=== PATIENT | female | born 1995 | race Caucasian/White ===

== ENCOUNTER 2021-06-10 06:23 | Emergency (ER) | payer OTHER, SELFPAY ==
[2021-06-10] VITALS (31 sets, daily range): BP systolic 82–121; BP diastolic 35–81; PULSE 58–83; RESP 10–20; TEMP 36.7; O2SAT 94–100
--- NOTE | ~2021-06-10 | XR_ITS ---
EXAMINATION: XR chest 2V DATE: 06/10/2021 07:42 INDICATION: Left chest pain. TECHNIQUE: Frontal and lateral views of the chest were obtained. COMPARISON: None. FINDINGS: The chest demonstrates clear lungs without pneumonia, pleural effusion, or pneumothorax. Th e heart size is normal. IMPRESSION: 1. No acute cardiopulmonary disease. Reviewed, dictated and finalized at location A. IBILITY CLERK
--- NOTE | ~2021-06-10 | CT_ITS ---
EXAMINATION: CTA chest PE protocol DATE: 06/10/2021 09:47 INDICATION: Midsternal chest pain. TECHNIQUE: Computed tomography angiography (CTA) of the chest was performed with 100 mL Omnipaque-350 intravenous contrast timed to evaluate the pulmonary arteries. Coronal maximum intensity projection 3D-reconstructions were created by the technologist. Automated exposure control and iterative reconst ruction technique were employed. The dose-length product was 741.02 mGy-cm. COMPARISON: None. FINDINGS: There is minimal atelectasis in the lower lobes. No pleural effusion. The heart size is nor mal. No pericardial effusion. There is no pulmonary embolus. There are changes of gastric sleeve proc edure. The bones are unremarkable. IMPRESSION: 1. No pulmonary embolus. Reviewed, dictated and finalized at location A. OMER EQUIPMENT ENGINEER IMPRESSION: 1. No pulmonary embolus.
--- NOTE | 2021-06-10 06:30 | ECG_ITS ---
Measurements Intervals [place] Rate: 65 P: 9 CA: 152 QRS: 17 QRSD: 90 T: 14 QT: 393 QTc: 411 Interpretive Statements SINUS RHYTHM NO PREVIOUS ECG AVAILABLE FOR COMPARISON Electronically Signed On 06-10-2021 12:24:55 MID LEVEL JAVA DEVELOPER by Jaxson Peralta M.D.
--- NOTE | 2021-06-10 07:10 | ED.CHESTPAIN ---
HPI - Chest Pain General Chief Complaint: Chest Pain Stated Complaint: Chest pain Time Seen by Provider: 06/10/21 07:02 Source: patient Mode of arrival: ambulatory Limitations: no limitations History of Present Illness HPI narrative: The patient is a 26-year-old female with a history of type 2 diabetes, gastric sleeve, presenting for evaluation of chest pain. Patient states that the chest pain occurred early this morning, described as a burning, sharp sensation in the middle of her chest. Patient states she is not sure if this awaken her from sleep or if her cat woke her up. She reports a burning type sensation in the middle of her chest. She denies any upper abdominal pain. No radiation to the back, shoulder, jaw, neck. No associated shortness of breath, palpitations, diaphoresis. No nausea or vomiting. Patient without history of this in the past. Denies fever or chills. Patient does not smoke. No recent surgery or immobility. No history of coagulopathy or blood clot. No recent car alarm air travel. No leg swelling or calf pain. She is on Depo-Provera shot for control. Patient denies history of coronary artery disease. Patient states since her gastric sleeve surgery all of her diabetes medications have been discontinued. Patient states that the pain is currently improved and very mild. She denies any right upper quadrant pain, epigastric pain or other abdominal pain. Denies flank pain. She does not smoke. Related Data Home Medications Medication Instructions Recorded Confirmed lamotrigine [Lamictal] 50 mg PO DAILY 06/10/21 06/10/21 trazodone 50 mg PO HS PRN 06/10/21 Allergies Allergy/AdvReac Type Severity Reaction Status Date / Time No Known Allergies Allergy Verified 06/10/21 06:30 Review of Systems Review of Systems: CONSTITUTIONAL: Denies fever, chills, or sweats. EYES: Denies visual changes, redness, or discharge. ENT: Denies rhinorrhea, congestion, sore throat, or otalgia. CARDIOVASCULAR: Reports chest pain without palpitations, denies lower extremity edema RESPIRATORY: Denies cough or dyspnea. GASTROINTESTINAL: Denies abdominal pain, nausea, vomiting, or diarrhea. GENITOURINARY: Denies dysuria or hematuria. SKIN: Denies rash or itching. MUSCULOSKELETAL: Denies back pain, joint pain, or myalgia. NEUROLOGIC: Denies headache, numbness, or weakness. REPLACED BY [facility] Social History Social History (Updated 06/10/21 @ 07:36 by Georgina Marvin MD) Smoking status: Never smoker Alcohol intake: never Substance use: never Gender identity (if verbalized by the patient): Female Exam Narrative: GENERAL: Awake, alert, conversant HEAD: Normocephalic, atraumatic. EYES: PERRLA and EOMI. ENT: Nares clear, no rhinorrhea or epistaxis. Mucous membranes moist. NECK: Supple. CHEST: No respiratory distress, breathing even and non labored, no reproducible chest wall pain, no crepitus HEART: Regular rate, sinus rhythm ABDOMEN:Non distended, non tender EXTREMITIES: Normal range of motion. No edema. No calf tenderness or erythema. SKIN: Warm, dry, no rash. NEURO:No focal deficits. Alert and oriented x3 Course Vital Signs Vital signs: Vital Signs Temperature 36.7 C 06/10/21 06:32 Pulse Rate 73 06/10/21 06:32 Respiratory Rate 18 06/10/21 06:32 Blood Pressure 121/81 06/10/21 06:32 Pulse Oximetry 98 06/10/21 06:32 Temperature 36.7 C 06/10/21 06:32 Pulse Rate 70 06/10/21 06:38 Respiratory Rate 18 06/10/21 06:32 Blood Pressure 121/81 06/10/21 06:32 Pulse Oximetry 98 06/10/21 06:32 MDM - Chest Pain MDM Narrative Medical decision making narrative: Patient's EKG and labs are without significant high risk changes. Cardiac risk factors reviewed. Patient is felt low risk for ACS and reasonable for further risk stratification testing as an outpatient. Pain was not sudden or maximal or onset without tearing or ripping quality. No other signs or symptoms to suggest aortic dissecti
[2021-06-10 08:12] LABS: Alanine Aminotransferase 29 U/L (4-35); Albumin Level 4.6 g/dL (3.5-5.1); Alkaline Phosphatase 87 U/L (38-126); Anion Gap 8 mmol/L (8-16); Aspartate Amino Transferase 26 U/L (14-36); Bilirubin,Total 0.5 mg/dL (0.2-1.3); Blood Urea Nitrogen 16 mg/dL (7-17); Calcium 9.3 mg/dL (8.4-10.2); Carbon Dioxide 27 mmol/L (22-30); Chloride 104 mmol/L (98-107); Estimated CRCL calculation 115 ml/min; Estimated Glomerular Filt Rate > 60; Glucose 104 mg/dL (65-110); Lipase 168 U/L (23-300); Potassium 3.8 mmol/L (3.4-5.0); Sodium 139 mmol/L (137-145)
[2021-06-10 08:14] LABS: Partial Thromboplastin Time 28.1 SECONDS (22.3-36.8)
[2021-06-10 08:17] LABS: D Dimer 0.83 ug/mL (<0.48)
[2021-06-10 08:18] LABS: Basophils Absolute Auto 0.1 K/mm3 (0.0-0.1); Basophils Percent Auto 0.6 % (0.2-1.2); Eosinophils Absolute Auto 0.1 K/mm3 (0-0.3); Eosinophils Percent Auto 1.1 % (0-4.4); Hematocrit 40.9 % (37.0-47.0); Hemoglobin 13.2 g/dL (12.0-15.0); Immature Granulocyte Absolute 0.03 K/mm3 (0.00-0.031); Immature Granulocyte Percent A 0.3 % (0-0.5); Lymphocytes Absolute Auto 3.06 K/mm3 (0.9-3.2); Lymphocytes Percent Auto 34.7 % (18.3-44.2); Mean Corpuscular HGB Conc 32.3 g/dl (32-36); Mean Corpuscular Hemoglobin 28.8 pg (26-34); Mean Corpuscular Volume 89.3 fl (80-100); Mean Platelet Volume 10.5 fl (7.4-10.4); Monocytes Absolute Auto 0.7 K/mm3 (0.1-0.6); Monocytes Percent Auto 7.6 % (2.6-8.5); Neutrophils Absolute Auto 4.9 K/mm3 (1.3-6.7); Neutrophils Percent Auto 55.7 % (45.5-73.1); Platelet Count Result 288 k/mm3 (150-375); Red Blood Count 4.58 M/mm3 (4.2-5.4); Red Cell Distribution Width 12.7 % (11.5-14.5); White Blood Count 8.8 K/mm3 (4.5-10.0)
[2021-06-10 08:24] LABS: Troponin I < 0.012 ng/mL (0.000-0.034)
[2021-06-10] MEDS: KETOROLAC 15 MG/ML VIAL (*BKC) IV PUSH (09:17)
[2021-06-10 10:14] LABS: Troponin I < 0.012 ng/mL (0.000-0.034)
== END 2021-06-10 10:52 | disposition home or self-care (01) ==
PROVIDERS: Emergency Provider Emergency Medicine; PCP Emergency Medicine
DX: R07.89 Other chest pain (principal); Z98.84 Bariatric surgery status; E11.9 Type 2 diabetes mellitus without complications
CPT/HCPCS: 36415; 71046; 71275; 80053; 81025; 83690; 84484; 85025; 85380; 85610; 85730; 93005; 96374; 99284; J1885; Q9967

== ENCOUNTER 2022-01-20 16:53 | Emergency (ER) | payer OTHER, SELFPAY ==
[2022-01-20] VITALS (9 sets, daily range): BP systolic 107–140; BP diastolic 59–89; PULSE 79–97; RESP 17–18; TEMP 36.2; O2SAT 98–100
--- NOTE | ~2022-01-20 | CT_ITS ---
EXAMINATION: CT abdomen pelvis w con DATE: 01/20/2022 21:20 INDICATION: epigastric pain TECHNIQUE: Computed tomography (CT) of the abdomen and pelvis was performed with 100 mL Omnipaque-350 intravenous contrast. Automated exposure control and iterative reconstruction technique were employe d. The dose-length product was 1363.85 mGy-cm. COMPARISON: None. FINDINGS: Lower thorax: Unremarkable Liver: Normal. Biliary/Gallbladder: Gallbladder is normal. No bile duct dilation. Pancreas: No mass or duct dilation. Spleen: Normal. Adrenals:No mass. Kidneys: No mass, stone, or hydronephrosis. GI tract: Prior gastric surgery. No small or large bowel dilation. Normal appendix. Mesentery/Peritoneum: No ascites, mass, or free air. Retroperitoneum: No mass. Pelvis: Pelvic organs are within normal limits. Soft Tissues: Soft tissues and body wall unremarkable. Bones: No acute osseous finding. IMPRESSION: No acute abdominopelvic process detected. Reviewed, dictated and finalized at location K.
[2022-01-20 17:13] LABS: Basophils Percent Auto 0.3 % (0.2-1.2); Eosinophils Percent Auto 0.4 % (0-4.4); Hematocrit 38.3 % (37.0-47.0); Hemoglobin 12.3 g/dL (12.0-15.0); Immature Granulocyte Absolute 0.02 K/mm3 (0.00-0.031); Immature Granulocyte Percent A 0.2 % (0-0.5); Lymphocytes Absolute Auto 1.12 K/mm3 (0.9-3.2); Lymphocytes Percent Auto 11.9 % (18.3-44.2); Mean Corpuscular HGB Conc 32.1 g/dl (32-36); Mean Corpuscular Hemoglobin 29.3 pg (26-34); Mean Corpuscular Volume 91.2 fl (80-100); Monocytes Absolute Auto 0.6 K/mm3 (0.1-0.6); Monocytes Percent Auto 5.9 % (2.6-8.5); Neutrophils Absolute Auto 7.7 K/mm3 (1.3-6.7); Neutrophils Percent Auto 81.3 % (45.5-73.1); Platelet Count Result 219 k/mm3 (150-375); Red Cell Distribution Width 12.6 % (11.5-14.5); White Blood Count 9.4 K/mm3 (4.5-10.0)
[2022-01-20 17:25] LABS: Alanine Aminotransferase 22 U/L (6-35); Albumin Level 4.2 g/dL (3.5-5.1); Alkaline Phosphatase 74 U/L (38-126); Anion Gap 8 mmol/L (8-16); Aspartate Amino Transferase 24 U/L (14-36); Bilirubin,Total 0.3 mg/dL (0.2-1.3); Blood Urea Nitrogen 13 mg/dL (7-17); Calcium 8.8 mg/dL (8.4-10.2); Carbon Dioxide 23 mmol/L (22-30); Chloride 107 mmol/L (98-107); Estimated CRCL calculation 108 ml/min; Estimated Glomerular Filt Rate > 60; Glucose 126 mg/dL (65-110); Lipase 122 U/L (23-300); Potassium 3.5 mmol/L (3.4-5.0); Sodium 138 mmol/L (137-145)
[2022-01-20 18:50] LABS: Add Urine Microscopic? YES; Appearance Urine Cloudy (Clear); Bacteria Urine Trace /hpf; Bilirubin Urine Negative (Negative); Blood Urine Negative (Negative); Color Urine Yellow (Yellow); Glucose Urine UA Negative (Negative); Ketones Urine Trace mg/dL (Negative); Leukocyte Esterase Ur Negative LEU/UL (Negative); Mucus Urine Moderate /lpf; Nitrate Urine Negative (Negative); Protein Urine 1+ mg/dL (Negative); Squamous Epithelial Cell Urine Many /hpf (Few)
[2022-01-20 18:55] LABS: Specific Grav Ur 1.031 (1.001-1.035)
--- NOTE | 2022-01-20 20:02 | ED.ABDPAIN ---
HPI - Abdominal Pain General Chief Complaint: Abdominal Pain Stated Complaint: abd pain Time Seen by Provider: 01/20/22 19:09 History of Present Illness HPI narrative: Patient is a 26-year-old female who presents ER with epigastric abdominal pain. Ongoing over the last 2 days. Worse with movements and also with eating and drinking. No radiation. Associated with fever of 100.4 ?F. Fever treated with Tylenol minimally. No diarrhea/vomiting. No known sick contacts. Called urgent care but was told they did not treat abdominal discomfort so she came here. No history of gallstones. Related Data Home Medications Medication Instructions Recorded Confirmed lamotrigine 25 mg tablet (Lamictal) 50 mg PO DAILY 06/10/21 06/10/21 trazodone 50 mg tablet 50 mg PO HS PRN Insomnia 06/10/21 Allergies Allergy/AdvReac Type Severity Reaction Status Date / Time No Known Allergies Allergy Verified 01/20/22 16:53 Review of Systems Review of Systems: All systems reviewed & are unremarkable except as noted in HPI and below Constitutional: Constitutional: Denies chills and Denies fever(s) Cardiovascular: Cardiovascular: Denies chest pain, Denies radiating jaw, neck or arm pain and Denies slow heart rate Respiratory: Respiratory: Denies cough and Denies dyspnea Gastrointestinal: Gastrointestinal: Reports abdominal pain, Denies diarrhea, Reports nausea and Denies vomiting Genitourinary: Genitourinary: Denies nocturia, Denies dysuria and Denies flank pain [facility] Social History Social History (Updated 06/10/21 @ 07:36 by Georgina Marvin MD) Smoking status: Never smoker Alcohol intake: never Substance use: never Gender identity (if verbalized by the patient): Female Exam Narrative: GENERAL: Well-appearing, well-nourished, and in no acute distress. HEAD: Normocephalic, atraumatic. ENT: Mucous membranes moist. CHEST: Clear to auscultation. No respiratory distress. HEART: Regular rate and rhythm. Normal peripheral pulses. ABDOMEN: Soft, mild epigastric and left upper quadrant discomfort without guarding, nondistended, normal active bowel sounds. EXTREMITIES: Normal range of motion. No edema. SKIN: Warm, dry, no rash. NEURO: Alert and oriented x3. PSYCH: Normal mood and affect. Course Course Emergency Course: Resting comfortably. Informed of results. Discharge home. Vital Signs Vital signs: Vital Signs Temperature 97.2 F L 01/20/22 16:58 Pulse Rate 97 01/20/22 16:58 Respiratory Rate 17 01/20/22 16:58 Blood Pressure 130/83 01/20/22 16:58 Pulse Oximetry 99 01/20/22 16:58 Temperature 97.2 F L 01/20/22 16:58 Pulse Rate 97 01/20/22 16:58 Respiratory Rate 17 01/20/22 16:58 Blood Pressure 129/89 01/20/22 19:16 Pulse Oximetry 100 01/20/22 19:16 MDM - Abdominal Pain Lab Data Result diagrams: 01/20/22 17:06 01/20/22 17:06 Labs: Lab Results 01/20/22 01/20/22 01/20/22 Range/Units 17:06 17:06 18:31 WBC 9.4 (4.5-10.0) K/mm3 RBC 4.20 (4.2-5.4) M/mm3 Hgb 12.3 (12.0-15.0) g/dL Hct 38.3 (37.0-47.0) % MCV 91.2 (80-100) fl MCH 29.3 (26-34) pg MCHC 32.1 (32-36) g/dl RDW 12.6 (11.5-14.5) % Plt Count 219 (150-375) k/mm3 MPV 10.0 (7.4-10.4) fl Immature Gran % (Auto) 0.2 (0-0.5) % Neut % (Auto) 81.3 H (45.5-73.1) % Lymph % (Auto) 11.9 L (18.3-44.2) % [place] % (Auto) 5.9 (2.6-8.5) % Eos % (Auto) 0.4 (0-4.4) % Baso % (Auto) 0.3 (0.2-1.2) % Lymph # (Auto) 1.12 (0.9-3.2) K/mm3 [place] # (Auto) 0.6 (0.1-0.6) K/mm3 Eos # (Auto) 0.0 (0-0.3) K/mm3 Baso # (Auto) 0.0 (0.0-0.1) K/mm3 Abs Immat Gran (auto) 0.02 (0.00-0.031) K/mm3 Absolute Neuts (auto) 7.7 H (1.3-6.7) K/mm3 Absolute Nucleated RBC 0.0 (0.0-0.012) K/mm3 Nucleated RBC % 0.0 (0.0-0.2) % Sodium 138 (137-145) mmol/L Potassium 3.5 (3.4-5.0) mmol/L Chloride 107 (98-107) mm
== END 2022-01-20 22:40 | disposition home or self-care (01) ==
PROVIDERS: Emergency Medicine; Emergency Provider Emergency Medicine; PCP Family Medicine Sports Medicine
DX: R10.13 Epigastric pain (principal)
CPT/HCPCS: 36415; 74177; 80053; 81001; 81025; 83690; 85025; 99284; Q9967

== ENCOUNTER 2022-05-06 17:30 | Emergency (ER) | payer OTHER, SELFPAY ==
--- NOTE | ~2022-05-06 | CT_ITS ---
EXAMINATION: CT brain wo con DATE: 05/06/2022 18:04 INDICATION: head trauma x 2, severe LANDA/dizziness . TECHNIQUE: Computed tomography (CT) of the head was performed without intravenous contrast. The mA wa s adjusted according to patient size. Iterative reconstruction technique was employed. The dose-lengt h product was 605.33 mGy-cm. COMPARISON: None. FINDINGS: No acute intracranial hemorrhage or extra-axial fluid collection. No hydrocephalus, mass, or herniation. No acute ischemic infarct. Unremarkable dural venous sinus attenuation. No acute osseous abnormality. Minimal mucosal thickening in the right sphenoid sinus, the remaining aerated spaces are clear. IMPRESSION: No acute intracranial process. Reviewed, dictated and finalized at location K. KAY MACHINE OPERATOR
[2022-05-06 17:31] VITALS: BP 127/62; PULSE 76; RESP 19; TEMP 36.6; O2SAT 100
--- NOTE | 2022-05-06 17:50 | ED.HEATRA ---
HPI - Head Injury General Chief complaint: Head Injury Stated complaint: head injury Time Seen by Provider: 05/06/22 17:37 History of Present Illness HPI Narrative: 27-year-old female here for evaluation of head injury x2 over the past week. Patient states the first time she was ambulating in her usual state of health when she turned her head and smacked into the door frame. She denies loss of consciousness. States that she was having residual headaches, dizziness, nausea and vomiting. She was seen by her primary doctor and was diagnosed with a concussion. Patient unfortunately had another episode yesterday where she slipped on something on the floor, fell and hit her head. She again denies loss of consciousness. She contacted her primary care doctor who recommended ED eval for head imaging. Patient reports severe headache, nausea, dizziness and fatigue. Has attempted Tylenol without significant relief. Cannot take NSAIDs due to history of gastric sleeve. Related Data Home Medications Medication Instructions Recorded Confirmed lamotrigine 25 mg tablet (Lamictal) 50 mg PO DAILY 06/10/21 06/10/21 trazodone 50 mg tablet 50 mg PO HS PRN Insomnia 06/10/21 Allergies Allergy/AdvReac Type Severity Reaction Status Date / Time No Known Allergies Allergy Verified 01/20/22 16:53 Review of Systems Review of Systems: Gen.: Denies fevers or chills Eyes: Denies eye pain or visual change ENT: Denies congestion Respiratory: Denies shortness of breath or cough CV: Denies chest pain or palpitations GI: Denies abdominal pain nausea, emesis or diarrhea denies burning, urgency, frequency or hematuria Musculoskeletal: Denies back pain or muscle pain Neuro: Reports headache. Denies numbness, tingling, weakness or focal weakness Skin: Denies rash Except as documented, all other systems reviewed and negative [facility] Social History Social History (Updated 06/10/21 @ 07:36 by Georgina Marvin MD) Smoking status: Never smoker Alcohol intake: never Substance use: never Gender identity (if verbalized by the patient): Female Exam Narrative: APPEARANCE: Well appearing, no pain in distress, well-nourished. Head: Normocephalic and atraumatic. EYES: PERRLA/EOMI, conjunctivae clear NOSE: No nasal drainage EARS: External ear normal in appearance THROAT: Oropharynx is clear. Mucous membranes are moist. NECK: Supple. No adenopathy, no masses. RESPIRATORY: Airway patent, respirations nonlabored. Clear to auscultation bilaterally, no rales, rhonchi, wheezing. CARDIOVASCULAR: Regular rate and rhythm without murmurs, rubs, or gallops. ABDOMINAL: Normoactive bowel sounds. Soft, nontender, nondistended. No rebound tenderness or guarding. MUSCULOSKELETAL: Extremities are warm and well-perfused. Moves all extremities well. No edema. NEURO: Cranial nerves II through XII intact. [id number] normal. Normal speech. No focal neurologic deficits. SKIN: Skin is warm and dry. No rashes. PSYCHIATRIC: Normal affect/mood. Course Vital Signs Vital signs: Vital Signs Temperature 97.8 F 05/06/22 17:31 Pulse Rate 76 05/06/22 17:31 Respiratory Rate 19 05/06/22 17:31 Blood Pressure 127/62 05/06/22 17:31 Pulse Oximetry 100 05/06/22 17:31 Oxygen Delivery Room Air 05/06/22 17:31 Temperature 97.8 F 05/06/22 17:31 Pulse Rate 61 05/06/22 19:16 Respiratory Rate 16 05/06/22 19:16 Blood Pressure 113/73 05/06/22 19:16 Pulse Oximetry 98 05/06/22 19:16 Oxygen Delivery Room Air 05/06/22 17:31 MDM - Head Injury MDM Narrative Medical decision making narrative: 27-year-old female here for evaluation of head trauma x2 over the past week, referred to the ED for head imaging by her primary care doctor given recurrence of trauma. Patient is nontoxic-appearing and has normal vital signs. Her neurologic exam is reassuring. Head imaging shows no acute process. Declines pain meds here. Patient was reassured, edu
[2022-05-06 19:16] VITALS: BP 113/73; PULSE 61; RESP 16; O2SAT 98
== END 2022-05-06 19:15 | disposition home or self-care (01) ==
PROVIDERS: Emergency Provider Physician Assistant; PCP Family Medicine Sports Medicine
DX: S06.0X0A Concussion without loss of consciousness, initial encounter (principal); W22.01XA Walked into wall, initial encounter
CPT/HCPCS: 70450; 99284

== ENCOUNTER 2022-09-06 13:19 | Emergency (ER) | payer OTHER, SELFPAY ==
[2022-09-06] VITALS (8 sets, daily range): BP systolic 118; BP diastolic 75; PULSE 80–88; RESP 14–23; TEMP 36.2; O2SAT 98–100
--- NOTE | ~2022-09-06 | XR_ITS ---
EXAMINATION: XR chest 2V DATE: 09/06/2022 14:53 INDICATION: Worsening fatigue and 3 days of dizziness and headaches TECHNIQUE: PA and lateral views of the chest were obtained. COMPARISON: Chest radiograph and CT dated 06/10/2021 FINDINGS: The lungs remain clear with no focal airspace opacities, pulmonary edema, pleural effusion or pneumot horax. The cardiomediastinal silhouette is normal. Visualized bones and soft tissues are unremarkable . IMPRESSION: 1. No acute cardiopulmonary disease. Reviewed, dictated and finalized at location A.
--- NOTE | ~2022-09-06 | CT_ITS ---
EXAMINATION: CT brain wo con DATE: 09/06/2022 16:35 INDICATION: Headache and dizziness TECHNIQUE: Computed tomography (CT) of the head was performed without intravenous contrast. Sagittal and coronal reconstructions were performed. The mA was adjusted according to patient size. Iterative reconstruction technique was employed. The dose-length product was 605.33 mGy-cm. COMPARISON: head CT dated 05/06/2022 FINDINGS: No acute intracranial hemorrhage, acute infarction or abnormal extra axial fluid collection. Ventricl es are normal and symmetric. No mass/mass effect. The orbits, paranasal sinuses and mastoid air cells are normal. IMPRESSION: 1. Normal head CT. Reviewed, dictated and finalized at location A. IMPRESSION: 1. Normal head CT.
--- NOTE | 2022-09-06 13:27 | ECG_ITS ---
Measurements Intervals [place] Rate: 73 P: -19 NM: 131 QRS: -16 QRSD: 85 T: -11 QT: 362 QTc: 401 Interpretive Statements SINUS OR ECTOPIC ATRIAL RHYTHM CANNOT RULE OUT SEPTAL INFARCT, AGE INDETERMINATE BORDERLINE T WAVE ABNORMALITY- ANT/INF LEADS BASELINE ARTIFACT- I, III, AVL ABNORMAL ECG COMPARED TO ECG 06/10/2021 06:33:41 NO SIGNIFICANT CHANGES Electronically Signed On 09-07-2022 7:49:42 CDT by Boom Trimble D.O.
[2022-09-06 14:11] LABS: Basophils Percent Auto 0.5 % (0.2-1.2); Eosinophils Absolute Auto 0.1 K/mm3 (0-0.3); Eosinophils Percent Auto 1.1 % (0-4.4); Hematocrit 36.5 % (37.0-47.0); Hemoglobin 11.7 g/dL (12.0-15.0); Immature Granulocyte Absolute 0.01 K/mm3 (0.00-0.031); Immature Granulocyte Percent A 0.2 % (0-0.5); Lymphocytes Absolute Auto 2.16 K/mm3 (0.9-3.2); Lymphocytes Percent Auto 32.6 % (18.3-44.2); Mean Corpuscular HGB Conc 32.1 g/dl (32-36); Mean Corpuscular Hemoglobin 28.9 pg (26-34); Mean Corpuscular Volume 90.1 fl (80-100); Mean Platelet Volume 10.1 fl (7.4-10.4); Monocytes Absolute Auto 0.5 K/mm3 (0.1-0.6); Monocytes Percent Auto 7.7 % (2.6-8.5); Neutrophils Absolute Auto 3.8 K/mm3 (1.3-6.7); Neutrophils Percent Auto 57.9 % (45.5-73.1); Platelet Count Result 267 k/mm3 (150-375); Red Blood Count 4.05 M/mm3 (4.2-5.4); Red Cell Distribution Width 11.9 % (11.5-14.5); White Blood Count 6.6 K/mm3 (4.5-10.0)
[2022-09-06 14:43] LABS: Alanine Aminotransferase 37 U/L (6-35); Albumin Level 4.1 g/dL (3.5-5.1); Alkaline Phosphatase 58 U/L (38-126); Anion Gap 8 mmol/L (8-16); Aspartate Amino Transferase 37 U/L (14-36); Bilirubin,Total 0.4 mg/dL (0.2-1.3); Blood Urea Nitrogen 17 mg/dL (7-17); Calcium 8.8 mg/dL (8.4-10.2); Carbon Dioxide 23 mmol/L (22-30); Chloride 105 mmol/L (98-107); Creatine Kinase 115 U/L (30-135); Estimated CRCL calculation 143 ml/min; Estimated Glomerular Filt Rate > 60; Glucose 106 mg/dL (65-110); Sodium 136 mmol/L (137-145)
[2022-09-06] MEDS: MECLIZINE HCL 25 MG TABLET PO (14:43)
[2022-09-06 15:16] LABS: Appearance Urine Clear (Clear); Bacteria Urine Rare /hpf; Bilirubin Urine Negative (Negative); Blood Urine 3+ (Negative); Color Urine Yellow (Yellow); Glucose Urine UA Negative (Negative); Ketones Urine Negative (Negative); Leukocyte Esterase Ur Negative LEU/UL (Negative); Nitrate Urine Negative (Negative); Non Pathogenic Casts 0-2; Protein Urine Negative (Negative); RBC Urine 51-100 /hpf (0-2); Specific Grav Ur 1.013 (1.001-1.035); Squamous Epithelial Cell Urine Few /hpf (Few); Urobilinogen Urine 0.2 mg/dL (<2.0); WBC Urine 0-5 /hpf; pH Urine 6.5 (5.0-9.0)
[2022-09-06] MEDS: SODIUM CHLORIDE 0.9% IV 1,000 ML 999 ML IV CONT (15:20)
[2022-09-06 15:31] LABS: Amphetamine Screen Urine Negative (Negative); Barbiturate Screen Urine Negative (Negative); Benzodiazepines Screen Urine Negative (Negative); Cannabinoid Screen Urine Negative (Negative); Cocaine Screen Urine Negative (Negative); Methadone Screen Urine Negative (Negative); Opiate Screen Urine Negative (Negative); Phencyclidine Screen Urine Negative (Negative)
[2022-09-06 15:33] LABS: Add Urine Microscopic? YES
[2022-09-06 15:43] LABS: SARS-CoV-2 RNA PCR Negative (Negative)
--- NOTE | 2022-09-06 16:06 | ED.DIZZY ---
HPI - Dizziness General Chief Complaint: Dizziness Stated Complaint: fatigue, dizzy, pain in arm, mild confusion, weak Time Seen by Provider: 09/06/22 14:04 Source: patient and RN notes reviewed Mode of arrival: ambulatory Limitations: no limitations History of Present Illness HPI Narrative: This is a 27 year old female who presents for evaluation of fatigue, dizziness. Patient reports being extremely fatigue for at least 2 weeks. She states she just wants to sleep. She reports her fatigue is getting worse. She also reports dizziness that is intermittent and she occasionally feels unsteady walking. She had room spinning today. She also reports intermittent frontal headache for 1 week. She denies URI symptom. She denies chest pain, cough, fever, chills, nausea or vomiting. She has appointment with PCP in September. She denies any medication changes in past 2 weeks. She also report right arm pain that is not present now. Related Data Home Medications Medication Instructions Recorded Confirmed lamotrigine 25 mg tablet (Lamictal) 50 mg PO DAILY 06/10/21 06/10/21 trazodone 50 mg tablet 50 mg PO HS PRN Insomnia 06/10/21 Allergies Allergy/AdvReac Type Severity Reaction Status Date / Time No Known Allergies Allergy Verified 01/20/22 16:53 Review of Systems Review of Systems: All systems reviewed & are unremarkable except as noted in HPI and below Constitutional: Constitutional: Reports fatigue and Denies weakness ENT: Reports vertigo and Reports dizziness Cardiovascular: Cardiovascular: Denies syncope, Denies rapid heart rate, Denies irregular heart rhythm, Denies leg edema and Denies dyspnea Respiratory: Respiratory: Denies chest congestion, Denies hemoptysis, Denies excessive phlegm production and Denies dyspnea Gastrointestinal: Gastrointestinal: Denies abdominal pain, Denies hematochezia, Denies diarrhea and Denies vomiting Genitourinary: Genitourinary: Denies hematuria and Denies dysuria Musculoskeletal: Musculoskeletal: Denies joint swelling, Denies loss of height and Denies muscle weakness Neurologic: Denies syncope, Reports headache(s), Denies focal weakness and Denies weakness PMFSH Past Medical History Medical History (Updated 09/06/22 @ 20:05 by Jaja Morrissey MD) Type 2 diabetes mellitus Surgical History Surgical History (Updated 09/06/22 @ 20:05 by Jaja Morrissey MD) H/O gastric sleeve Social History Social History (Updated 06/10/21 @ 07:36 by Georgina Marvin MD) Smoking status: Never smoker Alcohol intake: never Substance use: never Gender identity (if verbalized by the patient): Female Exam Const: General: no acute distress and alert Nutritional Appearance: well nourished and obese Orientation/consciousness: patient oriented x3 HENMT: Head: normal to inspection Ears: TM's normal bilaterally Face/Nose/Sinus: Normal external nose present Face and sinus: normal facial exam Mouth: Yes Normal oral and palatal mucosa present, Yes lip normal and Yes moist mucous membranes Eyes: Conjunctivae: conjunctivae normal Pupils: Equal, round and reactive pupils present EOM: EOMs intact bilaterally Neck: Neck: normal visual inspection Chest: Chest palpation & inspection: normal inspection of the chest Resp: Effort & Inspection: normal respiratory effort Auscultation: clear to auscultation bilaterally Cardio: Rate: regular rate Rhythm: regular rhythm Heart sounds: no murmurs GI: Auscultation: normal bowel sounds Back/Spine/Pelvis: Back: no CVA tenderness Skin: General skin exam: normal color Rashes: no rashes Wounds: no wounds Neuro: General: patient oriented x3, moves all extremities, no meningeal signs, no focal motor deficits and CN's II-XI intact bilaterally Cranial nerves: Yes Nystagmus not present Speech: normal speech Gait exam (Neuro): Normal gait present Extrem: General: normal to inspection Psych: Mental Status: mental status grossly normal Affect
== END 2022-09-06 17:00 | disposition home or self-care (01) ==
PROVIDERS: Emergency Provider General Practice; PCP Family Medicine Sports Medicine
DX: R53.83 Other fatigue (principal); R42 Dizziness and giddiness; Z20.822 Contact with and (suspected) exposure to COVID-19; E11.9 Type 2 diabetes mellitus without complications; Z98.84 Bariatric surgery status; R94.31 Abnormal electrocardiogram [ECG] [EKG]
CPT/HCPCS: 36415; 70450; 71046; 80053; 80307; 81001; 81025; 82550; 83735; 85025; 87635; 93005; 96360; 96361; 99284; A9270; J7030

== ENCOUNTER 2024-05-26 15:33 | Emergency (ER) | payer MEDICAID, SELFPAY ==
--- OUTSIDE RECORDS SUMMARY | 2024-05-26 15:35 | XMS_ITS | Clinical Summary ---
Author Organization [facility] Address [address] [place] [id number] Care Team Providers Care Tearoom Host/Hostess Name Role Phone Kwaku Benitez MD Primary Care Provider [phone] Medications diclofenac EC 50 MG tablet 06/07/2018 Active lamoTRIgine 200 MG tablet 06/20/2018 Active trazodone 50 MG tablet 06/08/2018 Active Active Problems No known active problems Social History Tobacco Use Types Packs/Day Years Used Date Smoking Tobacco: Never Smokeless Tobacco: Never Comments No Sex and Gender Information Value Date Recorded Sex Assigned at Not on file Legal Sex Female 4:31 PM CDT Gender Identity Not on file Sexual Orientation Not on file Last Filed Vital Signs Vital Sign Reading Time Taken Comments Blood Pressure 126/80 06/30/2018 5:17 PM CDT Pulse 93 06/30/2018 5:17 PM CDT Temperature 37.2 C (99 F) 06/30/2018 5:17 PM CDT Respiratory Rate 19 06/30/2018 5:17 PM CDT Oxygen Saturation 99% 06/30/2018 5:17 PM CDT Inhaled Oxygen Concentration - - Weight 135.2 kg (298 lb) 06/30/2018 5:17 PM CDT Height 157.5 cm (5' 2 ) 06/30/2018 5:17 PM CDT Body Mass Index 54.5 06/30/2018 5:17 PM CDT Plan of Treatment Health Maintenance Due Date Last Done Comments Cervical Cancer Screening Pa p Smear (Age 21 to 29) Every 3 Years 1996 Cervical Cancer Screening 1996 Annual Physical 02/12/1999 Hepatitis C 02/12/2014 DTaP, Tdap and Td Vaccines ( 1 - Tdap) 02/12/2015 Hepatitis B Vaccines (1 of 3 - 19+ 3-dose series) 02/12/2015 COVID-19 Vaccine (2023-2 5 season) 2023 Influenza Adult (#1) 2024 HPV Vaccines Aged Out No longer eligi ble based on patient's age to complete this topic Meningococcal B Vaccine Aged Out No l onger eligible based on patient's age to complete this topic Meningococcal Vaccine Aged Out No che bry eligible based on patient's age to complete this topic Pneumococcal Vaccine: Pediat rics (0 to 5 Years) and At-Risk Patients (6 to 64 Years) Aged Out No longer eligible b ased on patient's age to complete this topic RSV Immunizations Under 20 Months Aged Out No longer eligible based on patient's age to complete this topic Insurance Care Teams Tearoom Host/Hostess Relationship Specialty Start Date End Date Kwaku Benitez MD [address] [place] [id number] PCP - General FAMILY PRACTICE 06/30/18
--- OUTSIDE RECORDS SUMMARY | 2024-05-26 15:35 | XMS_ITS | Referral Summary ---
Author Organization [facility] [address] Address [address] [place] [address] Care Team Providers Care Director Packaging Name Role Phone Ai Weaver NP Primary Care Provider [phone] Thao Dillon MD Unavailable Encounters Date Type Department Care Team Description 05/23/20[address] [facility] [address] [place] [address] Thao Dillon MD Glycemic control - CGM review 05/23/2024 8:15 AM MOBILE THERAPIST Office Visit [facility] Ophthalmology [address] [place] [phone] Lai Chu, OD Pre-existing type 2 diabetes mellitus during in second trimester (Primary Dx); Anomalous optic nerve (HCC); Supervision of high-risk , second trimester 05/19/2024 Telephone [facility] Ophthalmology [address] [place] [phone] Lai Chu, CRISTIANO 05/19/2024 11:20 AM MOBILE THERAPIST Office Visit [facility] Maternal- Medicine [facility] [address] [facility] Medical Office Building [address] [place] [phone] Bipolar affective disorder, current episode hypomanic (CMS/HCC) (HCC) (Primary Dx); Bipolar affective disorder & anxiety during ; Obesity affecting in second trimester, unspecified obesity type; History of gastric sleeve; Pre-existing type 2 diabetes mellitus during in second trimester; Supervision of high-risk , second trimester 05/19/2024 10:45 AM MOBILE THERAPIST - 05/19/2024 11:59 PM MOBILE THERAPIST Hospital Encounter [facility] Women's [facility] [address] [facility] [address] [place] [address] Pre-existing type 2 diabetes mellitus during in second trimester; Supervision of high-risk , second trimester; History of gastric sleeve; Obesity affecting in second trimester, unspecified obesity type Discharge Disposition: Discharge to home or self care 05/16/2024 2:00 PM MOBILE THERAPIST Office Visit [facility] Pediatric Cardiology [facility] 2nd Floor [address] [place] [address] Diabetes mellitus affecting in second trimester (Primary Dx) 05/16/2024 2:00 PM MOBILE THERAPIST - 05/16/2024 11:59 PM MOBILE THERAPIST Hospital Encounter [facility] Pediatric Cardiology [facility] 2nd Floor [address] [place] [address] Supervision of high-risk , second trimester; Pre-existing type 2 diabetes mellitus during in second trimester Discharge Disposition: Discharge to home or self care 05/10/2024 2:30 PM MOBILE THERAPIST Office Visit [facility] Psychiatry [address] [facility] 2nd Floor [address] [place] [address] Karena Caicedo MD PhD Moderate episode of recurrent major depressive disorder (HCC) (Primary Dx); Anxiety; Type 2 diabetes mellitus without complication, unspecified whether skilled nursing insulin use (HCC) 05/08/2024 Documentation [facility] Maternal- Medicine [address] [facility] Outpatient Health 7th Floor [address] [place] [phone] Lilil Ribeiro RN dexcom data review 05/05/2024 11:00 AM MOBILE THERAPIST Office Visit [facility] Maternal- Medicine [facility] [address] [facility] Medical Office [address] [place] [id number] Bipolar affective disorder & anxiety during (Primary Dx); Obesity affecting in second trimester, unspecified obesity type; History of gastric sleeve; Pre-existing type 2 diabetes mellitus during in second trimester; Supervision of high-risk , second trimester 04/30/[address] [address] Karena Barrow, RN Incoming Call (Patient called regarding symptoms of cold virus. Tested yesterday at [facility] outpatient in [place] and had a neg. RVP. Reiterated medications that may be used in for URI. Instructed to come in for worsening symptoms like SOB,CP. Encouraged hydration, rest, OTC medications for symptom relief. Verbalized understanding. ) 04/28/2024 7:18 PM MOBILE THERAPIST - 04/28/2024 11:59 PM MOBILE THERAPIST Hospital Encounter [address] [address] Acute cough Discharge Disposition: Discharge to home or self care 04/28/2024 7:00 PM MOBILE THERAPIST Office Visit [facility] Medical [facility] at [address] [address] Noemí Lopez PA Acute cough (Primary Dx) 04/26/2024 Telephone [facility] Department of Psychiatry [address] [facility] [address] [place] [address] Mahi Garcia LPC [facility] Screening 04/25/2024 1:30 PM MOBILE THERAPIST Office Visit [facility] Medical [facility] Primary Care at [address] [address] Ai Weaver NP Annual physical exam (Primary Dx); Pre-existing type 2 diabetes mellitus during in second trimester 04/20/2024 Telephone [facility] Pediatric Cardiology [facility] 2nd Floor [address] [place] [address] Shilpa Baig CMA Scheduling Appointments 04/19/2024 2:05 PM MOBILE THERAPIST Lab [facility] Outpatient Lab [address] [place] [address] Pre-existing type 2 diabetes mellitus during in second trimester; Supervision of high-risk , second trimester; History of gastric sleeve; Obesity affecting in second trimester, unspecified obesity type 04/19/2024 Orders Only [facility] Maternal- Medicine [facility] [address] [facility] [place] [address] [place] [phone] Whit Gibson 04/19/2024 1:00 PM MOBILE THERAPIST Office Visit [facility] Maternal- Medicine [facility] [address] [facility] [place] Office [address] [place] [phone] Pre-existing type 2 diabetes mellitus during in second trimester (Primary Dx); Supervision of high-risk , second trimester; History of gastric sleeve; Obesity affecting in second trimester, unspecified obesity type; Urinary tract infection in ; Maternal varicella, non-immune; Bipolar affective disorder & anxiety during 04/19/2024 12:23 PM MOBILE THERAPIST - 04/19/2024 11:59 PM MOBILE THERAPIST Hospital Encounter [facility] [address] [facility] [address], [place] [address] Supervision of high-risk , second trimester; Pre-existing type 2 diabetes mellitus during in second trimester; History of gastric sleeve; Other obesity affecting in second trimester Discharge Disposition: Discharge to home or self care 04/14/2024 8:00 AM MOBILE THERAPIST Clinical Support [facility] Outpatient Nutrition Counseling [address] [facility] [address] [place] [address] Pre-existing type 2 diabetes mellitus during in second trimester [O24.112] (Primary Dx) 04/03/2024 11:17 AM MOBILE THERAPIST - 04/03/2024 11:59 PM MOBILE THERAPIST Hospital Encounter [facility] [address] [place] [address] Supervision of high-risk , second trimester; Pre-existing type 2 diabetes mellitus during in second trimester; Urinary tract infection in Discharge Disposition: Discharge to home or self care 04/03/2024 11:29 AM MOBILE THERAPIST - 04/03/2024 11:59 PM MOBILE THERAPIST Hospital Encounter [facility] Cardiac Testing [address] [facility] [address] [place] [phone] Supervision of high-risk , second trimester; Pre-existing type 2 diabetes mellitus during in second trimester; History of gastric sleeve; Other obesity affecting in second trimester Discharge Disposition: Discharge to home or self care 04/03/2024 10:15 AM MOBILE THERAPIST Office Visit [facility] Maternal- Medicine [facility] [address] [facility] Medical Office [address] [place] [address] Supervision of high-risk , second trimester (Primary Dx); Pre-existing type 2 diabetes mellitus during in second trimester; History of gastric sleeve; Other obesity affecting in second trimester; Maternal varicella, non-immune; Bipolar affective disorder & anxiety during ; Urinary tract infection in 04/03/2024 8:45 AM MOBILE THERAPIST - 04/03/2024 11:59 PM MOBILE THERAPIST Hospital Encounter [facility] [address] [facility] [address] [place] [address] Type 2 diabetes mellitus without complication, without long-term current use of insulin (CMS/HCC) ([facility]); Bariatric surgery status complicating , second trimester; Supervision of high-risk , second trimester Discharge Disposition: Discharge to home or self care 03/21/[address] [address] Zenaida Cronin RN Incoming Call 03/17/2024 10:00 AM MOBILE THERAPIST Clinical Support [facility] Outpatient Nutrition Counseling [address] [facility] [address] [place] [address] Type 2 diabetes mellitus without complication, without long-term current use of insulin (CMS/HCC) ([facility]); Bariatric surgery status complicating , second trimester; Supervision of high-risk , second trimester 03/13/2024 Telephone [facility] Maternal- Medicine [facility] [address] [facility] Medical Office [address] [place] [address] Whit Gibson [facility] GLUCOSE LOGS 03/07/2024 Telephone [facility] [address] [place] [address] [place] [phone] Misti Osborn MD myriad [employer] carrier screening results 03/06/2024 8:45 AM MOBILE THERAPIST Office Visit [facility] Maternal- Medicine [facility] [address] [facility] Medical Office [address] [place] [phone] Supervision of high-risk , second trimester (Primary Dx); Type 2 diabetes mellitus without complication, without long-term current use of insulin (CMS/HCC) ([facility]); Bariatric surgery status complicating , second trimester; Generalized anxiety disorder; Anxiety during ; Pre-existing type 2 diabetes mellitus during in second trimester 03/06/2024 8:00 AM MOBILE THERAPIST - 03/06/2024 11:59 PM MOBILE THERAPIST Hospital Encounter [facility] Women's [facility] [address], [place] [id number] Supervision of high-risk , unspecified trimester Discharge Disposition: Discharge to home or self care 03/01/2024 Telephone [facility] [address] [address] Misti Osborn MD Test Results 03/01/2024 1:00 PM MOBILE THERAPIST Lab [address] Encounter for supervision of normal first in first trimester; Type 2 diabetes mellitus without complication, without long-term current use of insulin (CMS/HCC) ([facility]) 02/25/2024 Telephone [facility] Obstetrics and Gynecology [address] [place] [address] Carolyn Carreon Scheduling Appointments 02/24/2024 Telephone [facility] Obstetrics and Gynecology [address] [place] [address] Valeria Pennington from Last 3 Months Allergies Active Allergy Reactions Criticality Noted Date Comments Nsaids (Non-Steroidal Anti-Inflammatory Drug) Other (See comments) Low 07/21/2021 Gastric sleeve. Pt to avoid NSAIDS Medications calcium citrate-vitami n D3 200 mg-6.25 mcg (250 unit) tablet Take by mouth 2 (two) times a day Active folic acid/multivit- min/lutein (CENTRUM SILVER ORAL) Take 1 tablet by mouth daily Active lancets miscIndication s:Type 2 diabetes mellitus without complication, without long-term current use of insulin (CMS/HCC) (HCC) 1 each by other route daily 100 each 3 11/14/19 22 Active acetaminophen (TYLENOL) 325 mg tablet Take 2 tablets (650 mg total) by mouth every 6 (six) hours as needed for pain Active cyanocobalamin (Vitamin B-12) 1,000 mcg sublingual tablet Take 1 tablet (1,000 mcg total) by mouth daily Active omeprazole (PriLOSEC) 20 mg capsule Take 1 capsule (20 mg total) by mouth daily 12/03/19 23 Active PNV #[id number] acid-dha 35 mg iron-5 mg iron-1 mg capsule Take by mouth daily Active acetone, urine, test stripIndicatio ns:Encounter for supervision of normal first in first trimester,Type 2 diabetes mellitus without complication, without long-term current use of insulin (CMS/HCC) (HCC) USE TO DIP FIRST VOID OF THE DAY. DOCUMENT RESULTS 90 strip 1 02/22/20 24 Active blood glucose diagnostic stripIndicatio ns:Encounter for supervision of normal first in first trimester,Type 2 diabetes mellitus without complication, without long-term current use of insulin (CMS/HCC) (HCC) USE TO CHECK BLOOD SUGAR BEFORE BREAKFAST AND 1 HOUR AFTER EACH MEAL. DOCUMENT RESULTS 360 each 1 02/22/20 24 Active lancets miscIndication s:Encounter for supervision of normal first in first trimester,Type 2 diabetes mellitus without complication, without long-term current use of insulin (CMS/HCC) (HCC) USE TO CHECK BLOOD SUGAR DIRECTED BY YOUR PHYSICIAN 360 each 1 02/22/20 24 Active alcohol swabs pads, medicatedIndic ations:Encount er for supervision of normal first in first trimester,Type 2 diabetes mellitus without complication, without long-term current use of insulin (CMS/HCC) (HCC) USE TO CLEAN AREA OF SKIN PRIOR TO CHECKING BLOOD SUGAR. 360 each 02/22/20 24 Active cholecalcifero l (VITAMIN D-3) 2000 unit tablet Take 1 tablet (2,000 Units total) by mouth daily 30 tablet 11 03/01/20 24 Active aspirin 81 mg enteric coated tablet Take 1 tablet (81 mg total) by mouth daily 30 tablet 6 03/06/20 24 025 Active pyridoxine (VITAMIN B6) 25 mg tablet Take 1 tablet (25 mg total) by mouth 3 (three) times a day 90 tablet 2 03/06/20 24 Active blood-glucose meter,continuo us (Dexcom G7 Care Management Specialist) [facility] Use as directed. 1 each 03/06/20 24 Active blood-glucose sensor (Dexcom G7 Sensor) device Use as directed. Change sensor every 10 days. 3 each 6 03/06/20 24 Active glucagon (Baqsimi) 3 mg/actuation spray,non-aero candido Administer 1 spray into one nostril as needed (hypoglycemia ) for up to 2 doses 2 each 5 04/03/20 24 Active insulin glargine 100 unit/mL (3 mL) pen for injection Inject 40 units under skin at bedtime 45 mL 3 04/03/20 24 Active pen needle, diabetic 33 gauge x 5/32 needle 1 injection daily at bedtime 100 each 2 04/03/20 24 Active insulin lispro (HumaLOG, ADMELOG) 100 unit/mL pen for injection Inject 6 units under the skin every day before breakfast 15 mL 2 04/19/19 25 Active escitalopram (LEXAPRO) 5 mg tablet Take 3 tablets (15 mg total) by mouth daily 90 tablet 1 05/10/19 25 025 Active busPIRone (BUSPAR) 10 mg tabletIndicati ons:Generalize d Anxiety Disorder Take 1 tablet (10 mg total) by mouth 2 (two) times a day 60 tablet 1 05/10/19 25 026 Active escitalopram (LEXAPRO) 10 mg tablet Take 1 tablet (10 mg total) by mouth daily 30 tablet 2 04/19/19 25 025 Discontinued(Re order) busPIRone (BUSPAR) 5 mg tablet Take 1 tablet (5 mg total) by mouth 2 (two) times a day 60 tablet 2 04/19/19 25 025 Discontinued Active Problems Problem Noted Date Diagnosed Date 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 Excellent vision and color vision. Heaped appearance of nasal rim, will monitor this closely for changes. Will obtain AF Photos to look for optic disc drusen. Educated to RTC w any vision loss, diplopia, or new neurologic symptoms, otherwise 4-6wk Type 2 diabetes mellitus wit hout complication, unspecified whether keno terminal operator insulin use 05/13/2024 Annual physical exam 04/25/2024 Assessment & Plan (04/25/2024 3:58 PM MOBILE THERAPIST): Up-to-date at this time. Medications and labs currently being monitored by Ob/Maternal- Medicine. I will see her back post for continued management of her diabetes and health management BMI 49 03/10/2024 Overview (04/19/2024): History Pre- BMI: ~50 S/p MFM counseling Plan [x] Initiate aspirin 81 mg at 12 weeks for preeclampsia risk reduction [x] Early overt diabetes screening with Hgb A1C - known T2DM [x] Specialized anatomic survey at 20 weeks - complete 04/19/2024 [] 3rd trimester anesthesia consultation if BMI >/=50 [x] testing per T2DM plan Assessment & Plan (04/19/2024 2:30 PM MOBILE THERAPIST): Pre- BMI: ~50 S/p MFM counseling Plan [x] Initiate aspirin 81 mg at 12 weeks for preeclampsia risk reduction [x] Early overt diabetes screening with Hgb A1C - known T2DM [x] Specialized anatomic survey at 20 weeks - complete 04/19/2024 [] 3rd trimester anesthesia consultation if BMI >/=50 [x] testing per T2DM plan Assessment & Plan (04/03/2024 1:14 PM MOBILE THERAPIST): Pre- BMI ~50. Current BMI 49. Plan [x] Initiate aspirin 81 mg at 12 weeks for preeclampsia risk reduction [x] Early overt diabetes screening with Hgb A1C - known T2DM [] Specialized anatomic survey at 20 weeks - incomplete 04/03/2024 [] 3rd trimester anesthesia consultation if BMI >/=50 [x] testing per T2DM plan Assessment & Plan (03/10/2024 10:48 AM MOBILE THERAPIST): Pre- BMI: ~50 Counseling 03/10/2024: Obesity in (BMI >30) is associated with increased risks. Maternal risks include preeclampsia, gestational diabetes and higher risk of section due to labor abnormalities. risks include anomalies, growth abnormalities (FGR and macrosomia) and stillbirth. Recommended weight gain is a total of 11-20 lbs, with 1-4 lbs in the 1st trimester and 0.5 lb/week in the 2nd and 3rd trimesters. Plan: [x] Initiate aspirin 81 mg at 12 weeks for preeclampsia risk reduction [x] Early overt diabetes screening with Hgb A1C (<5.7 no further testing until 2nd trimester, 5.7-6.5 obtain fasting 3 hour glucose tolerance test, >6.5 refer to [facility] clinic) [] Specialized anatomic survey at 20 weeks [] 3rd trimester anesthesia consultation if BMI >/=50 [] Weekly testing per T2DM plan Maternal varicella, non-immune 03/01/2024 Overview (03/31/2024): Plan [] Varivax Assessment & Plan (04/19/2024 2:18 PM MOBILE THERAPIST): Plan [] Varivax Assessment & Plan (04/03/2024 1:14 PM MOBILE THERAPIST): Plan [] Varivax Supervision of high-risk , second trime ster 02/28/2024 Overview (05/05/2024): [x] Full [facility] Care; [x] Blue Team Referring Provider: Misti Osborn [phone] [] [employer] or Medicare Insurance [x] Dating Criteria: LMP 11/25/23 with LUIS ALFREDO 08/31/24 [x] Labs: Rh [AB+], Ab [negative], Rubella [immune], HIV [non- reactive], HepBSAg [non-reactive], HepBSAb [not done - draw with next visit], HepBCAb [not done - draw with next visit], RPR [non-reactive], Hep C [non-reactive], Varicella [equivocal], GC/CT [negative/negative] [x] Aneuploidy Screening: reports LR NIPT with primary OB (Not uploaded in [employer] due to gender reveal per report) [] Carrier Screening: [x] Hgb electrophoresis: normal pattern (04/19/24) [x] CBC/Hgb: 11.6/35.6/plt 251 [x] Early 1hr GTT (if indicated): 02/22/24: A1c 6.0 [x] UCx: 02/22/24: >100,000 colonies/mL Klebsiella pneumoniae [x] Pap: 02/22/24 - NILM [x] LD ASA (if indicated): indicated, taking [x] EPDS [10] on 04/03/2024 2nd Trimester [x] Anatomy ultrasound: complete 04/19/2024 [x] CBC/ at 24-28wks: Hgb 11.6/Hct 35.5/Plt 277 (04/19/24) [x] Rhogam at 28 wks (if Rh neg): AB+, N/A 3rd Trimester [] CBC/HIV/RPR/T&S: [] GBS: [] GC/CT (if indicated): [] testing: Twice weekly at 32 weeks (T2DM) Counseling [] MOD: TBD, by 39w (T2DM) [x] Place of delivery: [facility] [] Epidural: [] Accepts Blood Products: [] Stop ASA: [] MOC: [] Method of feeding: [] Air Technician (specifically which provider): [] PP Depression Discussed: [] PP visits scheduled: Vaccines [x] Flu Shot (Sep-Dec): received 02/22/24 [] COVID vaccine: [] Tdap (27-36wks): [] RSV vaccine (32-36wks): Assessment & Plan (04/19/2024 2:24 PM MOBILE THERAPIST): Full MFM care. Reviewed supportive care for mucous - humidifier, nasal saline, mucinex, claritin, etc. Reviewed abd exam normal and expectations for uterine growth. Assessment & Plan (04/03/2024 1:28 PM MOBILE THERAPIST): [x] Full MFM Care; [] Red Team [x] Blue Team - full YENNI at 14 weeks Referring Provider: Misti Osborn [phone] [] or Medicare Insurance [x] Dating Criteria: LMP 11/25/23 with LUIS ALFREDO 08/31/24 [x] Labs: Rh [AB+], Ab [negative], Rubella [immune], HIV [non- reactive], HepBSAg [non-reactive], HepBSAb [not done - do with 2T labs], HepBCAb [not done - do with 2T labs], RPR [non-reactive], Hep C [non-reactive], Varicella [equivocal], GC/CT [negative/negative] [x] Aneuploidy Screening: reports LR NIPT with primary OB (Not uploaded in [employer] due to gender reveal per report) [] Carrier Screening: [] Hgb electrophoresis: not done - do with 2T labs [x] CBC/Hgb: 11.6/35.6/plt 251 [x] Early 1hr GTT (if indicated): 02/22/24: A1c 6.0 [x] UCx: 02/22/24: >100,000 colonies/mL Klebsiella pneumoniae [x] Pap: 02/22/24 - NILM [x] LD ASA (if indicated): indicated, taking [x] EPDS [10] on 04/03/2024 2nd Trimester [] Anatomy ultrasound: incomplete 04/03/2024, for completion in 2 weeks [] CBC/ at 24-28wks: order at next visit [x] Rhogam at 28 wks (if Rh neg): AB+, N/A Assessment & Plan (03/10/2024 10:44 AM MOBILE THERAPIST): [x] Full MFM Care; [] Red Team [x] Blue Team - full YENNI at 14 weeks Referring Provider: Misti Osborn [phone] [] or Medicare Insurance [x] Dating Criteria: LMP 11/25/23 with LUIS ALFREDO 08/31/24 [x] Labs: Rh [AB+], Ab [negative], Rubella [immune], HIV [non- reactive], HepBSAg [non-reactive], HepBSAb [not done], HepBCAb [not done], RPR [non- reactive], Hep C [non-reactive], Varicella [equivocal], GC/CT [negative/negative] [x] Aneuploidy Screening: reports LR NIPT with primary OB (Not uploaded in [employer] due to gender reveal per report) [] Carrier Screening: [] Hgb electrophoresis: not done [x] CBC/Hgb: 11.6/35.6/plt 251 [x] Early 1hr GTT (if indicated): 02/22/24: A1c 6.0 [x] UCx: 02/22/24: >100,000 colonies/mL Klebsiella pneumoniae [x] Pap: 02/22/24: pending [] LD ASA (if indicated): [] EPDS [ ]; [facility] referral (if indicated): 2nd Trimester [] Anatomy ultrasound: [] CBC/1hr gtt at 24-28wks: [x] Rhogam at 28 wks (if Rh neg): AB+, N/A 3rd Trimester [] CBC/HIV/RPR/T&S: [] GBS: [] GC/CT (if indicated): [] testing: Twice weekly at 32 weeks (T2DM) Counseling [x] MOD: TBD, by 39w (T2DM) [x] Place of delivery: [facility] [] Epidural: [] Accepts Blood Products: [] Stop ASA: [] MOC: [] Method of feeding: [] Air Technician (specifically which provider): [] PP Depression Discussed: [] PP visits scheduled: Vaccines [x] Flu Shot (Dec-Mar): received 02/22/24 [] COVID vaccine: [] Tdap (27-36wks): [] RSV vaccine (32-36wks): [x] PP HPV vaccine counseling (<=26 yo): N/A History of gastric sleeve 02/22/2024 Overview (04/19/2024): History Prior procedure: gastric sleeve surgery 08/12/20 Type of procedure (Restrictive vs. Malabsorptive): Restrictive Peak weight: 305 lb Thomas weight: 215 lb Counseling 03/06/24 Plan [x] Screen for micronutrient deficiencies (CBC w/ MCV, ferritin, iron, B12, B1, folate, calcium and Vit D levels) qtrimester and supplement accordingly [x] 1st T: WNL 02/22/2024 [x] 2nd T: WNL 04/19/24, Vit B1 not performed [] 3rd T: [x] First trimester A1C 6.0 02/21 [] Serial ultrasounds for growth Assessment & Plan (04/19/2024 2:17 PM MOBILE THERAPIST): History Prior procedure: gastric sleeve surgery 08/12/20 Type of procedure (Restrictive vs. Malabsorptive): Restrictive Peak weight: 305 lb Thomas weight: 215 lb Counseling 03/06/24 Plan [x] Screen for micronutrient deficiencies (CBC w/ MCV, ferritin, iron, B12, B1, folate, calcium and Vit D levels) qtrimester and supplement accordingly [x] 1st T: WNL 02/22/2024 [] 2nd T: Ordered 04/19/2024 [] 3rd T: [x] First trimester A1C 6.0 02/21 [] Serial ultrasounds for growth Assessment & Plan (04/03/2024 1:14 PM MOBILE THERAPIST): Micronutrient testing normal in the first trimester. Plan [x] Screen for micronutrient deficiencies (CBC w/ MCV, ferritin, iron, B12, B1, folate, calcium and Vit D levels) qtrimester and supplement accordingly [x] 1st T: WNL 02/22/2024 [] 2nd T: Order at next visit [] 3rd T: [x] First trimester A1C 6.0 02/21 [] Serial ultrasounds for growth Assessment & Plan (03/10/2024 10:41 AM MOBILE THERAPIST): History: gastric sleeve surgery 08/12/20 Type of procedure (Restrictive vs. Malabsorptive): restrictive Peak weight: 305 lb Thomas weight: 215 lb Counseling 03/06/2024: Since obesity is associated with adverse outcomes such as miscarriage, preeclampsia, gestational diabetes, stillbirth, and delivery, bariatric surgery has been associated with an improvement in many of these outcomes. Specifically, the prevalence of preeclampsia is lower in patients with a history of bariatric surgery compared to obese women without prior surgery. The prevalence of GDM is also lower. Furthermore, bariatric surgery may lead to resolution of Type II Diabetes in some patients. It is reasonable to avoid for 12-18 months following bariatric surgery due to rapid weight loss and the associated potential nutritional deficiencies, although observational studies do not show any increase in adverse outcomes if shorter time to conception after surgery. We reviewed the following risks due to her history of bariatric surgery. There is an increased concern for poor intrauterine growth with small for gestational age (SGA) infants. There is a concern for increased difficulty in diagnosing a surgical complication of bariatric surgery during due to the overlap of non-specific abdominal symptoms with common obstetric complaints such as nausea and vomiting of , GERD, and uterine contractions. For example, bowel obstruction due to intraabdominal intestinal herniation may be difficult to diagnose. There are also case reports of intussusception with necrosis, volvulus, anastomotic leaks and bleeding. Specific to gastric band surgery - there can be band slippage and band erosion. Most complications occur within the first 2 years following surgery, but the growing gravid uterus increases intraabdominal pressure and displaces abdominal contents cephalad with a theoretical increased risk of herniation. Lastly, we reviewed that women with a history of bariatric surgery have an increased risk of nutritional deficiencies, particularly in iron, folate, vitamin B12, calcium, and Vitamin D. Plan: [x] Screen for micronutrient deficiencies (CBC w/ MCV, ferritin, iron, B12, B1, folate, calcium and Vit D levels) qtrimester and supplement accordingly - last 02/21 WNL [x] 1st T: WNL [] 2nd T: [] 3rd T: [x] First trimester A1C 6.0 02/21 [] Serial ultrasounds for growth Assessment & Plan (02/22/2024 12:37 PM MOBILE THERAPIST): Sleeve gastrectomy- August 2020. She last did vitamin testing a few months ago. Will repeat today Bipolar affective disorder & anxiety during preg karla 02/22/2024 Overview (05/19/2024): History & Counseling S/p MFM counseling 03/06/24 04/19/2024: Worsening mood symptoms today. EPDS 19, answered hardly ever for Q#10. Reports passive SI, but not active and no plan. Endorses safety at home. Current regimen: 05/19/2024 Lexapro 15 mg, buspirone 10 mg BID Plan [x] Continue above medication regimen [x] Baseline EPDS - 10 (04/03/2024) [x] Referral for psychiatry and psychology resources - placed 04/19/2024 [] Monitor mood every visit Assessment & Plan (05/19/2024 12:48 PM MOBILE THERAPIST): Emotional support provided. Pt denies active SI/HI. Strict hospital precautions reviewed. Discussed importance of close f/u with psych and therapy. Pt aware doses can be increased if needed. Assessment & Plan (04/19/2024 2:34 PM MOBILE THERAPIST): Worsening mood symptoms today. EPDS 19, answered hardly ever for Q#10. Reports passive SI, but not active and no plan. Endorses safety at home. We discussed increasing her regimen as outlined below and a referral was sent to Dr. Caicedo for psych and counseling resources. We reviewed ED precautions. Current regimen: Lexapro 5 mg + Buspirone 5 mg qD > lexapro 10 mg, buspirone 5 mg BID (increased 04/19/2024) Plan [x] Continue above medication regimen [x] Baseline EPDS - 10 (04/03/2024) [x] Referral for psychiatry and psychology resources - placed 04/19/2024 [] Monitor mood every visit Assessment & Plan (04/03/2024 1:26 PM MOBILE THERAPIST): Reports mood today is up and down. After discussion of options, patient would prefer to continue same medication regimen for now with plan to readdress at next visit in 2 weeks regarding medication adjustments. EPDS today 10, never to Q10. Current regimen: lexapro 5 mg, buspirone 5 mg Plan [] Continue above medication regimen, readdress at next visit [x] Baseline EPDS - 10 (04/03/2024) [] Monitor mood every visit Assessment & Plan (03/10/2024 10:43 AM MOBILE THERAPIST): Current regimen: lexapro 5 mg, buspirone 5 mg Counseling 03/06/2024: Anxiety disorders affect 1 in 5 patients and can cause significant functional impairment. Patients with under treated anxiety have a higher risk of depression. They also have a higher risk of , low weight, and behavioral challenges in offspring. Regular follow-up with a mental health provider is recommended throughout and . This is a disorder involving episodes of depression and rené, considered to have multifactorial inheritence, with genetic and environmental causes. Relatives of bipolar patients have higher risk of bipolar disorder and other affective psychiatric disorders. The general population risk of bipolar disorder is 1%. If a first degree relative is affected with the disorder, the recurrence risk is 4-18% for bipolar disorder. If both parents are affected with bipolar disorder, the recurrence risk for a child developing any affective psychiatric disorder is 50-75%. and delivery are a risk factor for causing hypomania or rené. There is a 35% chance of developing a bipolar relapse if untreated. Mood stabilizer medications should be continued through and except for valproate. Plan: [] Continue current medication regimen [] Monitor mood every visit Assessment & Plan (02/22/2024 10:11 AM MOBILE THERAPIST): She follows in [place], [place]. Elena Valdez We discussed that this antidepressant is not thought to cause defects. Some people recommend stopping in the third trimester as the babies whose moms take it through delivery seem to be more jittery as if the were withdrawaling from it. This is typically managed by swaddling and comforting by the family. The hospital here has seen an increase in the number of babies whose mothers have been on certain antidepressants not want to take the first breaths. Because of that we now have respiratory therapy at all deliveries where antidepressants have been used, just as a precaution. She is going to continue on. They were trying to ween before . Bipolar affective disorder 11/21/2021 Overview (11/21/2021): Dx per last pcp records Assessment & Plan (10/19/2023 12:49 PM CDT): Chronic. Mood overall has been doing relatively well. She is working with Psychiatry. They are working on decreasing her medications some since she has been doing well. Monitor. Brief supportive counseling was provided Assessment & Plan (03/29/2023 9:36 AM MOBILE THERAPIST): Chronic. Follows with psychiatry. Mood is relatively stable Binge eating disorder 11/13/2021 Assessment & Plan (10/19/2023 12:47 PM CDT): Chronic. Relatively stable. Monitor. Encouraged healthy diet and lifestyle Assessment & Plan (03/29/2023 9:35 AM MOBILE THERAPIST): Chronic. Stable. Follows with Psychiatry and weight loss physician. Monitor Pre-existing type 2 diabetes mellitus during in second trimester 11/13/2021 Overview (05/23/2024): History & Counseling Diagnosed prior to gastric sleeve, has been diet controlled since 2020 History of DKA? no Last hemoglobin A1C: 6.0% on 02/21 Pre- regimen: diet control Counseling completed 03/06/24 Pt is now wearing a decom- clinic login - Current regimen: 05/23/2024 - no changes Lantus 26u qHS Lispro 6u TID with meals reviewed timing 10-15 minutes before a meal Plan Physician adjusting insulin dosage: MFM [x] Counseling performed 03/06/24 [x] Diabetes education order placed 03/06/24, scheduled for 03/17/24 [x] CGM [] Recommend weekly review of BG/insulin data to adjust insulin dosing - ongoing [x] Glucagon prescribed 03/06/24, nasal glucagon prescribed 04/03/2024 [x] Referral to ophthalmology for comprehensive eye exam - saw optometry 05/23/24 > fu in 4-6 weeks for additional eval [x] Baseline CMP, UPC - 02/21 [] A1c qTrimester [x] 1st T: 6.0% on 02/22/24 [x] 2nd T: 5.4% (04/19/24) [] 3rd T: [x] First trimester TSH - 2.43 (01/12/2024) [x] ASA starting at 12 weeks gestation - taking [x] Baseline EKG, consider maternal TTE - EKG NSR (04/03/2024) [x] Specialized anatomy ultrasound at 18-20 weeks - complete 04/19/2024 [x] echocardiogram at 20-22 weeks - normal on 05/16/24 [] Serial growth scans starting at 24 weeks- ongoing [] Twice weekly testing starting at 32 weeks [] insulin plan by 32 weeks [] Delivery at [id number] ([id number] with vascular complications or poorly controlled) Assessment & Plan (05/23/2024 1:17 PM MOBILE THERAPIST): No diabetic ophthalmic changes noted right eye (OD) or left eye (OS). Educated on findings. Stressed importance of close blood sugar control/monitoring. Educated fluctuation in blood sugar can cause fluctuations in vision. There is mild tortuosity of retinal blood vessels, but pt reports well controlled blood pressure. Monitor. Assessment & Plan (05/05/2024 12:43 PM MOBILE THERAPIST): Pt reports lows <70 that she treats overnight. Will decrease her basal to 26 units and continue weekly adjustments. Pt knows to call with continued hypoglycemia. Pt has glucagon. Reviewed risks of hypoglycemia including coma/. Discussed timing her mealtime insulin to be 10-15 minutes before a meal. Assessment & Plan (04/25/2024 3:56 PM MOBILE THERAPIST): A1c well-controlled. She tells me blood sugars are more controlled at this time with insulin. Prior to she was controlling diabetes with diet only. I will see her back in 6 months post for return management of her diabetes Assessment & Plan (04/19/2024 2:29 PM MOBILE THERAPIST): No more episodes of hypoglycemia. Fasting at goal. Postprandial breakfast elevated. Lunch and dinner BGs not recorded. We discussed timing of mealtime insulin. Has increased protein with meals. Current regimen: 04/19/24 Lantus 30u qHS + lispro 6U with breakfast, will resubmit for CGM Plan - Physician adjusting insulin dosage: MFM [x] Counseling performed 03/06/24 [x] Diabetes education order placed 03/06/24, scheduled for 03/17/24 [x] CGM ordered 03/06/24, insurance denied both Dexcom and Lara - if patient requires MDI would recommend re-engaging with CGM coverage, have resubmitted for CGM 04/19/24 [] Recommend weekly review of BG/insulin data to adjust insulin dosing - ongoing [x] Glucagon prescribed 03/06/24, nasal glucagon prescribed 04/03/2024 [] Referral to ophthalmology for comprehensive eye exam - referral placed 04/03/2024 [x] Baseline CMP, UPC - 02/21 [] A1c qTrimester [x] 1st T: 6.0% on 02/22/24 [] 2nd T: ordered 04/19/24 [] 3rd T: [x] First trimester TSH - 2.43 (01/12/2024) [x] ASA starting at 12 weeks gestation - taking [x] Baseline EKG, consider maternal TTE - EKG NSR (04/03/2024) [x] Specialized anatomy ultrasound at 18-20 weeks - complete 04/19/2024 [] echocardiogram at 20-22 weeks - ordered 04/03/2024 [] Serial growth scans starting at 24 weeks [] Twice weekly testing starting at 32 weeks [] insulin plan by 32 weeks [] Delivery at 39 0/7-39 6/7 (36 0/7 to 38 6/7 with vascular complications or poorly controlled) Assessment & Plan (04/03/2024 1:29 PM MOBILE THERAPIST): Reviewed blood sugars today which are largely elevated, particularly fasting values. Would recommend initiation of insulin. Discussed the risks of insulin and having hypoglycemia, recommend having intranasal glucagon available which was prescribed today. Anatomic survey done today which was incomplete, recommend completion in 2 weeks. echocardiogram ordered. Current regimen: 04/03/2024 Diet control > Lantus 40u qHS (started 04/03/2024) Plan - Physician adjusting insulin dosage: MFM [x] Counseling performed 03/06/24 [x] Diabetes education order placed 03/06/24, scheduled for 03/17/24 [x] CGM ordered 03/06/24, insurance denied both Dexcom and Lara - if patient requires MDI would recommend re-engaging with CGM coverage [] Recommend weekly review of BG/insulin data to adjust insulin dosing - ongoing [x] Glucagon prescribed 03/06/24, nasal glucagon prescribed 04/03/2024 [] Referral to ophthalmology for comprehensive eye exam - referral placed 04/03/2024 [x] Baseline CMP, UPC - 02/21 [] A1c qTrimester [x] 1st T: 6.0% on 02/22/24 [] 2nd T: plan with 2T labs at next visit [] 3rd T: [x] First trimester TSH - 2.43 (01/12/2024) [x] ASA starting at 12 weeks gestation - taking [] Baseline EKG, consider maternal TTE - EKG ordered 04/03/2024 [] Specialized anatomy ultrasound at 18-20 weeks - incomplete 04/03/2024 [] echocardiogram at 20-22 weeks - ordered 04/03/2024 [] Serial growth scans starting at 24 weeks [] Twice weekly testing starting at 32 weeks [] insulin plan by 32 weeks [] Delivery at 39 0/7-39 6/7 (36 0/7 to 38 6/7 with vascular complications or poorly controlled) Assessment & Plan (03/10/2024 10:47 AM MOBILE THERAPIST): History Diagnosed prior to gastric sleeve, has been diet controlled since 2020 History of DKA? no Last hemoglobin A1C: 6.0% on 02/21 Pre- regimen: diet control Current regimen: diet control Counseling 03/06/2024: Reviewed with patient that type 2 diabetes is the most common form of pregestational diabetes and is characterized by peripheral insulin resistance. is generally a state of increased insulin resistance, the one exception being late first trimester when relatively higher levels of estrogen may enhance insulin sensitivity and increase the maternal hypoglycemia, especially when associated with nausea and vomiting. As such, insulin requirements will likely change during and frequent monitoring throughout . This in combination with diabetic education, exercise, and diet control will be necessary to achieve optimal glycemic control. We reviewed that goal blood glucose values are generally fasting a premeal glucose of 95 mg/dL or less and 1 hour postprandial glucose of 140 mg/dL or less. We recommend checking blood sugar fasting, before each meal, and 1 hour after eating. The patient should also check urine ketones when their glucose level exceeds 200 mg/dL and should have glucagon available in case of hypoglycemic episodes. We also reviewed the increased maternal and risks associated with type 2 diabetes in . Discussed that major congenital anomalies (cardiac, neurologic and skeletal) are the leading cause of mortality in pregnancies complicated by diabetes and is directly related to hemoglobin A1C values. An A1c level of 6.0% is associated with a 3% anomaly rate, and an baseline rate of miscarrigae. Other risks include large for gestational age or small for gestational age infants, delivery, and stillbirth. Maternal risks discussed include exacerbation of diabetes-related complications (particularly retinopathy and nephropathy), hypertensive disorders of , shoulder dystocia, and need for section. Also discussed that outcomes are best with optimal glycemic control. Lastly discussed that insulin drip will likely be required in labor. Plan - Physician adjusting insulin dosage: MFM 03/06/24: Fasting values routinely elevated, majority of postprandial values are at goal [x] Counseling performed 03/06/2024 [x] Diabetes education order placed 03/06/24 [x] CGM ordered 03/06/24 [] Recommend weekly review of BG/insulin data to adjust insulin dosing [x] Glucagon prescribed 03/06/24 [] Referral to ophthalmology for comprehensive eye exam [x] Baseline [facility] [place] - 02/21 [] A1c qTrimester [x] 1st T: 6.0% on 02/21 [] 2nd T: [] 3rd T: [] First trimester TSH [x] ASA starting at 12 weeks gestation - recommended 03/06/24 [] Baseline EKG, consider maternal TTE [] Specialized anatomy ultrasound at 18-20 weeks [] echocardiogram at 20-22 weeks [] Serial growth scans starting at 24 weeks [] Twice weekly testing starting at 32 weeks [] insulin plan by 32 weeks [] Delivery at 39 0/7-39 6/7 (36 0/7 to 38 6/7 with vascular complications or poorly controlled) Assessment & Plan (02/22/2024 12:39 PM MOBILE THERAPIST): Diet controlled Will get her set up with a glucometer and ketostix To [facility] as a transfer of care. To HgA1c To 24 hour urine To [facility]. I asked her to send her sugars to me on Wednesday until she can get into [facility] Assessment & Plan (10/19/2023 12:48 PM CDT): Chronic. Controlled but slightly worse than last visit. Patient has been off the Trulicity for awhile due to issues with insurance coverage. 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 If not covered then we can always look into Ozempic as an alternative encouraged diabetic diet, exercise, weight loss. She reports eye exam is up-to-date we will try to get the report. She has due for the rest of her diabetic labs Assessment & Plan (03/29/2023 9:36 AM MOBILE THERAPIST): Chronic. Well controlled. Continue Trulicity. Continue to work on diet, exercise, weight loss Pure hypercholesterolemia 11/13/2021 Assessment & Plan (10/19/2023 12:48 PM CDT): Chronic. Could use improvement. We will check an updated cholesterol level. Pending results we may need to consider starting her on a cholesterol medication for primary prevention Assessment & Plan (03/29/2023 9:36 AM MOBILE THERAPIST): Chronic. Suboptimally controlled. Given age less than 40 patient has been trying to control with diet, exercise and weight loss. Ultimately LDL goal will need to be less than 70. If continues to struggle to achieve control may need to consider starting a cholesterol medication in the next few years Estimated Date of Delivery Comme nts Yes 08/31/2024 Based on last me nstrual period of 11/25/2023 (Exact Date) Resolved Problems Problem Noted Date Diagnosed Date Resolved Date Urinary tract infection in 03/01/2024 04/25/2024 Overview (04/19/2024): History 03/01/24 - klebsiella positive UCx. S/p treatment with macrobid. 04/19/2024: asymptomatic. Plan [x] UCx YENNI - 04/03/2024, insignificant growth [] Repeat UCx if symptomatic Assessment & Plan (04/19/2024 2:30 PM MOBILE THERAPIST): 03/01/24 - klebsiella positive UCx. S/p treatment with macrobid. 04/19/2024: asymptomatic. Plan [x] UCx YENNI - 04/03/2024, insignificant growth [] Repeat UCx if symptomatic Assessment & Plan (04/03/2024 1:13 PM MOBILE THERAPIST): 03/01/24 - klebsiella positive UCx. S/p treatment with macrobid. Plan [] UCx YENNI - ordered 04/03/2024 Encounter for supervision of normal first in first trimester 02/22/2024 03/10/2024 BMI 50.0-59.9, adult 02/22/2024 024 Assessment & Plan (02/22/2024 12:37 PM MOBILE THERAPIST): To MFM She will need extra usg and nst in the third trimester Will need anatomy scan with [facility] Dyspareunia in female 08/21/20222024 Assessment & Plan (08/21/2022 2:10 PM CDT): Recommend pelvic ultrasound. Discussed referral to pelvic floor physical therapy for evaluation. She is interested in meeting with them. We will await pelvic ultrasound and then place referral. Coitus painful for female 03/30/2022 Assessment & Plan (03/30/2022 2:53 PM MOBILE THERAPIST): Discussed lifestyle and hygiene recommendations. She is to try using coconut oil for lubrication as it is more natural than over the counter lube. Her bimanual exam was unremarkable today. We will await vaginitis and STD swab. If all normal we will order a pelvic ultrasound. Class 3 severe obesity due t o excess calories with serious comorbidity in adult 08/12/20202023 Assessment & Plan (10/19/2023 12:47 PM CDT): Chronic. BMI has significantly worsened since last visit. She has gained about 25 lb since last seen. This could be partially due to stopping the Trulicity as well as her concerns about the effect of stopping her control. Counseled on healthy diet, exercise, weight loss. We will get her back on Trulicity for her diabetes Assessment & Plan (03/29/2023 9:37 AM MOBILE THERAPIST): Chronic. Suboptimally controlled. Counseled on healthy diet, exercise, weight loss. Follows with the [facility] weight loss clinic. History of prior gastric surgery for weight loss. Continue Trulicity at current dose Immunizations Name Administration Dates Next Due DTP / HiB 1996,1996,1996 DTaP 10/12/2001,05/11/1997 H1N1 Inj 02/05/2009 HPV, Quadrivalent 11/25/2010 HPV, Unspecified 06/25/2011,02/04/2011 Hep A, Ped Unspecified 11/25/2010 Hep A, Pediatric 06/25/2011 Hep B, Adolescent or Pediatric 1996,1995,1996 HiB 05/11/1997 IPV 10/12/2001 Influenza, Quadrivalent, Krysten l Culture-based MDCK, Preservative Free, Antibiotic Free, Intramuscular 02/04/2017 Influenza, Quadrivalent, Spl it, Preservative Free, Intramuscular 01/26/2023,04/13/2022 Influenza, Trivalent, Preser vative Free, Intramuscular 02/22/2024,01/06/2021 MMR 10/12/2001,05/11/1997 Meningococcal Conjugate (Menveo) 02/04/2011 Moderna SARS-CoV-2 Monovalen t Vaccination (12+ YRS) 04/13/2020 OPV 1996,1996,1996 Tdap 11/25/2010 Tetanus Toxoid, Unspecified 10/30/2022 Varicella 02/04/2011,10/12/2001 Social History Tobacco Use Types Packs/Day Years Used Date Smoking Tobacco: Former Cigarettes 0.1 1 0 04/12/2015 - 04/12/2016 Smokeless Tobacco: Never Tobacco Cessation:Counseling Given: Not Answered Comments:social smoker for 1 yr Humiliation, Afraid, Rape, and Kick questionnair e Answer Date Recorded Within the last year, have y ou been afraid of your partner or ex-partner? No 02/22/2024 Within the last year, have y ou been humiliated or emotionally abused in other ways by your partner or ex-partner? No Within the last year, have y ou been kicked, hit, slapped, or otherwise physically hurt by your partner or ex-partner? No 02/22/2024 Within the last year, have y ou been raped or forced to have any kind of sexual activity by your partner or ex-partner? No 02/22/2024 AUDIT-C Answer Date Recorded Q1: How often do you have a drink containing alcohol? Never 11/25/2023 Q2: How many drinks containi ng alcohol do you have on a typical day when you are drinking? Patient does not drink Q3: How often do you have si x or more drinks on one occasion? Never 11/25/2023 PHQ-2 Answer Date Recorded PHQ-2 Total Score (If total score is 3 or more points, staff should administer the PHQ-9) 1 02/22/2024 [place] Depression Scale Answer Date Recorded [place] Depression Scale Total 15 04/26/2024 The thought of harming myself has occurred to me . Hardly ever 04/26/2024 Estimated Date of Delivery Comme nts Yes 08/31/2024 Based on last me nstrual period of 11/25/2023 (Exact Date) Sex and Gender Information Value Date Recorded Sex Assigned at Not on file Legal Sex Female 9:05 AM MOBILE THERAPIST Gender Identity Female 12/18/2021 2:13 PM CDT Sexual Orientation Not on file Last Filed Vital Signs Vital Sign Reading Time Taken Comments Blood Pressure 99/67 05/19/2024 11:28 AM MOBILE THERAPIST Pulse 94 05/19/2024 11:28 AM MOBILE THERAPIST Temperature 36.1 C (97 F) 05/19/2024 11:28 AM MOBILE THERAPIST Respiratory Rate 16 05/19/2024 11:28 AM MOBILE THERAPIST Oxygen Saturation 97% 05/19/2024 11:28 AM MOBILE THERAPIST Inhaled Oxygen Concentration - - Weight 122.9 kg (271 lb) 05/19/2024 11:28 AM MOBILE THERAPIST Height 158.8 cm (5' 2.5 ) 05/19/2024 11:28 AM CS T Body Mass Index 48.78 05/19/2024 11:28 AM MOBILE THERAPIST Plan of Treatment Not on file Goals Goal Patient Goal Type Associated Problems Recent Progress Patient-Stated? Author Record Your Blood Sugar Daily Care Plan Meal Tracking and Blood Sugar Monitoring No Whit Gibson Procedures Procedure Name Priority Date/Time Associated Diagnosis Comments US OB FOLLOW UP Schedule Routine, Read Routine (OP Routine) 05/19/2024 10:56 AM MOBILE THERAPIST Pre-existing type 2 diabetes mellitus during in second trimester Supervision of high-risk , second trimester History of gastric sleeve Obesity affecting in second trimester, unspecified obesity type ECHOCARDIOGRAM Routine 05/16/2024 2:57 PM MOBILE THERAPIST Supervision of high-risk , second trimester Pre-existing type 2 diabetes mellitus during in second trimester MYCOPLASMA PNEUMONIAE PCR Routine 04/28/2024 7:18 PM MOBILE THERAPIST Acute cough BORDETELLA PERTUSSIS / PARAPERTUSSIS Routine 04/28/2024 7:18 PM MOBILE THERAPIST Acute cough INFLUENZA A/B, RSV, AND COVID-19 PCR Routine 04/28/2024 7:18 PM MOBILE THERAPIST Acute cough POC INFLUENZA A/B, COVID-19 ANTIGEN Routine 04/28/2024 7:10 PM MOBILE THERAPIST Acute cough CBC WITH AUTO DIFFERENTIAL Routine 04/19/2024 2:08 PM MOBILE THERAPIST Pre-existing type 2 diabetes mellitus during in second trimester Supervision of high-risk , second trimester Bariatric surgery status complicating , second trimester Obesity affecting in second trimester, unspecified obesity type DIFFERENTIAL AUTO Routine 04/19/2024 2:0 8 PM MOBILE THERAPIST HEMOGLOBIN ANALYSIS BY ELECTROPHORESIS Routine 04/19/2024 2:08 PM MOBILE THERAPIST Pre-existing type 2 diabetes mellitus during in second trimester Supervision of high-risk , second trimester History of gastric sleeve Obesity affecting in second trimester, unspecified obesity type FERRITIN Routine 04/19/2024 2:08 PM MOBILE THERAPIST Pre-existing type 2 diabetes mellitus during in second trimester Supervision of high-risk , second trimester History of gastric sleeve Obesity affecting in second trimester, unspecified obesity type HEMOGLOBIN A1C Routine 04/19/2024 2:08 PM MOBILE THERAPIST Pre-existing type 2 diabetes mellitus during in second trimester Supervision of high-risk , second trimester History of gastric sleeve Obesity affecting in second trimester, unspecified obesity type IRON PROFILE W/ IBC Routine 04/19/2024 2 :08 PM MOBILE THERAPIST Pre-existing type 2 diabetes mellitus during in second trimester Supervision of high-risk , second trimester History of gastric sleeve Obesity affecting in second trimester, unspecified obesity type VITAMIN B12 Routine 04/19/2024 2:08 PM MOBILE THERAPIST Pre-existing type 2 diabetes mellitus during in second trimester Supervision of high-risk , second trimester History of gastric sleeve Obesity affecting in second trimester, unspecified obesity type VITAMIN D 25 HYDROXY Routine 04/19/2024 2:08 PM MOBILE THERAPIST Pre-existing type 2 diabetes mellitus during in second trimester Supervision of high-risk , second trimester History of gastric sleeve Obesity affecting in second trimester, unspecified obesity type CALCIUM LEVEL Routine 04/19/2024 2:08 PM MOBILE THERAPIST Pre-existing type 2 diabetes mellitus during in second trimester Supervision of high-risk , second trimester History of gastric sleeve Obesity affecting in second trimester, unspecified obesity type FOLATE Routine 04/19/2024 2:08 PM MOBILE THERAPIST Pre-existing type 2 diabetes mellitus during in second trimester Supervision of high-risk , second trimester History of gastric sleeve Obesity affecting in second trimester, unspecified obesity type US OB LIMITED Schedule Routine, Read Routine (OP Routine) 04/19/2024 12:23 PM MOBILE THERAPIST Supervision of high-risk , second trimester Pre-existing type 2 diabetes mellitus during in second trimester History of gastric sleeve Other obesity affecting in second trimester ECG 12-LEAD Routine 04/03/2024 11:51 AM MOBILE THERAPIST Supervision of high-risk , second trimester Pre-existing type 2 diabetes mellitus during in second trimester History of gastric sleeve Other obesity affecting in second trimester URINE CULTURE Routine 04/03/2024 11:17 AM MOBILE THERAPIST Supervision of high-risk , second trimester Pre-existing type 2 diabetes mellitus during in second trimester Urinary tract infection in US OB DETAIL ANATOMY SINGLE OR FIRST GESTATION Schedule Routine, Read Routine (OP Routine) 04/03/2024 9:04 AM MOBILE THERAPIST Type 2 diabetes mellitus without complication, without long-term current use of insulin (CMS/HCC) (HCC) Bariatric surgery status complicating , second trimester Supervision of high-risk , second trimester US OB LIMITED Schedule Routine, Read Routine (OP Routine) 03/06/2024 8:10 AM MOBILE THERAPIST Supervision of high-risk , unspecified trimester EGFR Routine 03/01/2024 1:02 PM MOBILE THERAPIST Encounter for supervision of normal first in first trimester Type 2 diabetes mellitus without complication, without long-term current use of insulin (CMS/HCC) (HCC) CREATININE Routine 03/01/2024 1:02 PM MOBILE THERAPIST Encounter for supervision of normal first in first trimester Type 2 diabetes mellitus without complication, without long-term current use of insulin (CMS/HCC) (HCC) VOLUME AND PERIOD, URINE, 24 HOUR Routine 03/01/2024 9:00 AM MOBILE THERAPIST Encounter for supervision of normal first in first trimester Type 2 diabetes mellitus without complication, without long-term current use of insulin (CMS/HCC) (HCC) CREATININE CLEARANCE, URINE, 24 HOUR RESULT Routine 03/01/2024 9:00 AM MOBILE THERAPIST Encounter for supervision of normal first in first trimester Type 2 diabetes mellitus without complication, without long-term current use of insulin (CMS/HCC) (HCC) PROTEIN, URINE, 24 HOUR RESULT Routine 03/01/2024 9:00 AM MOBILE THERAPIST Encounter for supervision of normal first in first trimester Type 2 diabetes mellitus without complication, without long-term current use of insulin (CMS/HCC) (HCC) PROTEIN, URINE, 24 HOUR Routine 03/01/2024 9:00 AM MOBILE THERAPIST Encounter for supervision of normal first in first trimester Type 2 diabetes mellitus without complication, without long-term current use of insulin (CMS/HCC) (HCC) CREATININE CLEARANCE, URINE, 24 HOUR Routine 03/01/2024 9:00 AM MOBILE THERAPIST Encounter for supervision of normal first in first trimester Type 2 diabetes mellitus without complication, without long-term current use of insulin ([facility]) (HCC) HEPATITIS C ANTIBODY Routine 02/22/2024 11:18 AM MOBILE THERAPIST Encounter for supervision of normal first in first trimester PAP, REFLEX HPV Routine 02/22/2024 11:10 AM MOBILE THERAPIST Encounter for supervision of normal first in first trimester LIPID PANEL Routine 01/12/2024 10:23 AM CDT Bariatric surgery status Morbid obesity ([facility]) Body mass index 45.0-49.9, adult ([facility]) Less than 8 weeks gestation of Iron deficiency anemia, unspecified ALBUMIN CREATININE RATIO, URINE Routine 11/19/2023 8:10 AM CDT Type 2 diabetes mellitus without complication, without long-term current use of insulin (CMS/[facility]) (HCC) Laboratory examination ordered as part of a complete physical examination DIABETES EYE EXAM Routine 09/18/2022 9:09 AM CDT from Last 3 Months or Most Recently Relevant to Health Maintenance Results * US Ob Follow Up (05/19/2024 10:56 AM MOBILE THERAPIST) Fetus# Fetus1 VIEWPOINT Estimated Weight 688 g&grams VIEWPOINT Placenta Details posterior, Previa-no VIEWPOINT Presentation Breech VIEWPOINT Anatomical Region Laterality Modality Abdomen N/A Ultrasound 05/19/2024 10:5 7 AM MOBILE THERAPIST Impressions 05/19/2024 11:50 AM MOBILE THERAPIST Normal biometry 688 g at 14%and amniotic fluid is normal. Fetus is breech; posterior placenta. Narrative Procedure Note Keila Kelsey MD - 05/19/2024 IMPRESSION: Normal biometry 688 g at 14%and amniotic fluid is normal. Fetus is breech;posterior placenta. us Thao Dillon MD IMG OB US PROCEDURES Dot l Result * Echocardiogram (05/16/2024 2:57 PM MOBILE THERAPIST) Anatomical Region Laterality Modality Ultrasound 05/16/2024 2:13 PM MOBILE THERAPIST Narrative 05/16/2024 3:16 PM MOBILE THERAPIST [facility] Heart Station Echo Report [facility] [address], [place] [address] Patient Name: RADHA WILKS Study Type: Echo Patient : 1995 Exam Date: 05/16/2024 Age: 29Y Exam Time: 2:13:00 PM Referring MD: SHARRI TORRES Height: 62in Weight: 272lb BSA: 2.18 m2 Sex: FEMALE BP: 96/64 Toggler: Jenelle Bae. Stat.: Outpatient Room: OP Account:[id number] Indications for Study:MATERNAL DIABETES 775.1 Procedures: COLORFLOW, DOPPLER COMPLETE, , COMPLETE SUMMARY: Initial echocardiogram (2D, color, Doppler) performed on a 24 5/7 week single fetus LUIS ALFREDO (08/31/2024). Study quality is good. The fetus is in the breech position. Normal echocardiogram There is levocardia noted. Balanced four chamber view with qualitatively normal systolic function. Normally related great vessels. No inflow or outflow tract obstruction. No obvious VSD. No valvar regurgitation. Unobstructed aortic and ductal arches. Left aortic arch. At least 2 pulmonary veins drain normally to the LA. Normal systemic venous return. Normal heart rate, 145 bpm with 1:1 AV conduction. No pericardial effusion. Three vessel cord noted, with normal Doppler patterns. Normal interventricular septal thickness, 2mm. Atria: Situs: Solitus. RA Size: Normal. LA Size: Normal. Septum: Atrial septum bows to left Defect sz. Not well visualized Shunt: Not well visualized Ventricles: D-looped LV size: Normal. LV function:Normal. Rv size: Normal. RV function: Normal. IVS: Motion: Normal. Defect Type/Size: None./None. Shunt: None. Grt Vessls: Normal. Aortic Root: Normal. MPA: Normal LPA: Normal. RPA: Normal. Aortic Arch: Unobstructed Ductus Arteriosus: cm/sec Systm Veins: SVC: Normal. IVC: Normal. Pulm Veins: Visualized: 2/4. Connections: Normal. Pericardium: Normal Mitral Valve: Biphasic Structure: Normal. Stenosis: No. Regurgitation: No. Tricuspid Valve: Biphasic Structure: Normal. Stenosis:No. Regurgitation: No. Pulmonary Valve: Structure: Normal. Stenosis: No. Regurgitation: No. Aortic Valve: Structure: Normal. Stenosis: No. Regurgitation: No. cardiac rhythm: 1:1 AV conduction Rate: 145 bpm FINDINGS: Signed 05/16/2024 03:16 PM Larissa Guajardo MD Procedure Note Larissa Guajardo MD - 05/16/2024 [facility] Heart Station Echo Report [facility] [address], [place] [address] Patient Name: RADHA WILKS Study Type: Echo Patient : 1995 Exam Date: 05/16/2024 Age: 29Y Exam Time: 2:13:00 PM Referring MD: SHARRI TORRES Height: 62in Weight: 272lb BSA: 2.18 m2 Sex: FEMALE BP: 96/64 Toggler: Jenelle Bae. Stat.: Outpatient Room: OP Account:[id number] Indications for Study:MATERNAL DIABETES 775.1 Procedures: COLORFLOW, DOPPLER COMPLETE, , COMPLETE SUMMARY: Initial echocardiogram (2D, color, Doppler) performed on a 24 5/7 week single fetus LUIS ALFREDO (08/31/2024). Study quality is good. The fetus is in the breech position. Normal echocardiogram There is levocardia noted. Balanced four chamber view with qualitatively normal systolic function. Normally related great vessels. No inflow or outflow tract obstruction. No obvious VSD. No valvar regurgitation. Unobstructed aortic and ductal arches. Left aortic arch. At least 2 pulmonary veins drain normally to the LA. Normal systemic venous return. Normal heart rate, 145 bpm with 1:1 AV conduction. No pericardial effusion. Three vessel cord noted, with normal Doppler patterns. Normal interventricular septal thickness, 2mm. Atria: Situs: Solitus. RA Size: Normal. LA Size: Normal. Septum: Atrial septum bows to left Defect sz. Not well visualized Shunt: Not well visualized Ventricles: D-looped LV size: Normal. LV function:Normal. Rv size: Normal. RV function: Normal. IVS: Motion: Normal. Defect Type/Size: None./None. Shunt: None. Grt Vessls: Normal. Aortic Root: Normal. MPA: Normal LPA: Normal. RPA: Normal. Aortic Arch: Unobstructed Ductus Arteriosus: cm/sec Systm Veins: SVC: Normal. IVC: Normal. Pulm Veins: Visualized: 2/4. Connections: Normal. Pericardium: Normal Mitral Valve: Biphasic Structure: Normal. Stenosis: No. Regurgitation: No. Tricuspid Valve: Biphasic Structure: Normal. Stenosis:No. Regurgitation: No. Pulmonary Valve: Structure: Normal. Stenosis: No. Regurgitation: No. Aortic Valve: Structure: Normal. Stenosis: No. Regurgitation: No. cardiac rhythm: 1:1 AV conduction Rate: 145 bpm FINDINGS: Signed 05/16/2024 03:16 PM Larissa Guajardo MD Thao Dillon MD CV ECHO PROCEDURES Final Result * Influenza A/B, RSV, and COVID-19 PCR Nasopharyngeal (04/28/2024 7:18 PM MOBILE THERAPIST) COVID-19 RNA Negative Negative Influenza A RNA Negative Negative [facility] Influenza B RNA Negative Negative [facility] RSV RNA Negative Negative [facility] Comment: Interpretive data: Testing performed by [facility]. This test is performed using the [employer] Xpert Xpress CoV-2/Flu/RSV plus assay. This is a multiplex, real-time reverse transcriptase PCR assay intended for the qualitative detection of nucleic acid from SARS-CoV-2, influenza A, influenza B, and respiratory syncytial virus. This assay has been cleared by the [place] Food and Drug administration. The performance characteristics have been verified by the [facility]. Results must be considered in the clinical context, and a negative result does not rule out infection. Interpretive Data last revised 2023 Nasopharyngeal 04/28/2024 7 :18 PM MOBILE THERAPIST 04/29/2024 3:51 AM MOBILE THERAPIST Narrative [facility] - 04/29/2024 4:40 AM MOBILE THERAPIST Is the Patient experiencing symptoms consistent with COVID?->Yes Noemí [facility] MICROBIOLOGY - GENER AL ORDERABLES Final Result [facility] [id number] Department [place] [address] * Mycoplasma pneumoniae PCR Nasopharyngeal (04/28/2024 7:18 PM MOBILE THERAPIST) M. pneumoniae DNA Not Detected Not Detected [facility] Comment: Interpretive Data: This assay tests for the presence of Mycoplasma pneumoniae. This test is laboratory developed and its performance characteristics were determined by the performing laboratory in a manner consistent with CLIA requirements. This test has not been cleared or approved by the [place]. Food and Drug Administration. Current Interpretive Data was last revised on 2019. Testing performed by: [facility], [address] [place]., [address] Nasopharyngeal 04/28/2024 7: 18 PM MOBILE THERAPIST 04/29/2024 5:53 AM MOBILE THERAPIST Noemí [facility] MICROBIOLOG[facility] - GENER AL ORDERABLES Final Result Performing Organization Address City/[facility]/ZIP Co de Phone Number JOSÉ MIGUEL THURSTON [address] [facility] [place] [address] [facility] * Bordetella pertussis/Bordetella parapertussis PCR Nasopharyngeal (04/28/2024 7:18 PM MOBILE THERAPIST) Pathologist [facility] [place] B. pertussis DNA Not Detected Not Detected [facility] Comment:Testing performed by : [facility], [address] [place] [address]., [address] B. parapertussis DNA Not Detected Not Detected [facility] Comment: Interpretive Data: This assay tests for the presence of Bordetella pertussis and Bordetella parapertussis. This test is laboratory developed and its performance characteristics were determined by the performing laboratory in a manner consistent with CLIA requirements. This test has not been cleared or approved by the [place].S. Food and Drug Administration. Current Interpretive Data was last revised on 2019. Testing performed by: [facility], [address] [place] [address]., [address] Nasopharyngeal 04/28/2024 7: 18 PM MOBILE THERAPIST 04/29/2024 5:53 AM MOBILE THERAPIST Noemí [facility] MICROBIOLOGY - GENER AL ORDERABLES Final Result JUVENALDAMIR THURSTON [address] [facility] [place] [address] [facility] * POC Influenza A/B, COVID-19 antigen (04/28/2024 7:10 PM MOBILE THERAPIST) Influenza A Ag, POC Negative Negative [facility] Influenza B Ag, POC Negative Negative [facility] COVID-19 Ag POC Presumptive Negative Presumptive Negative, Invalid [facility] Nasal 04/28/2024 7:10 PM MOBILE THERAPIST Noemí [facility] POINT OF CARE TEST ORDER FAYE Final Result [facility] [address] [id number] * (ABNORMAL) Differential, auto (04/19/2024 2:08 PM MOBILE THERAPIST) Neutrophil abs 9.8(H) 1.5 - 6.5 K/cumm Imm gran abs 0.1 0.0 - 0.1 K/cumm [facility] Lymphocyte abs 2.3 0.8 - 3.3 K/cumm [facility] Monocyte abs 0.7 0.2 - 0.8 K/cumm [facility] Eosinophil abs 0.1 0.0 - 0.5 K/cumm [facility] Basophil abs 0.0 0.0 - 0.1 K/cumm [facility] Neutrophil pct 75.4 % [facility] Comment: Interpretive Data Percent cell count reference ranges are not reported, since discordance with absolute values may lead to misinterpretation of CBC data. Current Interpretive Data was last revised on 2017. Imm gran pct 0.5 % [facility] Comment: Interpretive Data Percent cell count reference ranges are not reported, since discordance with absolute values may lead to misinterpretation of CBC data. Current Interpretive Data was last revised on 2017. Lymphocyte pct 17.8 % [facility] Comment: Interpretive Data Percent cell count reference ranges are not reported, since discordance with absolute values may lead to misinterpretation of CBC data. Current Interpretive Data was last revised on 2017. Monocyte pct 5.5 % [facility] Comment: Interpretive Data Percent cell count reference ranges are not reported, since discordance with absolute values may lead to misinterpretation of CBC data. Current Interpretive Data was last revised on 2017. Eosinophil pct 0.6 % [facility] Comment: Interpretive Data Percent cell count reference ranges are not reported, since discordance with absolute values may lead to misinterpretation of CBC data. Current Interpretive Data was last revised on 2017. Basophil pct 0.2 % [facility] Comment: Interpretive Data Percent cell count reference ranges are not reported, since discordance with absolute values may lead to misinterpretation of CBC data. Current Interpretive Data was last revised on 2017. Blood 04/19/2024 2:08 PM MOBILE THERAPIST 04/19/2024 2:15 PM MOBILE THERAPIST Thao Dillon MD LAB BLOOD ORDERABLES Dot l Result Performing Organization Address City/[facility]/ZIP Co de Phone Number [facility] [address] Department [address] [place], [place] [id number] * (ABNORMAL) Iron profile w/ IBC (04/19/2024 2:08 PM MOBILE THERAPIST) Pathologist [facility] [place] Iron 59 35 - 145 mcg/dL TIBC 308 250 - 400 mcg/dL [facility] Transferrin saturation 19(L) 20 - 50 % [facility] Blood 04/19/2024 2:08 PM MOBILE THERAPIST 04/19/2024 2:08 PM MOBILE THERAPIST Thao Dillon MD LAB BLOOD ORDERABLES Dot l Result Performing Organization Address [facility]/ZIP Co de Phone Number [facility] [address] [place] [address] * (ABNORMAL) CBC with auto differential (04/19/2024 2:08 PM MOBILE THERAPIST) Pathologist [facility] [place] WBC 12.9(H) 3.8 - 9.9 K/cumm Hgb 11.6(L) 11.9 - 15.5 g/dL [facility] Hct 35.5(L) 35.6 - 45.5 % [facility] Plt 277 150 - 400 K/cumm [facility] MPV 10.5 9.1 - 12.3 fL [facility] RBC 3.95 3.90 - 5.20 M/cumm [facility] MCV 89.9 81.3 - 96.4 fL [facility] MCH 29.4 27.1 - 33.3 pg [facility] MCHC 32.7 32.3 - 35.7 g/dL [facility] RDW CV 13.0 11.1 - 14.9 % [facility] RDW SD 42.7 35.7 - 48.1 fL [facility] NRBC abs 0.00 0.00 - 0.01 K/cumm [facility] Blood 04/19/2024 2:08 PM MOBILE THERAPIST 04/19/2024 2:15 PM MOBILE THERAPIST us Thao Dillon MD LAB BLOOD ORDERABLES Dot gomez Result [facility] [address] [place] [address] * (ABNORMAL) Hemoglobin analysis by electrophoresis (04/19/2024 2:08 PM MOBILE THERAPIST) RBC 3.82(L) 3.90 - 5.20 M/cumm Comment:Testing performed by : [facility], [address] [place] [address]., [address] Hgb 11.1(L) 11.9 - 15.5 g/dL [facility] Comment:Testing performed by : [facility], [address] [place] [address] MCV 88.7 81.3 - 96.4 fL [facility] Comment:Testing performed by : [facility], [address] [place] [address] Rdw 13.2 11.1 - 14.9 % [facility] Comment:Testing performed by : [facility], [address] [place] [address] Hgb electrophores is, interp Normal Hemoglobin Pattern - For Age [facility] Comment:Testing performed by : [facility], [address] [place]., [address] Hgb A 97.6 96.0 - 98.5 % [facility] Comment:Testing performed by : [facility], [address] [place] [address] Hgb A2 2.4 1.5 - 3.2 % [facility] Comment:Testing performed by : [facility], [address] [place]., [address] Hgb F <0.4 0.0 - 0.9 % [facility] Comment:Testing performed by : [facility], [address] [place] [address] Blood 04/19/2024 2:08 PM MOBILE THERAPIST 04/19/2024 8:52 PM MOBILE THERAPIST Thao Dillon MD LAB BLOOD ORDERABLES Dot l Result Performing Organization Address City/[facility] Co de Phone Number [facility] [address] [facility] [place] [address] * Vitamin D 25 hydroxy (04/19/2024 2:08 PM MOBILE THERAPIST) Pathologist [facility] [place] Vitamin D 25-OH 32 30 - 80 ng/mL Blood 04/19/2024 2:08 PM MOBILE THERAPIST 04/19/2024 2:08 PM MOBILE THERAPIST Thao Dillon MD LAB BLOOD ORDERABLES Dot l Result Performing Organization Address [facility] Co de Phone Number [facility] [address] [facility] [place] [address] * Hemoglobin A1c (04/19/2024 2:08 PM MOBILE THERAPIST) [facility] Hgb A1C 5.4 4.0 - 5.6 % Estimated Average Glucose 108 mg/dL [facility] Comment: The ADA recommends reporting an estimated Average Glucose (eAG) with all Hemoglobin A1c results using the equation derived from a study of 507 normal and diabetic adults. Minority populations were underrepresented and children were not included. (Diabetes Care 31:3164-4749, 2008). The eAG is not equivalent to a fasting glucose. Blood 04/19/2024 2:08 PM MOBILE THERAPIST 04/19/2024 2:08 PM MOBILE THERAPIST Thao Dillon MD LAB BLOOD ORDERABLES Dot l Result [facility] [address] [place] [address] * Folate (04/19/2024 2:08 PM MOBILE THERAPIST) Folic acid 18.2 >=5.0 ng/mL Blood 04/19/2024 2:08 PM MOBILE THERAPIST 04/19/2024 2:08 PM MOBILE THERAPIST Thao Dillon MD LAB BLOOD ORDERABLES Dot l Result Performing Organization Address [facility] Co de Phone Number [facility] [address] [place] [address] * Ferritin (04/19/2024 2:08 PM MOBILE THERAPIST) Ferritin 44 15 - 150 ng/mL Blood 04/19/2024 2:08 PM MOBILE THERAPIST 04/19/2024 2:08 PM MOBILE THERAPIST Result [facility] Thao Dillon MD LAB BLOOD ORDERABLES Dot l Result Performing Organization Address City/[facility] Co de Phone Number [facility] [address] [place] [address] * Vitamin B12 (04/19/2024 2:08 PM MOBILE THERAPIST) Vitamin B12 336 230 - 1,250 pg/mL Blood 04/19/2024 2:08 PM MOBILE THERAPIST 04/19/2024 2:08 PM MOBILE THERAPIST Thao Dillon MD LAB BLOOD ORDERABLES Dot l Result [facility] [address] [place] [address] * Calcium level (04/19/2024 2:08 PM MOBILE THERAPIST) Calcium 9.2 8.5 - 10.3 mg/dL Blood 04/19/2024 2:08 PM MOBILE THERAPIST 04/19/2024 2:08 PM MOBILE THERAPIST Thao Dillon MD LAB BLOOD ORDERABLES Dot l Result [facility] [address] [place] [address] * US Ob Limited (04/19/2024 12:23 PM MOBILE THERAPIST) Fetus# Fetus1 VIEWPOINT Placenta Details posterior, Previa-no, no placental masses VIEWPOINT Presentation Breech VIEWPOINT Anatomical Region Laterality Modality Abdomen N/A Ultrasound 04/19/2024 12:2 3 PM MOBILE THERAPIST Impressions 04/19/2024 1:23 PM MOBILE THERAPIST IUP at 20 weeks and 6 days Anatomic survey is now complete and no anomalies were identified today. Narrative Procedure Note Soila Longo MD - 04/19/2024 IMPRESSION: IUP at 20 weeks and 6 days Anatomic survey is now complete and no anomalies were identified today. Thao Dillon MD IMG OB US PROCEDURES Dot l Result * ECG 12 lead (04/03/2024 11:51 AM MOBILE THERAPIST) 04/03/2024 12:3 1 PM MOBILE THERAPIST Narrative [facility] - 04/03/2024 8:16 PM MOBILE THERAPIST Vent Rate: 72 bpm RR Interval: 827 msec RI Interval: 169 msec QRS Duration: 90 msec QT Interval: 386 msec QTC Interval: 410 msec P-R-T [place]: 55 - 64 - 49 degrees IMPRESSION: SINUS RHYTHM WITH SINUS ARRHYTHMIA NORMAL ECG Electronically Signed By: Jacky Nathan MD us Thao Dillon MD ECG ORDERABLES Final Res ult [facility] * Urine culture Urine, clean voided (04/03/2024 11:17 AM MOBILE THERAPIST) Report Final Report: Less than 100,000 colonies/mL (clinically insignificant growth based on current clinical standards) Organism (CLINICALLY INSIGNIFICANT GROWTH [facility] Urine, clean voided 04/03/2024 11:17 AM MOBILE THERAPIST 04/03/2024 9:17 PM MOBILE THERAPIST Narrative [facility] - 04/05/2024 3:53 AM MOBILE THERAPIST Testing performed by [facility] ([phone]) Thao Dillon MD LAB MICROBIOLOGY - GENERA L ORDERABLES Final Result Performing Organization Address [facility] Co de Phone Number [facility] [place] [address] * US Ob Detail Anatomy Single Or First Gestation (04/03/2024 9:04 AM MOBILE THERAPIST) Fetus# Fetus1 VIEWPOINT Estimated Weight 218 g&grams VIEWPOINT Placenta Details posterior, Previa-no, no placental masses VIEWPOINT Presentation Breech VIEWPOINT Anatomical Region Laterality Modality Body N/A Ultrasound 04/03/2024 9:05 AM MOBILE THERAPIST Impressions 04/03/2024 10:18 AM MOBILE THERAPIST Interval growth has been normal. No malformations are identified, but the anatomical survey was not able to be completed today due to positioning and maternal scanning properties. IUP at 18 weeks + 4 days Narrative Procedure Note Jenelle Porras MD - 04/03/2024 IMPRESSION: Interval growth has been normal. No malformations areidentified, but the anatomical survey was not able to be completed todaydue to positioning and maternal scanning properties. IUP at 18 weeks + 4 days us Asha Tariq MD IMG OB US PROCEDURES Final Result * US Ob Limited (03/06/2024 8:10 AM MOBILE THERAPIST) Fetus# Fetus1 VIEWPOINT Estimated Weight 81 g&grams VIEWPOINT Placenta Details posterior VIEWPOINT Presentation Breech VIEWPOINT Anatomical Region Laterality Modality Abdomen N/A Ultrasound 03/06/2024 8:10 AM MOBILE THERAPIST Impressions 03/06/2024 10:34 AM MOBILE THERAPIST IUP at 14w 4d for evaluation of growth assessment. growth is appropriate for gestational age by individual biometric measurements, however overall EFW plots at 3%. Narrative Procedure Note Ness Stover MD - 03/06/2024 IMPRESSION: IUP at 14w 4d for evaluation of growth assessment. growth isappropriate for gestational age by individual biometric measurements,however overall EFW plots at 3%. us Misti Osborn MD IMG OB US PROCEDURE S Final Result * eGFR (03/01/2024 1:02 PM MOBILE THERAPIST) eGFR >90 >=60 mL/min/1. 73 m2 Comment: Interpretive Data Reference Interval Normal >/= 90 mL/min/1.73m2 Mildly decreased* 60 - 89 mL/min/1.73m2 Mildly to moderately decreased 45 - 59 mL/min/1.73m2 Moderately to severely decreased 30 - 44 mL/min/1.73m2 Severely decreased 15 - 29 mL/min/1.73m2 Kidney Failure < 15 mL/min/1.73m2 *Relative to young adult level Estimated glomerular filtration rate is determined by the 2020 CKD-EPI equation recommended by the National Kidney Foundation (A Unifying Approach to GFR Estimation: Recommendations of the NKF-ASK Task Force on Reassessing the Inclusion of Race in Diagnosing Kidney Disease, JASN 2020). The CKD-EPI equation should not be used for patients with unstable renal function and has not been validated in children and those over 70. Current interpretive data was last reviewed 2021. Urine/Blood 03/01/2024 1:02 PM MOBILE THERAPIST 03/01/2024 3:51 PM MOBILE THERAPIST Misti Osborn MD LAB BLOOD ORDERABLE S Final Result [facility]) 1 [facility] [place] [address] * Creatinine (03/01/2024 1:02 PM MOBILE THERAPIST) Creatinine 0.60 0.60 - 1.10 mg/dL Urine/Blood 03/01/2024 1:02 PM MOBILE THERAPIST 03/01/2024 3:51 PM MOBILE THERAPIST us Misti Osborn MD LAB BLOOD ORDERABLE S Final Result Performing Organization Address [facility] Co de Phone Number [facility] ([place]) 1 [facility] [place] [address] * Protein, urine, 24 hour (03/01/2024 9:00 AM MOBILE THERAPIST) Protein, 24 hr, ur 136 0 - 150 mg/24H Urine 03/01/2024 9:00 AM MOBILE THERAPIST 03/01/2024 4:13 PM MOBILE THERAPIST Misti Osborn MD LAB URINE ORDERABLE S Final Result Performing Organization Address City/[facility]/ZIP Co de Phone Number [facility] 1 [facility] [place] [address] * Volume and period, urine, 24 hour (03/01/2024 9:00 AM MOBILE THERAPIST) Volume, ur 1,400 mL Period, Urine Collection 1,440 min [facility] [place]) Urine/Blood 03/01/2024 9:00 AM MOBILE THERAPIST 03/01/2024 4:13 PM MOBILE THERAPIST Misti Osborn MD LAB URINE ORDERABLE S Final Result Performing Organization Address City/[facility]/ZIP Co de Phone Number [facility] ([place] 1 [facility] [place] [address] * (ABNORMAL) Creatinine clearance, urine, 24 hour (03/01/2024 9:00 AM MOBILE THERAPIST) Creatinine Clearance 209(H) 60 - 130 mL/min Creatinine, 24 hr, ur 1.8(H) 0.6 - 1.5 g/24H [facility] [place]) Urine/Blood 03/01/2024 9:00 AM MOBILE THERAPIST 03/01/2024 4:13 PM MOBILE THERAPIST us Misti Osborn MD LAB URINE ORDERABLE S Final Result Performing Organization Address [facility] Co de Phone Number [facility] ([place] 1 [facility] [place] [address] * Hepatitis C antibody Blood (02/22/2024 11:18 AM MOBILE THERAPIST) Hep C Ab Nonreactive Nonreactive Comment: Interpretive Data Nonreactive: Antibodies to HCV not detected. Does NOT exclude the possibility of recent exposure to HCV. Equivocal: Equivocal for HCV antibodies. Supplemental molecular testing will be automatically performed to determine infection status in accordance with current CDC screening recommendations. Reactive: Positive for HCV antibodies. This may represent current or past HCV infection. Supplemental molecular testing will be automatically performed to determine current infection status in accordance with current CDC screening recommendations. Interpretive data was last revised on 2019. Testing performed by: [facility], [address] [place] [address]., [id number] Blood 02/22/2024 11:1 8 AM MOBILE THERAPIST 02/22/2024 6:27 PM MOBILE THERAPIST us Misti Osborn MD LAB MICROBIOLOGY - GENERAL ORDERABLES Final Result Performing Organization Address [facility] Co de Phone Number [facility] 1 [facility] [place] [address] * Pap, reflex HPV (02/22/2024 11:10 AM MOBILE THERAPIST) CLINICAL INFORMATION: Martha PrescottDavid Myers Comment: LMP Martha PrescottDavid Myers Comment:10/18/2023 Previous Pap Martha Domonique Myers Comment:NONE GIVEN Prev. Bx Martha PrescottDavid Myers Comment:NONE GIVEN SOURCE: Martha GenieaDvid Myers Comment:Cervix, Endocervix Pap, specimen adequacy Martha PrescottDavid Myers Comment: Satisfactory for evaluation. Endocervical/transformation zone component present. HPV interp Martha PrescottDavid Myers Comment: Cytology Results: Negative for intraepithelial lesion or malignancy. COMMENTS Martha PrescottDavid Myers Comment: This Pap test has been evaluated with computer assisted technology. Literature Teacher Que st PrescottDavid Myers Comment: MMD, CT(ASCP) CT Screening Location: [facility] [address] [place] [id number] Comment Martha PrescottDavid Myers Comment: EXPLANATORY NOTE: The Pap is a screening test for cervical cancer. It is not a diagnostic test and is subject to false negative and false positive results. It is most reliable when a satisfactory sample, regularly obtained, is submitted with relevant clinical findings and history, and when the Pap result is evaluated along with historic and current clinical information. Thin prep 02/22/2024 11:1 0 AM MOBILE THERAPIST 02/23/2024 4:26 AM MOBILE THERAPIST Misti Osborn MD LAB CYTOLOGY ORDERA BLES Final Result [facility] [place] [address] [place] [address] * Lipid panel (01/12/2024 10:23 AM CDT) Cholesterol 187 30 - 199 mg/dL Comment: Interpretive Data Ages < or = 19 years Acceptable: <170 mg/dL Borderline high: 170-199 mg/dL High: >or= 200 mg/dL Ages > or = 20 years Desirable: <200 mg/dL Borderline high: 200-239 mg/dL High: >or= 240 mg/dL Literature References: 1. Expert Panel on Integrated Guidelines for Cardiovascular Health and Risk Reduction in Children and Adolescents. Pediatrics 2011;128:S213 2. NCEP Expert Panel. Circulation 2004;110:227 Current Interpretive Data was last revised on 2017. Triglycerides 78 <=149 mg/dL [facility] Comment: Interpretive Data Ages < or = 9 years Acceptable: <75 mg/dL Borderline high: 75-99 mg/dL High: >or= 100 mg/dL Ages 10 to 20 years Acceptable: <90 mg/dL Borderline high: 90-129 mg/dL High: >or= 130 mg/dL Ages > or = 20 years Desirable: <150 mg/dL Borderline high: 150-199 mg/dL High: 200-499 mg/dL Very high: >or= 499 mg/dL Literature References: 1. Expert Panel on Integrated Guidelines for Cardiovascular Health and Risk Reduction in Children and Adolescents. Pediatrics 2011;128:S213 2. NCEP Expert Panel. Circulation 2004;110:227 Current Interpretive Data was last revised on 2017. HDL 53 >=40 mg/dL [facility] Comment: Interpretive Data Ages < or = 19 years Acceptable: >45 mg/dL Borderline low: 40-45 mg/dL Low: <40 mg/dL Ages > or = 20 years Desirable: >or= 60 mg/dL Low: <40 mg/dL Literature References: 1. Expert Panel on Integrated Guidelines for Cardiovascular Health and Risk Reduction in Children and Adolescents. Pediatrics 2011;128:S213 2. NCEP Expert Panel. Circulation 2004;110:227 Current Interpretive Data was last revised on 2017. LDL, calculated 120 <=129 mg/dL [facility] Comment: Interpretive Data Ages < or = 19 years Acceptable: <110 mg/dL Borderline high: 110-129 mg/dL High: >or= 130 mg/dL Ages > or = 20 years Optimal: <100 mg/dL Near optimal: 100-129 mg/dL Borderline high: 130-159 mg/dL High: >160 mg/dL Calculated using the Clemente LDL-C estimating equation. This equation was implemented on 2023. Prior to this date LDL-C was estimated using the Friedewald equation. Literature References: 1. Expert Panel on Integrated Guidelines for Cardiovascular Health and Risk Reduction in Children and Adolescents. Pediatrics 2011;128:S213 2. NCEP Expert Panel. Circulation 2004;110:227 3. Clemente Garcia et al. SONIDO Cardiol. 2020 August 10;5(5):540-548. doi: 10.1001/jamacardio.2020.0013 Current Interpretive Data was last revised on 2023. Non-HDL Cholesterol 134 mg/dL [facility] Comment: Interpretive Data Ages < or = 19 years Acceptable: <120 mg/dL Borderline high: 120-144 mg/dL High: >145 mg/dL Ages > or = 20 years When triglycerides are >200 mg/dL, Non-HDL cholesterol is a secondary target of therapy with treatment goals that are 30 mg/dL greater than the LDL cholesterol target. Literature References: 1. Expert Panel on Integrated Guidelines for Cardiovascular Health and Risk Reduction in Children and Adolescents. Pediatrics 2011;128:S213 2. NCEP Expert Panel. Circulation 2004;110:227 Current Interpretive Data was last revised on 2017. Chol/HDL ratio 4 [facility] Blood (Blood, Venous) 01/12/2024 10:23 AM CDT 01/12/2024 2:15 PM CDT Narrative [facility] - 01/12/2024 3:38 PM CDT FAX RESULTS TO DR KAT BOLTON [phone] us Kat Bolton STATISTICAL GENETICIST LAB BLOOD ORDERABLES Final Re sult [facility] [id number] [place] [address] * Albumin Creatinine Ratio, Urine (11/19/2023 8:10 AM CDT) Albumin Ur <12.0 mg/L Comment: Interpretive Data No reference range established. Current interpretive data was last revised 2018. Creatinine Ur 157.4 mg/dL [facility] Comment: Interpretive Data No reference range established. Current interpretive data was last revised 2018. Albumin Creatinine Ratio, Ur <8 1 - 29 mg/g [facility] Urine 11/19/2023 8:10 AM CDT 11/19/2023 2:39 PM CDT us Elzbieta Palomo MD LAB URINE ORDERABLES [place] [address] [address] [place] [address] * DIABETES EYE EXAM (09/18/2022 9:09 AM CDT) us Historical Provider HEALTH MAINTENANCE Final Result from Last 3 Months or Most Recently Relevant to Health Maintenance Additional Health Concerns Active Problems Noted Date Diagnosed Date Meal Tracking and Blood Sugar Monitoring 024 Insurance [employer] IDPA Care Teams Director Packaging Relationship Specialty Start Date End Date Ai Weaver NP [address] [facility] [address] [place] [address] PCP - General Family Medicine 04/25/24 Thao Dillon MD [address] [facility] [address] [place] [address] Consulting Physician Obstetrics and Gynecology 04/25/24
--- OUTSIDE RECORDS SUMMARY | 2024-05-26 15:35 | XMS_ITS | Patient Health Summary ---
Author Organization [facility] Address [address] [place] [address] Care Team Providers Care Sales And Service Engineer Name Role Phone Tanya Weaver RN Primary Care Provider Unavaila ble Note from [facility],non-owned Affiliates and Associated Physician Practices is amultiple site organization consisting of ambulatory clinics and hospital sitesin [place], [place], [place] and [place]. This disclosure is being madepursuant to the Care Everywhere program and may not contain all information available regarding this patient. Last updated 17.[facility] Allergies * Nsaids(Other) -Low Criticality Medications * Be aware that medications may not be up to date on this document. Alwaysverify current medications with the patient. * Multiple Vitamins-Minerals (CENTRUM SILVER PO) Take 1 tablet by mouth once daily * Calcium Citrate-Vitamin D (CALCIUM CITRATE + PO) Take by mouth 2 times daily * busPIRone (Buspar) 5 MG tablet Take 1 (one) tablet by mouth 2 times daily * Iron-Vitamin C (VITRON-C) 65-125 MG TABS Take 1 tablet by mouth once daily * escitalopram (Lexapro) 5 MG tablet Take 1 (one) tablet by mouth once daily * vitamin B-12 (Cyanocobalamin) 1000 MCG tablet Take 1 (one) tablet by mouth once daily * Cholecalciferol 50 MCG (1999 UT) Take 2,000 Units by mouth once daily * vitamin D, ergocalciferol, (Drisdol) 1.25 MG (86471 UT) capsule(Started 11/22/2023) Take 1 (one) capsule by mouth every 7 days Reasons: Vitamin D Deficiency 3 refills by 11/21/2024 * omeprazole (PriLOSEC) 20 MG capsule(Started 04/04/2024) TAKE 1 CAPSULE BY MOUTH EVERY DAY 11 refills by 04/04/2025 Active Problems Problem Noted Date Diagnosed Date Morbid obesity 08/12/2020 Binge eating disorder Preop examination Resolved Problems Problem Noted Date Diagnosed Date Resolved Date Dehydration 08/23/2020 09/06/2020 Immunizations * Covid Moderna primary monovalent 12+ yr 0.5mL(Given 04/13/2020) Social History Tobacco Use Types Packs/Day Years Used Date Smoking Tobacco: Former Cigarettes Q uit: 2017 Smokeless Tobacco: Never Tobacco Cessation:Counseling Given: Not Answered Alcohol Use Standard Drinks/Week Comments Not Currently 0 (1 standard drink = 0.6 oz pur e alcohol) monthly AUDIT-C Answer Date Recorded Q1: How often do you have a drink containing alcohol? Never 11/19/2021 Q2: How many drinks containi ng alcohol do you have on a typical day when you are drinking? Patient does not drink Q3: How often do you have si x or more drinks on one occasion? Never 11/19/2021 PHQ-2 Answer Date Recorded Patient Health Questionnaire-2 Score 0 03/31/2024 Estimated Date of Delivery Comme nts Yes 09/01/2024 Sex and Gender Information Value Date Recorded Sex Assigned at Female 08/02/2020 8:51 AM CDT Gender Identity Female 01/13/2024 4:18 PM CDT Sexual Orientation Straight 01/13/2024 4: 18 PM CDT Last Filed Vital Signs Vital Sign Reading Time Taken Comments Blood Pressure 110/80 01/14/2024 10:00 AM CDT Pulse 75 01/14/2024 10:00 AM CDT Temperature 36.6 C (97.8 F) 01/14/2024 10:00 AM CDT Respiratory Rate 20 01/14/2024 10:00 AM CDT Oxygen Saturation 99% 01/14/2024 10:00 AM CDT Inhaled Oxygen Concentration 21% 08/12/2020 8 :00 PM CDT Weight 124.7 kg (275 lb) 03/31/2024 10:59 AM COMPUTER AIDED DESIGN TECHNICIAN per pt Height 158 cm (5' 2.21 ) 03/31/2024 10:59 AM COMPUTER AIDED DESIGN TECHNICIAN Body Mass Index 49.97 03/31/2024 10:59 AM COMPUTER AIDED DESIGN TECHNICIAN Medical Devices Implanted Type Area Sheet Metal Layout Worker Device Identifier Shelf Expiration Date Model / Serial / Lot Kit Tissue Clsr Duo Tssl 1 Prefl Syr Implanted:Qty: 1 on 08/12/2020 by Lora Bains MD [place] [facility] [place] [facility]A: Stomach [employer] 02/09/2022 [id number] / / [id number] Procedures * LIPID PROFILE(Performed 11/19/2023) Performed for S/P laparoscopic sleeve gastrectomy, Morbid obesity with body mass index (BMI) of 45.0 to 49.9 in adult ([facility]LY [facility]) * COMPREHENSIVE METABOLIC PANEL(Performed 11/19/2023) Performed for S/P laparoscopic sleeve gastrectomy, Morbid obesity with body mass index (BMI) of 45.0 to 49.9 in adult ([facility]) * CBC W AUTO DIFFERENTIAL(Performed 11/19/2023) Performed for S/P laparoscopic sleeve gastrectomy, Morbid obesity with body mass index (BMI) of 45.0 to 49.9 in adult ([facility]) * VITAMIN B1(Performed 11/19/2023) Performed for S/P laparoscopic sleeve gastrectomy, Morbid obesity with body mass index (BMI) of 45.0 to 49.9 in adult ([facility]) * FERRITIN(Performed 11/19/2023) Performed for S/P laparoscopic sleeve gastrectomy, Morbid obesity with body mass index (BMI) of 45.0 to 49.9 in adult ([facility]) * VITAMIN B12 FOLATE PANEL(Performed 11/19/2023) Performed for S/P laparoscopic sleeve gastrectomy, Morbid obesity with body mass index (BMI) of 45.0 to 49.9 in adult ([facility]) * PTH INTACT+CALCIUM(Performed 11/19/2023) Performed for S/P laparoscopic sleeve gastrectomy, Morbid obesity with body mass index (BMI) of 45.0 to 49.9 in adult ([facility]) * IRON + TRANSFERRIN PANEL(Performed 11/19/2023) Performed for S/P laparoscopic sleeve gastrectomy, Morbid obesity with body mass index (BMI) of 45.0 to 49.9 in adult ([facility]), Iron deficiency anemia, unspecified iron deficiency anemia type * PHOSPHORUS BLOOD(Performed 11/19/2023) Performed for S/P laparoscopic sleeve gastrectomy, Morbid obesity with body mass index (BMI) of 45.0 to 49.9 in adult ([facility]) * MAGNESIUM BLOOD(Performed 11/19/2023) Performed for S/P laparoscopic sleeve gastrectomy, Morbid obesity with body mass index (BMI) of 45.0 to 49.9 in adult ([facility]) * VITAMIN D 25-HYDROXY(Performed 11/19/2023) Performed for S/P laparoscopic sleeve gastrectomy, Morbid obesity with body mass index (BMI) of 45.0 to 49.9 in adult ([facility]), Vitamin D deficiency * IMAGING/RADIOLOGY/XRAY RESULTS ORDER(Performed 09/06/2022) * IMAGING/RADIOLOGY/XRAY RESULTS ORDER(Performed 09/06/2022) * IMAGING/RADIOLOGY/XRAY RESULTS ORDER(Performed 05/06/2022) * IMAGING/RADIOLOGY/XRAY RESULTS ORDER(Performed 01/20/2022) * GLUCOSE - POINT OF CARE(Performed 11/19/2021) * GROSS + MICRO EXAM (ILL)(Performed 11/19/2021) Performed for Gastroesophageal reflux disease, unspecified whether esophagitis present * DC EGD FLEX TRANSORAL W BX SNGL OR MULT(Performed 11/19/2021) Performed for Gastroesophageal reflux disease, unspecified whether esophagitis present * HCG URINE QUALITATIVE(Performed 11/19/2021) Performed for Preop examination * GLUCOSE - POINT OF CARE(Performed 11/19/2021) * HEMOGLOBIN A1C(Performed 08/28/2021) Performed for Type 2 diabetes mellitus without complication, 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 whether 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 consultant 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 ([facility]) * CBC W AUTO DIFFERENTIAL(Performed 08/28/2021) Performed for S/P laparoscopic sleeve gastrectomy, Class 3 severe obesity due to excess calories with body mass index (BMI) of 40.0 to 44.9 in adult, unspecified whether serious comorbidity present ([facility]), Other specified intestinal malabsorption ([facility]) * COMPREHENSIVE METABOLIC PANEL(Performed 08/28/2021) Performed for S/P laparoscopic sleeve gastrectomy, Class 3 severe obesity due to excess calories with body mass index (BMI) of 40.0 to 44.9 in adult, unspecified whether serious comorbidity present (HCC), Other specified intestinal malabsorption (HCC) * FERRITIN(Performed 08/28/2021) Performed for S/P laparoscopic sleeve gastrectomy, Class 3 severe obesity due to excess calories with body mass index (BMI) of 40.0 to 44.9 in adult, unspecified whether serious comorbidity present (HCC), Other specified intestinal malabsorption (HCC) * IRON + TRANSFERRIN PANEL(Performed 08/28/2021) Performed for S/P laparoscopic sleeve gastrectomy, Class 3 severe obesity due to excess calories with body mass index (BMI) of 40.0 to 44.9 in adult, unspecified whether serious comorbidity present (HCC), Iron deficiency anemia, unspecified iron deficiency anemia type, Other specified intestinal malabsorption (HCC) * LIPID PROFILE(Performed 08/28/2021) Performed for S/P laparoscopic sleeve gastrectomy, Class 3 severe obesity due to excess calories with body mass index (BMI) of 40.0 to 44.9 in adult, unspecified whether serious comorbidity present (HCC), Other specified intestinal malabsorption (HCC) * MAGNESIUM BLOOD(Performed 08/28/2021) Performed for S/P laparoscopic sleeve gastrectomy, Class 3 severe obesity due to excess calories with body mass index (BMI) of 40.0 to 44.9 in adult, unspecified whether serious comorbidity present (HCC), Other specified intestinal malabsorption (HCC) * PHOSPHORUS BLOOD(Performed 08/28/2021) Performed for S/P laparoscopic sleeve gastrectomy, Class 3 severe obesity due to excess calories with body mass index (BMI) of 40.0 to 44.9 in adult, unspecified whether serious comorbidity present (HCC), Other specified intestinal malabsorption (HCC) * PTH INTACT+CALCIUM(Performed 08/28/2021) Performed for S/P laparoscopic sleeve gastrectomy, Class 3 severe obesity due to excess calories with body mass index (BMI) of 40.0 to 44.9 in adult, unspecified whether serious comorbidity present (HCC), Other specified intestinal malabsorption (HCC) * VITAMIN B1(Performed 08/28/2021) Performed for S/P laparoscopic sleeve gastrectomy, Class 3 severe obesity due to excess calories with body mass index (BMI) of 40.0 to 44.9 in adult, unspecified whether serious comorbidity present (HCC), Other specified intestinal malabsorption (HCC) * VITAMIN B12 FOLATE PANEL(Performed 08/28/2021) Performed for S/P laparoscopic sleeve gastrectomy, Class 3 severe obesity due to excess calories with body mass index (BMI) of 40.0 to 44.9 in adult, unspecified whether serious comorbidity present (HCC), Other specified intestinal malabsorption (HCC) * VITAMIN D 25-HYDROXY(Performed 08/28/2021) Performed for S/P laparoscopic sleeve gastrectomy, Class 3 severe obesity due to excess calories with body mass index (BMI) of 40.0 to 44.9 in adult, unspecified whether serious comorbidity present (HCC), Other specified intestinal malabsorption (HCC) * TSH(Performed 08/28/2021) Performed for S/P laparoscopic sleeve gastrectomy, Other specified intestinal malabsorption (HCC) * CBC W AUTO DIFFERENTIAL(Performed 02/28/2021) Performed for Status post bariatric surgery, Morbid obesity (HCC) * COMPREHENSIVE METABOLIC PANEL(Performed 02/28/2021) Performed for Status post bariatric surgery, Morbid obesity (HCC) * FERRITIN(Performed 02/28/2021) Performed for Status post bariatric surgery, Morbid obesity (HCC) * IRON + TRANSFERRIN PANEL(Performed 02/28/2021) Performed for Status post bariatric surgery, Morbid obesity (HCC) * LIPID PROFILE(Performed 02/28/2021) Performed for Status post bariatric surgery, Morbid obesity (HCC) * MAGNESIUM BLOOD(Performed 02/28/2021) Performed for Status post bariatric surgery, Morbid obesity (HCC) * VITAMIN D 25-HYDROXY(Performed 02/28/2021) Performed for Status post bariatric surgery, Morbid obesity (HCC) * VITAMIN B12 FOLATE PANEL(Performed 02/28/2021) Performed for Status post bariatric surgery, Morbid obesity (HCC) * VITAMIN B1(Performed 02/28/2021) Performed for Status post bariatric surgery, Morbid obesity (HCC) * PTH INTACT+CALCIUM(Performed 02/28/2021) Performed for Status post bariatric surgery, Morbid obesity (HCC) * PHOSPHORUS BLOOD(Performed 02/28/2021) Performed for Status post bariatric surgery, Morbid obesity (HCC) * DIFFERENTIAL MANUAL(Performed 11/27/2020) Performed for S/P laparoscopic sleeve gastrectomy, Morbid obesity with body mass index (BMI) of 40.0 to 44.9 in adult (HCC) * CBC W AUTO DIFFERENTIAL(Performed 11/27/2020) Performed for S/P laparoscopic sleeve gastrectomy, Morbid obesity with body mass index (BMI) of 40.0 to 44.9 in adult ([facility]) * FERRITIN(Performed 11/27/2020) Performed for S/P laparoscopic sleeve gastrectomy, Morbid obesity with body mass index (BMI) of 40.0 to 44.9 in adult ([facility]) * COMPREHENSIVE METABOLIC PANEL(Performed 11/27/2020) Performed for S/P laparoscopic sleeve gastrectomy, Morbid obesity with body mass index (BMI) of 40.0 to 44.9 in adult ([facility]) * IRON + TRANSFERRIN PANEL(Performed 11/27/2020) Performed for S/P laparoscopic sleeve gastrectomy, Morbid obesity with body mass index (BMI) of 40.0 to 44.9 in adult ([facility]) * LIPID PROFILE(Performed 11/27/2020) Performed for S/P laparoscopic sleeve gastrectomy, Morbid obesity with body mass index (BMI) of 40.0 to 44.9 in adult ([facility]) * MAGNESIUM BLOOD(Performed 11/27/2020) Performed for S/P laparoscopic sleeve gastrectomy, Morbid obesity with body mass index (BMI) of 40.0 to 44.9 in adult ([facility]) * PHOSPHORUS BLOOD(Performed 11/27/2020) Performed for S/P laparoscopic sleeve gastrectomy, Morbid obesity with body mass index (BMI) of 40.0 to 44.9 in adult ([facility]) * PTH INTACT+CALCIUM(Performed 11/27/2020) Performed for S/P laparoscopic sleeve gastrectomy, Morbid obesity with body mass index (BMI) of 40.0 to 44.9 in adult ([facility]) * VITAMIN B1(Performed 11/27/2020) Performed for S/P laparoscopic sleeve gastrectomy, Morbid obesity with body mass index (BMI) of 40.0 to 44.9 in adult ([facility]) * VITAMIN B12 FOLATE PANEL(Performed 11/27/2020) Performed for S/P laparoscopic sleeve gastrectomy, Morbid obesity with body mass index (BMI) of 40.0 to 44.9 in adult ([facility]) * VITAMIN D 25-HYDROXY(Performed 11/27/2020) Performed for S/P laparoscopic sleeve gastrectomy, Morbid obesity with body mass index (BMI) of 40.0 to 44.9 in adult ([facility]) * CARDIAC RHYTHM STRIP ORDER(Performed 08/15/2020) * GLUCOSE - POINT OF CARE(Performed 08/13/2020) * GLUCOSE - POINT OF CARE(Performed 08/13/2020) * HEMOGLOBIN A1C(Performed 08/13/2020) * PHOSPHORUS BLOOD(Performed 08/13/2020) * MAGNESIUM BLOOD(Performed 08/13/2020) * COMPREHENSIVE METABOLIC PANEL(Performed 08/13/2020) * CBC W AUTO DIFFERENTIAL(Performed 08/13/2020) * GLUCOSE - POINT OF CARE(Performed 08/12/2020) * MAGNESIUM BLOOD(Performed 08/12/2020) Performed for Morbid obesity (HCC) * GLUCOSE - POINT OF CARE(Performed 08/12/2020) * PHOSPHORUS BLOOD(Performed 08/12/2020) * MAGNESIUM BLOOD(Performed 08/12/2020) * COMPREHENSIVE METABOLIC PANEL(Performed 08/12/2020) * CBC W AUTO DIFFERENTIAL(Performed 08/12/2020) * GLUCOSE - POINT OF CARE(Performed 08/12/2020) * GROSS + MICRO EXAM (ILL)(Performed 08/12/2020) Performed for Morbid obesity (HCC) * DC LAP SLEEVE GASTRECTOMY(Performed 08/12/2020) Performed for Morbid obesity (HCC) * BLOOD TYPE VERIFICATION(Performed 08/12/2020) * GLUCOSE - POINT OF CARE(Performed 08/12/2020) * TYPE + SCREEN PANEL(Performed 08/09/2020) Performed for Pre-op testing * HCG URINE QUALITATIVE(Performed 08/09/2020) * SARS-COV-2 (COVID-19) IN HOUSE(Performed 08/09/2020) Performed for Pre-op exam * SARS-COV-2 (COVID-19) PANEL (SOIL)(Performed 08/09/2020) Performed for Pre-op exam * GLUCOSE - POINT OF CARE(Performed 02/26/2020) * GROSS + MICRO EXAM (ILL)(Performed 02/26/2020) Performed for Gastroesophageal reflux disease, unspecified whether esophagitis present * DC EGD FLEX TRANSORAL W BX SNGL OR MULT(Performed 02/26/2020) Performed for Gastroesophageal reflux disease, unspecified whether esophagitis present * GLUCOSE - POINT OF CARE(Performed 02/26/2020) * HCG BLOOD QUALITATIVE(Performed 02/26/2020) Performed for Preoperative examination * GLUCOSE - POINT OF CARE(Performed 02/26/2020) * SARS-COV-2 (COVID-19) IN HOUSE(Performed 02/23/2020) Performed for Pre-op evaluation * SARS-COV-2 (COVID-19) PANEL (SOIL)(Performed 02/23/2020) Performed for Pre-op evaluation * EKG(Performed 01/01/2020) * LAB MISC TEST(Performed 01/01/2020) * LAB MISC TEST(Performed 01/01/2020) * XR CHEST 2VW(Performed 01/01/2020) Results * PTH INTACT+CALCIUM (11/19/2023) Only the most recent of4 resultswithin the time period is included. Blood BLOOD SPECIMEN / Unknown 11/19/2023 Divya [facility] CHE[facility]Y ORDE RABMOOK Performing Organization Address [facility] [[email or web address] de Phone Number OTHER LAB * VITAMIN B1 (11/19/2023) Only the most recent of4 resultswithin the time period is included. Blood BLOOD SPECIMEN / Unknown 11/19/2023 Divya [facility] - CHEMISTRY ORDE RABMOOK Performing Organization Address [facility] [[email or web address] de Phone Number OTHER LAB * VITAMIN D 25-HYDROXY (11/19/2023) Only the most recent of4 resultswithin the time period is included. Blood BLOOD SPECIMEN / Unknown 11/19/2023 Divya Abdul [facility] - CHEMISTRY ORDE RABLES Performing Organization Address [facility] Co de Phone Number OTHER LAB * CBC WITH DIFFERENTIAL (11/19/2023) Only the most recent of6 resultswithin the time period is included. Blood BLOOD SPECIMEN / Unknown 11/19/2023 Divya [facility] - HEMATOLOGY ORD ERABLES Performing Organization Address [place]/[facility] Co de Phone Number OTHER LAB * COMPREHENSIVE METABOLIC PANEL (11/19/2023) Only the most recent of6 resultswithin the time period is included. Blood BLOOD SPECIMEN / Unknown 11/19/2023 Divya Abdul [employer] - CHEMISTRY ORDE NASEEM OTHER LAB * PHOSPHORUS BLOOD (11/19/2023) Only the most recent of6 resultswithin the time period is included. Blood BLOOD SPECIMEN / Unknown 11/19/2023 Divya Abdul [facility] - CHEMISTRY ORDE RABLES Performing Organization Address [place]/[facility] Co de Phone Number OTHER LAB * MAGNESIUM BLOOD (11/19/2023) Only the most recent of7 resultswithin the time period is included. Blood BLOOD SPECIMEN / Unknown 11/19/2023 Divya Abdul [facility] - CHEMISTRY ORDE NASEEM Performing Organization Address [facility] Co de Phone Number OTHER LAB * VITAMIN B12 FOLATE PANEL (11/19/2023) Only the most recent of4 resultswithin the time period is included. Blood BLOOD SPECIMEN / Unknown 11/19/2023 Divya Abdul [facility] - CHEMISTRY ORDE GlydeMOOK Performing Organization Address [place]/[facility] Co de Phone Number OTHER LAB * IRON + TRANSFERRIN PANEL (11/19/2023) Only the most recent of4 resultswithin the time period is included. Blood BLOOD SPECIMEN / Unknown 11/19/2023 Divya Abdul [facility] - CHEMISTRY ORDE RABMOOK Performing Organization Address [place]/[facility] Co de Phone Number OTHER LAB * FERRITIN (11/19/2023) Only the most recent of4 resultswithin the time period is included. Blood BLOOD SPECIMEN / Unknown 11/19/2023 Divya HART LAB - CHEMISTRY GELY GUSMAN Performing Organization Address [facility] Co de Phone Number OTHER LAB * LIPID PROFILE (11/19/2023) Only the most recent of4 resultswithin the time period is included. Blood BLOOD SPECIMEN / Unknown 11/19/2023 Divya HART [facility] - CHEMISTRY GELY GUSMAN Performing Organization Address [facility] Co de Phone Number OTHER LAB * IMAGING RADIOLOGY XRAY RESULTS ORDER (09/06/2022) Only the most recent of4 resultswithin the time period is included. Anatomical Region Laterality Modality Other 09/06/2022 Narrative 09/06/2022 Ordered by an unspecified provider. Scanned Document IMAGING * GLUCOSE - POINT OF CARE (11/19/2021 9:43 AM CDT) Only the most recent of11 resultswithin the time period is included. [facility] Glucose WB/POC 103 70 - 125 mg/dL 11/19/2021 9:57 AM CDT [facility] Specimen Type Cap Fingerstick 2021 9:57 AM CDT [facility] Blood BLOOD SPECIMEN / Unknown 11/19/2021 9:43 AM CDT 11/19/2021 9:57 AM CDT Lora Bains MD LAB - POINT OF C ARE ORDERABLES Performing Organization Address [place]/[facility] Co de Phone Number [facility] [address], [place] [address] * GROSS + MICRO EXAM (ILL) (11/19/2021 9:26 AM CDT) Only the most recent of3 resultswithin the time period is included. Case Report Surgical Pathology Report Case: [id number] Authorizing Provider: Lora Bains MD Collected: 11/19/2021 09:26 AM Ordering Location: [facility] Received: 11/19/2021 02:20 PM Pathologist: Karl Becerra MD Specimens: A) - Antrum Biopsy, Antrum biopsy R/O H Pylori B) - EG Junction Biopsy , GE junction biopsy R/O Enriquez's esophagus 11/20/2021 3:06 PM T [facility] Final Diagnosis A. ANTRUM; BIOPSY: - PORTION OF BENIGN GASTRIC MUCOSA WITH MINIMAL CHRONIC INFLAMMATION.- - GIEMSA STAIN IS NEGATIVE FOR H.PYLORI ORGANISMS. - NEGATIVE FOR DYSPLASIA OR MALIGNANCY. B. GE JUNCTION; BIOPSY: - FRAGMENTS OF BENIGN SQUAMOCOLUMNAR JUNCTION WITH CHRONIC INFLAMMATION. - NEGATIVE SMALL INTESTINAL METAPLASIA, MALIGNANCY, DYSPLASIA, VIRAL INCLUSIONS, OR FUNGAL ORGANISMS. 11/20/2021 3:06 PM T [facility] Microscopic Description and Comment Microscopic examination is performed and substantiates the above diagnosis. 11/20/2021 3:06 PM T [facility] Gross Description The requisition and specimen(s) are identified with the patient's name, Radha Anderson. Received in formalin, specimen antrum biopsy R/O H + , are 2 suresh-pink tissues, 0.3 x 0.3 x 0.3 cm and 0.4 x 0.2 x 0.2 cm. The specimen is submitted in toto in cassette A1. Received in formalin, specimen G E junction biopsy R+ , is a suresh-pink tissue, 0.3 x 0.2 x 0.2 cm. The specimen is submitted in toto in cassette B1. AW 11/20/2021 3:06 PM T [facility] Disclaimer The performance characteristics of all immunohistochemical and indirect immunofluorescence stains (if any) cited in this report were determined by the [facility]. Some of these tests were developed by our own laboratory and have not been cleared or approved by the US Food and Drug Administration. The FDA does not require this test to go through premarket FDA review. These tests are used for clinical purposes. They should not be regarded as investigational or for research. This laboratory is certified under the Clinical Laboratory Improvement Amendments (CLIA) as qualified to perform high complexity clinical laboratory testing. H&E slides and special stains prepared at [facility], [place]. [address] (CLIA# [id number]) unless otherwise specified. This case was interpreted by the [facility] Department of Pathology. When applicable, select reference laboratory testing is performed at the [facility] [facility], [address] [place] [address]. 11/20/2021 3:06 PM CDT [facility] Embedded Images 11/20/2021 3:06 PM CDT [facility] Pathology/Cytology BIOPSY SPECIMEN / Unknown 11/19/2021 9:26 AM CDT 11/19/2021 2:20 PM CDT Comment:Pre-op diagnosis: Gastroesophageal reflux disease, unspecified whether esophagitis present [K21.9] Miscellaneous samples (specimen) BIOPSY SPECIMEN / Unknown 11/19/2021 9:26 AM CDT 11/19/2021 2:20 PM CDT Comment:Pre-op diagnosis: Gastroesophageal reflux disease, unspecified whether esophagitis present [K21.9] Lora Bains MD LAB - PATHOLOGY/ CYTOLOGY ORDERABLES [facility] [address] [place] [address] * HCG URINE QUALITATIVE (11/19/2021 7:46 AM CDT) Only the most recent of2 resultswithin the time period is included. hCG Qualitative Urine Negative Negative 11/19/2021 8:00 AM CDT [facility] Specific [place] UA 1.020 1.005 - 1.030 11/19/2021 8:00 AM CDT [facility] Urine URINE / Unknown Collection / Unknown 11/19/2021 7:46 AM CDT 11/19/2021 7:53 AM CDT Narrative [facility] - 11/19/2021 8:00 AM CDT Asif Villa MD LAB - URINALY SIS ORDERABLES [facility] [address] [facility] [place] [address], [facility] * HEMOGLOBIN A1C (08/28/2021 10:57 AM CDT) Only the most recent of2 resultswithin the time period is included. Hemoglobin A1c 5.4 4.2 - 5.6 % 08/28/2021 2:20 PM CDT [facility] Estimated Average Glucose 108 mg/dL 08/28/2021 2:20 PM CDT [facility] Blood BLOOD SPECIMEN / Unknown Lab Venipuncture / Unknown 08/28/2021 10:57 AM CDT 08/28/2021 11:21 AM CDT Narrative [facility] - 08/28/2021 2:20 PM CDT The following cutoff levels are recommended by [place] [employer]. A1c > 6.5% : considered as diabetes if two separate tests >6.5% or in an appropriate clinical setting. A1c 5.7% - 6.4% : considered as prediabetes (suggest increased risk for diabetes and cardiovascular disease) Control target level: Should be individualized. < 7 for general (non-) , < 8% less stringent goal, < 6.5 more stringent goal. Hemoglobin A1c measurements are used as an aid in the diagnosis of diabetic mellitus, as an aid to identify patients who may be at the risk for developing diabetic mellitus, and for the monitoring long-term blood glucose control in individuals with diabetes mellitus. This test should not replace glucose testing for patients with Type 1 diabetes, pediatric patients, or women. Falsely low HbA1c results may be observed in patients with clinical conditions that shorten erythrocyte life span or decrease mean erythrocyte age such as the presence of unstable hemoglobin variants, elevated hemoglobin F level or other causes of hemolytic anemia . HbA1c may not accurately reflect glycemic control when clinical conditions that affect erythrocyte survival are present. Severe Iron deficiency anemia may yield falsely high results. Hemoglobin A1c assay should not be used to diagnose or monitor diabetes in patients with malignancy, recent blood transfusion, chronic kidney or liver disease. This method may yield falsely low results when hemoglobin (HbF) exceeds 5% in the specimen. Shannan Mendieta WALL STEAMER-BAND TEACHER LAB - CHEMISTRY ORDERABLES Performing Organization Address City/[facility] [place]/[facility] Co de Phone Number [facility] [address] * TSH (08/28/2021 10:57 AM CDT) Pathologist [facility] TSH 1.774 0.35 - 4.94 uIU/mL 08/28/2021 1:28 PM CDT [facility] Blood BLOOD SPECIMEN / Unknown Lab Venipuncture / Unknown 08/28/2021 10:57 AM CDT 08/28/2021 11:21 AM CDT Shannan Mendieta WALL STEAMER-BAND TEACHER LAB - CHEMISTRY ORDERABLES [facility] [address] * DIFFERENTIAL MANUAL (11/27/2020 4:00 PM CDT) [facility] WBC Auto 8.7 4.0 - 10.0 x10E9/L 11/27/2020 6:43 PM CDT [facility] Neutrophils % Manual 55 40 - 75 % 11/27/2020 6:43 PM CDT [facility] Lymphocytes % Manual 35 19 - 53 % 11/27/2020 6:43 PM CDT [facility] Monocytes % Manual 10 5 - 13 % 11/27/2020 6:43 PM CDT [facility] Neutrophils Absolute Manual 4.8 1.6 - 6.1 x10E3/uL 11/27/2020 6:43 PM CDT [facility] Lymphocytes Absolute Manual 3.0 1.2 - 3.7 x10E3/uL 11/27/2020 6:43 PM CDT [facility] Monocytes Absolute Manual 0.9 0.2 - 0.9 x10E3/uL 11/27/2020 6:43 PM CDT [facility] Cells Counted 100 # cells 11/27/2020 6:43 PM CDT [facility] Platelet Estimation Adequate platelets Normal, Adequate platelets 11/27/2020 6:43 PM CDT [facility] RBC Morphology Normal 11/27/2020 6:43 PM CDT [facility] WBC Morph Normal 11/27/2020 6:43 PM CDT [facility] Blood BLOOD SPECIMEN / Unknown Lab Venipuncture / Unknown 11/27/2020 4:00 PM CDT 11/27/2020 4:28 PM CDT Shannan Mendieta WALL STEAMER-BAND TEACHER LAB - HEMATOLOGY ORDERABLES [facility] [address] [place] [address] * CARDIAC RHYTHM STRIP ORDER (08/15/2020 10:55 AM CDT) Narrative 08/15/2020 10:55 AM CDT Ordered by an unspecified provider. Scanned Document CARDIAC SERVICES ORD ERABLES * BLOOD TYPE VERIFICATION (08/12/2020 8:48 AM CDT) ABO Rh AB POS 08/12/2020 9:29 AM CDT [facility] Blood Bank BLOOD SPECIMEN / Unknown Lab Venipuncture / Unknown 08/12/2020 8:48 AM CDT 08/12/2020 9:16 AM CDT Lora Bains MD LAB - BLOOD BANK ORDERABLES Performing Organization Address City/[facility] [place]/ZIP Co de Phone Number [facility] [address] [place] [address] * TYPE + SCREEN PANEL (08/09/2020 11:12 AM CDT) ABO Rh AB POS 08/09/2020 12:14 PM CDT [facility] Antibody Screen NEG 08/09/2020 12:14 PM CDT [facility] Blood Bank BLOOD SPECIMEN / Unknown Lab Venipuncture / Unknown 08/09/2020 11:12 AM CDT 08/09/2020 11:22 AM CDT Asif Villa MD LAB - BLOOD B ANK ORDERABLES Performing Organization Address City/[facility] [place]/ZIP Co de Phone Number [facility] [address] [place] [address] * SARS-COV-2 (COVID-19) IN HOUSE (08/09/2020 9:51 AM CDT) Only the most recent of2 resultswithin the time period is included. Pathologist [facility] COVID-19 PCR Not detected Not detected 08/10/2020 5:25 AM CDT [facility] Microbiology SPECIMEN FROM NASOPHARYNGEAL STRUCTURE / Unknown Collection / Unknown 08/09/2020 9:51 AM CDT 08/09/2020 12:52 PM CDT Narrative [facility] - 08/10/2020 5:25 AM CDT This nucleic acid amplification assay performance was validated by [facility]. This test has been authorized by the Food and Drug administration (FDA)under an Emergency Use Authorization (EUA). This test has been validated in accordance with the FDA's guidance document Policy for Diagnostic Testing in Laboratories Certified to perform High Complexity Testing under CLIA prior to Emergency Use Authorization for Coronavirus Disease-2019 during the Public Health Emergency issued on June 10, 2019. FDA independent review of this validation is pending. This test is only authorized for the duration of time the declaration that circumstances exist justifying the authorization of emergency use of in vitro diagnostic tests for detection of SARS-CoV-2 virus and/or diagnosis of COVID-19 infection under section 564(b)(1) of the Act, 21 U.S.C 360bbb-3 (b)(1), unless the authorization is terminated or revoked sooner. Fact Sheets for this EUA assay are available upon request. Lora Bains MD LAB - MICROBIOLO GY ORDERABLES [facility] [address] [place] [id number] [place] [address] * HCG BLOOD QUALITATIVE (02/26/2020 10:21 AM COMPUTER AIDED DESIGN TECHNICIAN) Pathologist [facility] HCG Qual Serum Negative Negative 02/26/2020 10:39 AM COMPUTER AIDED DESIGN TECHNICIAN [facility] Blood BLOOD SPECIMEN / Unknown Lab Venipuncture / Unknown 02/26/2020 10:21 AM COMPUTER AIDED DESIGN TECHNICIAN 02/26/2020 10:25 AM COMPUTER AIDED DESIGN TECHNICIAN Asif Villa MD LAB - DIRECTOR PROJECT MANAGEMENT RY ORDERABLES [facility] [address] [place], [place] [address] * EKG (01/01/2020) Historical Provider MD SCANNING ONLY * LAB MISC TEST (01/01/2020) Only the most recent of2 resultswithin the time period is included. Blood BLOOD SPECIMEN / Unknown Historical Provider LAB SEND OUT * XR CHEST 2VW (01/01/2020) Anatomical Region Laterality Modality Chest Other Historical Provider DIAGNOSTIC RAPHAEL Cook ORDERABLES Care Teams Sales And Service Engineer Relationship Specialty Start Date End Date Tanya Weaver, RN PCP - General 03/31/24
--- OUTSIDE RECORDS SUMMARY | 2024-05-26 15:35 | XMS_ITS | Referral Summary ---
Author Organization [facility] Address [address] [place] [address] Care Team Providers Care Dedicated Local Truck Driver Name Role Phone Tanya Weaver RN Primary Care Provider Unavaila ble Source Comments [facility],non-owned Affiliates and Associated Physician Practices is amultiple site organization consisting of ambulatory clinics and hospital sitesin [place], [place], [place] and [place]. This disclosure is being madepursuant to the Care Everywhere program and may not contain all information available regarding this patient. Last updated 17.[facility] Health Encounters Date Type Department Care Team Description 04/04/[address] [facility] Health Weight Management Services [address] [place] [phone] Shannan Mendieta APRN-FARHANA Refill Request 03/31/[address] [facility] [address] [place] [phone] Kecia Mederos APRN-SOURCING ANALYST S/P laparoscopic sleeve gastrectomy; Type 2 diabetes mellitus without complication, unspecified whether halfway insulin use (HCC); with 18 completed weeks gestation (HCC) 03/31/2024 11:00 AM LAY OUT DRAFTER Video Visit [facility] Weight Management Services [address] [place] [phone] Kecia Mederos APRN-SOURCING ANALYST S/P laparoscopic sleeve gastrectomy ; Type 2 diabetes mellitus without complication, unspecified whether halfway insulin use ([facility]); with 18 completed weeks gestation ([facility]) 03/31/2024 10:45 AM LAY OUT DRAFTER Video Visit [facility] Weight Management Services [address] [place] [address] S/P laparoscopic sleeve gastrectomy 03/20/[address] [facility] Weight Management Services [address] [place] [address] [facility], [facility] D deficiency 03/05/[address] [facility] Weight Management Services [address] [place] [phone] Shannan Mendieta, SIGNING AGENT-SOURCING ANALYST S/P laparoscopic sleeve gastrectomy; Morbid obesity with body mass index (BMI) of 45.0 to 49.9 in adult ([facility]); Less than 8 weeks gestation of ([facility]); Iron deficiency anemia, unspecified iron deficiency anemia type; Type 2 diabetes mellitus without complication, unspecified whether exterminator helper insulin use ([facility]); Vitamin D deficiency from Last 3 Months Allergies Active Allergy Reactions Criticality Noted Date Comments Nsaids Other Low 07/21/2021 Gastric sleeve. Pt to avoid NSAIDS Medications * Be aware that medications may not be up to date on this document. Alwaysverify current medications with the patient. Medication Sig Dispensed Refills Start Date End Date Status Multiple Vitamins-Minerals (CENTRUM SILVER PO) Take 1 tablet by mouth once daily Active Calcium Citrate-Vitamin D (CALCIUM CITRATE + PO) Take by mouth 2 times daily Active busPIRone (Buspar) 5 MG tabletIndications: Mood changes Take 1 (one) tablet by mouth 2 times daily Active Iron-Vitamin C (VITRON-C) 65-125 MG TABSIndications:Mo od changes Take 1 tablet by mouth once daily Active escitalopram (Lexapro) 5 MG tablet Take 1 (one) tablet by mouth once daily Active vitamin B-12 (Cyanocobalamin) 1000 MCG tablet Take 1 (one) tablet by mouth once daily Active Cholecalciferol 50 MCG (1999 UT) Take 2,000 Units by mouth once daily Active vitamin D, ergocalciferol, (Drisdol) 1.25 MG (00605 UT) capsuleIndications :Vitamin D Deficiency Take 1 (one) capsule by mouth every 7 days Reasons: Vitamin D Deficiency 4 capsule 3 11/22/2023 Active Additional Information Patient not taking.Reported on 03/31/2024 omeprazole (PriLOSEC) 20 MG capsule TAKE 1 CAPSULE BY MOUTH EVERY DAY 30 capsule 11 04/04/2024 Active Active Problems Problem Noted Date Diagnosed Date Morbid obesity 08/12/2020 Binge eating disorder Preop examination Estimated Date of Delivery Comme nts Yes 09/01/2024 Resolved Problems Problem Noted Date Diagnosed Date Resolved Date Dehydration 08/23/2020 09/06/2020 Immunizations Name Administration Dates Next Due Covthaddeus Stephanie primary monovalent 12+ yr 0.5mL Social History Tobacco Use Types Packs/Day Years [...] 124.7 kg (275 lb) 03/31/2024 10:59 AM LAY OUT DRAFTER per pt Height 158 cm (5' 2.21 ) 03/31/2024 10:59 AM LAY OUT DRAFTER Body Mass Index 49.97 03/31/2024 10:59 AM LAY OUT DRAFTER Functional Status Functional Status Response Date of Assess ment Is person deaf or have serious hearing difficult y? No 11/19/2021 Is person blind or have serious difficulty seein g? No 11/19/2021 Does person have serious dif ficulty walking/climbing stairs? No 11/19/2021 Does person have difficulty dressing/bathing? No 11/19/2021 Does person have difficulty doing errands alone? No 11/19/2021 Cognitive Status Response Date of Assessm ent Does person have difficulty concentrating/remembering/making decisions? No 11/19/2021 Plan of Treatment Not on file Medical Devices Implanted Type Area Bellman Captain Device Identifier Shelf Expiration Date Model / Serial / Lot Kit Tissue Clsr Duo Tssl 1 Prefl Syr Implanted:Qty: 1 on 08/12/2020 by Lora Bains MD at [facility] N/A: Stomach [employer] 02/09/2022 [id number] / / [id number] Advance Directives * Full Code (Latest Code Status on File) Date Activated Date Inactivated Comments 08/12/2020 1:02 PM 08/13/2020 3:44 PM Care Teams Dedicated Local Truck Driver Relationship Specialty Start Date End Date Tanya Weaver RN PCP - General 03/31/24
--- OUTSIDE RECORDS SUMMARY | 2024-05-26 15:35 | XMS_ITS | Clinical Summary ---
Author Organization [facility] Address [address] [place] [place] [address] Care Team Providers Care Hospital Pharmacy Director Name Role Phone Tanya Weaver RN Primary Care Provider Unavaila ble Source Comments [facility],non-owned Affiliates and Associated Physician Practices is amultiple site organization consisting of ambulatory clinics and hospital sitesin [place], [place], [place] and [place]. This disclosure is being madepursuant to the Care Everywhere program and may not contain all information available regarding this patient. Last updated 17.[facility] Allergies Active Allergy Reactions Criticality Noted Date [...] mouth once daily Active Cholecalciferol 50 MCG (2000 UT) Take 2,000 Units by mouth once daily Active vitamin D, ergocalciferol, (Drisdol) 1.25 MG (30126 UT) capsuleIndications :Vitamin D Deficiency Take 1 [...] Diagnosed Date Resolved Date Dehydration 08/23/2020 09/06/2020 Encounters Date Type Department Care Team Description 04/04/2024 Refill [facility] Health Weight Management Services [address] [place] [address] Shannan Mendieta APRN-FORENSIC ECONOMIST Refill Request 03/31/2024 11:00 AM TURBINE INSPECTOR Video Visit [facility] Weight Management Services [address] [place] [address] Kecia Mederos APRN-FORENSIC ECONOMIST S/P laparoscopic sleeve gastrectomy ; Type 2 diabetes mellitus without complication, unspecified whether intermodal truck driver insulin use (HCC); with 18 completed weeks gestation (HCC) 03/31/2024 10:45 AM TURBINE INSPECTOR Video Visit [facility] Weight Management Services [address] [place] [address] S/P laparoscopic sleeve gastrectomy 03/31/2024 Orders Only [facility] [address] [place] [address] Kecia Mederos APRN-FORENSIC ECONOMIST S/P laparoscopic sleeve gastrectomy; Type 2 diabetes mellitus without complication, unspecified whether long-term insulin use (HCC); with 18 completed weeks gestation (HCC) 03/20/2024 Orders Only [facility] Weight Management [facility] [address] [place] [address] Divya Abdul APRN-CNP Vitamin D deficiency 03/05/2024 Orders Only [facility] [address] [place] [address] Shannan Mendieta APRN-CNP S/P laparoscopic sleeve gastrectomy; Morbid obesity with body mass index (BMI) of 45.0 to 49.9 in adult (HCC); Less than 8 weeks gestation of ([facility]); Iron deficiency anemia, unspecified iron deficiency anemia type; Type 2 diabetes mellitus without complication, unspecified whether intermodal truck driver insulin use ([facility]); Vitamin D deficiency from Last 3 Months Immunizations Name Administration Dates Next Due Deepak Brown primary monovalent 12+ yr 0.5mL Family History Medical History Relation Name Comments CAD (Coronary Artery Disease) Maternal Grandfather Diabetes; unknown type Maternal Grandfather High Cholesterol Maternal Grandfather Migraine Maternal Grandfather Diabetes; unknown type Maternal Grandmother Diabetes; unknown type Mother Relation Name Status Comments Maternal Grandfather Maternal Grandmother Mother Social History Tobacco Use Types Packs/Day Years [...] 124.7 kg (275 lb) 03/31/2024 10:59 AM TURBINE INSPECTOR per pt Height 158 cm (5' 2.21 ) 03/31/2024 10:59 AM TURBINE INSPECTOR Body Mass Index 49.97 03/31/2024 10:59 AM TURBINE INSPECTOR Plan of Treatment Health Maintenance Due Date Last Done Comments PAP SMEAR 1996 HIV SCREENING 02/12/2011 HEPATITIS C SCREENING 02/08/2014 DTAP/TDAP/TD VACCINES (1 - Tdap) 02/12/2015 HEPATITIS B VACCINE (1 of 3 - 19+ 3-dose series) 02/12/2015 PNEUMOCOCCAL VACCINE (1 of 2 - PCV) 02/12/2015 COVID-19 VACCINE (2 - season) 2023 04/13/2020 DEPRESSION SCREENING 04/12/2024 10/29/2023, 07/19/19 22 OB-ONE HOUR GLUCOSE 05/26/2024 OB-TDAP CURRENT 06/02/2024 ZOSTER VACCINE (1 of 2) 02/12/2046 INFLUENZA VACCINE Completed 02/22/2024, , 04/13/2022, Additional history exists HIB VACCINE Aged Out No longer eligi ble based on patient's age to complete this topic HPV VACCINE Aged Out No longer eligi ble based on patient's age to complete this topic MENINGOCOCCAL (Group B) VACCINE Aged Out No longer eligible based on patient's age to complete this topic MENINGOCOCCAL VACCINE Aged Out No che bry eligible based on patient's age to complete this topic Respiratory Syncytial Virus (RSV) Vaccine Pt: or over 60 yrs (No Doses Required) Completed Medical Devices Implanted Type Area Director Of Front Office Device Identifier Shelf Expiration Date Model / Serial / Lot Kit Tissue Clsr Duo Tssl 1 Prefl Syr Implanted:Qty: 1 on 08/12/2020 by Lora Bains MD at [facility] N/A: Stomach [employer] 02/09/2022 [id number] / / [id number] Advance Directives * Full Code (Latest Code Status on File) Date Activated Date Inactivated Comments 08/12/2020 1:02 PM 08/13/2020 3:44 PM Care Teams Hospital Pharmacy Director Relationship Specialty Start Date End Date Tanya Weaver RN PCP - General 03/31/24
--- OUTSIDE RECORDS SUMMARY | 2024-05-26 15:35 | XMS_ITS | Clinical Summary ---
Author Organization [facility] [address] [place] [address] Care Team Providers Care Protective Services Case Worker Name Role Phone Ai Weaver NP Primary Care Provider [phone] Thao Dillon MD Unavailable [phone] Allergies Active Allergy Reactions Criticality Noted Date [...] complication, without long-term current use of insulin ([facility]/HCC) (HCC) 1 each by other route daily [...] by mouth daily 12/03/19 23 Active PNV #[id number] acid-dha 35 mg iron-5 mg iron-1 mg [...] without long-term current use of insulin (CMS/HCC) ([facility]) USE TO CHECK BLOOD SUGAR DIRECTED BY YOUR PHYSICIAN 360 each 1 02/22/20 24 Active alcohol swabs pads, medicatedIndic ations:Encount er for supervision of normal first in first trimester,Type 2 diabetes mellitus without complication, without long-term current use of insulin (CMS/HCC) ([facility]) USE TO CLEAN AREA OF SKIN PRIOR TO CHECKING BLOOD SUGAR. 360 each 1 02/22/20 24 Active cholecalcifero l (VITAMIN D-3) [...] 24 Active blood-glucose meter,continuo us (Dexcom G7 Sheet Tailer) misc Use as directed. 1 each 03/06/20 24 [...] 05/23/2024 Assessment & Plan (05/23/2024 1:17 PM TRAILER TRUCK DRIVER): No disc edema/obscuration of blood vessels. Excellent vision and color vision. Heaped appearance of nasal rim, will monitor this closely for changes. Will obtain AF Photos to look for optic disc drusen. Educated to RTC w any vision loss, diplopia, or new neurologic symptoms, otherwise 4-6wk Type 2 diabetes mellitus wit hout complication, unspecified whether custodial insulin use 05/13/2024 Annual physical exam 04/25/2024 Assessment & Plan (04/25/2024 3:58 PM TRAILER TRUCK DRIVER): Up-to-date at this time. Medications and labs [...] plan Assessment & Plan (04/19/2024 2:30 PM TRAILER TRUCK DRIVER): Pre- BMI: ~50 S/p MFM counseling Plan [x] Initiate aspirin 81 mg at 12 weeks for preeclampsia risk reduction [x] Early overt diabetes screening with Hgb A1C - known T2DM [x] Specialized anatomic survey at 20 weeks - complete 04/19/2024 [] 3rd trimester anesthesia consultation if BMI >/=50 [x] testing per T2DM plan Assessment & Plan (04/03/2024 1:14 PM TRAILER TRUCK DRIVER): Pre- BMI ~50. Current BMI 49. Plan [x] Initiate aspirin 81 mg at 12 weeks for preeclampsia risk reduction [x] Early overt diabetes screening with Hgb A1C - known T2DM [] Specialized anatomic survey at 20 weeks - incomplete 04/03/2024 [] 3rd trimester anesthesia consultation if BMI >/=50 [x] testing per T2DM plan Assessment & Plan (03/10/2024 10:48 AM TRAILER TRUCK DRIVER): Pre- BMI: ~50 Counseling 03/10/2024: Obesity in [...] hour glucose tolerance test, >6.5 refer to CDP clinic) [] Specialized anatomic survey at 20 weeks [] 3rd trimester anesthesia consultation if BMI >/=50 [] Weekly testing per T2DM plan Maternal varicella, non-immune 03/01/2024 Overview (03/31/2024): Plan [] Varivax Assessment & Plan (04/19/2024 2:18 PM TRAILER TRUCK DRIVER): Plan [] Varivax Assessment & Plan (04/03/2024 1:14 PM TRAILER TRUCK DRIVER): Plan [] Varivax Supervision of high-risk , second trime ster 02/28/2024 Overview (05/05/2024): [x] Full [facility] Care; [x] Blue Team Referring Provider: Misti Osborn [phone] [] [employer] or Medicare Insurance [x] Dating Criteria: LMP 11/25/23 with LUIS ALFREDO 08/31/24 [x] Labs: Rh [AB+], Ab [negative], Rubella [immune], HIV [non- reactive], HepBSAg [non-reactive], HepBSAb [not done - draw with next visit], HepBCAb [not done - draw with next visit], RPR [non-reactive], Hep C [non-reactive], Varicella [equivocal], GC/CT [negative/negative] [x] Aneuploidy Screening: reports LR NIPT with primary OB (Not uploaded in Doodle due to gender reveal per report) [] [...] by 39w (T2DM) [x] Place of delivery: [facility] [] Epidural: [] Accepts Blood Products: [] Stop ASA: [] MOC: [] Method of feeding: [] Market Stall Vendor (specifically which provider): [] PP Depression Discussed: [] PP visits scheduled: Vaccines [x] Flu Shot (Dec-Mar): received 02/22/24 [] COVID vaccine: [] Tdap (27-36wks): [] RSV vaccine (32-36wks): Assessment & Plan (04/19/2024 2:24 PM TRAILER TRUCK DRIVER): Full MFM care. Reviewed supportive care for mucous - humidifier, nasal saline, mucinex, claritin, etc. Reviewed abd exam normal and expectations for uterine growth. Assessment & Plan (04/03/2024 1:28 PM TRAILER TRUCK DRIVER): [x] Full MFM Care; [] Red Team [x] Blue Team - full YENNI at 14 weeks Referring Provider: Misti Osborn [phone] [] or Medicare Insurance [x] Dating Criteria: LMP 11/25/23 with LUIS ALFREDO 08/31/24 [x] Labs: Rh [AB+], Ab [negative], Rubella [immune], HIV [non- reactive], HepBSAg [non-reactive], HepBSAb [not done - do with 2T labs], HepBCAb [not done - do with 2T labs], RPR [non-reactive], Hep C [non-reactive], Varicella [equivocal], GC/CT [negative/negative] [x] Aneuploidy Screening: reports LR NIPT with primary OB (Not uploaded in Doodle due to gender reveal per report) [] [...] N/A Assessment & Plan (03/10/2024 10:44 AM TRAILER TRUCK DRIVER): [x] Full MFM Care; [] Red Team [x] Blue Team - full YENNI at 14 weeks Referring Provider: Misti Osborn [phone] [] [employer] or Medicare Insurance [x] Dating Criteria: LMP 11/25/23 with LUIS ALFREDO 08/31/24 [x] Labs: Rh [AB+], Ab [negative], Rubella [immune], HIV [non- reactive], HepBSAg [non-reactive], HepBSAb [not done], HepBCAb [not done], RPR [non- reactive], Hep C [non-reactive], Varicella [equivocal], GC/CT [negative/negative] [x] Aneuploidy Screening: reports LR NIPT with primary OB (Not uploaded in Doodle due to gender reveal per report) [] [...] by 39w (T2DM) [x] Place of delivery: [facility] [] Epidural: [] Accepts Blood Products: [] Stop ASA: [] MOC: [] Method of feeding: [] Market Stall Vendor (specifically which provider): [] PP Depression Discussed: [...] growth Assessment & Plan (04/19/2024 2:17 PM TRAILER TRUCK DRIVER): History Prior procedure: gastric sleeve surgery 08/12/20 [...] growth Assessment & Plan (04/03/2024 1:14 PM TRAILER TRUCK DRIVER): Micronutrient testing normal in the first trimester. Plan [x] Screen for micronutrient deficiencies (CBC w/ MCV, ferritin, iron, B12, B1, folate, calcium and Vit D levels) qtrimester and supplement accordingly [x] 1st T: WNL 02/22/2024 [] 2nd T: Order at next visit [] 3rd T: [x] First trimester A1C 6.0 02/21 [] Serial ultrasounds for growth Assessment & Plan (03/10/2024 10:41 AM TRAILER TRUCK DRIVER): History: gastric sleeve surgery 08/12/20 Type of [...] growth Assessment & Plan (02/22/2024 12:37 PM TRAILER TRUCK DRIVER): Sleeve gastrectomy- August 2020. She last did [...] visit Assessment & Plan (05/19/2024 12:48 PM TRAILER TRUCK DRIVER): Emotional support provided. Pt denies active SI/HI. Strict hospital precautions reviewed. Discussed importance of close f/u with psych and therapy. Pt aware doses can be increased if needed. Assessment & Plan (04/19/2024 2:34 PM TRAILER TRUCK DRIVER): Worsening mood symptoms today. EPDS 19, answered [...] visit Assessment & Plan (04/03/2024 1:26 PM TRAILER TRUCK DRIVER): Reports mood today is up and down. [...] visit Assessment & Plan (03/10/2024 10:43 AM TRAILER TRUCK DRIVER): Current regimen: lexapro 5 mg, buspirone 5 [...] visit Assessment & Plan (02/22/2024 10:11 AM TRAILER TRUCK DRIVER): She follows in [place], [place]. Elena Jenarotanya We discussed that this antidepressant is not [...] provided Assessment & Plan (03/29/2023 9:36 AM TRAILER TRUCK DRIVER): Chronic. Follows with psychiatry. Mood is relatively stable Binge eating disorder 11/13/2021 Assessment & Plan (10/19/2023 12:47 PM CDT): Chronic. Relatively stable. Monitor. Encouraged healthy diet and lifestyle Assessment & Plan (03/29/2023 9:35 AM TRAILER TRUCK DRIVER): Chronic. Stable. Follows with Psychiatry and weight [...] plan by 32 weeks [] Delivery at [id number] ([id number] with vascular complications or poorly controlled) Assessment & Plan (05/23/2024 1:17 PM TRAILER TRUCK DRIVER): No diabetic ophthalmic changes noted right eye (OD) or left eye (OS). Educated on findings. Stressed importance of close blood sugar control/monitoring. Educated fluctuation in blood sugar can cause fluctuations in vision. There is mild tortuosity of retinal blood vessels, but pt reports well controlled blood pressure. Monitor. Assessment & Plan (05/05/2024 12:43 PM TRAILER TRUCK DRIVER): Pt reports lows <70 that she treats overnight. Will decrease her basal to 26 units and continue weekly adjustments. Pt knows to call with continued hypoglycemia. Pt has glucagon. Reviewed risks of hypoglycemia including coma/. Discussed timing her mealtime insulin to be 10-15 minutes before a meal. Assessment & Plan (04/25/2024 3:56 PM TRAILER TRUCK DRIVER): A1c well-controlled. She tells me blood sugars are more controlled at this time with insulin. Prior to she was controlling diabetes with diet only. I will see her back in 6 months post for return management of her diabetes Assessment & Plan (04/19/2024 2:29 PM TRAILER TRUCK DRIVER): No more episodes of hypoglycemia. Fasting at [...] controlled) Assessment & Plan (04/03/2024 1:29 PM TRAILER TRUCK DRIVER): Reviewed blood sugars today which are largely [...] controlled) Assessment & Plan (03/10/2024 10:47 AM TRAILER TRUCK DRIVER): History Diagnosed prior to gastric sleeve, has [...] ophthalmology for comprehensive eye exam [x] Baseline [facility] - 02/21 [] A1c qTrimester [x] 1st [...] controlled) Assessment & Plan (02/22/2024 12:39 PM TRAILER TRUCK DRIVER): Diet controlled Will get her set up with a glucometer and ketostix To [facility] as a transfer of care. To HgA1c To 24 hour urine To [facility]. I asked her to send her sugars to me on Wednesday nights until she can get into [facility] Assessment & Plan (10/19/2023 12:48 PM CDT): Chronic. Controlled but slightly worse than last visit. Patient has been off the Trulicity for awhile due to issues with insurance coverage. We are going to go ahead and refill it as I would like her to stay on it custodial for the diabetic health benefits. If not covered then we can always look into Ozempic as an alternative encouraged diabetic diet, exercise, weight loss. She reports eye exam is up-to-date we will try to get the report. She has due for the rest of her diabetic labs Assessment & Plan (03/29/2023 9:36 AM TRAILER TRUCK DRIVER): Chronic. Well controlled. Continue Trulicity. Continue to work on diet, exercise, weight loss Pure hypercholesterolemia 11/13/2021 Assessment & Plan (10/19/2023 12:48 PM CDT): Chronic. Could use improvement. We will check an updated cholesterol level. Pending results we may need to consider starting her on a cholesterol medication for primary prevention Assessment & Plan (03/29/2023 9:36 AM TRAILER TRUCK DRIVER): Chronic. Suboptimally controlled. Given age less than [...] symptomatic Assessment & Plan (04/19/2024 2:30 PM TRAILER TRUCK DRIVER): 03/01/24 - klebsiella positive UCx. S/p treatment with macrobid. 04/19/2024: asymptomatic. Plan [x] UCx YENNI - 04/03/2024, insignificant growth [] Repeat UCx if symptomatic Assessment & Plan (04/03/2024 1:13 PM TRAILER TRUCK DRIVER): 03/01/24 - klebsiella positive UCx. S/p treatment with macrobid. Plan [] UCx YENNI - ordered 04/03/2024 Encounter for supervision of normal first in first trimester 02/22/2024 03/10/2024 BMI 50.0-59.9, adult 02/22/2024 024 Assessment & Plan (02/22/2024 12:37 PM TRAILER TRUCK DRIVER): To MFM She will need extra usg and nst in the third trimester Will need anatomy scan with [facility] Dyspareunia in female 08/21/20222024 Assessment & Plan (08/21/2022 2:10 PM CDT): Recommend pelvic ultrasound. Discussed referral to pelvic floor physical therapy for evaluation. She is interested in meeting with them. We will await pelvic ultrasound and then place referral. Coitus painful for female 03/30/2022 Assessment & Plan (03/30/2022 2:53 PM TRAILER TRUCK DRIVER): Discussed lifestyle and hygiene recommendations. She is [...] diabetes Assessment & Plan (03/29/2023 9:37 AM TRAILER TRUCK DRIVER): Chronic. Suboptimally controlled. Counseled on healthy diet, exercise, weight loss. Follows with the [facility] weight loss clinic. History of prior gastric surgery for weight loss. Continue Trulicity at current dose Encounters Date Type Department Care Team Description 05/23/2024 8:15 AM TRAILER TRUCK DRIVER Office Visit [facility] Ophthalmology [address] [place] [address] [address] [place] [phone] Lai Chu, OD Pre-existing type 2 diabetes mellitus during in second trimester (Primary Dx); Anomalous optic nerve (HCC); Supervision of high-risk , second trimester 05/23/2024 Documentation [facility] [address] [place] [address] Thao Dillon MD Glycemic control - CGM review 05/19/2024 11:20 AM TRAILER TRUCK DRIVER Office Visit [facility] Maternal- Medicine [facility] [address] [facility] Medical Office [address] [place] [phone] Bipolar affective disorder, current episode hypomanic (CMS/HCC) (HCC) (Primary Dx); Bipolar affective disorder & anxiety during ; Obesity affecting in second trimester, unspecified obesity type; History of gastric sleeve; Pre-existing type 2 diabetes mellitus during in second trimester; Supervision of high-risk , second trimester 05/19/2024 10:45 AM TRAILER TRUCK DRIVER - 05/19/2024 11:59 PM TRAILER TRUCK DRIVER Hospital Encounter [facility] Women's [facility] [address] [facility] [address] [place], [place] [id number] Pre-existing type 2 diabetes mellitus during in second trimester; Supervision of high-risk , second trimester; History of gastric sleeve; Obesity affecting in second trimester, unspecified obesity type Discharge Disposition: Discharge to home or self care 05/19/2024 Telephone [facility] Ophthalmology [address] [facility] [address] [place] [address] Lai Chu OD 05/16/2024 2:00 PM TRAILER TRUCK DRIVER Office Visit [facility] Pediatric Cardiology [facility] 2nd Floor [address] [place] [address] Diabetes mellitus affecting in second trimester (Primary Dx) 05/16/2024 2:00 PM TRAILER TRUCK DRIVER - 05/16/2024 11:59 PM TRAILER TRUCK DRIVER Hospital Encounter [facility] Pediatric Cardiology [facility] 2nd Floor [address] [place] [phone] Supervision of high-risk , second trimester; Pre-existing type 2 diabetes mellitus during in second trimester Discharge Disposition: Discharge to home or self care 05/10/2024 2:30 PM TRAILER TRUCK DRIVER Office Visit [facility] Psychiatry [address] [facility] 2nd Floor [address] [place] [address] Karena Caicedo MD PhD Moderate episode of recurrent major depressive disorder (HCC) (Primary Dx); Anxiety; Type 2 diabetes mellitus without complication, unspecified whether intermodal customer service insulin use (HCC) 05/08/2024 Documentation [facility] Maternal- Medicine [address] [facility] 7th Floor [address] [place] [phone] Lilli Ribeiro RN dexcom data review 05/05/2024 11:00 AM TRAILER TRUCK DRIVER Office Visit [facility] Maternal- Medicine [facility] [address] [facility] Medical Office [address] [place] [phone] Bipolar affective disorder & anxiety during (Primary Dx); Obesity affecting in second trimester, unspecified obesity type; History of gastric sleeve; Pre-existing type 2 diabetes mellitus during in second trimester; Supervision of high-risk , second trimester 04/30/[address] [address] Karena Barrow RN Incoming Call (Patient called regarding symptoms of cold virus. Tested yesterday at [facility] outpatient in [place] and had a neg. RVP. Reiterated medications that may be used in for URI. Instructed to come in for worsening symptoms like SOB,CP. Encouraged hydration, rest, OTC medications for symptom relief. Verbalized understanding. ) 04/28/2024 7:18 PM TRAILER TRUCK DRIVER - 04/28/2024 11:59 PM TRAILER TRUCK DRIVER Hospital Encounter [facility] [address] [place], [place] [id number] Acute cough Discharge Disposition: Discharge to home or self care 04/28/2024 7:00 PM TRAILER TRUCK DRIVER Office Visit [facility] Medical Group Convenient Care at [address] [address] Noemí Lopez PA Acute cough (Primary Dx) 04/26/2024 Telephone [facility] Department of Psychiatry [address] [facility] [address] [place] [address] Mahi Garcia, HOME HEALTH BILLING SPECIALIST [facility] Screening 04/25/2024 1:30 PM TRAILER TRUCK DRIVER Office Visit [facility] Medical Group Primary Care at [address] [phone] Ai Weaver NP Annual physical exam (Primary Dx); Pre-existing type 2 diabetes mellitus during in second trimester 04/20/2024 Telephone [facility] Pediatric Cardiology [facility] 2nd Floor [address] [place] [address] Shilpa Baig CMA Scheduling Appointments 04/19/2024 2:05 PM TRAILER TRUCK DRIVER Lab [facility] Outpatient Lab [address] [place] [address] Pre-existing type 2 diabetes mellitus during in second trimester; Supervision of high-risk , second trimester; History of gastric sleeve; Obesity affecting in second trimester, unspecified obesity type 04/19/2024 1:00 PM TRAILER TRUCK DRIVER Office Visit [facility] Maternal- Medicine [facility] [address] [facility] Office [address] [place] [address] Pre-existing type 2 diabetes mellitus during in second trimester (Primary Dx); Supervision of high-risk , second trimester; History of gastric sleeve; Obesity affecting in second trimester, unspecified obesity type; Urinary tract infection in ; Maternal varicella, non-immune; Bipolar affective disorder & anxiety during 04/19/2024 12:23 PM TRAILER TRUCK DRIVER - 04/19/2024 11:59 PM TRAILER TRUCK DRIVER Hospital Encounter [facility] [address] [facility] [address] [place] [address] Supervision of high-risk , second trimester; Pre-existing type 2 diabetes mellitus during in second trimester; History of gastric sleeve; Other obesity affecting in second trimester Discharge Disposition: Discharge to home or self care 04/19/2024 Orders Only [facility] Maternal- Medicine [facility] [address] [facility] Office [address] [place] [phone] Whit Gibson 04/14/2024 8:00 AM TRAILER TRUCK DRIVER Clinical Support [facility] Outpatient Nutrition Counseling [address] [facility] [address] [place] [address] Pre-existing type 2 diabetes mellitus during in second trimester [O24.112] (Primary Dx) 04/03/2024 11:29 AM TRAILER TRUCK DRIVER - 04/03/2024 11:59 PM TRAILER TRUCK DRIVER Hospital Encounter [facility] Cardiac Testing [address] [facility] [address] [place] [address] Supervision of high-risk , second trimester; Pre-existing type 2 diabetes mellitus during in second trimester; History of gastric sleeve; Other obesity affecting in second trimester Discharge Disposition: Discharge to home or self care 04/03/2024 11:17 AM TRAILER TRUCK DRIVER - 04/03/2024 11:59 PM TRAILER TRUCK DRIVER Hospital Encounter [facility] [address] [place] [address] Supervision of high-risk , second trimester; Pre-existing type 2 diabetes mellitus during in second trimester; Urinary tract infection in Discharge Disposition: Discharge to home or self care 04/03/2024 10:15 AM TRAILER TRUCK DRIVER Office Visit [facility] Maternal- Medicine [facility] [address] [facility] Medical Office [address] [place] [phone] Supervision of high-risk , second trimester (Primary Dx); Pre-existing type 2 diabetes mellitus during in second trimester; History of gastric sleeve; Other obesity affecting in second trimester; Maternal varicella, non-immune; Bipolar affective disorder & anxiety during ; Urinary tract infection in 04/03/2024 8:45 AM TRAILER TRUCK DRIVER - 04/03/2024 11:59 PM TRAILER TRUCK DRIVER Hospital Encounter [facility] [address] [facility] [address] [place] [address] Type 2 diabetes mellitus without complication, without long-term current use of insulin (CMS/HCC) ([facility]); Bariatric surgery status complicating , second trimester; Supervision of high-risk , second trimester Discharge Disposition: Discharge to home or self care 03/21/2024 Telephone [facility] [address] [place] [address] Zenaida Cronin, GENESIS Incoming Call 03/17/2024 10:00 AM TRAILER TRUCK DRIVER Clinical Support [facility] Outpatient Nutrition Counseling [address] [facility] [address] [place] [address] Type 2 diabetes mellitus without complication, without long-term current use of insulin (CMS/HCC) (HCC); Bariatric surgery status complicating , second trimester; Supervision of high-risk , second trimester 03/13/2024 Telephone [facility] Maternal- Medicine [facility] [address] [facility] Office [address] [place] [phone] Whit Gibson MFM GLUCOSE LOGS 03/07/2024 Telephone Melissaanthony Singh [address] [place] [phone] Misti Osborn MD myriad [employer] and [employer] carrier screening results 03/06/2024 8:45 AM TRAILER TRUCK DRIVER Office Visit [facility] Maternal- Medicine [place] [address] [facility] Office [address] [place] [phone] Supervision of high-risk , second trimester (Primary Dx); Type 2 diabetes mellitus without complication, without long-term current use of insulin (CMS/HCC) (HCC); Bariatric surgery status complicating , second trimester; Generalized anxiety disorder; Anxiety during ; Pre-existing type 2 diabetes mellitus during in second trimester 03/06/2024 8:00 AM TRAILER TRUCK DRIVER - 03/06/2024 11:59 PM TRAILER TRUCK DRIVER Hospital Encounter [facility] [address] [facility] [address] [place] [phone] Supervision of high-risk , unspecified trimester Discharge Disposition: Discharge to home or self care 03/01/2024 1:00 PM TRAILER TRUCK DRIVER Lab [address] Encounter for supervision of normal first in first trimester; Type 2 diabetes mellitus without complication, without long-term current use of insulin (CMS/HCC) (HCC) 03/01/2024 Telephone Melissaanthony ALVARES [facility] [address] [place] [address] [address], [place] [phone] Misti Osborn MD Test Results 02/25/2024 Telephone [facility] Obstetrics and Gynecology [facility] [place] [address] Carolyn Carreon Scheduling Appointments 02/24/2024 Telephone [facility] Obstetrics and Gynecology [facility] [place] [address] Valeria Pennington from Last 3 Months Immunizations Name Administration Dates Next Due DTP [...] 11/25/2010 Tetanus Toxoid, Unspecified 10/30/2022 Varicella 02/04/2011,10/12/2001 Surgical History Surgery Date Site/Laterality Comments SLEEVE GASTROPLASTY 08/12/2020 COLONOSCOPY 04/12/2014 - 04/11/2015 hemorrhoids Medical History Medical History Date Comments Type 2 diabetes mellitus, wi thout long-term current use of insulin (HCC) High cholesterol Hemorrhoids Bipolar affective disorder (HCC) Anxiety Binge eating Obesity Family History Medical History Relation Name Comments Asthma Father Sam Blunt Depression Father Sam Blunt Obesity Father Sam Blunt Pleurisy Father Sam Blunt Arthritis Father's Sister Namrata Shipman Diabetes Maternal Grandfather Edward Deshpande Infertile Maternal Half-Sister Arthritis Mother Thelma Irvingo other Mother Thelma Vargasfro heart issues Arthritis Mother's Sister Inze Deshpande Diabetes Mother's Sister Inez Deshpande Breast cancer Neg Hx Colon cancer Neg Hx no change cmt 1 04/23/23 Ovarian cancer Neg Hx Relation Name Status Comments Father Sam Blunt Father's Sister Namrata Donnellyond Maternal Grandfather Edward Deshpande Maternal Half-Sister Other Mother Thelma Alarcon Alive Mother's Sister Ienz Deshpande Social History Tobacco Use Types Packs/Day Years [...] staff should administer the PHQ-9) 1 02/22/2024 Madison Depression Scale Answer Date Recorded Madison Depression Scale Total 15 04/26/2024 The thought of harming myself has occurred to me . Hardly ever 04/26/2024 Estimated Date of Delivery Comme nts Yes 08/31/2024 Based on last me nstrual period of 11/25/2023 (Exact Date) Sex and Gender Information Value Date Recorded Sex Assigned at Not on file Legal Sex Female 9:05 AM TRAILER TRUCK DRIVER Gender Identity Female 12/18/2021 2:13 PM CDT Sexual Orientation Not on file Obstetrics History Para Term AB IAB SAB Ectopic Multiple Livin g Live Births 1 0 0 0 0 0 0 0 0 0 0 Date Outcome GA Total Labor Labor/2nd/3rd Weight Sex Type Anes PTL Mara A1 A5 Name Clin Current Summary Episode Dates Number of Fetuses Estimated Date of Delivery 02/16/2024 - Present (05/26/2024) 1 08/31/2024 (set by Misti Osborn MD on 02/22/2024 based on Last Menstrual Period on 11/25/2023 (Exact Date)) Dating Summary Based On LUIS ALFREDO GA Diff Last Menstrual Period on 11/25/2023 (Exact Date) 08/31/2024 Working Ultrasound on 02/01/2024 09/06/2024 -6d GA:8w6d Comment:CRL report under Shireen ging Alternate LUIS ALFREDO Entry 09/06/2024 -6d Comment:Date entered prior t o episode creation Overview and Plan :Welsh Support person:Familia moralez Delivery Plans Post-Delivery Plans Planned delivery method:Vaginal Feeding intentions:Breast Milk Planned anesthesia:Epidural Acceptable blood products:All Overview ACp- Justo Wilks, . Vitals Pregravid Weight Height TWG (As of 05/26/2024) Pregrav id BMI 158.8 cm (5' 2.5 ) Date GA Fund Present FHR Mvmt BP Weight Edema Alb Glu Ket Dil/ Eff/Sta 4 14w4d Inpatient data not displayed here. See encounter summary. 4 18w4d Inpatient data not displayed here. See encounter summary. 5 20w6d Inpatient data not displayed here. See encounter summary. 5 25w1d Inpatient data not displayed here. See encounter summary. Notes Progress Notes - Office Visi t - 05/19/2024 - GA:25w1d 05/19/2024 - 25w1d - Isis Martinez NP M Return Visit 05/19/2024 Radha Wilks is a 29 y.o. at 25w1d who is here for a return OB visit. Her is complicated by T2DM, history of gastric sleeve, BMI 49, depression/anxiety on medication, UTI in , and Varicella non-immune status. Subjective: Reports worsening mood with more episodes of feeling down/depressed. She does not have active thoughts of self harm but has in the past had passive thoughts. She is working with a psychiatrist and plans to call her therapist today. She has good family support. She denies contractions, loss of fluid, or vaginal bleeding and reports positive movement. Her dexcom has not been accurate the last few days. She does not think the lows overnight on were real. Her bs were elevated yesterday night because of a piece of cake. She occasionally has episodes of feeling light headed and foggy but is unsure if it is 2/2 BS or BP. She denies issues with fainting or falling. Objective: BP 99/67 Pulse 94 Temp 36.1 C (97 F) Resp 16 Ht 158.8 cm (5' 2.5 ) Wt 271 lb (122.9 kg) LMP 11/25/2023 (Exact Date) SpO2 97% BMI 48.78 kg/m General: NAD Abdomen: Soft, gravid, NT, FHR + Ultrasound: 14%- see finalized US report Assessment/Plan: Radha Wilks is a 29 y.o. at 25w1d with a complicated by the following: Problem List LUIS ALFREDO 08/31/24 Bipolar affective disorder (HCC) - Primary Overview Dx per last pcp records Bipolar affective disorder & anxiety during Overview History & Counseling S/p MFM counseling 03/06/24 [...] placed 04/19/2024 [] Monitor mood every visit Current Assessment & Plan Emotional support provided. Pt denies active SI/HI. Strict hospital precautions reviewed. Discussed importance of close f/u with psych and therapy. Pt aware doses can be increased if needed. BMI 49 Overview History Pre- BMI: ~50 S/p MFM counseling Plan [x] Initiate aspirin 81 mg at 12 weeks for preeclampsia risk reduction [x] Early overt diabetes screening with Hgb A1C - known T2DM [x] Specialized anatomic survey at 20 weeks - complete 04/19/2024 [] 3rd trimester anesthesia consultation if BMI >/=50 [x] testing per T2DM plan History of gastric sleeve Overview History Prior procedure: gastric sleeve surgery 08/12/20 [...] 6.0 02/21 [] Serial ultrasounds for growth Pre-existing type 2 diabetes mellitus during in second trimester Overview History & Counseling Diagnosed prior to gastric sleeve, has been diet controlled since 2020 History of DKA? no Last hemoglobin A1C: 6.0% on 02/21 Pre- regimen: diet control Counseling completed 03/06/24 Pt is now wearing a decom- clinic login Current regimen: 05/19/2024 - no changes, discussed good diabetic diet Lantus 26u qHS Lispro 6u TID with [...] plan by 32 weeks [] Delivery at [id number] ([id number] with vascular complications or poorly controlled) Relevant Orders US Ob Follow Up US Ob Follow Up Supervision of high-risk , second trimester Overview [x] Full M Care; [x] Blue Team Referring Provider: Misti Osborn [phone] [] [employer] or Medicare Insurance [x] Dating Criteria: LMP 11/25/23 with LUIS ALFREDO 08/31/24 [x] Labs: Rh [AB+], Ab [negative], Rubella [immune], HIV [non- reactive], HepBSAg [non-reactive], HepBSAb [not done - draw with next visit], HepBCAb [not done - draw with next visit], RPR [non-reactive], Hep C [non-reactive], Varicella [equivocal], GC/CT [negative/negative] [x] Aneuploidy Screening: reports LR NIPT with primary OB (Not uploaded in Doodle due to gender reveal per report) [] [...] by 39w (T2DM) [x] Place of delivery: [facility] [] Epidural: [] Accepts Blood Products: [] Stop ASA: [] MOC: [] Method of feeding: [] Market Stall Vendor (specifically which provider): [] PP Depression Discussed: [] PP visits scheduled: Vaccines [x] Flu Shot (Dec-Mar): received 02/22/24 [] COVID vaccine: [] Tdap (27-36wks): [] RSV vaccine (32-36wks): #light headed - fall/hospital precautions reviewed - recommend regular meals/good hydration/compression socks - recommend she check her BS if she feels this way to make sure she is not hypoglycemic - CTM PTL/PEC/FKC precautions reviewed. Reviewed the importance of presenting to her closest hospital in the case of an emergency for evaluation and if necessary and safe will be transferred to [facility]. STEVENSON Cline LER TRUCK DRIVER Progress Notes - Documentati on - 05/08/2024 - GA:23w4d 05/08/2024 - w - Lilli Ribeiro RN Images from the original note were not included. Glycemic Control Meeting 05/09/2024 This patient was discussed at the glycemic control meeting on 05/09/2024. I have analyzed and interpreted > 72 hours of ambulatory continuous glucose monitoring of interstitial fluid via a subcutaneous sensor for Radha Wilks. The following adjustments have been proposed: - Current regimen: 05/09/2024 Lantus 26u qHS Lispro 6U with breakfast > Lispro 6u TID with meals - reviewed timing 10-15 minutes before a meal This note has been sent to MFM RN for coordination of patient care and to communicate proposed adjustments. The problem list has been updated. I have spent 5 total minutes on remote diabetes management. Thao Dillon MD Line Puller Division of Maternal- Medicine and Ultrasound Department of Obstetrics and Gynecology [facility] [place] [facility] LER TRUCK DRIVER LER TRUCK DRIVER Progress Notes - Office Visi t - 05/05/2024 - GA:23w1d 05/05/2024 - 23w1d - Isis Martinez NP MFM Return Visit 05/05/2024 Radha Wilks is a 29 y.o. at 23w1d who is here for a return OB visit. Her is complicated by T2DM, history of gastric sleeve, BMI 49, depression/anxiety on medication, UTI in , and Varicella non-immune status. Subjective: Feels well today. She denies regular cramping, loss of fluid, or vaginal bleeding and reports positive movement. Reports lows <70 during the night. She is symptomatic and typically has juice to correct. She is now wearing a dexcom which she finds to be helpful. Objective: BP 96/64 Pulse 108 Ht 158.1 cm (5' 2.25 ) Wt 272 lb 3.2 oz (123.5 kg) LMP 11/25/2023 (Exact Date) SpO2 97% BMI 49.39 kg/m General: NAD Abdomen: Soft, gravid, NT, FHR + Ultrasound: n/a Assessment/Plan: Radha Wilks is a 29 y.o. at 23w1d with a complicated by the following: Problem List LUIS ALRFEDO 08/31/24 Bipolar affective disorder & anxiety during - Primary Overview History & Counseling S/p MFM counseling 03/06/24 04/19/2024: Worsening mood symptoms today. EPDS 19, answered hardly ever for Q#10. Reports passive SI, but not active and no plan. Endorses safety at home. Current regimen: Lexapro 5 mg + Buspirone 5 mg qD > lexapro 10 mg, buspirone 5 mg BID (increased 04/19/2024) Plan [x] Continue above medication regimen [x] Baseline EPDS - 10 (04/03/2024) [x] Referral for psychiatry and psychology resources - placed 04/19/2024 [] Monitor mood every visit BMI 49 Overview History Pre- BMI: ~50 S/p MFM counseling Plan [x] Initiate aspirin 81 mg at 12 weeks for preeclampsia risk reduction [x] Early overt diabetes screening with Hgb A1C - known T2DM [x] Specialized anatomic survey at 20 weeks - complete 04/19/2024 [] 3rd trimester anesthesia consultation if BMI >/=50 [x] testing per T2DM plan History of gastric sleeve Overview History Prior procedure: gastric sleeve surgery 08/12/20 [...] 6.0 02/21 [] Serial ultrasounds for growth Pre-existing type 2 diabetes mellitus during in second trimester Overview History & Counseling Diagnosed prior to gastric sleeve, has been diet controlled since 2020 History of DKA? no Last hemoglobin A1C: 6.0% on 02/21 Pre- regimen: diet control Counseling completed 03/06/24 Pt is now wearing a decom- clinic login Current regimen: 05/05/2024 Lantus 30u qHS--> 26u qHS lispro 6U with breakfast- reviewed timing 10-15 minutes before a meal [...] 04/19/2024 [] echocardiogram at 20-22 weeks - scheduled [] Serial growth scans starting at 24 weeks- ongoing [] Twice weekly testing starting at 32 weeks [] insulin plan by 32 weeks [] Delivery at 39 0/7-39 6/7 (36 0/7 to 38 6/7 with vascular complications or poorly controlled) Current Assessment & Plan Pt reports lows <70 that she treats overnight. Will decrease her basal to 26 units and continue weekly adjustments. Pt knows to call with continued hypoglycemia. Pt has glucagon. Reviewed risks of hypoglycemia including coma/. Discussed timing her mealtime insulin to be 10-15 minutes before a meal. Supervision of high-risk , second trimester Overview [x] Full M Care; [x] Blue Team Referring Provider: Misti Osborn [phone] [] [employer] or Medicare Insurance [x] Dating Criteria: LMP 11/25/23 with LUIS ALFREDO 08/31/24 [x] Labs: Rh [AB+], Ab [negative], Rubella [immune], HIV [non- reactive], HepBSAg [non-reactive], HepBSAb [not done - draw with next visit], HepBCAb [not done - draw with next visit], RPR [non-reactive], Hep C [non-reactive], Varicella [equivocal], GC/CT [negative/negative] [x] Aneuploidy Screening: reports LR NIPT with primary OB (Not uploaded in Doodle due to gender reveal per report) [] [...] by 39w (T2DM) [x] Place of delivery: [facility] [] Epidural: [] Accepts Blood Products: [] Stop ASA: [] MOC: [] Method of feeding: [] Market Stall Vendor (specifically which provider): [] PP Depression Discussed: [] PP visits scheduled: Vaccines [x] Flu Shot (Dec-Mar): received 02/22/24 [] COVID vaccine: [] Tdap (27-36wks): [] RSV vaccine (32-36wks): PTL/PEC/FKC precautions reviewed. Reviewed the importance of presenting to her closest hospital in the case of an emergency for evaluation and if necessary and safe will be transferred to [facility]. STEVENSON Cline LER TRUCK DRIVER Progress Notes - Office Visi t - 04/19/2024 - GA:20w6d 04/19/2024 - 20w6d - Tracie Nova MD [facility] Return Visit 04/19/2024 Radha Wilks is a 29 y.o. at 20w6d who is here for a return OB visit. Her is complicated by T2DM, history of gastric sleeve, BMI 49, depression/anxiety on medication, UTI in , and Varicella non-immune status. Subjective: She reports she had an episode of emesis this morning and has been feeling likes she has a lot of mucous. In terms of her BG, she is taking her insulin as recommended. She takes her BG in AM and after breakfast, but sometimes forgets later in the day. She reports her abdomen felt more firm this past week. She states she has been having a rough time and feeling anxious, low mood, and crying. She denies SI or plan, but reports episodes of thinking, what if? . She has been taking her psych meds. She denies leakage of fluid, vaginal bleeding, or contractions. She has not yet felt movement. Objective: BP 107/70 Pulse 87 Temp 36.3 C (97.3 F) Resp 17 Ht 158.8 cm (5' 2.5 ) Wt 274 lb 6.4 oz (124.5 kg) LMP 11/25/2023 (Exact Date) SpO2 97% BMI 49.39 kg/m General: NAD Abdomen: Soft, gravid, NT, no rebound or guarding Extremities: WWP, no edema Ultrasound: 04/19/2024 20w6d FHT present and wnl Completion of anatomy performed See final report Assessment/Plan: Radha Wilks is a 29 y.o. at 20w6d by with a complicated by T2DM, history of gastric sleeve, BMI 49, depression/anxiety on medication, UTI in , and Varicella non-immune status. Pre-existing type 2 diabetes mellitus during in second trimester No more episodes of hypoglycemia. Fasting at [...] 6.0% on 02/22/24 [] 2nd T: ordered 1/8/25 [] 3rd T: [x] First trimester TSH [...] 6/7 with vascular complications or poorly controlled) Urinary tract infection in 03/01/24 - klebsiella positive UCx. S/p treatment with macrobid. 04/19/2024: asymptomatic. Plan [x] UCx YENNI - 04/03/2024, insignificant growth [] Repeat UCx if symptomatic BMI 49 Pre- BMI: ~50 S/p MFM counseling Plan [x] Initiate aspirin 81 mg at 12 weeks for preeclampsia risk reduction [x] Early overt diabetes screening with Hgb A1C - known T2DM [x] Specialized anatomic survey at 20 weeks - complete 04/19/2024 [] 3rd trimester anesthesia consultation if BMI >/=50 [x] testing per T2DM plan History of gastric sleeve History Prior procedure: gastric sleeve surgery 08/12/20 [...] 6.0 02/21 [] Serial ultrasounds for growth Maternal varicella, non-immune Plan [] Varivax Bipolar affective disorder & anxiety during Worsening mood symptoms today. EPDS 19, answered hardly ever for Q#10. Reports passive SI, but not active and no plan. Endorses safety at home. We discussed increasing her regimen as outlined below and a referral was sent to Dr. Sascha for psych and counseling resources. We reviewed ED precautions. Current regimen: Lexapro 5 mg + Buspirone 5 mg qD > lexapro 10 mg, buspirone 5 mg BID (increased 04/19/2024) Plan [x] Continue above medication regimen [x] Baseline EPDS - 10 (04/03/2024) [x] Referral for psychiatry and psychology resources - placed 04/19/2024 [] Monitor mood every visit Supervision of high-risk , second trimester Full MFM care. Reviewed supportive care for mucous - humidifier, nasal saline, mucinex, claritin, etc. Reviewed abd exam normal and expectations for uterine growth. Summary of visit: - Added mealtime lispro with breakfast - Resubmitted for CGM coverage - Increased lexapro and buspirone, referral sent for mental health resources - note given for humidifier in house - OB/ER warnings reviewed - Follow up 2 weeks for MFM visit Tracie Nova MD MFM Fellow Patient was seen and discussed with Dr. Dillon. Cosigned by Thao Dillon MD at 04/19/2024 2:35 PM TRAILER TRUCK DRIVER LER TRUCK DRIVER LER TRUCK DRIVER Associated attestation - Thao Dillon MD - 04/19/2024 2:35 PM TRAILER TRUCK DRIVER Images from the original note were not included. MFM Attending Attestation I have seen and discussed Radha Wilks with the fellow on 04/19/2024. I have evaluated the patient and reviewed the treatment plan and recommendations. I agree with the findings and the plan of care as documented in the note with edits made. Thao Dillon MD Line Puller Division of Maternal- Medicine and Ultrasound Department of Obstetrics and Gynecology [facility] 04/19/2024 Progress Notes - Office Visi t - 04/03/2024 - GA:18w4d 04/03/2024 - 18w4d - Thao Dillon MD Images from the original note were not included. MFM Return Visit 04/03/2024 ID: Radha Wilks is a 29 y.o. at 18w4d who is here for a return OB visit. Her is complicated by T2DM, history of gastric sleeve, BMI 49, depression/anxiety on medication, UTI in , and Varicella non-immune status. Subjective: She notes that her hair has been falling out a lot. Has been feeling more anxious and depressed for the last few days, but this is a new change in her mood. She is currently taking Lexpro 5 mg and Buspirone 5 mg. Not interested in changing her medication for now but would consider when she comes back in a couple of weeks. She is also feeling more nauseated. Also having umbilicus discharge. She denies vaginal bleeding and leakage of fluid. She denies contractions. Has had some headaches off and on but water helps. Denies any vision changes. Denies RUQ pain. Denies abnormal discharge. She reports taking ASA. She was diagnosed with a UTI in 02/2024 and treated with macrobid; she denies any current dysuria. Objective: BP 113/80 Pulse 75 Temp 36.1 C (97 F) Resp 16 Ht 158.8 cm (5' 2.5 ) Wt 273 lb (123.8 kg) LMP 11/25/2023 (Exact Date) SpO2 97% BMI 49.14 kg/m General: NAD Lungs: Normal work of breathing on room air Abdomen: Soft, gravid, NT Extremities: WWP, no edema EPDS: 10, never to Q10 Ultrasound 04/03/2024: Interval growth has been normal. No malformations are identified, but the anatomical survey was not able to be completed today due to positioning and maternal scanning properties. IUP at 18 weeks + 4 days Assessment/Plan: Radha Wilks is a 29 y.o. at 18w4d with a complicated by T2DM, history of gastric sleeve, BMI 49, depression/anxiety on medication. Pre-existing type 2 diabetes mellitus during in second trimester Reviewed blood sugars today which are largely [...] 6/7 with vascular complications or poorly controlled) History of gastric sleeve Micronutrient testing normal in the first trimester. Plan [x] Screen for micronutrient deficiencies (CBC w/ MCV, ferritin, iron, B12, B1, folate, calcium and Vit D levels) qtrimester and supplement accordingly [x] 1st T: WNL 02/22/2024 [] 2nd T: Order at next visit [] 3rd T: [x] First trimester A1C 6.0 02/21 [] Serial ultrasounds for growth BMI 49 Pre- BMI ~50. Current BMI 49. Plan [x] Initiate aspirin 81 mg at 12 weeks for preeclampsia risk reduction [x] Early overt diabetes screening with Hgb A1C - known T2DM [] Specialized anatomic survey at 20 weeks - incomplete 04/03/2024 [] 3rd trimester anesthesia consultation if BMI >/=50 [x] testing per T2DM plan Bipolar affective disorder & anxiety during Reports mood today is up and down. [...] 10 (04/03/2024) [] Monitor mood every visit Urinary tract infection in 03/01/24 - klebsiella positive UCx. S/p treatment with macrobid. Plan [] UCx YENNI - ordered 04/03/2024 Maternal varicella, non-immune Plan [] Varivax Supervision of high-risk , second trimester [x] Full MFM Care; [] Red Team [x] Blue Team - full YENNI at 14 weeks Referring Provider: Misti Osborn [phone] [] [employer] or Medicare Insurance [x] Dating Criteria: LMP 11/25/23 with LUIS ALFREDO 08/31/24 [x] Labs: Rh [AB+], Ab [negative], Rubella [immune], HIV [non- reactive], HepBSAg [non-reactive], HepBSAb [not done - do with 2T labs], HepBCAb [not done - do with 2T labs], RPR [non-reactive], Hep C [non-reactive], Varicella [equivocal], GC/CT [negative/negative] [x] Aneuploidy Screening: reports LR NIPT with primary OB (Not uploaded in Doodle due to gender reveal per report) [] [...] 28 wks (if Rh neg): AB+, N/A Return to clinic in 2 weeks with completion of anatomic survey. Thao Dillon MD Line Puller Division of Maternal- Medicine and Ultrasound Department of Obstetrics and Gynecology [facility] 04/03/2024 LER TRUCK DRIVER Progress Notes - Office Visi t - 03/06/2024 - GA:14w4d 03/06/2024 - 14w4d - Asha Tariq MD Images from the original note were not included. Maternal Medicine Initial Visit Date of Visit: 03/06/2024 Radha Wilks is a 29 y.o. at 14w4d by LMP consistent with 1st trimester Ultrasound who is here for her initial OB visit. She will be full [facility] care. Her is currently complicated by diet controlled T2DM, hx gastric sleeve surgery, depression/anxiety on medications, BMI 51. Reports nausea/vomiting that is slowly improving. Had some headaches and changes in vision which is also improving. Frequent urination, undergoing treatment for UTI. Denies SI/HI, feeling fatigued. Denies LAP or VB. OB History Para Term AB Living 1 0 0 0 0 0 SAB IAB Ectopic Multiple Live Births 0 0 0 0 0 # Outcome Date GA Lbr Ishmael/2nd Weight Sex Type Anes PTL Lv 1 Current Past Gynecologic History: Patient's last menstrual period was 11/25/2023 (exact date)., Menses: regular, Prior STIs: none. Her last pap smear was 02/22/24 pending with primary OB. Previous history of dysplasia not requiring treatment with excisional procedures. She has no history of infertility, ART treatment, gynecologic surgery, or breast cancer. She has no history of blood transfusions. Past Medical History: Diagnosis Date Anxiety Binge eating Bipolar affective disorder (HCC) Hemorrhoids High cholesterol Obesity Type 2 diabetes mellitus, without long-term current use of insulin (HCC) Past Surgical History: Procedure Laterality Date COLONOSCOPY 2014 hemorrhoids SLEEVE GASTROPLASTY 08/12/2020 Medications: PNV Escitalopram 5 mg Buspirone 5 mg Centrum silver Vitamin D Allergies Allergen Reactions Nsaids (Non-Steroidal Anti-Inflammatory Drug) Other (See comments) Gastric sleeve. Pt to avoid NSAIDS Social History Tobacco Use Smoking status: Former Current packs/day: 0.00 Average packs/day: 0.1 packs/day for 1 year (0.1 ttl pk-yrs) Types: Cigarettes Start date: 04/12/2015 Quit date: 04/12/2016 Years since quittin.9 Smokeless tobacco: Never Tobacco comments: social smoker for 1 yr Substance and Sexual Activity Drug use: Yes Comment: 1 drnk tolerence, no mj, pills or drugs Sexual activity: Yes Partners: Male Alcohol Use: Not At Risk (11/25/2023) AUDIT-C Frequency of Alcohol Consumption: Never Average Number of Drinks: Patient does not drink Frequency of Binge Drinking: Never 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 Lives with [employer]. Denies history of intimate partner violence. Family History: Family History Problem Relation Age of Onset Other (other) Mother heart issues Arthritis Mother Pleurisy Father Obesity Father Asthma Father Depression Father Diabetes Maternal Grandfather Diabetes Mother's Sister Arthritis Mother's Sister Arthritis Father's Sister Infertile Maternal Half-Sister Colon cancer Neg Hx no change cmt 02/22/24 Breast cancer Neg Hx Ovarian cancer Neg Hx Specifically, she denies a family history of defects including spina bifida, congenital heart defects, limb defects, or kidney defects. She denies a family history of genetic abnormalities including Down Syndrome, cognitive delays, or learning disabilities including autism spectrum disorders. She denies a family history of inherited disorders including cystic fibrosis, thalassemia, sickle cell disease, or muscular dystrophy. Dating: Patient's last menstrual period was 11/25/2023 (exact date). Estimated Date of Delivery: 08/31/24 by LMP c/w 8w6d CRL (-6d) Review of Systems Review of systems per HPI and otherwise all systems are negative Physical Exam Vitals BP 110/84 Pulse 84 Temp 36.4 C (97.6 F) (Temporal) Resp 16 Ht 157.5 cm (5' 2 ) Wt 276 lb 6.4 oz (125.4 kg) LMP 11/25/2023 (Exact Date) SpO2 97% BMI 50.55 kg/m General: Healthy, alert, active, cooperative, and in no distress Ultrasound: Ultrasound 03/06/2024: IUP at 14w 4d for evaluation of growth assessment. growth is appropriate for gestational age by individual biometric measurements, however overall EFW plots at 3%. Fasting values routinely elevated, majority of postprandial values are at goal Assessment: Ms. Radha Wilks is a radha 29 y.o. at 14w4d by LMP consistent with 1st trimester Ultrasound who is here for her initial OB visit with [facility]. She will be full [facility] care as a full transfer. Her is currently complicated by diet controlled T2DM, hx gastric sleeve surgery, depression/anxiety on medications, BMI 51. Plan: History of gastric sleeve History: gastric sleeve surgery 08/12/20 Type of [...] 6.0 02/21 [] Serial ultrasounds for growth Bipolar affective disorder & Anxiety during Current regimen: lexapro 5 mg, buspirone 5 [...] medication regimen [] Monitor mood every visit Supervision of high-risk , second trimester [x] Full MFM Care; [] Red Team [x] Blue Team - full YENNI at 14 weeks Referring Provider: Misti Osborn [phone] [] [employer] or Medicare Insurance [x] Dating Criteria: LMP 11/25/23 with LUIS ALFREDO 08/31/24 [x] Labs: Rh [AB+], Ab [negative], Rubella [immune], HIV [non- reactive], HepBSAg [non-reactive], HepBSAb [not done], HepBCAb [not done], RPR [non- reactive], Hep C [non-reactive], Varicella [equivocal], GC/CT [negative/negative] [x] Aneuploidy Screening: reports LR NIPT with primary OB (Not uploaded in [facility] due to gender reveal per report) [] [...] by 39w (T2DM) [x] Place of delivery: [facility] [] Epidural: [] Accepts Blood Products: [] Stop ASA: [] MOC: [] Method of feeding: [] Market Stall Vendor (specifically which provider): [] PP Depression Discussed: [] PP visits scheduled: Vaccines [x] Flu Shot (Dec-Mar): received 02/22/24 [] COVID vaccine: [] Tdap (27-36wks): [] RSV vaccine (32-36wks): [x] PP HPV vaccine counseling (<=26 yo): N/A Pre-existing type 2 diabetes mellitus during in second trimester History Diagnosed prior to gastric sleeve, has [...] ophthalmology for comprehensive eye exam [x] Baseline CMP, UPC - 02/21 [] [...] 6/7 with vascular complications or poorly controlled) Obesity complicating in second trimester Pre- BMI: ~50 Counseling 03/10/2024: Obesity in [...] hour glucose tolerance test, >6.5 refer to CDP clinic) [] Specialized anatomic survey at 20 weeks [] 3rd trimester anesthesia consultation if BMI >/=50 [] Weekly testing per T2DM plan Summary of visit: - T2DM: Diabetes education. Would like to try 1 more week of diet with bedtime protein snack and walk. Counseled regarding likelihood of medication treatments in the near future. Weekly CareCompanion review - OB/ER warnings reviewed - Follow up 4 weeks for MFM visit and anatomy ultrasound A total of 45 minutes were spent for this visit, 30 minutes were spent with the patient during the visit and 15 minutes were spent in documentation. Asha Tariq MD Line Puller Division of Maternal- Medicine LER TRUCK DRIVER Progress Notes - Abstract - 02/28/2024 - GA:13w4d 02/28/2024 - 13w4d - Larisa Beyer RMA Current OB records are in [facility]. PCP records are also in [facility]. Most recent visit was 11/25/23. Sleeve Gastrectomy op note is copied below. Further records are under Care Everywhere dated 08/12/20. Weight Management clinic records are under Care Everywhere. Most recent visit was 01/14/24. LER TRUCK DRIVER 02/28/2024 - 13w4d - Larisa Beyer RMA Operative - Lora Bains MD - 08/12/2020 10:51 AM CDT Pt Name: Radha Anderson DATE OF OPERATION: 08/12/2020 SURGEON: Surgeon(s) and Role: * Lora Bains MD - Primary EDIPHONE OPERATOR: Flavoring Oil Filterer: Nicci Mcgill RN Registered Nurse Coat Padder: Alpesh Monterroso RN Scrub Person: Lizzette Davila PREOPERATIVE DIAGNOSIS: 1. Refractory morbid obesity with BMI of Body mass index is 49.84 kg/m . 2. Diabetes 3. Depression 4. Binge eating 5. Iron deficiency 6. GERD POSTOPERATIVE DIAGNOSIS: Same NAME OF PROCEDURE: 1. Laparoscopic sleeve gastrectomy ANESTHESIA: General endotracheal anesthesia. FINDINGS: 1. No hiatal hernia 2. No leak on leak test DESCRIPTION OF PROCEDURE: After informed consent was obtained, the patient was brought back to the operating room and placed in a supine position on the operating room table. General endotracheal anesthesia was induced. The patient was then prepped and draped in sterile fashion. A time-out was performed confirming patient name, antibiotic, allergy and procedure, SCDs confirmed in place as well as administration of subcutaneous heparin. A 12 mm incision was made 15 cm inferior to the costal margin and just to the left of midline. An Optiview trocar was placed through this incision. Pneumo-insufflation was initiated and carried to final pressure of 15 mmHg. Direct visualization confirmed no underlying visceral injury. Two additional 12 mm trocars were placed in the right upper quadrant. An additional 5 mm trocar was placed in the left upper quadrant for the air seal. The air seal was then initiated and the patient placed in steep reverse Trendelenburg position. The FreeHold retraction system was set up into place anchoring from the central tendon of the diaphragm to the anterior abdominal wall. From here, the calibration tube was passed into the stomach and the stomach desufflated. Angle of His was then opened using a LigaSure as well as blunt dissection. From here, the omentum was released from the greater curvature using the LigaSure. The dissection was taken from 6 cm proximal to the pylorus all the way up to the angle of His. From here, a green load of the endoscopic linear cutting stapler was used to initiate the creation of the sleeve gastrectomy. This was started 6 cm proximal to the pylorus. Additional blue loads of the endoscopic linear cutting stapler were used to create the sleeve using the calibration tube as a guide. Following this, the stomach was placed in the right upper quadrant. Hemostasis was confirmed along the staple line using a clip certified neurodiagnostic technologist. The patient was then placed in a supine position and distal stomach clamped off. Air was passed through the calibration tube while holding the staple line under saline. Leak test was negative for leak. From here, the stomach was desufflated and the calibration tube removed. No significant blood or clot on the distal end of the calibration tube. Saline was suctioned from the abdomen. From here, Tisseel was sprayed along the length of the staple line. The 12 mm right upper quadrant incision was then dilated and the stomach pulled through this incision. Fascia at this incision was then reapproximated using an 0 Vicryl passed with a suture Passer. The trocar was replaced and the stitch tagged. Fascia at the 2nd 12 mm incision was then reapproximated using an 0 Vicryl passed with a suture Passer. This stitch tagged as well and trocar replaced. Final inspection of the staple line confirmed good hemostasis. Additional saline was suctioned from the abdomen in both the right and left upper quadrants. The FreeHold retraction system was then released and removed from the abdomen. From here, the previously placed Vicryl sutures were secured. These incisions were irrigated and a tap block performed. Appropriate filtration tubing was connected and Pneumo-insufflation was then released. Hemostasis was confirmed along the incisions and the skin closed with Stratafix. The skin was then cleaned and covered with skin glue. The patient was then allowed to awake from anesthesia and transferred to the postanesthesia care unit in good condition. ESTIMATED BLOOD LOSS: 20 cc FLUIDS: 600 cc SPECIMENS: Stomach. COMPLICATIONS: None. Lora Bains MD LER TRUCK DRIVER Progress Notes - Initial Pre - 02/22/2024 - GA:12w5d 02/22/2024 - wd - Misti Osborn MD Images from the original note were not included. Initial OB Visit Initial Visit (Patient is 11.6 weeks today) Subjective: Radha Wilks is a 29 y.o., at 12w5d , based on LMP and confirmed by first trimester ultrasound who presents for initial visit. Morning sickness is persistent She has a uri. She was negative for flu and covid last week Feeling some better. She has not had her flu shot. Menstrual History: Patient's last menstrual period was 11/25/2023 (exact date). Sexual History: OB History 1 Para 0 Term 0 0 AB 0 Living 0 SAB 0 IAB 0 Ectopic 0 Multiple 0 Live Births 0 # Outcome Date GA Labor/2nd Weight Sex Type Anes PTL Lv A1 A5 1 Current Objective: BP 102/52 (BP Location: Left arm, Patient Position: Sitting) Ht 157.5 cm (5' 2 ) Wt 277 lb 9.6 oz (125.9 kg) LMP 11/25/2023 (Exact Date) BMI 50.77 kg/m Physical OB Exam: Last filed by Misti Osborn MD on 02/22/2024 12:39 PM General Physical Exam HEENT: normal Heart: normal Skin: normal Thyroid: normal Lungs: normal Extremities: normal Lymph Nodes: normal Breasts: normal Neurological: normal grossly Abdomen: normal Pelvic Exam Pelvic Exam Comments: Exam limited with habitus Vulva: normal Vagina: normal Cervix: normal Uterus: 10-12 weeks Adnexa: normal Rectum: normal Spines: average Subpubic Arch: normal See flow sheet for gestation -specific examination and vitals. Assessment: Patient is a 29 y.o., at 11w6d, size = dates. Diagnoses and all orders for this visit: Encounter for supervision of normal first in first trimester (Primary) - Pap, reflex HPV; Future - N. gonorrhoeae/C. trachomatis Amplification Thin prep-Endocervical; Future - Ambulatory Referral to Maternal - Medicine (Perinatology); Future - Flu Vaccine Tri 6m+ IM - Flulaval/Fluarix/Fluzone - Creatinine clearance, urine, 24 hour; Future - Protein, urine, 24 hour; Future - acetone, urine, test strip; USE TO DIP FIRST VOID OF THE DAY. DOCUMENT RESULTS - blood-glucose meter kit; USE TO CHECK BLOOD SUGAR DIRECTED BY YOUR PHYSICIAN. - blood glucose diagnostic strip; USE TO CHECK BLOOD SUGAR BEFORE BREAKFAST AND 1 HOUR AFTER EACH MEAL. DOCUMENT RESULTS - lancets misc; USE TO CHECK BLOOD SUGAR DIRECTED BY YOUR PHYSICIAN - alcohol swabs pads, medicated; USE TO CLEAN AREA OF SKIN PRIOR TO CHECKING BLOOD SUGAR. - Hemoglobin A1c; Future - CBC with auto differential; Future - Drugs of Abuse Screen, Urine without Confirmation; Future - Hepatitis B Surface Antigen Blood; Future - Hepatitis C antibody Blood; Future - HIV 1/2 Antibody plus p24 Antigen Blood; Future - RPR Blood; Future - Rubella IgG antibody Blood; Future - Type and screen; Future - Varicella Zoster IgG antibody Blood; Future - Vitamin D 25 hydroxy; Future - Urine culture Urine, clean voided; Future BMI 50.0-59.9, adult ([facility]) Assessment & Plan: To [facility] She will need extra usg and nst in the third trimester Will need anatomy scan with [facility] Orders: - Ambulatory Referral to Maternal - Medicine (Perinatology); Future - Comprehensive metabolic panel; Future - Folate; Future - Vitamin B12; Future - Ferritin; Future - Iron profile w/ IBC; Future Type 2 diabetes mellitus without complication, without long-term current use of insulin ([facility]) ([facility]) Assessment & Plan: Diet controlled Will get her set up with a glucometer and ketostix To [facility] as a transfer of care. To HgA1c To 24 hour urine To [facility]. I asked her to send her sugars to me on Wednesday until she can get into [facility] Orders: - Ambulatory Referral to Maternal - Medicine (Perinatology); Future - Creatinine clearance, urine, 24 hour; Future - Protein, urine, 24 hour; Future - acetone, urine, test strip; USE TO DIP FIRST VOID OF THE DAY. DOCUMENT RESULTS - blood-glucose meter kit; USE TO CHECK BLOOD SUGAR DIRECTED BY YOUR PHYSICIAN. - blood glucose diagnostic strip; USE TO CHECK BLOOD SUGAR BEFORE BREAKFAST AND 1 HOUR AFTER EACH MEAL. DOCUMENT RESULTS - lancets misc; USE TO CHECK BLOOD SUGAR DIRECTED BY YOUR PHYSICIAN - alcohol swabs pads, medicated; USE TO CLEAN AREA OF SKIN PRIOR TO CHECKING BLOOD SUGAR. Bariatric surgery status complicating , second trimester Assessment & Plan: Sleeve gastrectomy- August 2020. She last did vitamin testing a few months ago. Will repeat today Orders: - Ambulatory Referral to Maternal - Medicine (Perinatology); Future Generalized anxiety disorder Assessment & Plan: She follows in [place], [place]. Elena Valdez We discussed that this [...] They were trying to ween before . Orders: - Ambulatory Referral to Maternal - Medicine (Perinatology); Future Plan: -dating US completed previously -PNL ordered. We will discuss at her next visit. she will d/w basa with [facility] -pap and std testing done today. The results will go to the portal. If she doesn't see them in a week, to call the office. -NOB packet reviewed with the pt and her questions were answered. They would like to do cell free dna testing and carrier screening. False positives and negatives discussed To gain between 10-15 pounds for the Diet and exercise discussed. Misti Osborn MD 02/22/2024 LER TRUCK DRIVER Last Filed Vital Signs Vital Sign Reading Time Taken Comments Blood Pressure 99/67 05/19/2024 11:28 AM TRAILER TRUCK DRIVER Pulse 94 05/19/2024 11:28 AM TRAILER TRUCK DRIVER Temperature 36.1 C (97 F) 05/19/2024 11:28 AM TRAILER TRUCK DRIVER Respiratory Rate 16 05/19/2024 11:28 AM TRAILER TRUCK DRIVER Oxygen Saturation 97% 05/19/2024 11:28 AM TRAILER TRUCK DRIVER Inhaled Oxygen Concentration - - Weight 122.9 kg (271 lb) 05/19/2024 11:28 AM TRAILER TRUCK DRIVER Height 158.8 cm (5' 2.5 ) 05/19/2024 11:28 AM CS T Body Mass Index 48.78 05/19/2024 11:28 AM TRAILER TRUCK DRIVER Plan of Treatment Health Maintenance Due Date Last Done Comments Pneumococcal vaccine <65 (1 of 2 - PCV) 02/12/2002 Covid-19 Vaccine ( season) 2023 04/13/2022, 03/25/2021, 05/11/2020, Additional history exists Foot Exam 03/29/2024 03/29/2023, 03/12, 01/22/2022 Hemoglobin A1C 10/17/2024 04/19/2024, 02/10, 01/12/2024, Additional history exists Albumin Creatinine Ratio, Urine 11/18/2024 11/19/2023, 04/01/2022 Lipid Panel 01/11/2025 01/12/2024, 08/0 12/2023, 11/19/2023, Additional history exists eGFR 03/01/2025 03/01/2024, 02/10, 01/12/2024, Additional history exists Regular Well Visit/Exam 18-64 04/25/2025 04/25/2024, 03/29/2023, 09/21/2022, Additional history exists Depression Screening 04/26/2025 04/26/2024, 02/22/2024, 11/25/2023, Additional history exists Dilated Eye Exam 05/23/2025 05/23/2024, 09/18/2022 Cervical Cancer Screening-Pap Smear 02/21/2027 02/22/2024, 08/21/2022 Cervical Cancer Screening 02/21/2027 02/22/2024, 03/2023 DTaP/Tdap/Td Vaccine (7 - Td or Tdap) 10/30/2032 11/25/2010, 10/12/2001, 05/11/1997, Additional history exists Postponed from 11/25/2020 (Provider's clinical decision) Hepatitis B Screening Completed 1996 , 1996, 1996 Varicella Vaccines Completed 02/04/2011, 10/12/2001 HPV Vaccines Completed 06/25/2011, 01/11, 11/25/2010 Hepatitis C Screening Completed 02/22/2024, 024 Influenza Vaccine Completed 02/22/2024, , 04/13/2022, Additional history exists Goals Goal Patient Goal Type Associated Problems Recent Progress Patient-Stated? Author Record Your Blood Sugar Daily Care Plan Meal Tracking and Blood Sugar Monitoring No Whit Gibson Procedures Procedure Name Priority Date/Time Associated Diagnosis Comments US OB FOLLOW UP Schedule Routine, Read Routine (OP Routine) 05/19/2024 10:56 AM TRAILER TRUCK DRIVER Pre-existing type 2 diabetes mellitus during in second trimester Supervision of high-risk , second trimester History of gastric sleeve Obesity affecting in second trimester, unspecified obesity type ECHOCARDIOGRAM Routine 05/16/2024 2:57 PM TRAILER TRUCK DRIVER Supervision of high-risk , second trimester Pre-existing type 2 diabetes mellitus during in second trimester MYCOPLASMA PNEUMONIAE PCR Routine 04/28/2024 7:18 PM TRAILER TRUCK DRIVER Acute cough BORDETELLA PERTUSSIS / PARAPERTUSSIS Routine 04/28/2024 7:18 PM TRAILER TRUCK DRIVER Acute cough INFLUENZA A/B, RSV, AND COVID-19 PCR Routine 04/28/2024 7:18 PM TRAILER TRUCK DRIVER Acute cough POC INFLUENZA A/B, COVID-19 ANTIGEN Routine 04/28/2024 7:10 PM TRAILER TRUCK DRIVER Acute cough CBC WITH AUTO DIFFERENTIAL Routine 04/19/2024 2:08 PM TRAILER TRUCK DRIVER Pre-existing type 2 diabetes mellitus during in second trimester Supervision of high-risk , second trimester Bariatric surgery status complicating , second trimester Obesity affecting in second trimester, unspecified obesity type DIFFERENTIAL AUTO Routine 04/19/2024 2:0 8 PM TRAILER TRUCK DRIVER HEMOGLOBIN ANALYSIS BY ELECTROPHORESIS Routine 04/19/2024 2:08 PM TRAILER TRUCK DRIVER Pre-existing type 2 diabetes mellitus during in second trimester Supervision of high-risk , second trimester History of gastric sleeve Obesity affecting in second trimester, unspecified obesity type FERRITIN Routine 04/19/2024 2:08 PM TRAILER TRUCK DRIVER Pre-existing type 2 diabetes mellitus during in second trimester Supervision of high-risk , second trimester History of gastric sleeve Obesity affecting in second trimester, unspecified obesity type HEMOGLOBIN A1C Routine 04/19/2024 2:08 PM TRAILER TRUCK DRIVER Pre-existing type 2 diabetes mellitus during in second trimester Supervision of high-risk , second trimester History of gastric sleeve Obesity affecting in second trimester, unspecified obesity type IRON PROFILE W/ IBC Routine 04/19/2024 2 :08 PM TRAILER TRUCK DRIVER Pre-existing type 2 diabetes mellitus during in second trimester Supervision of high-risk , second trimester History of gastric sleeve Obesity affecting in second trimester, unspecified obesity type VITAMIN B12 Routine 04/19/2024 2:08 PM TRAILER TRUCK DRIVER Pre-existing type 2 diabetes mellitus during in second trimester Supervision of high-risk , second trimester History of gastric sleeve Obesity affecting in second trimester, unspecified obesity type VITAMIN D 25 HYDROXY Routine 04/19/2024 2:08 PM TRAILER TRUCK DRIVER Pre-existing type 2 diabetes mellitus during in second trimester Supervision of high-risk , second trimester History of gastric sleeve Obesity affecting in second trimester, unspecified obesity type CALCIUM LEVEL Routine 04/19/2024 2:08 PM TRAILER TRUCK DRIVER Pre-existing type 2 diabetes mellitus during in second trimester Supervision of high-risk , second trimester History of gastric sleeve Obesity affecting in second trimester, unspecified obesity type FOLATE Routine 04/19/2024 2:08 PM TRAILER TRUCK DRIVER Pre-existing type 2 diabetes mellitus during in second trimester Supervision of high-risk , second trimester History of gastric sleeve Obesity affecting in second trimester, unspecified obesity type US OB LIMITED Schedule Routine, Read Routine (OP Routine) 04/19/2024 12:23 PM TRAILER TRUCK DRIVER Supervision of high-risk , second trimester Pre-existing type 2 diabetes mellitus during in second trimester History of gastric sleeve Other obesity affecting in second trimester ECG 12-LEAD Routine 04/03/2024 11:51 AM TRAILER TRUCK DRIVER Supervision of high-risk , second trimester Pre-existing type 2 diabetes mellitus during in second trimester History of gastric sleeve Other obesity affecting in second trimester URINE CULTURE Routine 04/03/2024 11:17 AM TRAILER TRUCK DRIVER Supervision of high-risk , second trimester Pre-existing type 2 diabetes mellitus during in second trimester Urinary tract infection in US OB DETAIL ANATOMY SINGLE OR FIRST GESTATION Schedule Routine, Read Routine (OP Routine) 04/03/2024 9:04 AM TRAILER TRUCK DRIVER Type 2 diabetes mellitus without complication, without long-term current use of insulin (CMS/HCC) (HCC) Bariatric surgery status complicating , second trimester Supervision of high-risk , second trimester US OB LIMITED Schedule Routine, Read Routine (OP Routine) 03/06/2024 8:10 AM TRAILER TRUCK DRIVER Supervision of high-risk , unspecified trimester EGFR Routine 03/01/2024 1:02 PM TRAILER TRUCK DRIVER Encounter for supervision of normal first in first trimester Type 2 diabetes mellitus without complication, without long-term current use of insulin (CMS/HCC) (HCC) CREATININE Routine 03/01/2024 1:02 PM TRAILER TRUCK DRIVER Encounter for supervision of normal first in first trimester Type 2 diabetes mellitus without complication, without long-term current use of insulin (CMS/HCC) (HCC) VOLUME AND PERIOD, URINE, 24 HOUR Routine 03/01/2024 9:00 AM TRAILER TRUCK DRIVER Encounter for supervision of normal first in first trimester Type 2 diabetes mellitus without complication, without long-term current use of insulin (CMS/HCC) (HCC) CREATININE CLEARANCE, URINE, 24 HOUR RESULT Routine 03/01/2024 9:00 AM TRAILER TRUCK DRIVER Encounter for supervision of normal first in first trimester Type 2 diabetes mellitus without complication, without long-term current use of insulin (CMS/HCC) (HCC) PROTEIN, URINE, 24 HOUR RESULT Routine 03/01/2024 9:00 AM TRAILER TRUCK DRIVER Encounter for supervision of normal first in first trimester Type 2 diabetes mellitus without complication, without long-term current use of insulin (CMS/HCC) (HCC) PROTEIN, URINE, 24 HOUR Routine 03/01/2024 9:00 AM TRAILER TRUCK DRIVER Encounter for supervision of normal first in first trimester Type 2 diabetes mellitus without complication, without long-term current use of insulin (CMS/HCC) (HCC) CREATININE CLEARANCE, URINE, 24 HOUR Routine 03/01/2024 9:00 AM TRAILER TRUCK DRIVER Encounter for supervision of normal first in first trimester Type 2 diabetes mellitus without complication, without long-term current use of insulin (CMS/HCC) (HCC) HEPATITIS C ANTIBODY Routine 02/22/2024 11:18 AM TRAILER TRUCK DRIVER Encounter for supervision of normal first in first trimester PAP, REFLEX HPV Routine 02/22/2024 11:10 AM TRAILER TRUCK DRIVER Encounter for supervision of normal first in first trimester LIPID PANEL Routine 01/12/2024 10:23 AM CDT Bariatric surgery status Morbid obesity (HCC) Body mass index 45.0-49.9, adult (HCC) Less than 8 weeks gestation of Iron deficiency anemia, unspecified ALBUMIN CREATININE RATIO, URINE Routine 11/19/2023 8:10 AM CDT Type 2 diabetes mellitus without complication, without long-term current use of insulin (CMS/HCC) (HCC) Laboratory examination ordered as part of a complete physical examination HM DIABETES EYE EXAM Routine 09/18/2022 9:09 AM CDT from Last 3 Months or Most Recently Relevant to Health Maintenance Results * US Ob Follow Up (05/19/2024 10:56 AM TRAILER TRUCK DRIVER) Fetus# Fetus1 VIEWPOINT Estimated Weight 688 g&grams VIEWPOINT Placenta Details posterior, Previa-no VIEWPOINT Presentation Breech VIEWPOINT Anatomical Region Laterality Modality Abdomen N/A Ultrasound 05/19/2024 10:5 7 AM TRAILER TRUCK DRIVER Impressions 05/19/2024 11:50 AM TRAILER TRUCK DRIVER Normal biometry 688 g at 14%and amniotic fluid is normal. Fetus is breech; posterior placenta. Narrative Procedure Note Keila Kelsey MD - 05/19/2024 IMPRESSION: Normal biometry 688 g at 14%and amniotic fluid is normal. Fetus is breech;posterior placenta. us Thao Dillon MD IMG OB US PROCEDURES Dot l Result * Echocardiogram (05/16/2024 2:57 PM TRAILER TRUCK DRIVER) Anatomical Region Laterality Modality Ultrasound 05/16/2024 2:13 PM TRAILER TRUCK DRIVER Narrative 05/16/2024 3:16 PM TRAILER TRUCK [address]IVER [facility] Echo Report [address] [id number] Patient Name: RADHA WILKS Study Type: Echo Patient : 1995 Exam Date: 05/16/2024 Age: 29Y Exam Time: 2:13:00 PM Referring MD: SHARRI TORRES Height: 62in Weight: 272lb BSA: 2.18 m2 Sex: FEMALE BP: 96/64 Final Operations Technician: Jenelle Bae. Stat.: Outpatient Room: OP Account:[id number] Indications for Study:MATERNAL DIABETES 775.1 Procedures: COLORFLOW, [...] Procedure Note Larissa Guajardo MD - 05/16/2024 [facility] Echo Report [address] [address] Patient Name: RADHA WILKS Study Type: Echo Patient : 1995 Exam Date: 05/16/2024 Age: 29Y Exam Time: 2:13:00 PM Referring MD: SHARRI TORRES Height: 62in Weight: 272lb BSA: 2.18 m2 Sex: FEMALE BP: 96/64 Final Operations Technician: Jenelle Bae. Stat.: Outpatient Room: OP Account:[id number] Indications for Study:MATERNAL DIABETES 775.1 Procedures: COLORFLOW, [...] bpm FINDINGS: Signed 05/16/2024 03:16 PM Larissa Gaujardo MD Thao Dillon MD CV ECHO PROCEDURES Final Result * Influenza A/B, RSV, and COVID-19 PCR Nasopharyngeal (04/28/2024 7:18 PM TRAILER TRUCK DRIVER) [facility] COVID-19 RNA Negative Negative Influenza A RNA Negative Negative [facility] Influenza B RNA Negative Negative [facility] RSV RNA Negative Negative [facility] Comment: Interpretive data: Testing performed by [facility]. This test is performed using the [employer] Xpert Xpress CoV-2/Flu/RSV plus assay. This is a multiplex, real-time reverse transcriptase PCR assay intended for the qualitative detection of nucleic acid from SARS-CoV-2, influenza A, influenza B, and respiratory syncytial virus. This assay has been cleared by the [place] Food and Drug administration. The performance characteristics have been verified by the [facility]. Results must be considered in the clinical context, and a negative result does not rule out infection. Interpretive Data last revised 2023 Nasopharyngeal 04/28/2024 7: 18 PM TRAILER TRUCK DRIVER 04/29/2024 3:51 AM TRAILER TRUCK DRIVER Narrative [facility] - 04/29/2024 4:40 AM TRAILER TRUCK DRIVER Is the Patient experiencing symptoms consistent with COVID?->Yes Noemí MOREJON LAB MICROBIOLOGY - GENER AL ORDERABLES Final Result Performing Organization Address [facility] Co de Phone Number JOSÉ MIGUEL THURSTON [address] [address] [facility] [place] [address] CH * Mycoplasma pneumoniae PCR Nasopharyngeal (04/28/2024 7:18 PM TRAILER TRUCK DRIVER) M. pneumoniae DNA Not Detected Not Detected [facility] Comment: Interpretive Data: This assay tests for the presence of Mycoplasma pneumoniae. This test is laboratory developed and its performance characteristics were determined by the performing laboratory in a manner consistent with CLIA requirements. This test has not been cleared or approved by the U.S. Food and Drug Administration. Current Interpretive Data was last revised on 2019. Testing performed by: [facility], [address] [place] [address]., [id number] Nasopharyngeal 04/28/2024 7: 18 PM TRAILER TRUCK DRIVER 04/29/2024 5:53 AM TRAILER TRUCK DRIVER Noemí MOREJON LAB MICROBIOLOGY - GENER AL ORDERABLES Final Result Performing Organization Address [facility] Co de Phone Number JOSÉ MIGUEL THURSTON [address] [address] [facility] [place] [address] [facility] * Bordetella pertussis/Bordetella parapertussis PCR Nasopharyngeal (04/28/2024 7:18 PM TRAILER TRUCK DRIVER) Pathologist [facility] B. pertussis DNA Not Detected Not Detected [facility] Comment:Testing performed by : [facility], [address] [place] [address]., [id number] B. parapertussis DNA Not Detected Not Detected [...] last revised on 2019. Testing performed by: [facility], [address] [place] [address]., [id number] Nasopharyngeal 04/28/2024 7: 18 PM TRAILER TRUCK DRIVER 04/29/2024 5:53 AM TRAILER TRUCK DRIVER Noemí MOREJON LAB MICROBIOLOGY - GENER AL ORDERABLES Final Result Performing Organization Address City/[facility]/ZIP Co de Phone Number JOSÉ MIGUEL TH[place]ON [address] Department [place] [address] [facility] * POC Influenza A/B, COVID-19 antigen (04/28/2024 7:10 PM TRAILER TRUCK DRIVER) Influenza A Ag, POC Negative Negative [facility] Influenza B Ag, POC Negative Negative [facility] COVID-19 Ag POC Presumptive Negative Presumptive Negative, Invalid [facility] Nasal 04/28/2024 7:10 PM TRAILER TRUCK DRIVER Noemí MOREJON POINT OF CARE TEST ORDER FAYE Final Result Performing Organization Address [facility] de Phone Number [facility] EDW [address] [place] [address] * (ABNORMAL) Differential, auto (04/19/2024 2:08 PM TRAILER TRUCK DRIVER) Neutrophil abs 9.8(H) 1.5 - 6.5 K/cumm Imm gran abs 0.1 0.0 - 0.1 K/cumm [facility] Lymphocyte abs 2.3 0.8 - 3.3 K/cumm [facility] Monocyte abs 0.7 0.2 - 0.8 K/cumm [facility] Eosinophil abs 0.1 0.0 - 0.5 K/cumm [facility] Basophil abs 0.0 0.0 - 0.1 K/cumm [facility] Neutrophil pct 75.4 % [facility] Comment: Interpretive Data Percent cell count reference ranges are not reported, since discordance with absolute values may lead to misinterpretation of CBC data. Current Interpretive Data was last revised on 2017. Imm gran pct 0.5 % [facility] Comment: Interpretive Data Percent cell count reference ranges are not reported, since discordance with absolute values may lead to misinterpretation of CBC data. Current Interpretive Data was last revised on 2017. Lymphocyte pct 17.8 % [facility] Comment: Interpretive Data Percent cell count reference ranges are not reported, since discordance with absolute values may lead to misinterpretation of CBC data. Current Interpretive Data was last revised on 2017. Monocyte pct 5.5 % [facility] Comment: Interpretive Data Percent cell count reference ranges are not reported, since discordance with absolute values may lead to misinterpretation of CBC data. Current Interpretive Data was last revised on 2017. Eosinophil pct 0.6 % [facility] Comment: Interpretive Data Percent cell count reference ranges are not reported, since discordance with absolute values may lead to misinterpretation of CBC data. Current Interpretive Data was last revised on 2017. Basophil pct 0.2 % [facility] Comment: Interpretive Data Percent cell count reference ranges are not reported, since discordance with absolute values may lead to misinterpretation of CBC data. Current Interpretive Data was last revised on 2017. Blood 04/19/2024 2:08 PM TRAILER TRUCK DRIVER 04/19/2024 2:15 PM TRAILER TRUCK DRIVER Thao Dillon MD LAB BLOOD ORDERABLES Dot l Result [facility] [address] [place] [address] * (ABNORMAL) Iron profile w/ IBC (04/19/2024 2:08 PM TRAILER TRUCK DRIVER) Iron 59 35 - 145 mcg/dL TIBC 308 250 - 400 mcg/dL [facility] Transferrin saturation 19(L) 20 - 50 % [facility] Blood 04/19/2024 2:08 PM TRAILER TRUCK DRIVER 04/19/2024 2:08 PM TRAILER TRUCK DRIVER Thao Dillon MD LAB BLOOD ORDERABLES Dot l Result [facility] [address] Department [place] [address] * (ABNORMAL) CBC with auto differential (04/19/2024 2:08 PM TRAILER TRUCK DRIVER) [facility] WBC 12.9(H) 3.8 - 9.9 K/cumm Hgb 11.6(L) 11.9 - 15.5 g/dL [facility] Hct 35.5(L) 35.6 - 45.5 % [facility] Plt 277 150 - 400 K/cumm [facility] MPV 10.5 9.1 - 12.3 fL [facility] RBC 3.95 3.90 - 5.20 M/cumm [facility] MCV 89.9 81.3 - 96.4 fL [facility] MCH 29.4 27.1 - 33.3 pg [facility] MCHC 32.7 32.3 - 35.7 g/dL [facility] RDW CV 13.0 11.1 - 14.9 % [facility] RDW SD 42.7 35.7 - 48.1 fL [facility] NRBC abs 0.00 0.00 - 0.01 K/cumm [facility] Blood 04/19/2024 2:08 PM TRAILER TRUCK DRIVER 04/19/2024 2:15 PM TRAILER TRUCK DRIVER us Thao Dillon MD LAB BLOOD ORDERABLES Dot patricia Result [facility] [address] Department [place] [address] * (ABNORMAL) Hemoglobin analysis by electrophoresis (04/19/2024 2:08 PM TRAILER TRUCK DRIVER) [facility] RBC 3.82(L) 3.90 - 5.20 M/cumm Comment:Testing performed by : [facility], [address] [place]., [address] Hgb 11.1(L) 11.9 - 15.5 g/dL [facility] Comment:Testing performed by : [facility], [address] [place]., [address] MCV 88.7 81.3 - 96.4 fL [facility] Comment:Testing performed by : [facility], [address] [facility], [address] Rdw 13.2 11.1 - 14.9 % [facility] Comment:Testing performed by : [facility], [address] [place]., [address] Hgb electrophores is, interp Normal Hemoglobin Pattern - For Age [facility] Comment:Testing performed by : [facility], [address] [facility], [address] Hgb A 97.6 96.0 - 98.5 % [facility] Comment:Testing performed by : [facility], [address] [facility], [address] Hgb A2 2.4 1.5 - 3.2 % [facility] Comment:Testing performed by : [facility], [address] [facility], [address] Hgb F <0.4 0.0 - 0.9 % [facility] Comment:Testing performed by : [facility], [address] [facility], [address] Blood 04/19/2024 2:08 PM TRAILER TRUCK DRIVER 04/19/2024 8:52 PM TRAILER TRUCK DRIVER Thao Dillon MD LAB BLOOD ORDERABLES Dot gomez Result [facility] [address] Department of Laboratories [place], [place] [id number] * Vitamin D 25 hydroxy (04/19/2024 2:08 PM TRAILER TRUCK DRIVER) Vitamin D 25-OH 32 30 - 80 ng/mL Blood 04/19/2024 2:08 PM TRAILER TRUCK DRIVER 04/19/2024 2:08 PM TRAILER TRUCK DRIVER Thao Dillon MD LAB BLOOD ORDERABLES Dot l Result Performing Organization Address [facility] de Phone Number [facility] [address] [facility] [address] * Hemoglobin A1c (04/19/2024 2:08 PM TRAILER TRUCK DRIVER) [facility] Hgb A1C 5.4 4.0 - 5.6 % Estimated Average Glucose 108 mg/dL [facility] Comment: The ADA recommends reporting an estimated Average Glucose (eAG) with all Hemoglobin A1c results using the equation derived from a study of 507 normal and diabetic adults. Minority populations were underrepresented and children were not included. (Diabetes Care 31:9293-1811, 2008). The eAG is not equivalent to a fasting glucose. Blood 04/19/2024 2:08 PM TRAILER TRUCK DRIVER 04/19/2024 2:08 PM TRAILER TRUCK DRIVER Thao Dillon MD LAB BLOOD ORDERABLES Dot l Result Performing Organization Address [facility] de Phone Number [facility] [address] [place] [address] * Folate (04/19/2024 2:08 PM TRAILER TRUCK DRIVER) [facility] Folic acid 18.2 >=5.0 ng/mL Blood 04/19/2024 2:08 PM TRAILER TRUCK DRIVER 04/19/2024 2:08 PM TRAILER TRUCK DRIVER Thao Dillon MD LAB BLOOD ORDERABLES Dot l Result Performing Organization Address [facility] Co de Phone Number [facility] [address] [place] [address] * Ferritin (04/19/2024 2:08 PM TRAILER TRUCK DRIVER) [facility] Ferritin 44 15 - 150 ng/mL Blood 04/19/2024 2:08 PM TRAILER TRUCK DRIVER 04/19/2024 2:08 PM TRAILER TRUCK DRIVER Thao Dillon MD LAB BLOOD ORDERABLES Dot l Result Performing Organization Address City/[facility] Co de Phone Number [facility] [address] [facility] [place], [place] [id number] * Vitamin B12 (04/19/2024 2:08 PM TRAILER TRUCK DRIVER) Vitamin B12 336 230 - 1,250 pg/mL Blood 04/19/2024 2:08 PM TRAILER TRUCK DRIVER 04/19/2024 2:08 PM TRAILER TRUCK DRIVER Thao Dillon MD LAB BLOOD ORDERABLES Dot l Result Performing Organization Address [facility] Co de Phone Number [facility] [address] [facility] [place], [place] [id number] * Calcium level (04/19/2024 2:08 PM TRAILER TRUCK DRIVER) Pathologist [facility] Calcium 9.2 8.5 - 10.3 mg/dL Blood 04/19/2024 2:08 PM TRAILER TRUCK DRIVER 04/19/2024 2:08 PM TRAILER TRUCK DRIVER Thao Dillon MD LAB BLOOD ORDERABLES Dot l Result Performing Organization Address [facility] Co de Phone Number [facility] [address] Department [place] [address] * US Ob Limited (04/19/2024 12:23 PM TRAILER TRUCK DRIVER) Fetus# Fetus1 [place] Placenta Details posterior, Previa-no, no placental masses [place] Presentation Breech [place] Anatomical Region Laterality Modality Abdomen N/A Ultrasound 04/19/2024 12:2 3 PM TRAILER TRUCK DRIVER Impressions 04/19/2024 1:23 PM TRAILER TRUCK DRIVER IUP at 20 weeks and 6 days Anatomic survey is now complete and no anomalies were identified today. Narrative Procedure Note Soila Longo MD - 04/19/2024 IMPRESSION: IUP at 20 weeks and 6 days Anatomic survey is now complete and no anomalies were identified today. Thao Dillon MD IMG OB US PROCEDURES Dot l Result * ECG 12 lead (04/03/2024 11:51 AM TRAILER TRUCK DRIVER) 04/03/2024 12:3 1 PM TRAILER TRUCK DRIVER Narrative [facility] - 04/03/2024 8:16 PM TRAILER TRUCK DRIVER Vent Rate: 72 bpm RR Interval: 827 msec AR Interval: 169 msec QRS Duration: 90 msec QT Interval: 386 msec QTC Interval: 410 msec P-R-T [place]: 55 - 64 - 49 degrees IMPRESSION: SINUS RHYTHM WITH SINUS ARRHYTHMIA NORMAL ECG Electronically Signed By: Jacky Nathan MD Thao Dillon MD ECG ORDERABLES Final Res ult Performing Organization Address City/[facility]/ZIP Co de Phone Number [facility] * Urine culture Urine, clean voided (04/03/2024 11:17 AM TRAILER TRUCK DRIVER) Report Final Report: Less than 100,000 colonies/mL (clinically insignificant growth based on current clinical standards) Organism (CLINICALLY INSIGNIFICANT GROWTH [facility] Urine, clean voided 04/03/2024 11:17 AM TRAILER TRUCK DRIVER 04/03/2024 9:17 PM TRAILER TRUCK DRIVER Narrative [facility] - 04/05/2024 3:53 AM TRAILER TRUCK DRIVER Testing performed by [facility] Microbiology Laboratory ([phone]) Thao Dillon MD LAB MICROBIOLOGY - GENERA L ORDERABLES Final Result [facility] Department [place] [address] * US Ob Detail Anatomy Single Or First Gestation (04/03/2024 9:04 AM TRAILER TRUCK DRIVER) Fetus# Fetus1 [place] Estimated Weight 218 g&grams [place] Placenta Details posterior, Previa-no, no placental masses [place] Presentation Breech [place] Anatomical Region Laterality Modality Body N/A Ultrasound 04/03/2024 9:05 AM TRAILER TRUCK DRIVER Impressions 04/03/2024 10:18 AM TRAILER TRUCK DRIVER Interval growth has been normal. No malformations [...] IUP at 18 weeks + 4 days Asha Tariq MD [facility] OB US PROCEDURES Final Result * US Ob Limited (03/06/2024 8:10 AM TRAILER TRUCK DRIVER) Fetus# Fetus1 [place] Estimated Weight 81 g&grams [place] Placenta Details posterior [place] Presentation Breech [place] Anatomical Region Laterality Modality Abdomen N/A Ultrasound 03/06/2024 8:10 AM TRAILER TRUCK DRIVER Impressions 03/06/2024 10:34 AM TRAILER TRUCK DRIVER IUP at 14w 4d for evaluation of growth assessment. growth is appropriate for gestational age by individual biometric measurements, however overall EFW plots at 3%. Narrative Procedure Note Ness Stover MD - 03/06/2024 IMPRESSION: IUP at 14w 4d for evaluation of growth assessment. growth isappropriate for gestational age by individual biometric measurements,however overall EFW plots at 3%. Misti Osborn MD IM OB US PROCEDURE S Final Result * eGFR (03/01/2024 1:02 PM TRAILER TRUCK DRIVER) eGFR >90 >=60 mL/min/1. 73 m2 Comment: [...] last reviewed 2021. Urine/Blood 03/01/2024 1:02 PM TRAILER TRUCK DRIVER 03/01/2024 3:51 PM TRAILER TRUCK DRIVER Misti Osborn MD LAB BLOOD ORDERABLE S Final Result Performing Organization Address City/[facility]/ZIP Co de Phone Number JOSÉ MIGUEL [facility] ([place]) [address] [facility] [place] [address] * Creatinine (03/01/2024 1:02 PM TRAILER TRUCK DRIVER) Creatinine 0.60 0.60 - 1.10 mg/dL Urine/Blood 03/01/2024 1:02 PM TRAILER TRUCK DRIVER 03/01/2024 3:51 PM TRAILER TRUCK DRIVER Misti Osborn MD LAB BLOOD ORDERABLE S Final Result JOS[facility] MIGUEL [facility] MELISSA) 1 [facility] [place] [address] * Protein, urine, 24 hour (03/01/2024 9:00 AM TRAILER TRUCK DRIVER) Protein, 24 hr, ur 136 0 - 150 mg/24H Urine 03/01/2024 9:00 AM TRAILER TRUCK DRIVER 03/01/2024 4:13 PM TRAILER TRUCK DRIVER Misti Osborn MD LAB URINE ORDERABLE S Final Result Performing Organization Address City/[facility]/ZIP Co de Phone Number JOSÉ MIGUEL CASAS ([place]) 1 [facility] [place] [address] * Volume and period, urine, 24 hour (03/01/2024 9:00 AM TRAILER TRUCK DRIVER) Volume, ur 1,400 mL Period, Urine Collection 1,440 min JOSÉ MIGUEL [facility] ([place]ELIS[place]) Urine/Blood 03/01/2024 9:00 AM TRAILER TRUCK DRIVER 03/01/2024 4:13 PM TRAILER TRUCK DRIVER us Misti Osborn MD LAB URINE ORDERABLE S Final Result Performing Organization Address [facility] Co de Phone Number JOSÉ MIGUEL CASAS ([place]) 1 [facility] [place] [address] * (ABNORMAL) Creatinine clearance, urine, 24 hour (03/01/2024 9:00 AM TRAILER TRUCK DRIVER) Creatinine Clearance 209(H) 60 - 130 mL/min Creatinine, 24 hr, ur 1.8(H) 0.6 - 1.5 g/24H [facility]OS[facility] M[facility] ([place]) Urine/Blood 03/01/2024 9:00 AM TRAILER TRUCK DRIVER 03/01/2024 4:13 PM TRAILER TRUCK DRIVER Misti Osborn MD LAB URINE ORDERABLE S Final Result Performing Organization Address City/[facility] Co de Phone Number JOSÉ MIGUEL CASAS ([place]) 1 [facility] [place] [address] * Hepatitis C antibody Blood (02/22/2024 11:18 AM TRAILER TRUCK DRIVER) Hep C Ab Nonreactive Nonreactive Comment: Interpretive [...] last revised on 2019. Testing performed by: [facility], [address] [place] [address], [place]., [address] Blood 02/22/2024 11:1 8 AM TRAILER TRUCK DRIVER 02/22/2024 6:27 PM TRAILER TRUCK DRIVER us Misti Osborn MD LAB MICROBIOLOGY - GENERAL ORDERABLES Final Result Performing Organization Address City/[facility]/ZIP Co de Phone Number JOSÉ MIGUEL CASAS ([place]) 1 [facility] Department [place] [address] * Pap, reflex HPV (02/22/2024 11:10 AM TRAILER TRUCK DRIVER) CLINICAL INFORMATION: Martha Myers Comment: LMP Martha Myers Comment:10/18/2023 Previous Pap Martha Myers Comment:NONE GIVEN Prev. Bx Martha Myers Comment:NONE GIVEN SOURCE: Martha Myers Comment:Cervix, Endocervix Pap, specimen adequacy Martha Myers Comment: Satisfactory for evaluation. Endocervical/transformation zone component present. HPV interp Martha Myers Comment: Cytology Results: Negative for intraepithelial lesion or malignancy. COMMENTS Martha Myers Comment: This Pap test has been evaluated with computer assisted technology. Senior Wealth Advisor Joe Dowell Comment: MMD, CT(ASCP) CT Screening Location: [address], [place] [address] Comment Martha Myers Comment: EXPLANATORY NOTE: The Pap is [...] information. Thin prep 02/22/2024 11:1 0 AM TRAILER TRUCK DRIVER 02/23/2024 4:26 AM TRAILER TRUCK DRIVER us Misti Osborn MD LAB CYTOLOGY ORDERA BLES Final Result [facility] [address] [place] [address] * Lipid panel (01/12/2024 10:23 AM CDT) [...] 2017. Triglycerides 78 <=149 mg/dL JOS[facility] MIGUEL TH[facility]ST[facility] Comment: Interpretive Data Ages < or = [...] 2017. HDL 53 >=40 mg/dL JOS[facility] MIGUEL TH[facility]ST[facility] Comment: Interpretive Data Ages < or = [...] LDL, calculated 120 <=129 mg/dL JOS[facility] MIGUEL TH[facility] Comment: Interpretive Data Ages < or = [...] NCEP Expert Panel. Circulation 2004;110:227 3. Clemente M et al. SONIDO Cardiol. 2020 August 10;5(5):540-548. doi: 10.1001/jamacardio.2020.0013 Current Interpretive Data was last revised on 2023. Non-HDL Cholesterol 134 mg/dL JOS[facility] MIGUEL TH[facility] Comment: Interpretive Data Ages < or = [...] last revised on 2017. Chol/HDL ratio 4 JOSÉ MIGUEL Blood (Blood, Venous) 01/12/2024 10:23 AM CDT 01/12/2024 2:15 PM CDT Narrative JOSÉ MIGUEL - 01/12/2024 3:38 PM CDT FAX RESULTS TO DR KAT BOLTON [phone] us Kat Bolton PSYCHOLOGIST LAB BLOOD ORDERABLES Final Re sult JOS[facility] MIGUEL [address] Department [place] [address] * Albumin Creatinine Ratio, Urine (11/19/2023 8:10 AM CDT) Albumin Ur <12.0 mg/L Comment: Interpretive Data No reference range established. Current interpretive data was last revised 2018. Creatinine Ur 157.4 mg/dL JOSÉ MIGUEL Comment: Interpretive Data No reference range established. Current interpretive data was last revised 2018. Albumin Creatinine Ratio, Ur <8 1 - 29 mg/g JOSÉ MIGUEL Urine 11/19/2023 8:10 AM CDT 11/19/2023 2:39 PM CDT Elzbieta Palomo MD LAB URINE ORDERABLES F inal Result [facility] [address] Department [place] [address] * DIABETES EYE EXAM (09/18/2022 9:09 AM CDT) Historical Provider HEALTH MAINTENANCE Final Result from Last 3 Months or Most Recently Relevant to Health Maintenance Additional Health Concerns Active Problems Noted Date Diagnosed Date Meal Tracking and Blood Sugar Monitoring [address]24 [place] [address] IDPA Care Teams Protective Services Case Worker Relationship Specialty Start Date End Date Ai Weaver NP [address] [facility] [address] [place], [place] [id number] PCP - General Family Medicine 04/25/24 Thao Dillon MD [address] [facility] [address] [place] [address] Consulting Physician Obstetrics and Gynecology 04/25/24
[2024-05-26 15:37] VITALS: BP 130/67; PULSE 79; RESP 16; TEMP 36.4; O2SAT 98
--- NOTE | 2024-05-26 16:01 | ED.HEATRA ---
HPI - Head Injury General Chief complaint: Head Injury Stated complaint: struck head, 25 wks preg Time Seen by Provider: 05/26/24 16:00 History of Present Illness HPI Narrative: 29 y/o F with a PMHx of type 2 diabetes and currently 25 weeks , , presents to the ED for a head injury that occurred 24 hours ago. Patient states she was getting into a van when she stepped up too quickly and hit the top of her head on the metal bar of the van. She did not lose consciousness. She is not anticoagulated. She denies vision changes, focal numbness or weakness, seizure-like activity, confusion. She is reporting a dull headache and some nausea. No vomiting. She knows that she does have high-risk due to her type 2 diabetes. Her OBGYN is at [facility]. denies abdominal pain, vaginal bleeding or leakage of fluids. Related Data Home Medications ?Medication ?Instructions ?Recorded ?Confirmed ?Last Taken ?Type lamotrigine 25 mg tablet (Lamictal) 50 mg PO DAILY 06/10/21 06/10/21 Unknown History trazodone 50 mg tablet 50 mg PO HS PRN Insomnia 06/10/21 Unknown History Allergies Allergy/AdvReac Type Severity Reaction Status Date / Time No Known Allergies Allergy Verified 01/20/22 16:53 Review of Systems Review of Systems: All systems reviewed & are unremarkable except as noted in HPI and below PMFSH Past Medical History Medical History Type 2 diabetes mellitus Surgical History Surgical History H/O gastric sleeve Social History Social History Smoking status: Never smoker Alcohol intake: never Substance use: never Gender identity (if verbalized by the patient): Female Exam Narrative: GENERAL: Well-appearing, well-nourished, and in no acute distress. HEAD: Normocephalic, atraumatic. EYES: EOMI. ENT: Nares clear, no rhinorrhea or epistaxis. Mucous membranes moist. Bilateral TMs are solano nonbulging with normal canals, no hemotympanum. No Ba sign or raccoon eyes NECK: Supple. No midline cervical spinous tenderness, crepitus, step-offs or deformities CHEST: Clear to auscultation. No respiratory distress. HEART: Regular rate and rhythm. No murmur heard. Normal peripheral pulses. ABDOMEN: Soft, nontender, nondistended, normal active bowel sounds. Gravid abdomen EXTREMITIES: Normal range of motion. No edema. SKIN: Warm, dry, no rash. NEURO: No focal deficits. Alert and oriented x4. Cranial nerves 2-12 intact. Strength 5/5 in BUE and BLE. Sensation intact throughout. Normal [id number]. No pronator drift. Course Vital Signs Vital signs: Vital Signs Temperature 97.6 F 05/26/24 15:37 Pulse Rate 79 05/26/24 15:37 Respiratory Rate 16 05/26/24 15:37 Blood Pressure 130/67 05/26/24 15:37 Pulse Oximetry 98 05/26/24 15:37 Temperature 97.6 F 05/26/24 15:37 Pulse Rate 79 05/26/24 15:37 Respiratory Rate 16 05/26/24 15:37 Blood Pressure 130/67 05/26/24 15:37 Pulse Oximetry 98 05/26/24 15:37 MDM - Head Injury MDM Narrative Medical decision making narrative: 29-year-old female who is currently 25 weeks with history of type 2 diabetes presents to the emergency department for head injury that occurred 24 hours ago. Triage vitals are stable. Exam is significant for the above. Patient is neurovascularly intact. There is no hemotympanum bilaterally, some redness concerning for basilar skull fracture. [place] CT brain rule rules CT brain unnecessary given her reassuring findings. Discussed supportive care, Reglan as needed for nausea, cognitive rest Tylenol for pain follow-up with her OBGYN. Also discussed importance of avoiding repeat head injury. Return precautions discussed. She is agreeable with the plan verbalized understanding. Discharged in stable condition. Discharge Plan Discharge Clinical Impression: CHI (closed head injury) Qualifiers: Encounter type: initial encounter Qualified Code(s): S09.90XA - Unspecified injury of head, initial encounter Patient Disposition: Home, Self-Care Condition: Stable Instructions: Antibiotic Form, Head Injury (ED) Additional Instructions: You were evaluated in the emergency department for head injury. Your examination is reassuring. You likely have a residual concussion. Please rest as discussed with slow advancements to using technology and physical activity as directed. Please take metoclopramide as needed for nausea and Tylenol as needed for headaches and pain. Follow-up closely with your OBGYN. Return to the emergency department if you develop vision changes, focal numbness or weakness, you lose consciousness, develop seizure-like activity, or other concerning symptoms. Please refrain from repeat head injury. Patient Language: German Prescriptions: New metoclopramide HCl 10 mg tablet 10 mg PO Q6H PRN (Reason: nausea and vomiting) Qty: 14 0RF No Action trazodone 50 mg Tablet 50 mg PO HS PRN (Reason: Insomnia) lamotrigine [Lamictal] 25 mg Tablet 50 mg PO DAILY Follow-up/Referrals: Dewey,Elzbieta Benton MD [Non-Staff] -
--- OUTSIDE RECORDS SUMMARY | 2024-05-26 16:15 | XMS_ITS | Patient Health Summary ---
Author Organization [facility] Address [address] [place] [address] Care Team Providers Care [employer] Spanish Teacher Name Role Phone Tanya Weaver RN Primary Care Provider Unavaila ble Note from [facility],non-owned Affiliates and Associated Physician Practices is amultiple site organization consisting of ambulatory clinics and hospital sitesin [place], [place], [place] and [place]. This disclosure is being madepursuant to the Care Everywhere program and may not contain all information available regarding this patient. Last updated 17.[facility] Allergies * Nsaids(Other) -Low Criticality Medications * [...] * vitamin D, ergocalciferol, (Drisdol) 1.25 MG (36898 UT) capsule(Started 11/22/2023) Take 1 (one) capsule [...] 124.7 kg (275 lb) 03/31/2024 10:59 AM GREEN MARKETING ANALYST per pt Height 158 cm (5' 2.21 ) 03/31/2024 10:59 AM GREEN MARKETING ANALYST Body Mass Index 49.97 03/31/2024 10:59 AM GREEN MARKETING ANALYST Medical Devices Implanted Type Area Reach Lift Truck Driver Device Identifier Shelf Expiration Date Model / Serial / Lot Kit Tissue Clsr Duo Tssl 1 Prefl Syr Implanted:Qty: 1 on 08/12/2020 by Lora Bains MD at [facility] N/A: Stomach Ifbyphone 02/09/2022 [id number] / / [id number] Procedures * LIPID PROFILE(Performed 11/19/2023) Performed for S/P laparoscopic sleeve gastrectomy, Morbid obesity with body mass index (BMI) of 45.0 to 49.9 in adult ([facility]) * COMPREHENSIVE METABOLIC PANEL(Performed 11/19/2023) Performed for S/P laparoscopic sleeve gastrectomy, Morbid obesity with body mass index (BMI) of 45.0 to 49.9 in adult ([facility]) * CBC W AUTO DIFFERENTIAL(Performed 11/19/2023) Performed for S/P laparoscopic sleeve gastrectomy, Morbid obesity with body mass index (BMI) of 45.0 to 49.9 in adult ([facility]) * VITAMIN B1(Performed 11/19/2023) Performed for S/P laparoscopic sleeve gastrectomy, Morbid obesity with body mass index (BMI) of 45.0 to 49.9 in adult ([facility]) * FERRITIN(Performed 11/19/2023) Performed for S/P laparoscopic sleeve gastrectomy, Morbid obesity with body mass index (BMI) of 45.0 to 49.9 in adult ([facility]) * VITAMIN B12 FOLATE PANEL(Performed 11/19/2023) Performed for S/P laparoscopic sleeve gastrectomy, Morbid obesity with body mass index (BMI) of 45.0 to 49.9 in adult ([facility]) * PTH INTACT+CALCIUM(Performed 11/19/2023) Performed for S/P laparoscopic sleeve gastrectomy, Morbid obesity with body mass index (BMI) of 45.0 to 49.9 in adult ([facility]) * IRON + TRANSFERRIN PANEL(Performed 11/19/2023) Performed for S/P laparoscopic sleeve gastrectomy, Morbid obesity with body mass index (BMI) of 45.0 to 49.9 in adult ([facility]), Iron deficiency anemia, unspecified iron deficiency anemia type * PHOSPHORUS BLOOD(Performed 11/19/2023) Performed for S/P laparoscopic sleeve gastrectomy, Morbid obesity with body mass index (BMI) of 45.0 to 49.9 in adult ([facility]) * MAGNESIUM BLOOD(Performed 11/19/2023) Performed for S/P laparoscopic sleeve gastrectomy, Morbid obesity with body mass index (BMI) of 45.0 to 49.9 in adult ([facility]) * VITAMIN D 25-HYDROXY(Performed 11/19/2023) Performed for S/P laparoscopic sleeve gastrectomy, Morbid obesity with body mass index (BMI) of 45.0 to 49.9 in adult ([facility]), Vitamin D deficiency * IMAGING/RADIOLOGY/XRAY RESULTS ORDER(Performed 09/06/2022) * IMAGING/RADIOLOGY/XRAY RESULTS ORDER(Performed 09/06/2022) * IMAGING/RADIOLOGY/XRAY RESULTS ORDER(Performed 05/06/2022) * IMAGING/RADIOLOGY/XRAY RESULTS ORDER(Performed 01/20/2022) * GLUCOSE - POINT OF CARE(Performed 11/19/2021) * GROSS + MICRO EXAM (ILL)(Performed 11/19/2021) Performed for Gastroesophageal reflux disease, unspecified whether esophagitis present * DE EGD FLEX TRANSORAL W BX SNGL OR MULT(Performed 11/19/2021) Performed for Gastroesophageal reflux disease, unspecified whether esophagitis present * HCG URINE QUALITATIVE(Performed 11/19/2021) Performed for Preop examination * GLUCOSE - POINT OF CARE(Performed 11/19/2021) * HEMOGLOBIN A1C(Performed 08/28/2021) Performed for Type 2 diabetes mellitus without complication, unspecified whether predatory animal exterminator insulin use ([facility]) * CBC W AUTO DIFFERENTIAL(Performed 08/28/2021) Performed for S/P laparoscopic sleeve gastrectomy, Class 3 severe obesity due to excess calories with body mass index (BMI) of 40.0 to 44.9 in adult, unspecified whether serious comorbidity present ([facility]), Other specified intestinal malabsorption ([facility]) * COMPREHENSIVE METABOLIC PANEL(Performed 08/28/2021) Performed for [...] (BMI) of 40.0 to 44.9 in adult ([facility]) * FERRITIN(Performed 11/27/2020) Performed for S/P laparoscopic sleeve gastrectomy, Morbid obesity with body mass index (BMI) of 40.0 to 44.9 in adult ([facility]) * COMPREHENSIVE METABOLIC PANEL(Performed 11/27/2020) Performed for S/P laparoscopic sleeve gastrectomy, Morbid obesity with body mass index (BMI) of 40.0 to 44.9 in adult ([facility]) * IRON + TRANSFERRIN PANEL(Performed 11/27/2020) Performed for S/P laparoscopic sleeve gastrectomy, Morbid obesity with body mass index (BMI) of 40.0 to 44.9 in adult ([facility]) * LIPID PROFILE(Performed 11/27/2020) Performed for S/P laparoscopic sleeve gastrectomy, Morbid obesity with body mass index (BMI) of 40.0 to 44.9 in adult ([facility]) * MAGNESIUM BLOOD(Performed 11/27/2020) Performed for S/P laparoscopic sleeve gastrectomy, Morbid obesity with body mass index (BMI) of 40.0 to 44.9 in adult ([facility]) * PHOSPHORUS BLOOD(Performed 11/27/2020) Performed for S/P laparoscopic sleeve gastrectomy, Morbid obesity with body mass index (BMI) of 40.0 to 44.9 in adult ([facility]) * PTH INTACT+CALCIUM(Performed 11/27/2020) Performed for S/P laparoscopic sleeve gastrectomy, Morbid obesity with body mass index (BMI) of 40.0 to 44.9 in adult ([facility]) * VITAMIN B1(Performed 11/27/2020) Performed for S/P laparoscopic sleeve gastrectomy, Morbid obesity with body mass index (BMI) of 40.0 to 44.9 in adult ([facility]) * VITAMIN B12 FOLATE PANEL(Performed 11/27/2020) Performed for S/P laparoscopic sleeve gastrectomy, Morbid obesity with body mass index (BMI) of 40.0 to 44.9 in adult ([facility]) * VITAMIN D 25-HYDROXY(Performed 11/27/2020) Performed for S/P laparoscopic sleeve gastrectomy, Morbid obesity with body mass index (BMI) of 40.0 to 44.9 in adult ([facility]) * CARDIAC RHYTHM STRIP ORDER(Performed 08/15/2020) * [...] 08/12/2020) Performed for Morbid obesity (HCC) * DE LAP SLEEVE GASTRECTOMY(Performed 08/12/2020) Performed for Morbid [...] reflux disease, unspecified whether esophagitis present * DE EGD FLEX TRANSORAL W BX SNGL OR [...] BLOOD SPECIMEN / Unknown 11/19/2023 Divya [facility] - CHEMISTRY ORDE RABMOOK Performing Organization Address [facility] de Phone Number OTHER LAB * VITAMIN B1 (11/19/2023) Only the most recent of4 resultswithin the time period is included. Blood BLOOD SPECIMEN / Unknown 11/19/2023 Divya [facility] - CHEMISTRY ORDE RABMOOK Performing Organization Address [facility] de Phone Number OTHER LAB * VITAMIN D 25-HYDROXY (11/19/2023) Only the most recent of4 resultswithin the time period is included. Blood BLOOD SPECIMEN / Unknown 11/19/2023 Divya Abdul [facility] - CHEMISTRY ORDE RABLES Performing Organization Address [facility] Co de Phone Number OTHER LAB * CBC WITH DIFFERENTIAL (11/19/2023) Only the most recent of6 resultswithin the time period is included. Blood BLOOD SPECIMEN / Unknown 11/19/2023 Divya Abdul [facility] - HEMATOLOGY ORD ERABLES Performing Organization Address City/[facility] Co de Phone Number OTHER LAB * COMPREHENSIVE METABOLIC PANEL (11/19/2023) Only the most recent of6 resultswithin the time period is included. Blood BLOOD SPECIMEN / Unknown 11/19/2023 Divya Abdul [facility] - CHEMISTRY ORDE NASEEM OTHER LAB * PHOSPHORUS BLOOD (11/19/2023) Only the most recent of6 resultswithin the time period is included. Blood BLOOD SPECIMEN / Unknown 11/19/2023 Divya Abdul [facility] - CHEMISTRY ORDE RABLES Performing Organization Address City/[facility] Co de Phone Number OTHER LAB * MAGNESIUM BLOOD (11/19/2023) Only the most recent of7 resultswithin the time period is included. Blood BLOOD SPECIMEN / Unknown 11/19/2023 Divya Abdul [facility] - CHEMISTRY ORDE NASEEM Performing Organization Address [facility] Co de Phone Number OTHER LAB * VITAMIN B12 FOLATE PANEL (11/19/2023) Only the most recent of4 resultswithin the time period is included. Blood BLOOD SPECIMEN / Unknown 11/19/2023 Diyva Abdul [facility] - CHEMISTRY ORDE BotanoCapMOOK Performing Organization Address City/[facility] Co de Phone Number OTHER LAB * IRON + TRANSFERRIN PANEL (11/19/2023) Only the most recent of4 resultswithin the time period is included. Blood BLOOD SPECIMEN / Unknown 11/19/2023 Divya Abdul [facility] [facility] - CHEMISTRY ORDE RABMOOK Performing Organization Address [facility] Co de Phone Number OTHER LAB * FERRITIN (11/19/2023) Only the most recent of4 resultswithin the time period is included. Blood BLOOD SPECIMEN / Unknown 11/19/2023 Divya HART LAB - CHEMISTRY GELY GUSMAN Performing Organization Address [facility] Co de Phone Number OTHER LAB * LIPID PROFILE (11/19/2023) Only the most recent of4 resultswithin the time period is included. Blood BLOOD SPECIMEN / Unknown 11/19/2023 Divya HART LAB - CHEMISTRY GELY GUSMAN Performing Organization Address [facility] Co de Phone Number OTHER LAB * IMAGING RADIOLOGY XRAY RESULTS ORDER (09/06/2022) Only the most recent of4 resultswithin the time period is included. Anatomical Region Laterality Modality Other 09/06/2022 Narrative 09/06/2022 Ordered by an unspecified provider. Scanned Document IMAGING * GLUCOSE - POINT OF CARE (11/19/2021 9:43 AM CDT) Only the most recent of11 resultswithin the time period is included. [facility] Glucose WB/POC 103 70 - 125 mg/dL 11/19/2021 9:57 AM CDT [facility] Specimen Type Cap Fingerstick 2021 9:57 AM CDT [facility] Blood BLOOD SPECIMEN / Unknown 11/19/2021 9:43 AM CDT 11/19/2021 9:57 AM CDT Lora Bains MD LAB - POINT OF C ARE ORDERABLES Performing Organization Address City/[facility] Co de Phone Number [facility] [address] [place], [place] [address] * GROSS + MICRO EXAM (ILL) (11/19/2021 9:26 AM CDT) Only the most recent of3 resultswithin the time period is included. Case Report Surgical Pathology Report Case: [id number] Authorizing Provider: Lora Bains MD Collected: 11/19/2021 09:26 AM Ordering Location: [facility] Received: 11/19/2021 02:20 PM Pathologist: Karl Becerra MD Specimens: A) - Antrum Biopsy, Antrum biopsy R/O H Pylori B) - EG Junction Biopsy , GE junction biopsy R/O Enriquez's esophagus 11/20/2021 3:06 PM T [facility] Final Diagnosis A. ANTRUM; BIOPSY: - PORTION OF BENIGN GASTRIC MUCOSA WITH MINIMAL CHRONIC INFLAMMATION.- - GIEMSA STAIN IS NEGATIVE FOR H.PYLORI ORGANISMS. - NEGATIVE FOR DYSPLASIA OR MALIGNANCY. B. GE JUNCTION; BIOPSY: - FRAGMENTS OF BENIGN SQUAMOCOLUMNAR JUNCTION WITH CHRONIC INFLAMMATION. - NEGATIVE SMALL INTESTINAL METAPLASIA, MALIGNANCY, DYSPLASIA, VIRAL INCLUSIONS, OR FUNGAL ORGANISMS. 11/20/2021 3:06 PM T [facility] Microscopic Description and Comment Microscopic examination is performed and substantiates the above diagnosis. 11/20/2021 3:06 PM T [facility] Gross Description The requisition and [...] cassette B1. AW 11/20/2021 3:06 PM T [facility] Disclaimer The performance characteristics of all immunohistochemical and indirect immunofluorescence stains (if any) cited in this report were determined by the Histopathology Laboratory of [facility]. Some of these tests were developed by [...] at [facility], [place]. [address] (CLIA# [id number]) unless otherwise specified. This case was interpreted by the [facility] Department of Pathology. When applicable, select reference laboratory testing is performed at the [facility], [address] [place] [address]. 11/20/2021 3:06 PM CDT [facility] Embedded Images 11/20/2021 3:06 PM CDT [facility] Pathology/Cytology BIOPSY SPECIMEN / Unknown 11/19/2021 9:26 AM CDT 11/19/2021 2:20 PM CDT Comment:Pre-op diagnosis: Gastroesophageal reflux disease, unspecified whether esophagitis present [K21.9] Miscellaneous samples (specimen) BIOPSY SPECIMEN / Unknown 11/19/2021 9:26 AM CDT 11/19/2021 2:20 PM CDT Comment:Pre-op diagnosis: Gastroesophageal reflux disease, unspecified whether esophagitis present [K21.9] Lora Bains MD LAB - PATHOLOGY/ CYTOLOGY ORDERABLES [facility] [address] [place] [address] * HCG URINE QUALITATIVE (11/19/2021 7:46 AM CDT) Only the most recent of2 resultswithin the time period is included. hCG Qualitative Urine Negative Negative 11/19/2021 8:00 AM CDT [facility] Specific [place] UA 1.020 1.005 - 1.030 11/19/2021 8:00 AM CDT [facility] Urine URINE / Unknown Collection / Unknown 11/19/2021 7:46 AM CDT 11/19/2021 7:53 AM CDT Narrative [facility] - 11/19/2021 8:00 AM CDT Asif Villa MD LAB - URINALY SIS ORDERABLES [facility] [address] [place] [address], [facility] * HEMOGLOBIN A1C (08/28/2021 10:57 AM CDT) Only the most recent of2 resultswithin the time period is included. Hemoglobin A1c 5.4 4.2 - 5.6 % 08/28/2021 2:20 PM CDT [facility] Estimated Average Glucose 108 mg/dL 08/28/2021 2:20 PM CDT [facility] Blood BLOOD SPECIMEN / Unknown Lab Venipuncture / Unknown 08/28/2021 10:57 AM CDT 08/28/2021 11:21 AM CDT Narrative [facility] - 08/28/2021 2:20 PM CDT The following cutoff levels are recommended by [place] [employer]. A1c > 6.5% : considered [...] exceeds 5% in the specimen. Shannan Mendieta MANUFACTURING QUALITY INSPECTOR-FINANCIAL SERVICES OFFICER LAB - CHEMISTRY ORDERABLES Performing Organization Address City/[facility] Co de Phone Number [facility] [address] * TSH (08/28/2021 10:57 AM CDT) Pathologist [facility] TSH 1.774 0.35 - 4.94 uIU/mL 08/28/2021 1:28 PM CDT [facility] Blood BLOOD SPECIMEN / Unknown Lab Venipuncture / Unknown 08/28/2021 10:57 AM CDT 08/28/2021 11:21 AM CDT Shannan Mendieta MANUFACTURING QUALITY INSPECTOR-FINANCIAL SERVICES OFFICER LAB - CHEMISTRY ORDERABLES [facility] [address] * DIFFERENTIAL MANUAL (11/27/2020 4:00 PM CDT) [facility] WBC Auto 8.7 4.0 - 10.0 x10E9/L 11/27/2020 6:43 PM CDT [facility] Neutrophils % Manual 55 40 - 75 % 11/27/2020 6:43 PM CDT [facility] Lymphocytes % Manual 35 19 - 53 % 11/27/2020 6:43 PM CDT [facility] Monocytes % Manual 10 5 - 13 % 11/27/2020 6:43 PM CDT [facility] Neutrophils Absolute Manual 4.8 1.6 - 6.1 x10E3/uL 11/27/2020 6:43 PM CDT [facility] Lymphocytes Absolute Manual 3.0 1.2 - 3.7 x10E3/uL 11/27/2020 6:43 PM CDT [facility] Monocytes Absolute Manual 0.9 0.2 - 0.9 x10E3/uL 11/27/2020 6:43 PM CDT [facility] Cells Counted 100 # cells 11/27/2020 6:43 PM CDT [facility] Platelet Estimation Adequate platelets Normal, Adequate platelets 11/27/2020 6:43 PM CDT [facility] RBC Morphology Normal 11/27/2020 6:43 PM CDT [facility] WBC Morph Normal 11/27/2020 6:43 PM CDT [facility] Blood BLOOD SPECIMEN / Unknown Lab Venipuncture / Unknown 11/27/2020 4:00 PM CDT 11/27/2020 4:28 PM CDT Shannan Mendieta MANUFACTURING QUALITY INSPECTOR-FINANCIAL SERVICES OFFICER LAB - HEMATOLOGY ORDERABLES [facility] [address] [place] [address] * CARDIAC RHYTHM STRIP ORDER (08/15/2020 10:55 AM CDT) Narrative 08/15/2020 10:55 AM CDT Ordered by an unspecified provider. Scanned Document CARDIAC SERVICES ORD ERABLES * BLOOD TYPE VERIFICATION (08/12/2020 8:48 AM CDT) ABO Rh AB POS 08/12/2020 9:29 AM CDT [facility] Blood Bank BLOOD SPECIMEN / Unknown Lab Venipuncture / Unknown 08/12/2020 8:48 AM CDT 08/12/2020 9:16 AM CDT Lora Bains MD LAB - BLOOD BANK ORDERABLES Performing Organization Address City/[facility]/ZIP Co de Phone Number [facility] [address] [place] [address] * TYPE + SCREEN PANEL (08/09/2020 11:12 AM CDT) ABO Rh AB POS 08/09/2020 12:14 PM CDT [facility] Antibody Screen NEG 08/09/2020 12:14 PM CDT [facility] Blood Bank BLOOD SPECIMEN / Unknown Lab Venipuncture / Unknown 08/09/2020 11:12 AM CDT 08/09/2020 11:22 AM CDT Asif Villa MD LAB - BLOOD B ANK ORDERABLES Performing Organization Address City/[facility]/ZIP Co de Phone Number [facility] [address] [place] [address] * SARS-COV-2 (COVID-19) IN HOUSE (08/09/2020 9:51 AM CDT) Only the most recent of2 resultswithin the time period is included. Pathologist [facility] COVID-19 PCR Not detected Not detected 08/10/2020 5:25 AM CDT [facility] Microbiology SPECIMEN FROM NASOPHARYNGEAL STRUCTURE / Unknown Collection / Unknown 08/09/2020 9:51 AM CDT 08/09/2020 12:52 PM CDT Narrative [facility] - 08/10/2020 5:25 AM CDT This nucleic acid amplification assay performance was validated by [facility]. This test has been authorized [...] Bains MD LAB - MICROBIOLO GY ORDERABLES [facility] [address] [place], [place] [address] [place] [address] * HCG BLOOD QUALITATIVE (02/26/2020 10:21 AM GREEN MARKETING ANALYST) Pathologist [facility] HCG Qual Serum Negative Negative 02/26/2020 10:39 AM GREEN MARKETING ANALYST [facility] Blood BLOOD SPECIMEN / Unknown Lab Venipuncture / Unknown 02/26/2020 10:21 AM GREEN MARKETING ANALYST 02/26/2020 10:25 AM GREEN MARKETING ANALYST Asif Villa MD LAB - WARD CLERK RY ORDERABLES [facility] [address] [place], [place] [address] * EKG (01/01/2020) Historical Provider MD SCANNING ONLY * LAB MISC TEST (01/01/2020) Only the most recent of2 resultswithin the time period is included. Blood BLOOD SPECIMEN / Unknown Historical Provider LAB SEND OUT * XR CHEST 2VW (01/01/2020) Anatomical Region Laterality Modality Chest Other Historical Provider DIAGNOSTIC RAPHAEL Cook ORDERABLES Care Teams [employer] Spanish Teacher Relationship Specialty Start Date End Date Tanya Weaver, RN PCP - General 03/31/24
--- OUTSIDE RECORDS SUMMARY | 2024-05-26 16:15 | XMS_ITS | Clinical Summary ---
Author Organization [facility] Address [address] [place] [address] Care Team Providers Care [employer] Thread Winder Name Role Phone Unavailable Primary Care Provider Unavailabl e Medications insulin glargine (LANTUS) 100 unit/mL pen syringe Inject 40 Units by subcutaneous injection daily at bedtime. 45 mL 3 04/04/2024 12:37 PM SYSTEM SPECIALIST Active Encounters Date Type Department Care Team Description 05/04/2024 External Device Data [facility] Provider, Abstract 05/03/2024 External Device Data [facility] Provider, Abstract 05/02/2024 External Device Data [facility] Provider, Abstract 04/25/2024 External Device Data [facility] Provider, Abstract 04/11/2024 External Device Data [facility] Provider, Abstract from Last 3 Months Social History Tobacco Use Types Packs/Day Years Used Date Smoking Tobacco: Never Assessed Comments Unknown Sex and Gender Information Value Date Recorded Sex Assigned at Not on file Legal Sex Female 9:46 AM SYSTEM SPECIALIST Gender Identity Not on file Sexual Orientation Not on file Plan of Treatment Health Maintenance Due Date Last Done Comments DTAP/TDAP/TD VACCINES (1 - Tdap) 02/12/2015 HEPATITIS B VACCINES (1 of 3 - 19+ 3-dose series) 02/12/2015 CERVICAL CANCER SCREENING 02/12/2017 INFLUENZA VACCINE (#1) 2023 HPV VACCINES Aged Out No longer eligi ble based on patient's age to complete this topic Insurance , [address] [address] [employer] Commercial
--- OUTSIDE RECORDS SUMMARY | 2024-05-26 16:15 | XMS_ITS | Clinical Summary ---
Author Organization [facility] [address] [place] [address] Care Team Providers Care Handyman Name Role Phone Ai Weaver NP Primary Care Provider [phone] Thao Dillon MD Unavailable [phone] Allergies Active Allergy Reactions Criticality Noted Date [...] complication, without long-term current use of insulin ([facility]/HCC) (HCC) 1 each by other route daily [...] by mouth daily 12/03/19 23 Active PNV #[id number] acid-dha 35 mg iron-5 mg iron-1 mg [...] long-term current use of insulin (CMS/HCC) ([facility]) USE TO CHECK BLOOD SUGAR DIRECTED BY YOUR PHYSICIAN 360 each 1 02/22/20 24 Active alcohol swabs pads, medicatedIndic ations:Encount er for supervision of normal first in first trimester,Type 2 diabetes mellitus without complication, without long-term current use of insulin (CMS/HCC) ([facility]) USE TO CLEAN AREA OF SKIN PRIOR [...] 24 Active blood-glucose meter,continuo us ([employer]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 1 each 03/06/20 [...] 05/23/2024 Assessment & Plan (05/23/2024 1:17 PM ALGOLOGY TEACHER): No disc edema/obscuration of blood vessels. Excellent vision and color vision. Heaped appearance of nasal rim, will monitor this closely for changes. Will obtain AF Photos to look for optic disc drusen. Educated to RTC w any vision loss, diplopia, or new neurologic symptoms, otherwise 4-6wk Type 2 diabetes mellitus wit hout complication, unspecified whether fpc insulin use 05/13/2024 Annual physical exam 04/25/2024 Assessment & Plan (04/25/2024 3:58 PM ALGOLOGY TEACHER): Up-to-date at this time. Medications and labs [...] plan Assessment & Plan (04/19/2024 2:30 PM ALGOLOGY TEACHER): Pre- BMI: ~50 S/p MFM counseling Plan [x] Initiate aspirin 81 mg at 12 weeks for preeclampsia risk reduction [x] Early overt diabetes screening with Hgb A1C - known T2DM [x] Specialized anatomic survey at 20 weeks - complete 04/19/2024 [] 3rd trimester anesthesia consultation if BMI >/=50 [x] testing per T2DM plan Assessment & Plan (04/03/2024 1:14 PM ALGOLOGY TEACHER): Pre- BMI ~50. Current BMI 49. Plan [x] Initiate aspirin 81 mg at 12 weeks for preeclampsia risk reduction [x] Early overt diabetes screening with Hgb A1C - known T2DM [] Specialized anatomic survey at 20 weeks - incomplete 04/03/2024 [] 3rd trimester anesthesia consultation if BMI >/=50 [x] testing per T2DM plan Assessment & Plan (03/10/2024 10:48 AM ALGOLOGY TEACHER): Pre- BMI: ~50 Counseling 03/10/2024: Obesity in [...] Varivax Assessment & Plan (04/19/2024 2:18 PM ALGOLOGY TEACHER): Plan [] Varivax Assessment & Plan (04/03/2024 1:14 PM ALGOLOGY TEACHER): Plan [] Varivax Supervision of high-risk , second trime ster 02/28/2024 Overview (05/05/2024): [x] Full [facility] Care; [x] Blue Team Referring Provider: Misti Osborn [phone] [] [employer] or Medicare Insurance [x] Dating Criteria: LMP 11/25/23 with LUIS ALFREDO 08/31/24 [x] Labs: Rh [AB+], Ab [negative], Rubella [immune], HIV [non- reactive], HepBSAg [non-reactive], HepBSAb [not done - draw with next visit], HepBCAb [not done - draw with next visit], RPR [non-reactive], Hep C [non-reactive], Varicella [equivocal], GC/CT [negative/negative] [x] Aneuploidy Screening: reports LR NIPT with primary OB (Not uploaded in [employer] due to gender reveal per report) [] [...] by 39w (T2DM) [x] Place of delivery: [facility] [] Epidural: [] Accepts Blood Products: [] Stop ASA: [] MOC: [] Method of feeding: [] Investigator Vice (specifically which provider): [] PP Depression Discussed: [] PP visits scheduled: Vaccines [x] Flu Shot (Dec-Mar): received 02/22/24 [] COVID vaccine: [] Tdap (27-36wks): [] RSV vaccine (32-36wks): Assessment & Plan (04/19/2024 2:24 PM ALGOLOGY TEACHER): Full MFM care. Reviewed supportive care for mucous - humidifier, nasal saline, mucinex, claritin, etc. Reviewed abd exam normal and expectations for uterine growth. Assessment & Plan (04/03/2024 1:28 PM ALGOLOGY TEACHER): [x] Full MFM Care; [] Red Team [x] Blue Team - full YENNI at 14 weeks Referring Provider: Misti Osborn [phone] [] or Medicare Insurance [x] Dating Criteria: LMP 11/25/23 with LUIS ALFREDO 08/31/24 [x] Labs: Rh [AB+], Ab [negative], Rubella [immune], HIV [non- reactive], HepBSAg [non-reactive], HepBSAb [not done - do with 2T labs], HepBCAb [not done - do with 2T labs], RPR [non-reactive], Hep C [non-reactive], Varicella [equivocal], GC/CT [negative/negative] [x] Aneuploidy Screening: reports LR NIPT with primary OB (Not uploaded in [employer] due to gender reveal per report) [] [...] N/A Assessment & Plan (03/10/2024 10:44 AM ALGOLOGY TEACHER): [x] Full MFM Care; [] Red Team [x] Blue Team - full YENNI at 14 weeks Referring Provider: Misti Osborn [phone] [] [employer] or Medicare Insurance [x] Dating Criteria: LMP 11/25/23 with LUIS ALFREDO 08/31/24 [x] Labs: Rh [AB+], Ab [negative], Rubella [immune], HIV [non- reactive], HepBSAg [non-reactive], HepBSAb [not done], HepBCAb [not done], RPR [non- reactive], Hep C [non-reactive], Varicella [equivocal], GC/CT [negative/negative] [x] Aneuploidy Screening: reports LR NIPT with primary OB (Not uploaded in [employer] due to gender reveal per report) [] [...] by 39w (T2DM) [x] Place of delivery: [facility] [] Epidural: [] Accepts Blood Products: [] Stop ASA: [] MOC: [] Method of feeding: [] Investigator Vice (specifically which provider): [] PP Depression Discussed: [...] growth Assessment & Plan (04/19/2024 2:17 PM ALGOLOGY TEACHER): History Prior procedure: gastric sleeve surgery 08/12/20 [...] growth Assessment & Plan (04/03/2024 1:14 PM ALGOLOGY TEACHER): Micronutrient testing normal in the first trimester. Plan [x] Screen for micronutrient deficiencies (CBC w/ MCV, ferritin, iron, B12, B1, folate, calcium and Vit D levels) qtrimester and supplement accordingly [x] 1st T: WNL 02/22/2024 [] 2nd T: Order at next visit [] 3rd T: [x] First trimester A1C 6.0 02/21 [] Serial ultrasounds for growth Assessment & Plan (03/10/2024 10:41 AM ALGOLOGY TEACHER): History: gastric sleeve surgery 08/12/20 Type of [...] growth Assessment & Plan (02/22/2024 12:37 PM ALGOLOGY TEACHER): Sleeve gastrectomy- August 2020. She last did [...] visit Assessment & Plan (05/19/2024 12:48 PM ALGOLOGY TEACHER): Emotional support provided. Pt denies active SI/HI. Strict hospital precautions reviewed. Discussed importance of close f/u with psych and therapy. Pt aware doses can be increased if needed. Assessment & Plan (04/19/2024 2:34 PM ALGOLOGY TEACHER): Worsening mood symptoms today. EPDS 19, answered [...] visit Assessment & Plan (04/03/2024 1:26 PM ALGOLOGY TEACHER): Reports mood today is up and down. [...] visit Assessment & Plan (03/10/2024 10:43 AM ALGOLOGY TEACHER): Current regimen: lexapro 5 mg, buspirone 5 [...] visit Assessment & Plan (02/22/2024 10:11 AM ALGOLOGY TEACHER): She follows in [place], [place]. Elena Jenarotanya We discussed that this [...] provided Assessment & Plan (03/29/2023 9:36 AM ALGOLOGY TEACHER): Chronic. Follows with psychiatry. Mood is relatively stable Binge eating disorder 11/13/2021 Assessment & Plan (10/19/2023 12:47 PM CDT): Chronic. Relatively stable. Monitor. Encouraged healthy diet and lifestyle Assessment & Plan (03/29/2023 9:35 AM ALGOLOGY TEACHER): Chronic. Stable. Follows with Psychiatry and weight [...] plan by 32 weeks [] Delivery at 11d9n-30w6k (29g5c-67l1d with vascular complications or poorly controlled) Assessment & Plan (05/23/2024 1:17 PM ALGOLOGY TEACHER): No diabetic ophthalmic changes noted right eye (OD) or left eye (OS). Educated on findings. Stressed importance of close blood sugar control/monitoring. Educated fluctuation in blood sugar can cause fluctuations in vision. There is mild tortuosity of retinal blood vessels, but pt reports well controlled blood pressure. Monitor. Assessment & Plan (05/05/2024 12:43 PM ALGOLOGY TEACHER): Pt reports lows <70 that she treats overnight. Will decrease her basal to 26 units and continue weekly adjustments. Pt knows to call with continued hypoglycemia. Pt has glucagon. Reviewed risks of hypoglycemia including coma/. Discussed timing her mealtime insulin to be 10-15 minutes before a meal. Assessment & Plan (04/25/2024 3:56 PM ALGOLOGY TEACHER): A1c well-controlled. She tells me blood sugars are more controlled at this time with insulin. Prior to she was controlling diabetes with diet only. I will see her back in 6 months post for return management of her diabetes Assessment & Plan (04/19/2024 2:29 PM ALGOLOGY TEACHER): No more episodes of hypoglycemia. Fasting at [...] controlled) Assessment & Plan (04/03/2024 1:29 PM ALGOLOGY TEACHER): Reviewed blood sugars today which are largely [...] controlled) Assessment & Plan (03/10/2024 10:47 AM ALGOLOGY TEACHER): History Diagnosed prior to gastric sleeve, has [...] ophthalmology for comprehensive eye exam [x] Baseline [facility] - 02/21 [] A1c [...] controlled) Assessment & Plan (02/22/2024 12:39 PM ALGOLOGY TEACHER): Diet controlled Will get her set up with a glucometer and ketostix To [facility] as a transfer of care. To HgA1c To 24 hour urine To [facility]. I asked her to send her sugars to me on Wednesday nights until she can get into [facility] Assessment & Plan (10/19/2023 12:48 PM CDT): Chronic. Controlled but slightly worse than last visit. Patient has been off the Trulicity for awhile due to issues with insurance coverage. We are going to go ahead and refill it as I would like her to stay on it fpc for the diabetic health benefits. If not covered then we can always look into Ozempic as an alternative encouraged diabetic diet, exercise, weight loss. She reports eye exam is up-to-date we will try to get the report. She has due for the rest of her diabetic labs Assessment & Plan (03/29/2023 9:36 AM ALGOLOGY TEACHER): Chronic. Well controlled. Continue Trulicity. Continue to work on diet, exercise, weight loss Pure hypercholesterolemia 11/13/2021 Assessment & Plan (10/19/2023 12:48 PM CDT): Chronic. Could use improvement. We will check an updated cholesterol level. Pending results we may need to consider starting her on a cholesterol medication for primary prevention Assessment & Plan (03/29/2023 9:36 AM ALGOLOGY TEACHER): Chronic. Suboptimally controlled. Given age less than [...] symptomatic Assessment & Plan (04/19/2024 2:30 PM ALGOLOGY TEACHER): 03/01/24 - klebsiella positive UCx. S/p treatment with macrobid. 04/19/2024: asymptomatic. Plan [x] UCx YENNI - 04/03/2024, insignificant growth [] Repeat UCx if symptomatic Assessment & Plan (04/03/2024 1:13 PM ALGOLOGY TEACHER): 03/01/24 - klebsiella positive UCx. S/p treatment with macrobid. Plan [] UCx YENNI - ordered 04/03/2024 Encounter for supervision of normal first in first trimester 02/22/2024 03/10/2024 BMI 50.0-59.9, adult 02/22/2024 024 Assessment & Plan (02/22/2024 12:37 PM ALGOLOGY TEACHER): To MFM She will need extra usg and nst in the third trimester Will need anatomy scan with [facility] Dyspareunia in female 08/21/20222024 Assessment & Plan (08/21/2022 2:10 PM CDT): Recommend pelvic ultrasound. Discussed referral to pelvic floor physical therapy for evaluation. She is interested in meeting with them. We will await pelvic ultrasound and then place referral. Coitus painful for female 03/30/2022 Assessment & Plan (03/30/2022 2:53 PM ALGOLOGY TEACHER): Discussed lifestyle and hygiene recommendations. She is [...] diabetes Assessment & Plan (03/29/2023 9:37 AM ALGOLOGY TEACHER): Chronic. Suboptimally controlled. Counseled on healthy diet, exercise, weight loss. Follows with the [facility] weight loss clinic. History of prior gastric surgery for weight loss. Continue Trulicity at current dose Encounters Date Type Department Care Team Description 05/23/2024 8:15 AM ALGOLOGY TEACHER Office Visit [facility] Ophthalmology [address] [place] [address] [address] [place] [phone] Lai Chu, OD Pre-existing type 2 diabetes mellitus during in second trimester (Primary Dx); Anomalous optic nerve (HCC); Supervision of high-risk , second trimester 05/23/2024 Documentation [facility] [address] [place] [address] Thao Dillon MD Glycemic control - CGM review 05/19/2024 11:20 AM ALGOLOGY TEACHER Office Visit [facility] Maternal- Medicine [facility] [address] [place] [phone] Bipolar affective disorder, current episode hypomanic (CMS/HCC) (HCC) (Primary Dx); Bipolar affective disorder & anxiety during ; Obesity affecting in second trimester, unspecified obesity type; History of gastric sleeve; Pre-existing type 2 diabetes mellitus during in second trimester; Supervision of high-risk , second trimester 05/19/2024 10:45 AM ALGOLOGY TEACHER - 05/19/2024 11:59 PM ALGOLOGY TEACHER Hospital Encounter [facility] [address] [place], [place] [phone] Pre-existing type 2 diabetes mellitus during in second trimester; Supervision of high-risk , second trimester; History of gastric sleeve; Obesity affecting in second trimester, unspecified obesity type Discharge Disposition: Discharge to home or self care 05/19/2024 Telephone [facility] Ophthalmology [address] [facility] [address] [place] [address] Lai Chu OD 05/16/2024 2:00 PM ALGOLOGY TEACHER Office Visit [facility] Pediatric Cardiology [facility] 2nd Floor [address] [place] [address] Diabetes mellitus affecting in second trimester (Primary Dx) 05/16/2024 2:00 PM ALGOLOGY TEACHER - 05/16/2024 11:59 PM ALGOLOGY TEACHER Hospital Encounter [facility] Pediatric Cardiology [facility] 2nd Floor [address] [place] [phone] Supervision of high-risk , second trimester; Pre-existing type 2 diabetes mellitus during in second trimester Discharge Disposition: Discharge to home or self care 05/10/2024 2:30 PM ALGOLOGY TEACHER Office Visit [facility] Psychiatry [address] [facility] 2[address] [place] [address] Karena Caicedo MD PhD Moderate episode of recurrent major depressive disorder (HCC) (Primary Dx); Anxiety; Type 2 diabetes mellitus without complication, unspecified whether 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 (HCC) 05/08/2024 Documentation [facility] Maternal- Medicine [address] [facility] 7th [address] [place] [phone] Lilli Ribeiro RN dexcom data review 05/05/2024 11:00 AM ALGOLOGY TEACHER Office Visit [facility] Maternal- Medicine [facility] [address] [place] [phone] Bipolar affective disorder & anxiety during (Primary Dx); Obesity affecting in second trimester, unspecified obesity type; History of gastric sleeve; Pre-existing type 2 diabetes mellitus during in second trimester; Supervision of high-risk , second trimester 04/30/[address] [address] Karena Barrow RN Incoming Call (Patient called regarding symptoms of cold virus. Tested yesterday at [facility] outpatient in [place] and had a neg. RVP. Reiterated medications that may be used in for URI. Instructed to come in for worsening symptoms like SOB,CP. Encouraged hydration, rest, OTC medications for symptom relief. Verbalized understanding. ) 04/28/2024 7:18 PM ALGOLOGY TEACHER - 04/28/2024 11:59 PM ALGOLOGY TEACHER Hospital Encounter [facility] [address] [place], [place] [phone] Acute cough Discharge Disposition: Discharge to home or self care 04/28/2024 7:00 PM ALGOLOGY TEACHER Office Visit [facility] Convenient Care at [address] [address] Noemí Lopez PA Acute cough (Primary Dx) 04/26/2024 Telephone [facility] Department of Psychiatry [address] [facility] [address] [place] [address] Mahi Garcia, SAMPLE TAKER OPERATOR [facility]hs Screening 04/25/2024 1:30 PM ALGOLOGY TEACHER Office Visit [facility] Primary Care at [address] [address] Ai Weaver NP Annual physical exam (Primary Dx); Pre-existing type 2 diabetes mellitus during in second trimester 04/20/2024 Telephone [facility] Pediatric Cardiology [facility] 2nd Floor [address] [place] [address] Shilpa Baig CMA Scheduling Appointments 04/19/2024 2:05 PM ALGOLOGY TEACHER Lab [facility] Outpatient Lab [address] [place] [address] Pre-existing type 2 diabetes mellitus during in second trimester; Supervision of high-risk , second trimester; History of gastric sleeve; Obesity affecting in second trimester, unspecified obesity type 04/19/2024 1:00 PM ALGOLOGY TEACHER Office Visit [facility] Maternal- Medicine [facility] [address] [facility] [address] [place] [phone] Pre-existing type 2 diabetes mellitus during in second trimester (Primary Dx); Supervision of high-risk , second trimester; History of gastric sleeve; Obesity affecting in second trimester, unspecified obesity type; Urinary tract infection in ; Maternal varicella, non-immune; Bipolar affective disorder & anxiety during 04/19/2024 12:23 PM ALGOLOGY TEACHER - 04/19/2024 11:59 PM ALGOLOGY TEACHER Hospital Encounter [facility] [address] [place] [address] Supervision of high-risk , second trimester; Pre-existing type 2 diabetes mellitus during in second trimester; History of gastric sleeve; Other obesity affecting in second trimester Discharge Disposition: Discharge to home or self care 04/19/2024 Orders Only [facility] Maternal- Medicine [facility] [address] [facility] [address] [place] [phone] Whit Gibson 04/14/2024 8:00 AM ALGOLOGY TEACHER Clinical Support [facility] Outpatient Nutrition Counseling [address] [place] [address] Pre-existing type 2 diabetes mellitus during in second trimester [O24.112] (Primary Dx) 04/03/2024 11:29 AM ALGOLOGY TEACHER - 04/03/2024 11:59 PM ALGOLOGY TEACHER Hospital Encounter [facility] Cardiac Testing [address] [place] [phone] Supervision of high-risk , second trimester; Pre-existing type 2 diabetes mellitus during in second trimester; History of gastric sleeve; Other obesity affecting in second trimester Discharge Disposition: Discharge to home or self care 04/03/2024 11:17 AM ALGOLOGY TEACHER - 04/03/2024 11:59 PM ALGOLOGY TEACHER Hospital Encounter [facility] [address] [place] [address] Supervision of high-risk , second trimester; Pre-existing type 2 diabetes mellitus during in second trimester; Urinary tract infection in Discharge Disposition: Discharge to home or self care 04/03/2024 10:15 AM ALGOLOGY TEACHER Office Visit [facility] Maternal- Medicine [facility] [address] [place] [phone] Supervision of high-risk , second trimester (Primary Dx); Pre-existing type 2 diabetes mellitus during in second trimester; History of gastric sleeve; Other obesity affecting in second trimester; Maternal varicella, non-immune; Bipolar affective disorder & anxiety during ; Urinary tract infection in 04/03/2024 8:45 AM ALGOLOGY TEACHER - 04/03/2024 11:59 PM ALGOLOGY TEACHER Hospital Encounter [facility] [address] [place] [address] Type 2 diabetes mellitus without complication, without long-term current use of insulin (CMS/HCC) ([facility]); Bariatric surgery status complicating , second trimester; Supervision of high-risk , second trimester Discharge Disposition: Discharge to home or self care 03/21/2024 Telephone [facility] [address] [place] [address] Zenaida Cronin, GENESIS Incoming Call 03/17/2024 10:00 AM ALGOLOGY TEACHER Clinical Support [facility] Outpatient Nutrition Counseling [address] [place] [address] Type 2 diabetes mellitus without complication, without long-term current use of insulin (CMS/HCC) (HCC); Bariatric surgery status complicating , second trimester; Supervision of high-risk , second trimester 03/13/2024 Telephone [facility] Maternal- Medicine [facility] [address] [facility] [address] [place] [phone] Whit Gibson MFM GLUCOSE LOGS 03/07/2024 Telephone Melissaanthony Singh [address] [place] [phone] Misti Osborn MD myriad [employer] carrier screening results 03/06/2024 8:45 AM ALGOLOGY TEACHER Office Visit [facility] Maternal- Medicine [place] [address] [facility] [address] [place] [phone] Supervision of high-risk , second trimester (Primary Dx); Type 2 diabetes mellitus without complication, without long-term current use of insulin (CMS/HCC) (HCC); Bariatric surgery status complicating , second trimester; Generalized anxiety disorder; Anxiety during ; Pre-existing type 2 diabetes mellitus during in second trimester 03/06/2024 8:00 AM ALGOLOGY TEACHER - 03/06/2024 11:59 PM ALGOLOGY TEACHER Hospital Encounter [facility] [address] [place] [phone] Supervision of high-risk , unspecified trimester Discharge Disposition: Discharge to home or self care 03/01/2024 1:00 PM ALGOLOGY TEACHER Lab [address] Encounter for supervision of normal first in first trimester; Type 2 diabetes mellitus without complication, without long-term current use of insulin (CMS/HCC) (HCC) 03/01/2024 Telephone Melissaanthony ALVARES [employer] [address] [place] [address], [place] [phone] Misti Osborn MD Test Results 02/25/2024 Telephone [facility] Obstetrics and Gynecology [facility] [place] [address] Carolyn Carreon Scheduling Appointments 02/24/2024 Telephone [facility] Obstetrics and Gynecology [facility] [place] [address] Valeria Pennington from Last 3 [...] Thelma Vargasfro heart issues Arthritis Mother's Sister Inez Deshpande Diabetes Mother's Sister Inez Deshpande Breast cancer Neg Hx Colon cancer Neg Hx no change cmt 1 04/23/23 Ovarian cancer Neg Hx Relation Name Status Comments Father Sam Blunt Father's Sister Namrata Donnellyond Maternal Grandfather Edward Deshpande Maternal Half-Sister Other Mother Thelma Alarcon Alive Mother's Sister Inez Deshpande Social History Tobacco Use Types Packs/Day [...] staff should administer the PHQ-9) 1 02/22/2024 [place] Depression Scale Answer Date Recorded [place] Depression Scale Total 15 04/26/2024 The thought of harming myself has occurred to me . Hardly ever 04/26/2024 Estimated Date of Delivery Comme nts Yes 08/31/2024 Based on last me nstrual period of 11/25/2023 (Exact Date) Sex and Gender Information Value Date Recorded Sex Assigned at Not on file Legal Sex Female 9:05 AM ALGOLOGY TEACHER Gender Identity Female 12/18/2021 2:13 PM CDT [...] Present (05/26/2024) 1 08/31/2024 (set by Misti Osobrn MD on 02/22/2024 based on Last Menstrual [...] plan by 32 weeks [] Delivery at [id number] ([id number] with vascular complications or poorly controlled) Relevant Orders US Ob Follow Up US Ob Follow Up Supervision of high-risk , second trimester Overview [x] Full M Care; [x] Blue Team Referring Provider: Misti Osborn [phone] [] [employer] or Medicare Insurance [x] Dating Criteria: LMP 11/25/23 with LUIS ALFREDO 08/31/24 [x] Labs: Rh [AB+], Ab [negative], Rubella [immune], HIV [non- reactive], HepBSAg [non-reactive], HepBSAb [not done - draw with next visit], HepBCAb [not done - draw with next visit], RPR [non-reactive], Hep C [non-reactive], Varicella [equivocal], GC/CT [negative/negative] [x] Aneuploidy Screening: reports LR NIPT with primary OB (Not uploaded in iCabbi due to gender reveal per report) [] [...] by 39w (T2DM) [x] Place of delivery: [facility] [] Epidural: [] Accepts Blood Products: [] Stop ASA: [] MOC: [] Method of feeding: [] Investigator Vice (specifically which provider): [] PP Depression Discussed: [...] will be transferred to [facility]. STEVENSON Cline LOGY TEACHER Progress Notes - Documentati on - 05/08/2024 [...] on remote diabetes management. Thao Dillon MD Capsule Filling Machine Operator Division of Maternal- Medicine and Ultrasound Department of Obstetrics and Gynecology [facility] [place] [employer] [facility] LOGY TEACHER LOGY TEACHER Progress Notes - Office Visi t - [...] List LUIS ALFREDO 08/31/24 Bipolar affective disorder & anxiety during [...] [x] Blue Team Referring Provider: Misti Osborn [phone] [] [employer] or Medicare Insurance [x] Dating Criteria: LMP 11/25/23 with LUIS ALFREDO 08/31/24 [x] Labs: Rh [AB+], Ab [negative], Rubella [immune], HIV [non- reactive], HepBSAg [non-reactive], HepBSAb [not done - draw with next visit], HepBCAb [not done - draw with next visit], RPR [non-reactive], Hep C [non-reactive], Varicella [equivocal], GC/CT [negative/negative] [x] Aneuploidy Screening: reports LR NIPT with primary OB (Not uploaded in iCabbi due to gender reveal per report) [] [...] by 39w (T2DM) [x] Place of delivery: [facility] [] Epidural: [] Accepts Blood Products: [] Stop ASA: [] MOC: [] Method of feeding: [] Investigator Vice (specifically which provider): [] PP Depression Discussed: [] PP visits scheduled: Vaccines [x] Flu Shot (Dec-Mar): received 02/22/24 [] COVID vaccine: [] Tdap (27-36wks): [] RSV vaccine (32-36wks): PTL/PEC/FKC precautions reviewed. Reviewed the importance of presenting to her closest hospital in the case of an emergency for evaluation and if necessary and safe will be transferred to [facility]. STEVENSON Cline LOGY TEACHER Progress Notes - Office Visi t - 04/19/2024 - GA:20w6d 04/19/2024 - 20w6d - Tracie Nova MD [facility] Return Visit 04/19/2024 Radha Wilks is [...] Thao Dillon MD at 04/19/2024 2:35 PM ALGOLOGY TEACHER LOGY TEACHER LOGY TEACHER Associated attestation - Thao Dillon MD - 04/19/2024 2:35 PM ALGOLOGY TEACHER Images from the original note were not included. MFM Attending Attestation I have seen and discussed Radha Wilks with the fellow on 04/19/2024. I have evaluated the patient and reviewed the treatment plan and recommendations. I agree with the findings and the plan of care as documented in the note with edits made. Thao Dillon MD Capsule Filling Machine Operator Division of Maternal- Medicine and Ultrasound Department of Obstetrics and Gynecology [facility] Division of Medicine 04/19/2024 Progress Notes - Office [...] at 14 weeks Referring Provider: Misti Osborn [phone] [] [employer] or Medicare Insurance [x] Dating Criteria: LMP 11/25/23 with LUIS ALFREDO 08/31/24 [x] Labs: Rh [AB+], Ab [negative], Rubella [immune], HIV [non- reactive], HepBSAg [non-reactive], HepBSAb [not done - do with 2T labs], HepBCAb [not done - do with 2T labs], RPR [non-reactive], Hep C [non-reactive], Varicella [equivocal], GC/CT [negative/negative] [x] Aneuploidy Screening: reports LR NIPT with primary OB (Not uploaded in iCabbi due to gender reveal per report) [] [...] completion of anatomic survey. Thao Dillon MD Capsule Filling Machine Operator Division of Maternal- Medicine and Ultrasound Department of Obstetrics and Gynecology [facility] 04/03/2024 LOGY TEACHER Progress Notes - Office Visi t - 03/06/2024 - GA:14w4d 03/06/2024 - 14w4d - Asha Tariq MD Images from the original note were not included. Maternal Medicine Initial Visit Date of Visit: 03/06/2024 Radha Wilks is a 29 y.o. at 14w4d by LMP consistent with 1st trimester Ultrasound who is here for her initial OB visit. She will be full [facility] care. 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 Lives with Jew. Denies history of intimate partner violence. Family [...] here for her initial OB visit with [facility]. She will be full [facility] care as a full transfer. Her [...] at 14 weeks Referring Provider: Misti Osborn [phone] [] [employer] or Medicare Insurance [x] Dating Criteria: LMP 11/25/23 with LUIS ALFREDO 08/31/24 [x] Labs: Rh [AB+], Ab [negative], Rubella [immune], HIV [non- reactive], HepBSAg [non-reactive], HepBSAb [not done], HepBCAb [not done], RPR [non- reactive], Hep C [non-reactive], Varicella [equivocal], GC/CT [negative/negative] [x] Aneuploidy Screening: reports LR NIPT with primary OB (Not uploaded in [facility] due to gender reveal per report) [...] by 39w (T2DM) [x] Place of delivery: [facility] [] Epidural: [] Accepts Blood Products: [] Stop ASA: [] MOC: [] Method of feeding: [] Investigator Vice (specifically which provider): [] PP Depression Discussed: [...] were spent in documentation. Asha Tariq MD Capsule Filling Machine Operator Division of Maternal- Medicine LOGY TEACHER Progress Notes - Abstract - 02/28/2024 - GA:13w4d 02/28/2024 - 13w4d - Larisa Beyer RMA Current OB records are in [facility]. PCP records are also in [facility]. Most recent visit was 11/25/23. Sleeve Gastrectomy op note is copied below. Further records are under Care Everywhere dated 08/12/20. Weight Management clinic records are under Care Everywhere. Most recent visit was 01/14/24. LOGY TEACHER 02/28/2024 - 13w4d - Larisa Beyer RMA Operative - Lora Bains MD - 08/12/2020 10:51 AM CDT Pt Name: Radha Anderson DATE OF OPERATION: 08/12/2020 SURGEON: Surgeon(s) and Role: * Lora Bains MD - Primary BELLSTAFF: Punchboard Filling Machine Operator: Nicci Mcgill RN Registered Nurse Rn Flight: Alpesh Monterroso RN Scrub Person: Lizzette Davila [...] along the staple line using a clip final inspector shuttle. The patient was then placed in a [...] SPECIMENS: Stomach. COMPLICATIONS: None. Lora Bains MD LOGY TEACHER Progress Notes - Initial Pre - 02/22/2024 [...] Urine, clean voided; Future BMI 50.0-59.9, adult ([facility]) Assessment & Plan: To [facility] She will need extra usg and nst in the third trimester Will need anatomy scan with [facility] Orders: - Ambulatory Referral to Maternal - Medicine (Perinatology); Future - Comprehensive metabolic panel; Future - Folate; Future - Vitamin B12; Future - Ferritin; Future - Iron profile w/ IBC; Future Type 2 diabetes mellitus without complication, without long-term current use of insulin ([facility]) ([facility]) Assessment & Plan: Diet controlled Will get her set up with a glucometer and ketostix To [facility] as a transfer of care. To HgA1c To 24 hour urine To [facility]. I asked her to send her sugars to me on Wednesday until she can get into [facility] Orders: - Ambulatory Referral to Maternal [...] disorder Assessment & Plan: She follows in [place], [place]. Elena Valdez We discussed that this [...] next visit. she will d/w basa with [facility] -pap and std testing done today. [...] and exercise discussed. Misti Osborn MD 02/22/2024 LOGY TEACHER Last Filed Vital Signs Vital Sign Reading Time Taken Comments Blood Pressure 99/67 05/19/2024 11:28 AM ALGOLOGY TEACHER Pulse 94 05/19/2024 11:28 AM ALGOLOGY TEACHER Temperature 36.1 C (97 F) 05/19/2024 11:28 AM ALGOLOGY TEACHER Respiratory Rate 16 05/19/2024 11:28 AM ALGOLOGY TEACHER Oxygen Saturation 97% 05/19/2024 11:28 AM ALGOLOGY TEACHER Inhaled Oxygen Concentration - - Weight 122.9 kg (271 lb) 05/19/2024 11:28 AM ALGOLOGY TEACHER Height 158.8 cm (5' 2.5 ) 05/19/2024 11:28 AM CS T Body Mass Index 48.78 05/19/2024 11:28 AM ALGOLOGY TEACHER Plan of Treatment Health Maintenance Due Date [...] Read Routine (OP Routine) 05/19/2024 10:56 AM ALGOLOGY TEACHER Pre-existing type 2 diabetes mellitus during in second trimester Supervision of high-risk , second trimester History of gastric sleeve Obesity affecting in second trimester, unspecified obesity type ECHOCARDIOGRAM Routine 05/16/2024 2:57 PM ALGOLOGY TEACHER Supervision of high-risk , second trimester Pre-existing type 2 diabetes mellitus during in second trimester MYCOPLASMA PNEUMONIAE PCR Routine 04/28/2024 7:18 PM ALGOLOGY TEACHER Acute cough BORDETELLA PERTUSSIS / PARAPERTUSSIS Routine 04/28/2024 7:18 PM ALGOLOGY TEACHER Acute cough INFLUENZA A/B, RSV, AND COVID-19 PCR Routine 04/28/2024 7:18 PM ALGOLOGY TEACHER Acute cough POC INFLUENZA A/B, COVID-19 ANTIGEN Routine 04/28/2024 7:10 PM ALGOLOGY TEACHER Acute cough CBC WITH AUTO DIFFERENTIAL Routine 04/19/2024 2:08 PM ALGOLOGY TEACHER Pre-existing type 2 diabetes mellitus during in second trimester Supervision of high-risk , second trimester Bariatric surgery status complicating , second trimester Obesity affecting in second trimester, unspecified obesity type DIFFERENTIAL AUTO Routine 04/19/2024 2:0 8 PM ALGOLOGY TEACHER HEMOGLOBIN ANALYSIS BY ELECTROPHORESIS Routine 04/19/2024 2:08 PM ALGOLOGY TEACHER Pre-existing type 2 diabetes mellitus during in second trimester Supervision of high-risk , second trimester History of gastric sleeve Obesity affecting in second trimester, unspecified obesity type FERRITIN Routine 04/19/2024 2:08 PM ALGOLOGY TEACHER Pre-existing type 2 diabetes mellitus during in second trimester Supervision of high-risk , second trimester History of gastric sleeve Obesity affecting in second trimester, unspecified obesity type HEMOGLOBIN A1C Routine 04/19/2024 2:08 PM ALGOLOGY TEACHER Pre-existing type 2 diabetes mellitus during in second trimester Supervision of high-risk , second trimester History of gastric sleeve Obesity affecting in second trimester, unspecified obesity type IRON PROFILE W/ IBC Routine 04/19/2024 2 :08 PM ALGOLOGY TEACHER Pre-existing type 2 diabetes mellitus during in second trimester Supervision of high-risk , second trimester History of gastric sleeve Obesity affecting in second trimester, unspecified obesity type VITAMIN B12 Routine 04/19/2024 2:08 PM ALGOLOGY TEACHER Pre-existing type 2 diabetes mellitus during in second trimester Supervision of high-risk , second trimester History of gastric sleeve Obesity affecting in second trimester, unspecified obesity type VITAMIN D 25 HYDROXY Routine 04/19/2024 2:08 PM ALGOLOGY TEACHER Pre-existing type 2 diabetes mellitus during in second trimester Supervision of high-risk , second trimester History of gastric sleeve Obesity affecting in second trimester, unspecified obesity type CALCIUM LEVEL Routine 04/19/2024 2:08 PM ALGOLOGY TEACHER Pre-existing type 2 diabetes mellitus during in second trimester Supervision of high-risk , second trimester History of gastric sleeve Obesity affecting in second trimester, unspecified obesity type FOLATE Routine 04/19/2024 2:08 PM ALGOLOGY TEACHER Pre-existing type 2 diabetes mellitus during in second trimester Supervision of high-risk , second trimester History of gastric sleeve Obesity affecting in second trimester, unspecified obesity type US OB LIMITED Schedule Routine, Read Routine (OP Routine) 04/19/2024 12:23 PM ALGOLOGY TEACHER Supervision of high-risk , second trimester Pre-existing type 2 diabetes mellitus during in second trimester History of gastric sleeve Other obesity affecting in second trimester ECG 12-LEAD Routine 04/03/2024 11:51 AM ALGOLOGY TEACHER Supervision of high-risk , second trimester Pre-existing type 2 diabetes mellitus during in second trimester History of gastric sleeve Other obesity affecting in second trimester URINE CULTURE Routine 04/03/2024 11:17 AM ALGOLOGY TEACHER Supervision of high-risk , second trimester Pre-existing type 2 diabetes mellitus during in second trimester Urinary tract infection in US OB DETAIL ANATOMY SINGLE OR FIRST GESTATION Schedule Routine, Read Routine (OP Routine) 04/03/2024 9:04 AM ALGOLOGY TEACHER Type 2 diabetes mellitus without complication, without long-term current use of insulin (CMS/HCC) (HCC) Bariatric surgery status complicating , second trimester Supervision of high-risk , second trimester US OB LIMITED Schedule Routine, Read Routine (OP Routine) 03/06/2024 8:10 AM ALGOLOGY TEACHER Supervision of high-risk , unspecified trimester EGFR Routine 03/01/2024 1:02 PM ALGOLOGY TEACHER Encounter for supervision of normal first in first trimester Type 2 diabetes mellitus without complication, without long-term current use of insulin (CMS/HCC) (HCC) CREATININE Routine 03/01/2024 1:02 PM ALGOLOGY TEACHER Encounter for supervision of normal first in first trimester Type 2 diabetes mellitus without complication, without long-term current use of insulin (CMS/HCC) (HCC) VOLUME AND PERIOD, URINE, 24 HOUR Routine 03/01/2024 9:00 AM ALGOLOGY TEACHER Encounter for supervision of normal first in first trimester Type 2 diabetes mellitus without complication, without long-term current use of insulin (CMS/HCC) (HCC) CREATININE CLEARANCE, URINE, 24 HOUR RESULT Routine 03/01/2024 9:00 AM ALGOLOGY TEACHER Encounter for supervision of normal first in first trimester Type 2 diabetes mellitus without complication, without long-term current use of insulin (CMS/HCC) (HCC) PROTEIN, URINE, 24 HOUR RESULT Routine 03/01/2024 9:00 AM ALGOLOGY TEACHER Encounter for supervision of normal first in first trimester Type 2 diabetes mellitus without complication, without long-term current use of insulin (CMS/HCC) (HCC) PROTEIN, URINE, 24 HOUR Routine 03/01/2024 9:00 AM ALGOLOGY TEACHER Encounter for supervision of normal first in first trimester Type 2 diabetes mellitus without complication, without long-term current use of insulin (CMS/HCC) (HCC) CREATININE CLEARANCE, URINE, 24 HOUR Routine 03/01/2024 9:00 AM ALGOLOGY TEACHER Encounter for supervision of normal first in first trimester Type 2 diabetes mellitus without complication, without long-term current use of insulin (CMS/HCC) (HCC) HEPATITIS C ANTIBODY Routine 02/22/2024 11:18 AM ALGOLOGY TEACHER Encounter for supervision of normal first in first trimester PAP, REFLEX HPV Routine 02/22/2024 11:10 AM ALGOLOGY TEACHER Encounter for supervision of normal first in [...] US Ob Follow Up (05/19/2024 10:56 AM ALGOLOGY TEACHER) Fetus# Fetus1 VIEWPOINT Estimated Weight 688 g&grams VIEWPOINT Placenta Details posterior, Previa-no VIEWPOINT Presentation Breech VIEWPOINT Anatomical Region Laterality Modality Abdomen N/A Ultrasound 05/19/2024 10:5 7 AM ALGOLOGY TEACHER Impressions 05/19/2024 11:50 AM ALGOLOGY TEACHER Normal biometry 688 g at 14%and amniotic fluid is normal. Fetus is breech; posterior placenta. Narrative Procedure Note Keila Kelsey MD - 05/19/2024 IMPRESSION: Normal biometry 688 g at 14%and amniotic fluid is normal. Fetus is breech;posterior placenta. us Thao Dillon MD IMG OB US PROCEDURES Dot l Result * Echocardiogram (05/16/2024 2:57 PM ALGOLOGY TEACHER) Anatomical Region Laterality Modality Ultrasound 05/16/2024 2:13 PM ALGOLOGY TEACHER Narrative 05/16/2024 3:16 PM ALGOLOGY TEACHER [facility] Echo Report [address] [address] Patient Name: RADHA WILKS Study Type: Echo Patient : 1995 Exam Date: 05/16/2024 Age: 29Y Exam Time: 2:13:00 PM Referring MD: SHARRI TORRES Height: 62in Weight: 272lb BSA: 2.18 m2 Sex: FEMALE BP: 96/64 Machine Setter Automatic: Jenelle Bae. Stat.: Outpatient Room: OP Account:[id number] Indications for Study:MATERNAL DIABETES 775.1 Procedures: COLORFLOW, [...] Procedure Note Larissa Guajardo MD - 05/16/2024 [facility] Echo Report [address] [address] Patient Name: RADHA WILKS Study Type: Echo Patient : 1995 Exam Date: 05/16/2024 Age: 29Y Exam Time: 2:13:00 PM Referring MD: SHARRI TORRES Height: 62in Weight: 272lb BSA: 2.18 m2 Sex: FEMALE BP: 96/64 Machine Setter Automatic: Jenelle Bae. Stat.: Outpatient Room: OP Account:[id number] Indications for Study:MATERNAL DIABETES 775.1 Procedures: COLORFLOW, [...] and COVID-19 PCR Nasopharyngeal (04/28/2024 7:18 PM ALGOLOGY TEACHER) [facility] COVID-19 RNA Negative Negative Influenza A RNA Negative Negative [facility] Influenza B RNA Negative Negative [facility] RSV RNA Negative Negative [facility] Comment: Interpretive data: Testing performed by [facility]. This test is performed using the [employer] Xpert Xpress CoV-2/Flu/RSV plus assay. This is a multiplex, real-time reverse transcriptase PCR assay intended for the qualitative detection of nucleic acid from SARS-CoV-2, influenza A, influenza B, and respiratory syncytial virus. This assay has been cleared by the [place] Food and Drug administration. The performance characteristics have been verified by the [facility]. Results must be considered in the clinical context, and a negative result does not rule out infection. Interpretive Data last revised 2023 Nasopharyngeal 04/28/2024 7: 18 PM ALGOLOGY TEACHER 04/29/2024 3:51 AM ALGOLOGY TEACHER Narrative [facility] - 04/29/2024 4:40 AM ALGOLOGY TEACHER Is the Patient experiencing symptoms consistent with COVID?->Yes Noemí [facility] MICROBIOLOGY - GENER AL ORDERABLES Final Result Performing Organization Address [facility] Co de Phone Number JOSÉ MIGUEL THURSTON [address] [address] [facility] [place] [place] [address] [place] * Mycoplasma pneumoniae PCR Nasopharyngeal (04/28/2024 7:18 PM ALGOLOGY TEACHER) M. pneumoniae DNA Not Detected Not Detected [facility] Comment: Interpretive Data: [...] last revised on 2019. Testing performed by: [facility], [address] [place] [address]., [id number] Nasopharyngeal 04/28/2024 7: 18 PM ALGOLOGY TEACHER 04/29/2024 5:53 AM ALGOLOGY TEACHER Noemí [facility] MICROBIOLOGY - GENER AL ORDERABLES Final Result Performing Organization Address [facility] Co de Phone Number JOSÉ MIGUEL THURSTON [address] [address] [facility] [place] [place] [address] [facility] * Bordetella pertussis/Bordetella parapertussis PCR Nasopharyngeal (04/28/2024 7:18 PM ALGOLOGY TEACHER) Pathologist [facility] B. pertussis DNA Not Detected Not Detected [facility] Comment:Testing performed by : [facility], [address] [place] [address]., [id number] B. parapertussis DNA Not Detected Not Detected [...] last revised on 2019. Testing performed by: [facility], [address] [place] [address]., [id number] Nasopharyngeal 04/28/2024 7: 18 PM ALGOLOGY TEACHER 04/29/2024 5:53 AM ALGOLOGY TEACHER Noemí [facility] MICROBIOLOGY - GENER AL ORDERABLES Final Result Performing Organization Address City/[facility]/ZIP Co de Phone Number JOSÉ MIGUEL THURSTON [address] [address] Department [place] [address] [facility] * POC Influenza A/B, COVID-19 antigen (04/28/2024 7:10 PM ALGOLOGY TEACHER) Influenza A Ag, POC Negative Negative [facility] ED[facility] Influenza B Ag, POC Negative Negative [facility] EDW COVID-19 Ag POC Presumptive Negative Presumptive Negative, Invalid [facility] Nasal 04/28/2024 7:10 PM ALGOLOGY TEACHER Noemí [facility] POINT OF CARE TEST ORDER FAYE Final Result Performing Organization Address [facility] de Phone Number [id number] CC EDW [address] [place] [address] * (ABNORMAL) Differential, auto (04/19/2024 2:08 PM ALGOLOGY TEACHER) Neutrophil abs 9.8(H) 1.5 - 6.5 K/cumm Imm gran abs 0.1 0.0 - 0.1 K/cumm [facility] Lymphocyte abs 2.3 0.8 - 3.3 K/cumm [facility] Monocyte abs 0.7 0.2 - 0.8 K/cumm [facility] Eosinophil abs 0.1 0.0 - 0.5 K/cumm [facility] Basophil abs 0.0 0.0 - 0.1 K/cumm [facility] Neutrophil pct 75.4 % [facility] Comment: Interpretive Data Percent cell count reference ranges are not reported, since discordance with absolute values may lead to misinterpretation of CBC data. Current Interpretive Data was last revised on 2017. Imm gran pct 0.5 % [facility] Comment: Interpretive Data Percent cell count reference ranges are not reported, since discordance with absolute values may lead to misinterpretation of CBC data. Current Interpretive Data was last revised on 2017. Lymphocyte pct 17.8 % [facility] Comment: Interpretive Data Percent cell count reference ranges are not reported, since discordance with absolute values may lead to misinterpretation of CBC data. Current Interpretive Data was last revised on 2017. Monocyte pct 5.5 % [facility] Comment: Interpretive Data Percent cell count reference ranges are not reported, since discordance with absolute values may lead to misinterpretation of CBC data. Current Interpretive Data was last revised on 2017. Eosinophil pct 0.6 % [facility] Comment: Interpretive Data Percent cell count reference ranges are not reported, since discordance with absolute values may lead to misinterpretation of CBC data. Current Interpretive Data was last revised on 2017. Basophil pct 0.2 % [facility] Comment: Interpretive Data Percent cell count reference ranges are not reported, since discordance with absolute values may lead to misinterpretation of CBC data. Current Interpretive Data was last revised on 2017. Blood 04/19/2024 2:08 PM ALGOLOGY TEACHER 04/19/2024 2:15 PM ALGOLOGY TEACHER Thao Dillon MD LAB BLOOD ORDERABLES Dot l Result [facility] [address] Department [place] [address] * (ABNORMAL) Iron profile w/ IBC (04/19/2024 2:08 PM ALGOLOGY TEACHER) Iron 59 35 - 145 mcg/dL TIBC 308 250 - 400 mcg/dL [facility] Transferrin saturation 19(L) 20 - 50 % [facility] Blood 04/19/2024 2:08 PM ALGOLOGY TEACHER 04/19/2024 2:08 PM ALGOLOGY TEACHER Thao Dillon MD LAB BLOOD ORDERABLES Dot l Result [facility] [address] Department [place] [address] * (ABNORMAL) CBC with auto differential (04/19/2024 2:08 PM ALGOLOGY TEACHER) [facility] WBC 12.9(H) 3.8 - 9.9 K/cumm Hgb 11.6(L) 11.9 - 15.5 g/dL [facility] Hct 35.5(L) 35.6 - 45.5 % [facility] Plt 277 150 - 400 K/cumm [facility] MPV 10.5 9.1 - 12.3 fL [facility] RBC 3.95 3.90 - 5.20 M/cumm [facility] MCV 89.9 81.3 - 96.4 fL [facility] MCH 29.4 27.1 - 33.3 pg [facility] MCHC 32.7 32.3 - 35.7 g/dL [facility] RDW CV 13.0 11.1 - 14.9 % [facility] RDW SD 42.7 35.7 - 48.1 fL [facility] NRBC abs 0.00 0.00 - 0.01 K/cumm [facility] Blood 04/19/2024 2:08 PM ALGOLOGY TEACHER 04/19/2024 2:15 PM ALGOLOGY TEACHER us Thao Dillon MD LAB BLOOD ORDERABLES Dot patricia Result [facility] [address] Department [place] [address] * (ABNORMAL) Hemoglobin analysis by electrophoresis (04/19/2024 2:08 PM ALGOLOGY TEACHER) [facility] RBC 3.82(L) 3.90 - 5.20 M/cumm Comment:Testing performed by : [facility], [address] [place]., [address] Hgb 11.1(L) 11.9 - 15.5 g/dL [facility] Comment:Testing performed by : [facility], [address] [facility] [place]., [address] MCV 88.7 81.3 - 96.4 fL [facility] Comment:Testing performed by : [facility], [address] [facility], [address] Rdw 13.2 11.1 - 14.9 % [facility] Comment:Testing performed by : [facility], [address] [place]., [address] Hgb electrophores is, interp Normal Hemoglobin Pattern - For Age [facility] Comment:Testing performed by : [facility], [address] [facility], [address] Hgb A 97.6 96.0 - 98.5 % [facility] Comment:Testing performed by : [facility], [address] [facility], [address] Hgb A2 2.4 1.5 - 3.2 % [facility] Comment:Testing performed by : [facility], [address] [facility], [address] Hgb F <0.4 0.0 - 0.9 % [facility] Comment:Testing performed by : [facility], [address] [facility], [address] Blood 04/19/2024 2:08 PM ALGOLOGY TEACHER 04/19/2024 8:52 PM ALGOLOGY TEACHER Thao Dillon MD LAB BLOOD ORDERABLES Dot gomez Result [facility] [address] Department of Laboratories [place], [place] [id number] * Vitamin D 25 hydroxy (04/19/2024 2:08 PM ALGOLOGY TEACHER) Vitamin D 25-OH 32 30 - 80 ng/mL Blood 04/19/2024 2:08 PM ALGOLOGY TEACHER 04/19/2024 2:08 PM ALGOLOGY TEACHER Thao Dillon MD LAB BLOOD ORDERABLES Dot l Result Performing Organization Address [facility] de Phone Number [facility] [address] [facility] [place] [address] * Hemoglobin A1c (04/19/2024 2:08 PM ALGOLOGY TEACHER) [facility] Hgb A1C 5.4 4.0 - 5.6 % Estimated Average Glucose 108 mg/dL [facility] Comment: The ADA recommends reporting an estimated Average Glucose (eAG) with all Hemoglobin A1c results using the equation derived from a study of 507 normal and diabetic adults. Minority populations were underrepresented and children were not included. (Diabetes Care 31:2370-3025, 2008). The eAG is not equivalent to a fasting glucose. Blood 04/19/2024 2:08 PM ALGOLOGY TEACHER 04/19/2024 2:08 PM ALGOLOGY TEACHER Thao Dillon MD LAB BLOOD ORDERABLES Dot l Result Performing Organization Address [facility] de Phone Number [facility] [address] Department [place] [address] * Folate (04/19/2024 2:08 PM ALGOLOGY TEACHER) [facility] Folic acid 18.2 >=5.0 ng/mL Blood 04/19/2024 2:08 PM ALGOLOGY TEACHER 04/19/2024 2:08 PM ALGOLOGY TEACHER Thao Dillon MD LAB BLOOD ORDERABLES Dot l Result Performing Organization Address [facility] Co de Phone Number [facility] [address] Department [place] [address] * Ferritin (04/19/2024 2:08 PM ALGOLOGY TEACHER) [facility] Ferritin 44 15 - 150 ng/mL Blood 04/19/2024 2:08 PM ALGOLOGY TEACHER 04/19/2024 2:08 PM ALGOLOGY TEACHER Thao Dillon MD LAB BLOOD ORDERABLES Dot l Result Performing Organization Address City/[facility] Co de Phone Number [facility] [address] [facility] [employer] [place], [place] [id number] * Vitamin B12 (04/19/2024 2:08 PM ALGOLOGY TEACHER) Vitamin B12 336 230 - 1,250 pg/mL Blood 04/19/2024 2:08 PM ALGOLOGY TEACHER 04/19/2024 2:08 PM ALGOLOGY TEACHER Thao Dillon MD LAB BLOOD ORDERABLES Dot l Result Performing Organization Address [facility] Co de Phone Number [facility] [address] [facility] [employer] [place], [place] [id number] * Calcium level (04/19/2024 2:08 PM ALGOLOGY TEACHER) Pathologist [facility] Calcium 9.2 8.5 - 10.3 mg/dL Blood 04/19/2024 2:08 PM ALGOLOGY TEACHER 04/19/2024 2:08 PM ALGOLOGY TEACHER Thao Dillon MD LAB BLOOD ORDERABLES Dot l Result Performing Organization Address [facility] Co de Phone Number [facility] [address] Department [place] [place] [address] * US Ob Limited (04/19/2024 12:23 PM ALGOLOGY TEACHER) Fetus# Fetus1 VIEWPOINT Placenta Details posterior, Previa-no, no placental masses VIEWPOINT Presentation Breech VIEWPOINT Anatomical Region Laterality Modality Abdomen N/A Ultrasound 04/19/2024 12:2 3 PM ALGOLOGY TEACHER Impressions 04/19/2024 1:23 PM ALGOLOGY TEACHER IUP at 20 weeks and 6 days Anatomic survey is now complete and no anomalies were identified today. Narrative Procedure Note Soila Longo MD - 04/19/2024 IMPRESSION: IUP at 20 weeks and 6 days Anatomic survey is now complete and no anomalies were identified today. Thao Dillon MD IMG OB US PROCEDURES Dot l Result * ECG 12 lead (04/03/2024 11:51 AM ALGOLOGY TEACHER) 04/03/2024 12:3 1 PM ALGOLOGY TEACHER Narrative [facility] - 04/03/2024 8:16 PM ALGOLOGY TEACHER Vent Rate: 72 bpm RR Interval: 827 msec LA Interval: 169 msec QRS Duration: 90 msec QT Interval: 386 msec QTC Interval: 410 msec P-R-T [place]: 55 - 64 - 49 degrees IMPRESSION: SINUS RHYTHM WITH SINUS ARRHYTHMIA NORMAL ECG Electronically Signed By: Jacky Nathan MD Thao Dillon MD ECG ORDERABLES Final Res ult Performing Organization Address City/[facility]/ZIP Co de Phone Number [facility] * Urine culture Urine, clean voided (04/03/2024 11:17 AM ALGOLOGY TEACHER) Report Final Report: Less than 100,000 colonies/mL (clinically insignificant growth based on current clinical standards) Organism (CLINICALLY INSIGNIFICANT GROWTH [facility] Urine, clean voided 04/03/2024 11:17 AM ALGOLOGY TEACHER 04/03/2024 9:17 PM ALGOLOGY TEACHER Narrative [facility] - 04/05/2024 3:53 AM ALGOLOGY TEACHER Testing performed by [facility] Microbiology Laboratory ([phone]) Thao Dillon MD LAB MICROBIOLOGY - GENERA L ORDERABLES Final Result [facility] Department [place] [address] * US Ob Detail Anatomy Single Or First Gestation (04/03/2024 9:04 AM ALGOLOGY TEACHER) Fetus# Fetus1 VIEWPOINT Estimated Weight 218 g&grams VIEWPOINT Placenta Details posterior, Previa-no, no placental masses VIEWPOINT Presentation Breech VIEWPOINT Anatomical Region Laterality Modality Body N/A Ultrasound 04/03/2024 9:05 AM ALGOLOGY TEACHER Impressions 04/03/2024 10:18 AM ALGOLOGY TEACHER Interval growth has been normal. No malformations [...] weeks + 4 days Asha Tariq MD [facility] OB US PROCEDURES Final Result * US Ob Limited (03/06/2024 8:10 AM ALGOLOGY TEACHER) Fetus# Fetus1 VIEWPOINT Estimated Weight 81 g&grams VIEWPOINT Placenta Details posterior VIEWPOINT Presentation Breech VIEWPOINT Anatomical Region Laterality Modality Abdomen N/A Ultrasound 03/06/2024 8:10 AM ALGOLOGY TEACHER Impressions 03/06/2024 10:34 AM ALGOLOGY TEACHER IUP at 14w 4d for evaluation of [...] Final Result * eGFR (03/01/2024 1:02 PM ALGOLOGY TEACHER) eGFR >90 >=60 mL/min/1. 73 m2 Comment: [...] last reviewed 2021. Urine/Blood 03/01/2024 1:02 PM ALGOLOGY TEACHER 03/01/2024 3:51 PM ALGOLOGY TEACHER Misti Osborn MD LAB BLOOD ORDERABLE S Final Result Performing Organization Address City/[facility]/ZIP Co de Phone Number [facility] ([place]) 1 [facility] [place] [email or web address] [address] * Creatinine (03/01/2024 1:02 PM ALGOLOGY TEACHER) Creatinine 0.60 0.60 - 1.10 mg/dL Urine/Blood 03/01/2024 1:02 PM ALGOLOGY TEACHER 03/01/2024 3:51 PM ALGOLOGY TEACHER Misti Osborn MD LAB BLOOD ORDERABLE S Final Result [facility] M[place]) 1 [facility] [place] [address] * Protein, urine, 24 hour (03/01/2024 9:00 AM ALGOLOGY TEACHER) Protein, 24 hr, ur 136 0 - 150 mg/24H Urine 03/01/2024 9:00 AM ALGOLOGY TEACHER 03/01/2024 4:13 PM ALGOLOGY TEACHER Misti Osborn MD LAB URINE ORDERABLE S Final Result Performing Organization Address City/[facility]/ZIP Co de Phone Number [facility] ([place]) 1 [facility] [place] [place] [address] * Volume and period, urine, 24 hour (03/01/2024 9:00 AM ALGOLOGY TEACHER) Volume, ur 1,400 mL Period, Urine Collection 1,440 min [facility] ([place]) Urine/Blood 03/01/2024 9:00 AM ALGOLOGY TEACHER 03/01/2024 4:13 PM ALGOLOGY TEACHER us Misti Osborn MD LAB URINE ORDERABLE S Final Result Performing Organization Address [facility] Co de Phone Number [facility] ([place]) 1 [facility] [place] [place] [address] * (ABNORMAL) Creatinine clearance, urine, 24 hour (03/01/2024 9:00 AM ALGOLOGY TEACHER) Creatinine Clearance 209(H) 60 - 130 mL/min Creatinine, 24 hr, ur 1.8(H) 0.6 - 1.5 g/24H [facility] ([place]) Urine/Blood 03/01/2024 9:00 AM ALGOLOGY TEACHER 03/01/2024 4:13 PM ALGOLOGY TEACHER Misti Osborn MD LAB URINE ORDERABLE S Final Result Performing Organization Address City/[facility] Co de Phone Number [facility] ([place]) 1 [facility] [place] [address] * Hepatitis C antibody Blood (02/22/2024 11:18 AM ALGOLOGY TEACHER) Hep C Ab Nonreactive Nonreactive Comment: Interpretive [...] last revised on 2019. Testing performed by: [facility], [address] [place] [address], [place]., [address] Blood 02/22/2024 11:1 8 AM ALGOLOGY TEACHER 02/22/2024 6:27 PM ALGOLOGY TEACHER us Misti Osborn MD LAB MICROBIOLOGY - GENERAL ORDERABLES Final Result Performing Organization Address City/[facility]/ZIP Co de Phone Number [facility] ([place]) 1 [facility] [address] * Pap, reflex HPV (02/22/2024 11:10 AM ALGOLOGY TEACHER) CLINICAL INFORMATION: Martha Myers Comment: LMP Martha [...] has been evaluated with computer assisted technology. Plastic Surgery Manager Joe Dowell Comment: MMD, CT(ASCP) CT Screening Location: [address], [place] [address] Comment Martha Myers Comment: EXPLANATORY NOTE: The [...] information. Thin prep 02/22/2024 11:1 0 AM ALGOLOGY TEACHER 02/23/2024 4:26 AM ALGOLOGY TEACHER us Misti Osborn MD LAB CYTOLOGY ORDERA BLES Final Result [facility] [address] [place] [address] * Lipid panel (01/12/2024 10:23 AM CDT) [...] CDT FAX RESULTS TO DR KAT BOLTON [phone] us Kat Bolton ARCHEOLOGY FACULTY MEMBER LAB BLOOD ORDERABLES Final Re sult [facility] [address] Department [place] [address] * Albumin Creatinine Ratio, Urine [...] URINE ORDERABLES F inal Result [facility] [address] Department [place] [address] * DIABETES EYE EXAM (09/18/2022 9:09 AM CDT) Historical Provider HEALTH MAINTENANCE Final Result from Last 3 Months or Most Recently Relevant to Health Maintenance Additional Health Concerns Active Problems Noted Date Diagnosed Date Meal Tracking and Blood Sugar Monitoring 024 Insurance IDPA IDPA Care Teams Handyman Relationship Specialty Start Date End Date Ai Weaver NP [address] [facility] [address] [place], [place] [phone] PCP - General Family Medicine 04/25/24 Thao Dillon MD [address] [facility] [address] [place] [address] Consulting Physician Obstetrics and Gynecology 04/25/24
--- OUTSIDE RECORDS SUMMARY | 2024-05-26 16:15 | XMS_ITS | Referral Summary ---
Author Organization [facility] [address] [place] [address] Care Team Providers Care Business Employment Specialist Name Role Phone Ai Weaver NP Primary Care Provider [phone] Thao Dillon MD Unavailable Encounters Date Type Department Care Team Description 05/23/2024 Documentation [facility] [address] [place] [address] Thao Dillon MD Glycemic control - CGM review 05/23/2024 8:15 AM SNAG GRINDER Office Visit [facility] Ophthalmology [address] [place] [phone] Lai Chu, OD Pre-existing type 2 diabetes mellitus during in second trimester (Primary Dx); Anomalous optic nerve (HCC); Supervision of high-risk , second trimester 05/19/2024 Telephone [facility] Ophthalmology [address] [place] [phone] Lai Chu, CRISTIANO 05/19/2024 11:20 AM SNAG GRINDER Office Visit [facility] Maternal- Medicine [facility] [address] [place] [phone] Bipolar affective disorder, current episode hypomanic (CMS/HCC) (HCC) (Primary Dx); Bipolar affective disorder & anxiety during ; Obesity affecting in second trimester, unspecified obesity type; History of gastric sleeve; Pre-existing type 2 diabetes mellitus during in second trimester; Supervision of high-risk , second trimester 05/19/2024 10:45 AM SNAG GRINDER - 05/19/2024 11:59 PM SNAG GRINDER Hospital Encounter [facility] [address] [place] [address] Pre-existing type 2 diabetes mellitus during in second trimester; Supervision of high-risk , second trimester; History of gastric sleeve; Obesity affecting in second trimester, unspecified obesity type Discharge Disposition: Discharge to home or self care 05/16/2024 2:00 PM SNAG GRINDER Office Visit [facility] Pediatric Cardiology [facility] 2nd Floor [address] [place] [address] Diabetes mellitus affecting in second trimester (Primary Dx) 05/16/2024 2:00 PM SNAG GRINDER - 05/16/2024 11:59 PM SNAG GRINDER Hospital Encounter [facility] Pediatric Cardiology [facility] 2nd Floor [address] [place] [address] Supervision of high-risk , second trimester; Pre-existing type 2 diabetes mellitus during in second trimester Discharge Disposition: Discharge to home or self care 05/10/2024 2:30 PM SNAG GRINDER Office Visit [facility] Psychiatry [address] [facility] 2nd Floor [address] [place] [address] Karena Caicedo MD PhD Moderate episode of recurrent major depressive disorder (HCC) (Primary Dx); Anxiety; Type 2 diabetes mellitus without complication, unspecified whether longterm insulin use (HCC) 05/08/2024 Documentation [facility] Maternal- Medicine [address] [facility] 7th Floor [address] [place] [phone] Lilli Ribeiro RN dexcom data review 05/05/2024 11:00 AM SNAG GRINDER Office Visit [facility] Maternal- Medicine [facility] [address] [facility] [address] [place] [phone] Bipolar affective disorder & anxiety during (Primary Dx); Obesity affecting in second trimester, unspecified obesity type; History of gastric sleeve; Pre-existing type 2 diabetes mellitus during in second trimester; Supervision of high-risk , second trimester 04/30/[address] [address] Karena Barrow, RN Incoming Call (Patient called regarding symptoms of cold virus. Tested yesterday at [facility] outpatient in [place] and had a neg. RVP. Reiterated medications that may be used in for URI. Instructed to come in for worsening symptoms like SOB,CP. Encouraged hydration, rest, OTC medications for symptom relief. Verbalized understanding. ) 04/28/2024 7:18 PM SNAG GRINDER - 04/28/2024 11:59 PM SNAG GRINDER Hospital Encounter [address] [address] Acute cough Discharge Disposition: Discharge to home or self care 04/28/2024 7:00 PM SNAG GRINDER Office Visit [facility] Medical Group [facility] at [address] [phone] Noemí Lopez PA Acute cough (Primary Dx) 04/26/2024 Telephone [facility] Department of Psychiatry [address] [facility] [address] [place] [address] Mahi Garcia [facility] Screening 04/25/2024 1:30 PM SNAG GRINDER Office Visit [facility] Medical [facility] Primary Care at [address] [phone] Ai Weaver NP Annual physical exam (Primary Dx); Pre-existing type 2 diabetes mellitus during in second trimester 04/20/2024 Telephone [facility] Pediatric Cardiology [facility] 2nd Floor [address] [place] [address] Shilpa Baig CMA Scheduling Appointments 04/19/2024 2:05 PM SNAG GRINDER Lab [facility] Outpatient Lab [address] [place] [address] Pre-existing type 2 diabetes mellitus during in second trimester; Supervision of high-risk , second trimester; History of gastric sleeve; Obesity affecting in second trimester, unspecified obesity type 04/19/2024 Orders Only [facility] Maternal- Medicine [facility] [address] [facility] [address] [place] [phone] Whit Gibson 04/19/2024 1:00 PM SNAG GRINDER Office Visit [facility] Maternal- Medicine [facility] [address] [facility] [address] [place] [phone] Pre-existing type 2 diabetes mellitus during in second trimester (Primary Dx); Supervision of high-risk , second trimester; History of gastric sleeve; Obesity affecting in second trimester, unspecified obesity type; Urinary tract infection in ; Maternal varicella, non-immune; Bipolar affective disorder & anxiety during 04/19/2024 12:23 PM SNAG GRINDER - 04/19/2024 11:59 PM SNAG GRINDER Hospital Encounter [facility] [address] [facility] [address] [address] Supervision of high-risk , second trimester; Pre-existing type 2 diabetes mellitus during in second trimester; History of gastric sleeve; Other obesity affecting in second trimester Discharge Disposition: Discharge to home or self care 04/14/2024 8:00 AM SNAG GRINDER Clinical Support [facility] Outpatient Nutrition Counseling [address] [facility] [address] [place] [address] Pre-existing type 2 diabetes mellitus during in second trimester [O24.112] (Primary Dx) 04/03/2024 11:17 AM SNAG GRINDER - 04/03/2024 11:59 PM SNAG GRINDER Hospital Encounter [facility] [address] [place] [address] Supervision of high-risk , second trimester; Pre-existing type 2 diabetes mellitus during in second trimester; Urinary tract infection in Discharge Disposition: Discharge to home or self care 04/03/2024 11:29 AM SNAG GRINDER - 04/03/2024 11:59 PM SNAG GRINDER Hospital Encounter [facility] Cardiac Testing [address] [place] [phone] Supervision of high-risk , second trimester; Pre-existing type 2 diabetes mellitus during in second trimester; History of gastric sleeve; Other obesity affecting in second trimester Discharge Disposition: Discharge to home or self care 04/03/2024 10:15 AM SNAG GRINDER Office Visit [facility] Maternal- Medicine [facility] [address] [place] [address] Supervision of high-risk , second trimester (Primary Dx); Pre-existing type 2 diabetes mellitus during in second trimester; History of gastric sleeve; Other obesity affecting in second trimester; Maternal varicella, non-immune; Bipolar affective disorder & anxiety during ; Urinary tract infection in 04/03/2024 8:45 AM SNAG GRINDER - 04/03/2024 11:59 PM SNAG GRINDER Hospital Encounter [facility] [address] [place] [address] Type 2 diabetes mellitus without complication, without long-term current use of insulin (CMS/HCC) ([facility]); Bariatric surgery status complicating , second trimester; Supervision of high-risk , second trimester Discharge Disposition: Discharge to home or self care 03/21/[address] [address] Zenaida Cronin RN Incoming Call 03/17/2024 10:00 AM SNAG GRINDER Clinical Support [facility] Outpatient Nutrition Counseling [address] [place] [address] Type 2 diabetes mellitus without complication, without long-term current use of insulin (CMS/HCC) ([facility]); Bariatric surgery status complicating , second trimester; Supervision of high-risk , second trimester 03/13/2024 Telephone [facility] Maternal- Medicine [facility] [address] [place] [address] Whit Gibson [facility] GLUCOSE LOGS 03/07/2024 Telephone [facility] [address] [place] [address] [place] [phone] Misti Osborn MD myriad [employer] and [employer] carrier screening results 03/06/2024 8:45 AM SNAG GRINDER Office Visit [facility] Maternal- Medicine [facility] [address] [place] [phone] Supervision of high-risk , second trimester (Primary Dx); Type 2 diabetes mellitus without complication, without long-term current use of insulin (CMS/HCC) ([facility]); Bariatric surgery status complicating , second trimester; Generalized anxiety disorder; Anxiety during ; Pre-existing type 2 diabetes mellitus during in second trimester 03/06/2024 8:00 AM SNAG GRINDER - 03/06/2024 11:59 PM SNAG GRINDER Hospital Encounter [facility], [place] [phone] Supervision of high-risk , unspecified trimester Discharge Disposition: Discharge to home or self care 03/01/2024 Telephone [facility] [address] [address] Misti Osborn MD Test Results 03/01/2024 1:00 PM SNAG GRINDER Lab [address] Encounter for supervision of normal first in first trimester; Type 2 diabetes mellitus without complication, without long-term current use of insulin (CMS/HCC) ([facility]) 02/25/2024 Telephone [facility] Obstetrics and Gynecology [address] [place] [address] Carolyn Carreon Scheduling Appointments 02/24/2024 Telephone [facility] Obstetrics and Gynecology [address] [place] [address] Valeria Pennington from Last 3 Months Allergies [...] by mouth daily 12/03/19 23 Active PNV #[id number] acid-dha 35 mg iron-5 mg iron-1 mg [...] 24 Active blood-glucose meter,continuo us (Dexcom G7 [employer]) [facility] Use as directed. 1 each 03/06/20 24 [...] 05/23/2024 Assessment & Plan (05/23/2024 1:17 PM SNAG GRINDER): No disc edema/obscuration of blood vessels. Excellent vision and color vision. Heaped appearance of nasal rim, will monitor this closely for changes. Will obtain AF Photos to look for optic disc drusen. Educated to RTC w any vision loss, diplopia, or new neurologic symptoms, otherwise 4-6wk Type 2 diabetes mellitus wit hout complication, unspecified whether continuous churn buttermaker insulin use 05/13/2024 Annual physical exam 04/25/2024 Assessment & Plan (04/25/2024 3:58 PM SNAG GRINDER): Up-to-date at this time. Medications and labs [...] plan Assessment & Plan (04/19/2024 2:30 PM SNAG GRINDER): Pre- BMI: ~50 S/p MFM counseling Plan [x] Initiate aspirin 81 mg at 12 weeks for preeclampsia risk reduction [x] Early overt diabetes screening with Hgb A1C - known T2DM [x] Specialized anatomic survey at 20 weeks - complete 04/19/2024 [] 3rd trimester anesthesia consultation if BMI >/=50 [x] testing per T2DM plan Assessment & Plan (04/03/2024 1:14 PM SNAG GRINDER): Pre- BMI ~50. Current BMI 49. Plan [x] Initiate aspirin 81 mg at 12 weeks for preeclampsia risk reduction [x] Early overt diabetes screening with Hgb A1C - known T2DM [] Specialized anatomic survey at 20 weeks - incomplete 04/03/2024 [] 3rd trimester anesthesia consultation if BMI >/=50 [x] testing per T2DM plan Assessment & Plan (03/10/2024 10:48 AM SNAG GRINDER): Pre- BMI: ~50 Counseling 03/10/2024: Obesity in [...] hour glucose tolerance test, >6.5 refer to [facility] clinic) [] Specialized anatomic survey at 20 weeks [] 3rd trimester anesthesia consultation if BMI >/=50 [] Weekly testing per T2DM plan Maternal varicella, non-immune 03/01/2024 Overview (03/31/2024): Plan [] Varivax Assessment & Plan (04/19/2024 2:18 PM SNAG GRINDER): Plan [] Varivax Assessment & Plan (04/03/2024 1:14 PM SNAG GRINDER): Plan [] Varivax Supervision of high-risk , second trime ster 02/28/2024 Overview (05/05/2024): [x] Full [facility] Care; [x] Blue Team Referring Provider: Misti Osborn [phone] [] [place] or Medicare Insurance [x] Dating Criteria: LMP 11/25/23 with LUIS ALFREDO 08/31/24 [x] Labs: Rh [AB+], Ab [negative], Rubella [immune], HIV [non- reactive], HepBSAg [non-reactive], HepBSAb [not done - draw with next visit], HepBCAb [not done - draw with next visit], RPR [non-reactive], Hep C [non-reactive], Varicella [equivocal], GC/CT [negative/negative] [x] Aneuploidy Screening: reports LR NIPT with primary OB (Not uploaded in Mapiliary due to gender reveal per report) [] [...] by 39w (T2DM) [x] Place of delivery: [facility] [] Epidural: [] Accepts Blood Products: [] Stop ASA: [] MOC: [] Method of feeding: [] Licensed Plumber (specifically which provider): [] PP Depression Discussed: [] PP visits scheduled: Vaccines [x] Flu Shot (Sep-Dec): received 02/22/24 [] COVID vaccine: [] Tdap (27-36wks): [] RSV vaccine (32-36wks): Assessment & Plan (04/19/2024 2:24 PM SNAG GRINDER): Full MFM care. Reviewed supportive care for mucous - humidifier, nasal saline, mucinex, claritin, etc. Reviewed abd exam normal and expectations for uterine growth. Assessment & Plan (04/03/2024 1:28 PM SNAG GRINDER): [x] Full MFM Care; [] Red Team [x] Blue Team - full YENNI at 14 weeks Referring Provider: Misti Osborn [phone] [] or Medicare Insurance [x] Dating Criteria: LMP 11/25/23 with LUIS ALFREDO 08/31/24 [x] Labs: Rh [AB+], Ab [negative], Rubella [immune], HIV [non- reactive], HepBSAg [non-reactive], HepBSAb [not done - do with 2T labs], HepBCAb [not done - do with 2T labs], RPR [non-reactive], Hep C [non-reactive], Varicella [equivocal], GC/CT [negative/negative] [x] Aneuploidy Screening: reports LR NIPT with primary OB (Not uploaded in Mapiliary due to gender reveal per report) [] [...] N/A Assessment & Plan (03/10/2024 10:44 AM SNAG GRINDER): [x] Full MFM Care; [] Red Team [x] Blue Team - full YENNI at 14 weeks Referring Provider: Misti Osborn [phone] [] or Medicare Insurance [x] Dating Criteria: LMP 11/25/23 with LUIS ALFREDO 08/31/24 [x] Labs: Rh [AB+], Ab [negative], Rubella [immune], HIV [non- reactive], HepBSAg [non-reactive], HepBSAb [not done], HepBCAb [not done], RPR [non- reactive], Hep C [non-reactive], Varicella [equivocal], GC/CT [negative/negative] [x] Aneuploidy Screening: reports LR NIPT with primary OB (Not uploaded in Map[employer] due to gender reveal per report) [] [...] by 39w (T2DM) [x] Place of delivery: [facility] [] Epidural: [] Accepts Blood Products: [] Stop ASA: [] MOC: [] Method of feeding: [] Licensed Plumber (specifically which provider): [] PP Depression Discussed: [...] growth Assessment & Plan (04/19/2024 2:17 PM SNAG GRINDER): History Prior procedure: gastric sleeve surgery 08/12/20 [...] growth Assessment & Plan (04/03/2024 1:14 PM SNAG GRINDER): Micronutrient testing normal in the first trimester. Plan [x] Screen for micronutrient deficiencies (CBC w/ MCV, ferritin, iron, B12, B1, folate, calcium and Vit D levels) qtrimester and supplement accordingly [x] 1st T: WNL 02/22/2024 [] 2nd T: Order at next visit [] 3rd T: [x] First trimester A1C 6.0 02/21 [] Serial ultrasounds for growth Assessment & Plan (03/10/2024 10:41 AM SNAG GRINDER): History: gastric sleeve surgery 08/12/20 Type of [...] growth Assessment & Plan (02/22/2024 12:37 PM SNAG GRINDER): Sleeve gastrectomy- August 2020. She last did [...] visit Assessment & Plan (05/19/2024 12:48 PM SNAG GRINDER): Emotional support provided. Pt denies active SI/HI. Strict hospital precautions reviewed. Discussed importance of close f/u with psych and therapy. Pt aware doses can be increased if needed. Assessment & Plan (04/19/2024 2:34 PM SNAG GRINDER): Worsening mood symptoms today. EPDS 19, answered [...] visit Assessment & Plan (04/03/2024 1:26 PM SNAG GRINDER): Reports mood today is up and down. [...] visit Assessment & Plan (03/10/2024 10:43 AM SNAG GRINDER): Current regimen: lexapro 5 mg, buspirone 5 [...] visit Assessment & Plan (02/22/2024 10:11 AM SNAG GRINDER): She follows in [place], [place]. Elena Valdez We discussed that this [...] provided Assessment & Plan (03/29/2023 9:36 AM SNAG GRINDER): Chronic. Follows with psychiatry. Mood is relatively stable Binge eating disorder 11/13/2021 Assessment & Plan (10/19/2023 12:47 PM CDT): Chronic. Relatively stable. Monitor. Encouraged healthy diet and lifestyle Assessment & Plan (03/29/2023 9:35 AM SNAG GRINDER): Chronic. Stable. Follows with Psychiatry and weight [...] plan by 32 weeks [] Delivery at [id number] ([id number] with vascular complications or poorly controlled) Assessment & Plan (05/23/2024 1:17 PM SNAG GRINDER): No diabetic ophthalmic changes noted right eye (OD) or left eye (OS). Educated on findings. Stressed importance of close blood sugar control/monitoring. Educated fluctuation in blood sugar can cause fluctuations in vision. There is mild tortuosity of retinal blood vessels, but pt reports well controlled blood pressure. Monitor. Assessment & Plan (05/05/2024 12:43 PM SNAG GRINDER): Pt reports lows <70 that she treats overnight. Will decrease her basal to 26 units and continue weekly adjustments. Pt knows to call with continued hypoglycemia. Pt has glucagon. Reviewed risks of hypoglycemia including coma/. Discussed timing her mealtime insulin to be 10-15 minutes before a meal. Assessment & Plan (04/25/2024 3:56 PM SNAG GRINDER): A1c well-controlled. She tells me blood sugars are more controlled at this time with insulin. Prior to she was controlling diabetes with diet only. I will see her back in 6 months post for return management of her diabetes Assessment & Plan (04/19/2024 2:29 PM SNAG GRINDER): No more episodes of hypoglycemia. Fasting at [...] controlled) Assessment & Plan (04/03/2024 1:29 PM SNAG GRINDER): Reviewed blood sugars today which are largely [...] controlled) Assessment & Plan (03/10/2024 10:47 AM SNAG GRINDER): History Diagnosed prior to gastric sleeve, has [...] ophthalmology for comprehensive eye exam [x] Baseline [facility] [place] [] A1c qTrimester [x] 1st [...] controlled) Assessment & Plan (02/22/2024 12:39 PM SNAG GRINDER): Diet controlled Will get her set up with a glucometer and ketostix To [facility] as a transfer of care. To HgA1c To 24 hour urine To [facility]. I asked her to send her sugars to me on Wednesday until she can get into [facility] Assessment & Plan (10/19/2023 12:48 PM CDT): Chronic. Controlled but slightly worse than last visit. Patient has been off the Trulicity for awhile due to issues with insurance coverage. We are going to go ahead and refill it as I would like her to stay on it continuous churn buttermaker for the diabetic health benefits. If not covered then we can always look into Ozempic as an alternative encouraged diabetic diet, exercise, weight loss. She reports eye exam is up-to-date we will try to get the report. She has due for the rest of her diabetic labs Assessment & Plan (03/29/2023 9:36 AM SNAG GRINDER): Chronic. Well controlled. Continue Trulicity. Continue to work on diet, exercise, weight loss Pure hypercholesterolemia 11/13/2021 Assessment & Plan (10/19/2023 12:48 PM CDT): Chronic. Could use improvement. We will check an updated cholesterol level. Pending results we may need to consider starting her on a cholesterol medication for primary prevention Assessment & Plan (03/29/2023 9:36 AM SNAG GRINDER): Chronic. Suboptimally controlled. Given age less than [...] symptomatic Assessment & Plan (04/19/2024 2:30 PM SNAG GRINDER): 03/01/24 - klebsiella positive UCx. S/p treatment with macrobid. 04/19/2024: asymptomatic. Plan [x] UCx YENNI - 04/03/2024, insignificant growth [] Repeat UCx if symptomatic Assessment & Plan (04/03/2024 1:13 PM SNAG GRINDER): 03/01/24 - klebsiella positive UCx. S/p treatment with macrobid. Plan [] UCx YENNI - ordered 04/03/2024 Encounter for supervision of normal first in first trimester 02/22/2024 03/10/2024 BMI 50.0-59.9, adult 02/22/2024 024 Assessment & Plan (02/22/2024 12:37 PM SNAG GRINDER): To MFM She will need extra usg and nst in the third trimester Will need anatomy scan with [facility] Dyspareunia in female 08/21/20222024 Assessment & Plan (08/21/2022 2:10 PM CDT): Recommend pelvic ultrasound. Discussed referral to pelvic floor physical therapy for evaluation. She is interested in meeting with them. We will await pelvic ultrasound and then place referral. Coitus painful for female 03/30/2022 Assessment & Plan (03/30/2022 2:53 PM SNAG GRINDER): Discussed lifestyle and hygiene recommendations. She is [...] diabetes Assessment & Plan (03/29/2023 9:37 AM SNAG GRINDER): Chronic. Suboptimally controlled. Counseled on healthy diet, exercise, weight loss. Follows with the [facility] weight loss clinic. History of prior [...] staff should administer the PHQ-9) 1 02/22/2024 [place] Depression Scale Answer Date Recorded [place] Depression Scale Total 15 04/26/2024 The thought of harming myself has occurred to me . Hardly ever 04/26/2024 Estimated Date of Delivery Comme nts Yes 08/31/2024 Based on last me nstrual period of 11/25/2023 (Exact Date) Sex and Gender Information Value Date Recorded Sex Assigned at Not on file Legal Sex Female 9:05 AM SNAG GRINDER Gender Identity Female 12/18/2021 2:13 PM CDT Sexual Orientation Not on file Last Filed Vital Signs Vital Sign Reading Time Taken Comments Blood Pressure 99/67 05/19/2024 11:28 AM SNAG GRINDER Pulse 94 05/19/2024 11:28 AM SNAG GRINDER Temperature 36.1 C (97 F) 05/19/2024 11:28 AM SNAG GRINDER Respiratory Rate 16 05/19/2024 11:28 AM SNAG GRINDER Oxygen Saturation 97% 05/19/2024 11:28 AM SNAG GRINDER Inhaled Oxygen Concentration - - Weight 122.9 kg (271 lb) 05/19/2024 11:28 AM SNAG GRINDER Height 158.8 cm (5' 2.5 ) 05/19/2024 11:28 AM CS T Body Mass Index 48.78 05/19/2024 11:28 AM SNAG GRINDER Plan of Treatment Not on file Goals Goal Patient Goal Type Associated Problems Recent Progress Patient-Stated? Author Record Your Blood Sugar Daily Care Plan Meal Tracking and Blood Sugar Monitoring No Whit Gibson Procedures Procedure Name Priority Date/Time Associated Diagnosis Comments US OB FOLLOW UP Schedule Routine, Read Routine (OP Routine) 05/19/2024 10:56 AM SNAG GRINDER Pre-existing type 2 diabetes mellitus during in second trimester Supervision of high-risk , second trimester History of gastric sleeve Obesity affecting in second trimester, unspecified obesity type ECHOCARDIOGRAM Routine 05/16/2024 2:57 PM SNAG GRINDER Supervision of high-risk , second trimester Pre-existing type 2 diabetes mellitus during in second trimester MYCOPLASMA PNEUMONIAE PCR Routine 04/28/2024 7:18 PM SNAG GRINDER Acute cough BORDETELLA PERTUSSIS / PARAPERTUSSIS Routine 04/28/2024 7:18 PM SNAG GRINDER Acute cough INFLUENZA A/B, RSV, AND COVID-19 PCR Routine 04/28/2024 7:18 PM SNAG GRINDER Acute cough POC INFLUENZA A/B, COVID-19 ANTIGEN Routine 04/28/2024 7:10 PM SNAG GRINDER Acute cough CBC WITH AUTO DIFFERENTIAL Routine 04/19/2024 2:08 PM SNAG GRINDER Pre-existing type 2 diabetes mellitus during in second trimester Supervision of high-risk , second trimester Bariatric surgery status complicating , second trimester Obesity affecting in second trimester, unspecified obesity type DIFFERENTIAL AUTO Routine 04/19/2024 2:0 8 PM SNAG GRINDER HEMOGLOBIN ANALYSIS BY ELECTROPHORESIS Routine 04/19/2024 2:08 PM SNAG GRINDER Pre-existing type 2 diabetes mellitus during in second trimester Supervision of high-risk , second trimester History of gastric sleeve Obesity affecting in second trimester, unspecified obesity type FERRITIN Routine 04/19/2024 2:08 PM SNAG GRINDER Pre-existing type 2 diabetes mellitus during in second trimester Supervision of high-risk , second trimester History of gastric sleeve Obesity affecting in second trimester, unspecified obesity type HEMOGLOBIN A1C Routine 04/19/2024 2:08 PM SNAG GRINDER Pre-existing type 2 diabetes mellitus during in second trimester Supervision of high-risk , second trimester History of gastric sleeve Obesity affecting in second trimester, unspecified obesity type IRON PROFILE W/ IBC Routine 04/19/2024 2 :08 PM SNAG GRINDER Pre-existing type 2 diabetes mellitus during in second trimester Supervision of high-risk , second trimester History of gastric sleeve Obesity affecting in second trimester, unspecified obesity type VITAMIN B12 Routine 04/19/2024 2:08 PM SNAG GRINDER Pre-existing type 2 diabetes mellitus during in second trimester Supervision of high-risk , second trimester History of gastric sleeve Obesity affecting in second trimester, unspecified obesity type VITAMIN D 25 HYDROXY Routine 04/19/2024 2:08 PM SNAG GRINDER Pre-existing type 2 diabetes mellitus during in second trimester Supervision of high-risk , second trimester History of gastric sleeve Obesity affecting in second trimester, unspecified obesity type CALCIUM LEVEL Routine 04/19/2024 2:08 PM SNAG GRINDER Pre-existing type 2 diabetes mellitus during in second trimester Supervision of high-risk , second trimester History of gastric sleeve Obesity affecting in second trimester, unspecified obesity type FOLATE Routine 04/19/2024 2:08 PM SNAG GRINDER Pre-existing type 2 diabetes mellitus during in second trimester Supervision of high-risk , second trimester History of gastric sleeve Obesity affecting in second trimester, unspecified obesity type US OB LIMITED Schedule Routine, Read Routine (OP Routine) 04/19/2024 12:23 PM SNAG GRINDER Supervision of high-risk , second trimester Pre-existing type 2 diabetes mellitus during in second trimester History of gastric sleeve Other obesity affecting in second trimester ECG 12-LEAD Routine 04/03/2024 11:51 AM SNAG GRINDER Supervision of high-risk , second trimester Pre-existing type 2 diabetes mellitus during in second trimester History of gastric sleeve Other obesity affecting in second trimester URINE CULTURE Routine 04/03/2024 11:17 AM SNAG GRINDER Supervision of high-risk , second trimester Pre-existing type 2 diabetes mellitus during in second trimester Urinary tract infection in US OB DETAIL ANATOMY SINGLE OR FIRST GESTATION Schedule Routine, Read Routine (OP Routine) 04/03/2024 9:04 AM SNAG GRINDER Type 2 diabetes mellitus without complication, without long-term current use of insulin (CMS/HCC) (HCC) Bariatric surgery status complicating , second trimester Supervision of high-risk , second trimester US OB LIMITED Schedule Routine, Read Routine (OP Routine) 03/06/2024 8:10 AM SNAG GRINDER Supervision of high-risk , unspecified trimester EGFR Routine 03/01/2024 1:02 PM SNAG GRINDER Encounter for supervision of normal first in first trimester Type 2 diabetes mellitus without complication, without long-term current use of insulin (CMS/HCC) (HCC) CREATININE Routine 03/01/2024 1:02 PM SNAG GRINDER Encounter for supervision of normal first in first trimester Type 2 diabetes mellitus without complication, without long-term current use of insulin (CMS/HCC) (HCC) VOLUME AND PERIOD, URINE, 24 HOUR Routine 03/01/2024 9:00 AM SNAG GRINDER Encounter for supervision of normal first in first trimester Type 2 diabetes mellitus without complication, without long-term current use of insulin (CMS/HCC) (HCC) CREATININE CLEARANCE, URINE, 24 HOUR RESULT Routine 03/01/2024 9:00 AM SNAG GRINDER Encounter for supervision of normal first in first trimester Type 2 diabetes mellitus without complication, without long-term current use of insulin (CMS/HCC) (HCC) PROTEIN, URINE, 24 HOUR RESULT Routine 03/01/2024 9:00 AM SNAG GRINDER Encounter for supervision of normal first in first trimester Type 2 diabetes mellitus without complication, without long-term current use of insulin (CMS/HCC) (HCC) PROTEIN, URINE, 24 HOUR Routine 03/01/2024 9:00 AM SNAG GRINDER Encounter for supervision of normal first in first trimester Type 2 diabetes mellitus without complication, without long-term current use of insulin (CMS/HCC) (HCC) CREATININE CLEARANCE, URINE, 24 HOUR Routine 03/01/2024 9:00 AM SNAG GRINDER Encounter for supervision of normal first in first trimester Type 2 diabetes mellitus without complication, without long-term current use of insulin ([facility]) (HCC) HEPATITIS C ANTIBODY Routine 02/22/2024 11:18 AM SNAG GRINDER Encounter for supervision of normal first in first trimester PAP, REFLEX HPV Routine 02/22/2024 11:10 AM SNAG GRINDER Encounter for supervision of normal first in first trimester LIPID PANEL Routine 01/12/2024 10:23 AM CDT Bariatric surgery status Morbid obesity ([facility]) Body mass index 45.0-49.9, adult ([facility]) Less than 8 weeks gestation of Iron deficiency anemia, unspecified ALBUMIN CREATININE RATIO, URINE Routine 11/19/2023 8:10 AM CDT Type 2 diabetes mellitus without complication, without long-term current use of insulin (CMS/[facility]) (HCC) Laboratory examination ordered as part of a complete physical examination DIABETES EYE EXAM Routine 09/18/2022 9:09 AM CDT from Last 3 Months or Most Recently Relevant to Health Maintenance Results * US Ob Follow Up (05/19/2024 10:56 AM SNAG GRINDER) Fetus# Fetus1 VIEWPOINT Estimated Weight 688 g&grams VIEWPOINT Placenta Details posterior, Previa-no VIEWPOINT Presentation Breech VIEWPOINT Anatomical Region Laterality Modality Abdomen N/A Ultrasound 05/19/2024 10:5 7 AM SNAG GRINDER Impressions 05/19/2024 11:50 AM SNAG GRINDER Normal biometry 688 g at 14%and amniotic fluid is normal. Fetus is breech; posterior placenta. Narrative Procedure Note Keila Kelsey MD - 05/19/2024 IMPRESSION: Normal biometry 688 g at 14%and amniotic fluid is normal. Fetus is breech;posterior placenta. us Thao Dillon MD IMG OB US PROCEDURES Dot l Result * Echocardiogram (05/16/2024 2:57 PM SNAG GRINDER) Anatomical Region Laterality Modality Ultrasound 05/16/2024 2:13 PM SNAG GRINDER Narrative 05/16/2024 3:16 PM SNAG GRINDER [facility] Station Echo Report [facility] [address], [place] [address] Patient Name: RADHA WILKS Study Type: Echo Patient : 1995 Exam Date: 05/16/2024 Age: 29Y Exam Time: 2:13:00 PM Referring MD: SHARRI TORRES Height: 62in Weight: 272lb BSA: 2.18 m2 Sex: FEMALE BP: 96/64 Rope Tier: Jenelle Bae. Stat.: Outpatient Room: OP Account:[id number] Indications for Study:MATERNAL DIABETES 775.1 Procedures: COLORFLOW, [...] Procedure Note Larissa Guajardo MD - 05/16/2024 [facility] Echo Report [facility] [address], [place] [address] Patient Name: RADHA WILKS Study Type: Echo Patient : 1995 Exam Date: 05/16/2024 Age: 29Y Exam Time: 2:13:00 PM Referring MD: SHARRI TORRES Height: 62in Weight: 272lb BSA: 2.18 m2 Sex: FEMALE BP: 96/64 Rope Tier: Jenelle Bae. Stat.: Outpatient Room: OP Account:[id number] Indications for Study:MATERNAL DIABETES 775.1 Procedures: COLORFLOW, [...] and COVID-19 PCR Nasopharyngeal (04/28/2024 7:18 PM SNAG GRINDER) COVID-19 RNA Negative Negative Influenza A RNA Negative Negative [facility] Influenza B RNA Negative Negative [facility] RSV RNA Negative Negative [facility] Comment: Interpretive data: Testing performed by [facility]. This test is performed using the MicroVision Xpert Xpress CoV-2/Flu/RSV plus assay. This is a multiplex, real-time reverse transcriptase PCR assay intended for the qualitative detection of nucleic acid from SARS-CoV-2, influenza A, influenza B, and respiratory syncytial virus. This assay has been cleared by the [place] Food and Drug administration. The performance characteristics have been verified by the [facility]. Results must be considered in the clinical context, and a negative result does not rule out infection. Interpretive Data last revised 2023 Nasopharyngeal 04/28/2024 7 :18 PM SNAG GRINDER 04/29/2024 3:51 AM SNAG GRINDER Narrative [facility] - 04/29/2024 4:40 AM SNAG GRINDER Is the Patient experiencing symptoms consistent with COVID?->Yes Noemí MOREJON LAB MICROBIOLOGY - GENER AL ORDERABLES Final Result [facility] [address] Department [place] [address] * Mycoplasma pneumoniae PCR Nasopharyngeal (04/28/2024 7:18 PM SNAG GRINDER) M. pneumoniae DNA Not Detected Not Detected [facility] Comment: Interpretive Data: This assay tests for the presence of Mycoplasma pneumoniae. This test is laboratory developed and its performance characteristics were determined by the performing laboratory in a manner consistent with CLIA requirements. This test has not been cleared or approved by the [place]. Food and Drug Administration. Current Interpretive Data was last revised on 2019. Testing performed by: [facility], [address] [place]., [address] Nasopharyngeal 04/28/2024 7: 18 PM SNAG GRINDER 04/29/2024 5:53 AM SNAG GRINDER Noemí MOREJON LAB MICROBIOLOGY - GENER AL ORDERABLES Final Result Performing Organization Address City/[facility]/ZIP Co de Phone Number JOSÉ MIGUEL THURSTON [address] [facility] [address] [place] [address] [facility] * Bordetella pertussis/Bordetella parapertussis PCR Nasopharyngeal (04/28/2024 7:18 PM SNAG GRINDER) Pathologist [facility] B. pertussis DNA Not Detected Not Detected [facility] Comment:Testing performed by : [facility], [address] [place] [address]., [address] B. parapertussis DNA Not Detected Not Detected [...] last revised on 2019. Testing performed by: [facility], [address] [place] [address]., [id number] Nasopharyngeal 04/28/2024 7: 18 PM SNAG GRINDER 04/29/2024 5:53 AM SNAG GRINDER Noemí MOREJ[facility] LAB MICROBIOLOGY - GENER AL ORDERABLES Final Result JUVENALDAMIR THURSTON [address] [facility] [place] [address] [facility] * POC Influenza A/B, COVID-19 antigen (04/28/2024 7:10 PM SNAG GRINDER) Influenza A Ag, POC Negative Negative [facility] Influenza B Ag, POC Negative Negative [facility] COVID-19 Ag POC Presumptive Negative Presumptive Negative, Invalid [facility] Nasal 04/28/2024 7:10 PM SNAG GRINDER Noemí MOREJON POINT OF CARE TEST ORDER FAYE Final Result [facility] [address] [id number] * (ABNORMAL) Differential, auto (04/19/2024 2:08 PM SNAG GRINDER) Neutrophil abs 9.8(H) 1.5 - 6.5 K/cumm Imm gran abs 0.1 0.0 - 0.1 K/cumm [facility] Lymphocyte abs 2.3 0.8 - 3.3 K/cumm [facility] Monocyte abs 0.7 0.2 - 0.8 K/cumm [facility] Eosinophil abs 0.1 0.0 - 0.5 K/cumm [facility] Basophil abs 0.0 0.0 - 0.1 K/cumm [facility] Neutrophil pct 75.4 % [facility] Comment: Interpretive Data Percent cell count reference ranges are not reported, since discordance with absolute values may lead to misinterpretation of CBC data. Current Interpretive Data was last revised on 2017. Imm gran pct 0.5 % [facility] Comment: Interpretive Data Percent cell count reference ranges are not reported, since discordance with absolute values may lead to misinterpretation of CBC data. Current Interpretive Data was last revised on 2017. Lymphocyte pct 17.8 % [facility] Comment: Interpretive Data Percent cell count reference ranges are not reported, since discordance with absolute values may lead to misinterpretation of CBC data. Current Interpretive Data was last revised on 2017. Monocyte pct 5.5 % [facility] Comment: Interpretive Data Percent cell count reference ranges are not reported, since discordance with absolute values may lead to misinterpretation of CBC data. Current Interpretive Data was last revised on 2017. Eosinophil pct 0.6 % [facility] Comment: Interpretive Data Percent cell count reference ranges are not reported, since discordance with absolute values may lead to misinterpretation of CBC data. Current Interpretive Data was last revised on 2017. Basophil pct 0.2 % [facility] Comment: Interpretive Data Percent cell count reference ranges are not reported, since discordance with absolute values may lead to misinterpretation of CBC data. Current Interpretive Data was last revised on 2017. Blood 04/19/2024 2:08 PM SNAG GRINDER 04/19/2024 2:15 PM SNAG GRINDER Thao Dillon MD LAB BLOOD ORDERABLES Dot l Result Performing Organization Address City/[facility]/ZIP Co de Phone Number [facility] [address] [place], [place] [id number] * (ABNORMAL) Iron profile w/ IBC (04/19/2024 2:08 PM SNAG GRINDER) Pathologist [facility] Iron 59 35 - 145 mcg/dL TIBC 308 250 - 400 mcg/dL [facility] Transferrin saturation 19(L) 20 - 50 % [facility] Blood 04/19/2024 2:08 PM SNAG GRINDER 04/19/2024 2:08 PM SNAG GRINDER Thao Dillon MD LAB BLOOD ORDERABLES Dot l Result Performing Organization Address [facility]/ZIP Co de Phone Number [facility] [address] [place] [address] * (ABNORMAL) CBC with auto differential (04/19/2024 2:08 PM SNAG GRINDER) Pathologist [facility] WBC 12.9(H) 3.8 - 9.9 K/cumm Hgb 11.6(L) 11.9 - 15.5 g/dL [facility] Hct 35.5(L) 35.6 - 45.5 % [facility] Plt 277 150 - 400 K/cumm [facility] MPV 10.5 9.1 - 12.3 fL [facility] RBC 3.95 3.90 - 5.20 M/cumm [facility] MCV 89.9 81.3 - 96.4 fL [facility] MCH 29.4 27.1 - 33.3 pg [facility] MCHC 32.7 32.3 - 35.7 g/dL [facility] RDW CV 13.0 11.1 - 14.9 % [facility] RDW SD 42.7 35.7 - 48.1 fL [facility] NRBC abs 0.00 0.00 - 0.01 K/cumm [facility] Blood 04/19/2024 2:08 PM SNAG GRINDER 04/19/2024 2:15 PM SNAG GRINDER us Thao Dillon MD LAB BLOOD ORDERABLES Dot gomez Result [facility] [address] Department [place] [address] * (ABNORMAL) Hemoglobin analysis by electrophoresis (04/19/2024 2:08 PM SNAG GRINDER) RBC 3.82(L) 3.90 - 5.20 M/cumm Comment:Testing performed by : [facility], [address] [place] [address]., [address] Hgb 11.1(L) 11.9 - 15.5 g/dL [facility] Comment:Testing performed by : [facility], [address] [place]., [address] MCV 88.7 81.3 - 96.4 fL [facility] Comment:Testing performed by : [facility], [address] [place] [address] Rdw 13.2 11.1 - 14.9 % [facility] Comment:Testing performed by : [facility], [address] [place]., [address] Hgb electrophores is, interp Normal Hemoglobin Pattern - For Age [facility] Comment:Testing performed by : [facility], [address] [place]., [address] Hgb A 97.6 96.0 - 98.5 % [facility] Comment:Testing performed by : [facility], [address] [place]., [address] Hgb A2 2.4 1.5 - 3.2 % [facility] Comment:Testing performed by : [facility], [address] [place]., [address] Hgb F <0.4 0.0 - 0.9 % [facility] Comment:Testing performed by : [facility], [address] [place]., [address] Blood 04/19/2024 2:08 PM SNAG GRINDER 04/19/2024 8:52 PM SNAG GRINDER Thao Dillon MD LAB BLOOD ORDERABLES Dot l Result Performing Organization Address City/[facility] Co de Phone Number [facility] [address] [facility] [address] [place] [address] * Vitamin D 25 hydroxy (04/19/2024 2:08 PM SNAG GRINDER) Pathologist [facility] Vitamin D 25-OH 32 30 - 80 ng/mL Blood 04/19/2024 2:08 PM SNAG GRINDER 04/19/2024 2:08 PM SNAG GRINDER Thao Dillon MD LAB BLOOD ORDERABLES Dot l Result Performing Organization Address [facility] Co de Phone Number [facility] [address] [facility] [address] [place] [address] * Hemoglobin A1c (04/19/2024 2:08 PM SNAG GRINDER) [facility] Hgb A1C 5.4 4.0 - 5.6 % Estimated Average Glucose 108 mg/dL [facility] Comment: The ADA recommends reporting an estimated Average Glucose (eAG) with all Hemoglobin A1c results using the equation derived from a study of 507 normal and diabetic adults. Minority populations were underrepresented and children were not included. (Diabetes Care 31:7031-0832, 2008). The eAG is not equivalent to a fasting glucose. Blood 04/19/2024 2:08 PM SNAG GRINDER 04/19/2024 2:08 PM SNAG GRINDER Thao Dillon MD LAB BLOOD ORDERABLES Dot l Result [facility] [address] [place] [address] * Folate (04/19/2024 2:08 PM SNAG GRINDER) Folic acid 18.2 >=5.0 ng/mL Blood 04/19/2024 2:08 PM SNAG GRINDER 04/19/2024 2:08 PM SNAG GRINDER Thao Dillon MD LAB BLOOD ORDERABLES Dot l Result Performing Organization Address [facility] Co de Phone Number [facility] [address] [place] [address] * Ferritin (04/19/2024 2:08 PM SNAG GRINDER) Ferritin 44 15 - 150 ng/mL Blood 04/19/2024 2:08 PM SNAG GRINDER 04/19/2024 2:08 PM SNAG GRINDER Result [facility] Thao Dillon MD LAB BLOOD ORDERABLES Dot l Result Performing Organization Address City/[facility] Co de Phone Number [facility] [address] [place] [address] * Vitamin B12 (04/19/2024 2:08 PM SNAG GRINDER) Vitamin B12 336 230 - 1,250 pg/mL Blood 04/19/2024 2:08 PM SNAG GRINDER 04/19/2024 2:08 PM SNAG GRINDER Thao Dillon MD LAB BLOOD ORDERABLES Dot l Result [facility] [address] Department [place] [address] * Calcium level (04/19/2024 2:08 PM SNAG GRINDER) Calcium 9.2 8.5 - 10.3 mg/dL Blood 04/19/2024 2:08 PM SNAG GRINDER 04/19/2024 2:08 PM SNAG GRINDER Thao Dillon MD LAB BLOOD ORDERABLES Dot l Result [facility] [address] Department [place] [address] * US Ob Limited (04/19/2024 12:23 PM SNAG GRINDER) Fetus# Fetus1 VIEWPOINT Placenta Details posterior, Previa-no, no placental masses VIEWPOINT Presentation Breech VIEWPOINT Anatomical Region Laterality Modality Abdomen N/A Ultrasound 04/19/2024 12:2 3 PM SNAG GRINDER Impressions 04/19/2024 1:23 PM SNAG GRINDER IUP at 20 weeks and 6 days Anatomic survey is now complete and no anomalies were identified today. Narrative Procedure Note Soila Longo MD - 04/19/2024 IMPRESSION: IUP at 20 weeks and 6 days Anatomic survey is now complete and no anomalies were identified today. Thao Dillon MD IMG OB US PROCEDURES Dot l Result * ECG 12 lead (04/03/2024 11:51 AM SNAG GRINDER) 04/03/2024 12:3 1 PM SNAG GRINDER Narrative [facility] - 04/03/2024 8:16 PM SNAG GRINDER Vent Rate: 72 bpm RR Interval: 827 msec NM Interval: 169 msec QRS Duration: 90 msec QT Interval: 386 msec QTC Interval: 410 msec P-R-T [place]: 55 - 64 - 49 degrees IMPRESSION: SINUS RHYTHM WITH SINUS ARRHYTHMIA NORMAL ECG Electronically Signed By: Jacky Nathan MD us Thao Dillon MD ECG ORDERABLES Final Res ult [facility] * Urine culture Urine, clean voided (04/03/2024 11:17 AM SNAG GRINDER) Report Final Report: Less than 100,000 colonies/mL (clinically insignificant growth based on current clinical standards) Organism (CLINICALLY INSIGNIFICANT GROWTH [facility] Urine, clean voided 04/03/2024 11:17 AM SNAG GRINDER 04/03/2024 9:17 PM SNAG GRINDER Narrative [facility] - 04/05/2024 3:53 AM SNAG GRINDER Testing performed by [facility] ([phone]) Thao Dillon MD LAB MICROBIOLOGY - GENERA L ORDERABLES Final Result Performing Organization Address [facility] Co de Phone Number [facility] Department [place] [address] * US Ob Detail Anatomy Single Or First Gestation (04/03/2024 9:04 AM SNAG GRINDER) Fetus# Fetus1 VIEWPOINT Estimated Weight 218 g&grams VIEWPOINT Placenta Details posterior, Previa-no, no placental masses VIEWPOINT Presentation Breech VIEWPOINT Anatomical Region Laterality Modality Body N/A Ultrasound 04/03/2024 9:05 AM SNAG GRINDER Impressions 04/03/2024 10:18 AM SNAG GRINDER Interval growth has been normal. No malformations [...] * US Ob Limited (03/06/2024 8:10 AM SNAG GRINDER) Fetus# Fetus1 VIEWPOINT Estimated Weight 81 g&grams VIEWPOINT Placenta Details posterior VIEWPOINT Presentation Breech VIEWPOINT Anatomical Region Laterality Modality Abdomen N/A Ultrasound 03/06/2024 8:10 AM SNAG GRINDER Impressions 03/06/2024 10:34 AM SNAG GRINDER IUP at 14w 4d for evaluation of [...] Final Result * eGFR (03/01/2024 1:02 PM SNAG GRINDER) eGFR >90 >=60 mL/min/1. 73 m2 Comment: [...] last reviewed 2021. Urine/Blood 03/01/2024 1:02 PM SNAG GRINDER 03/01/2024 3:51 PM SNAG GRINDER Misti Osborn MD LAB BLOOD ORDERABLE S Final Result [facility]OS[facility] MIGUEL [facility] ([place]) [address] [facility] [place] [address] [place] [address] * Creatinine (03/01/2024 1:02 PM SNAG GRINDER) Creatinine 0.60 0.60 - 1.10 mg/dL Urine/Blood 03/01/2024 1:02 PM SNAG GRINDER 03/01/2024 3:51 PM SNAG GRINDER us Misti Osborn MD LAB BLOOD ORDERABLE S Final Result Performing Organization Address [facility] Co de Phone Number JOSÉ MIGUEL CASAS ([place]) [address] [facility] [place] [address] [place] [address] * Protein, urine, 24 hour (03/01/2024 9:00 AM SNAG GRINDER) Protein, 24 hr, ur 136 0 - 150 mg/24H Urine 03/01/2024 9:00 AM SNAG GRINDER 03/01/2024 4:13 PM SNAG GRINDER Misti Osborn MD LAB URINE ORDERABLE S Final Result Performing Organization Address City/[facility]/ZIP Co de Phone Number JOSÉ MIGUEL CASAS ([place]) [address] [facility] [place] [address] [place] [address] * Volume and period, urine, 24 hour (03/01/2024 9:00 AM SNAG GRINDER) Volume, ur 1,400 mL Period, Urine Collection 1,440 min [facility]OS[facility] M[facility]UEL [facility] ([place]) Urine/Blood 03/01/2024 9:00 AM SNAG GRINDER 03/01/2024 4:13 PM SNAG GRINDER Misti Osborn MD LAB URINE ORDERABLE S Final Result Performing Organization Address City/[facility]/ZIP Co de Phone Number JOSÉ MIGUEL CASAS ([place]) 1 [facility] [place] [address] * (ABNORMAL) Creatinine clearance, urine, 24 hour (03/01/2024 9:00 AM SNAG GRINDER) Creatinine Clearance 209(H) 60 - 130 mL/min Creatinine, 24 hr, ur 1.8(H) 0.6 - 1.5 g/24H JOS[place] MIGUEL CASAS ([place]) Urine/Blood 03/01/2024 9:00 AM SNAG GRINDER 03/01/2024 4:13 PM SNAG GRINDER us Misti Osborn MD LAB URINE ORDERABLE S Final Result Performing Organization Address [facility] Co de Phone Number JOSÉ MIGUEL CASAS ([place]) 1 [facility] [place] [address] * Hepatitis C antibody Blood (02/22/2024 11:18 AM SNAG GRINDER) Hep C Ab Nonreactive Nonreactive Comment: Interpretive [...] last revised on 2019. Testing performed by: [facility], [address] [place] [address]., [id number] Blood 02/22/2024 11:1 8 AM SNAG GRINDER 02/22/2024 6:27 PM SNAG GRINDER us Misti Osborn MD LAB MICROBIOLOGY - GENERAL ORDERABLES Final Result Performing Organization Address [facility] Co de Phone Number JOSÉ MIGUEL CASAS ([place]) 1 [facility] [place] [address] * Pap, reflex HPV (02/22/2024 11:10 AM SNAG GRINDER) CLINICAL INFORMATION: Martha PrescottDavid Myers Comment: LMP Martha PrescottDavid Myers Comment:10/18/2023 Previous Pap Martha Domonique Myers Comment:NONE GIVEN Prev. Bx Martha PrescottDavid Myers Comment:NONE GIVEN SOURCE: Martha GenieDavid Myers Comment:Cervix, Endocervix Pap, specimen adequacy Martha PrescottDavid Myers Comment: Satisfactory for evaluation. Endocervical/transformation zone component present. HPV interp Martha PrescottDavid Myers Comment: Cytology Results: Negative for intraepithelial lesion or malignancy. COMMENTS Martha PrescottDavid Myers Comment: This Pap test has been evaluated with computer assisted technology. Nursing Scheduler Que st PrescottDavid Myers Comment: MMD, CT(ASCP) CT Screening Location: [facility] [employer] [address] [place] [id number] Comment Martha PrescottDavid Myers Comment: EXPLANATORY NOTE: [...] information. Thin prep 02/22/2024 11:1 0 AM SNAG GRINDER 02/23/2024 4:26 AM SNAG GRINDER Misti Osborn MD LAB CYTOLOGY ORDERA BLES Final Result [facility] [place] [address] [place] [address] * Lipid panel (01/12/2024 10:23 AM CDT) [...] last revised on 2017. Chol/HDL ratio 4 [facility] Blood (Blood, Venous) 01/12/2024 10:23 AM CDT 01/12/2024 2:15 PM CDT Narrative [facility] - 01/12/2024 3:38 PM CDT FAX RESULTS TO DR KAT BOLTON [phone] us Kat Bolton MANAGER PRODUCT SUPPORT LAB BLOOD ORDERABLES Final Re sult [facility] [address] [address] [place] [address] * Albumin Creatinine Ratio, Urine (11/19/2023 8:10 AM CDT) Albumin Ur <12.0 mg/L Comment: Interpretive Data No reference range established. Current interpretive data was last revised 2018. Creatinine Ur 157.4 mg/dL [facility] Comment: Interpretive Data No reference range established. Current interpretive data was last revised 2018. Albumin Creatinine Ratio, Ur <8 1 - 29 mg/g [facility] Urine 11/19/2023 8:10 AM CDT 11/19/2023 2:39 PM CDT us Elzbieta Palomo MD LAB URINE ORDERABLES [place] [address] [address] [place] [address] * DIABETES EYE EXAM (09/18/2022 9:09 AM CDT) us Historical Provider HEALTH MAINTENANCE Final Result from Last 3 Months or Most Recently Relevant to Health Maintenance Additional Health Concerns Active Problems Noted Date Diagnosed Date Meal Tracking and Blood Sugar Monitoring 024 Insurance IDWA IDPA Care Teams Business Employment Specialist Relationship Specialty Start Date End Date Ai Weaver NP [address] [facility] [address] [place] [address] PCP - General Family Medicine 04/25/24 Thao Dillon MD [address] [facility] [address] [place] [address] Consulting Physician Obstetrics and Gynecology 04/25/24
--- OUTSIDE RECORDS SUMMARY | 2024-05-26 16:15 | XMS_ITS | Clinical Summary ---
Author Organization [facility] [employer] Address [address] [facility] [place] [address] Care Team Providers Care Manager Floral Name Role Phone Tanya Weaver RN Primary Care Provider Unavaila ble Source Comments [facility],non-owned Affiliates and Associated Physician Practices is amultiple site organization consisting of ambulatory clinics and hospital sitesin [place], [place], [place] and [place]. This disclosure is being madepursuant to the Care Everywhere program and may not contain all information available regarding this patient. Last updated 17.[facility] Allergies Active Allergy Reactions Criticality Noted Date [...] Active vitamin D, ergocalciferol, (Drisdol) 1.25 MG (67001 UT) capsuleIndications :Vitamin D Deficiency Take 1 [...] Type Department Care Team Description 04/04/2024 Refill [facility] Weight Management [facility] [address] [place] [address] Shannan Mendieta APRN-OPERATING MANAGER Refill Request 03/31/2024 11:00 AM ACCOUNTS PAYABLE MANAGER Video Visit [facility] [address] [place] [address] Kecia Mederos APRN-OPERATING MANAGER S/P laparoscopic sleeve gastrectomy ; Type 2 diabetes mellitus without complication, unspecified whether long term care phlebotomist insulin use (HCC); with 18 completed weeks gestation (HCC) 03/31/2024 10:45 AM ACCOUNTS PAYABLE MANAGER Video Visit [facility] [address] [place] [address] S/P laparoscopic sleeve gastrectomy 03/31/2024 Orders Only [facility] [address] [place] [address] Kecia Mederos APRN-OPERATING MANAGER S/P laparoscopic sleeve gastrectomy; Type 2 diabetes mellitus without complication, unspecified whether shelter insulin use (HCC); with 18 completed weeks gestation (HCC) 03/20/2024 Orders Only [facility] [address] [place] [address] Divya Abdul APRN-CNP Vitamin D deficiency 03/05/2024 Orders Only [facility] [address] [place] [address] Shannan Mendieta APRN-CNP S/P laparoscopic sleeve gastrectomy; Morbid obesity with body mass index (BMI) of 45.0 to 49.9 in adult (HCC); Less than 8 weeks gestation of ([facility]); Iron deficiency anemia, unspecified iron deficiency anemia type; Type 2 diabetes mellitus without complication, unspecified whether long term care phlebotomist insulin use ([facility]); Vitamin D deficiency from Last [...] 124.7 kg (275 lb) 03/31/2024 10:59 AM ACCOUNTS PAYABLE MANAGER per pt Height 158 cm (5' 2.21 ) 03/31/2024 10:59 AM ACCOUNTS PAYABLE MANAGER Body Mass Index 49.97 03/31/2024 10:59 AM ACCOUNTS PAYABLE MANAGER Plan of Treatment Health Maintenance Due Date [...] Required) Completed Medical Devices Implanted Type Area Senior Manufacturing Supervisor Device Identifier Shelf Expiration Date Model / Serial / Lot Kit Tissue Clsr Duo Tssl 1 Prefl Syr Implanted:Qty: 1 on 08/12/2020 by Lora Bains MD at [facility] N/A: Stomach [employer] 02/09/2022 [id number] / / [id number] Advance Directives * Full Code (Latest Code Status on File) Date Activated Date Inactivated Comments 08/12/2020 1:02 PM 08/13/2020 3:44 PM Care Teams Manager Floral Relationship Specialty Start Date End Date Tanya Weaver RN PCP - General 03/31/24
--- OUTSIDE RECORDS SUMMARY | 2024-05-26 16:15 | XMS_ITS | Referral Summary ---
Author Organization [facility] Address [address] [place] [address] Care Team Providers Care Automation Control Integrator Name Role Phone Tanya Weaver RN Primary Care Provider Unavaila ble Source Comments [facility],non-owned Affiliates and Associated Physician Practices is amultiple site organization consisting of ambulatory clinics and hospital sitesin [place], [place], [place] and [place]. This disclosure is being madepursuant to the Care Everywhere program and may not contain all information available regarding this patient. Last updated 17.[facility] Health Encounters Date Type Department Care Team Description 04/04/2024 Refill [facility] Weight Management Services [address] [place] [phone] Shannan Mendieta APRN-FARHANA Refill Request 03/31/2024 Orders Only [facility] Weight Management Services [address] [place] [phone] Kecia Mederos APRN-HYDRAULIC OIL TOOL OPERATOR S/P laparoscopic sleeve gastrectomy; Type 2 diabetes mellitus without complication, unspecified whether senior care insulin use (HCC); with 18 completed weeks gestation (HCC) 03/31/2024 11:00 AM HOT PLATE PLYWOOD PRESS LABORER Video Visit [facility] Health Weight Management Services [address] [place] [address] Kecia Mederos APRN-HYDRAULIC OIL TOOL OPERATOR S/P laparoscopic sleeve gastrectomy ; Type 2 diabetes mellitus without complication, unspecified whether senior care insulin use ([facility]); with 18 completed weeks gestation ([facility]) 03/31/2024 10:45 AM HOT PLATE PLYWOOD PRESS LABORER Video Visit [facility] Health Weight Management Services [address] [place] [address] S/P laparoscopic sleeve gastrectomy 03/20/2024 Orders Only [facility] Weight Management Services [address] [place] [address] Divya Abdul, [facility] Vitamin D deficiency 03/05/2024 Orders Only [facility] Weight Management Services [address] [place] [phone] Shannan Mendieta, COMPUTER AIDED DRAFTER-HYDRAULIC OIL TOOL OPERATOR S/P laparoscopic sleeve gastrectomy; Morbid obesity with body mass index (BMI) of 45.0 to 49.9 in adult ([facility]); Less than 8 weeks gestation of ([facility]); Iron deficiency anemia, unspecified iron deficiency anemia type; Type 2 diabetes mellitus without complication, 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 ([facility]); Vitamin D deficiency from Last 3 Months [...] Active vitamin D, ergocalciferol, (Drisdol) 1.25 MG (73070 UT) capsuleIndications :Vitamin D Deficiency Take 1 [...] 124.7 kg (275 lb) 03/31/2024 10:59 AM H[employer] PLATE [employer] PRESS LABORER per pt Height 158 cm (5' 2.21 ) 03/31/2024 10:59 AM HOT PLATE PLY[employer] PRESS LABORER Body Mass Index 49.97 03/31/2024 10:59 AM HOT PLATE PLY[employer] PRESS LABORER Functional Status Functional Status Response Date of [...] on file Medical Devices Implanted Type Area Engineering Inspection Assistant Device Identifier Shelf Expiration Date Model / Serial / Lot Kit Tissue Clsr Duo Tssl 1 Prefl Syr Implanted:Qty: 1 on 08/12/2020 by Lora Bains MD at [facility] N/A: Stomach [employer] 02/09/2022 [id number] / / [id number] Advance Directives * Full Code (Latest Code Status on File) Date Activated Date Inactivated Comments 08/12/2020 1:02 PM 08/13/2020 3:44 PM Care Teams Automation Control Integrator Relationship Specialty Start Date End Date Tanya Weaver RN PCP - General 03/31/24
== END 2024-05-26 16:24 | disposition home or self-care (01) ==
PROVIDERS: Emergency Provider Physician Assistant; PCP Nurse Practitioner Family
DX: O9A.212 Injury, poisoning and certain other consequences of external causes complicating pregnancy, second trimester (principal); S09.90XA Unspecified injury of head, initial encounter; O24.112 Pre-existing type 2 diabetes mellitus, in pregnancy, second trimester; Z3A.25 25 weeks gestation of pregnancy; O99.842 Bariatric surgery status complicating pregnancy, second trimester; Z79.899 Other long term (current) drug therapy; W22.8XXA Striking against or struck by other objects, initial encounter
CPT/HCPCS: 99283

== ENCOUNTER 2025-02-13 21:20 | Emergency (ER) | payer OTHER, SELFPAY ==
--- OUTSIDE RECORDS SUMMARY | 2025-02-13 21:23 | XMS_ITS | Clinical Summary ---
Author Organization [facility] [address] Address [address] [place] [address] Care Team Providers Care Cloth Shrinking Supervisor Name Role Phone Ai Weaver NP Primary Care Provider Kwaku Benitez MD Unavailable [phone] Thao Dillon MD Unavailable [phone] Allergies Active Allergy Reactions Criticality Noted Date Comments Nsaids (Non-Steroidal Anti-Inflammatory Drug) Other (See comments) Low 07/21/2021 Gastric sleeve. Pt to avoid NSAIDS Medications calcium citrate-vitami n D3 200 mg-6.25 mcg (250 unit) tablet Take by mouth 2 (two) times a day Active omeprazole (PriLOSEC) 20 mg capsule Take 1 capsule (20 mg total) by mouth daily 12/03/19 23 Active PNV with [id number] A 27 mg iron- 1 mg tabletIndicati ons:Vitamin Deficiency Prevention Take 1 tablet by mouth daily 30 tablet 08/15/19 25 Active Additional Information Patient not taking.Reported on 01/31/2025 buPROPion XL (Wellbutrin XL) 150 mg 24 hr tablet Take 1 tablet (150 mg total) by mouth every morning 30 tablet 11 10/26/19 25 026 Active escitalopram (LEXAPRO) 10 mg tablet TAKE 3 TABLETS(30 MG) BY MOUTH DAILY 90 tablet 1 10/15/20 25 Active busPIRone (BUSPAR) 10 mg tablet TAKE 1 TABLET(10 MG) BY MOUTH TWICE DAILY 60 tablet 1 02/14/20 25 Active busPIRone (BUSPAR) 10 mg tabletIndicati ons:Generalize d Anxiety Disorder Take 1 tablet (10 mg total) by mouth 2 (two) times a day 60 tablet 1 10/26/19 25 025 Discontinued escitalopram (LEXAPRO) 10 mg tablet TAKE 3 TABLETS(30 MG) BY MOUTH DAILY 90 tablet 1 12/19/19 25 025 Discontinued dexAMETHasone oral liquid 0.5 mg/5 mLIndications: Recurrent aphthous ulcer Take 10 mL (1 mg total) by mouth 3 (three) times a day for 8 days 240 mL 02/01/20 025 Active Problems Problem Noted Date Diagnosed Date Atypical chest pain 01/31/2025 H/O gastric sleeve 01/31/2025 Gastroesophageal reflux disease without esophagi tis 10/24/2024 Assessment & Plan (10/24/2024 11:46 AM CDT): Encounter for induction of labor 08/10/2024 Overview (08/11/2024): Radha Hernandez is a 29 y.o. female at 37w0d who is dated by L=1 and is being admitted for an induction of labor secondary to FGR/^UAD . Admit to L&D: Labs: CBC and T&S pending. Induction of labor with misoprostol . FWB: Continuous monitoring. tracing category I. ID: 3rd trimester HIV (>28 wga) negative on 06/19. GBS negative on 07/28 . RPR on admission: pending. History of genital HSV or HSV 1/2 seropositivity: No. Membrane Status: intact. Indications for UDS: none. Verbal consent obtained for UDS: Not indicated. MOF: Plans to breastfeed. Urine drug screen not indicated. Patient informed of results: N/A. MOC: Desires POPs vs Nuvaring for contraception . Pain management: Desires epidural. Post DVT prophylaxis: The patient has the following MAJOR risk factors BMI >/= 40 and the following MINOR risk factors none. enoxaparin 40 mg BID will be ordered for VTE prophylaxis . complicated by: #FGR: EFW 17% and AC 7%, elevated UAD. #Obesity: BMI 49 #T2DM: s/p APU admission for DKA. Poorly controlled on Lantus 26u nightly and lispro 10-12u TID. For OB insulin drip intrapartum. Plan to return to diet control with SSI . #PSH: hx of gastric sleeve. #Bipolar Mood stable on escitalopram 20mg and buspirone 10mg BID #UTI: s/p treatment and negative YENNI. 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 Excellent vision and color vision. Heaped appearance of nasal rim, will monitor this closely for changes. Will obtain AF Photos to look for optic disc drusen. Educated to RTC w any vision loss, diplopia, or new neurologic symptoms, otherwise 4-6wk Controlled type 2 diabetes m ellitus without complication, without long-term current use of insulin 05/13/2024 Assessment & Plan (10/24/2024 11:46 AM CDT): Orders: Lipid panel; Future Albumin Creatinine Ratio, Urine; Future Comprehensive metabolic panel; Future CBC with auto differential; Future Thyroid Function [place]; Future Hemoglobin A1c; Future Assessment & Plan (07/26/2024 5:06 PM CDT): No retinopathy on last DFE. Repeat annually. Pt ed. Stressed BG control (HbA1C<7) to reduce the risk for diabetic ocular complications. Lab Results Component Value Date HGBA1C 5.1 07/14/2024 Annual physical exam 04/25/2024 Assessment & Plan (04/25/2024 3:58 PM VP PRODUCT MANAGEMENT): Up-to-date at this time. Medications and labs currently being monitored by Ob/Maternal- Medicine. I will see her back post for continued management of her diabetes and health management Maternal varicella, non-immune 03/01/2024 Overview (03/31/2024): Plan [] Varivax Assessment & Plan (04/19/2024 2:18 PM VP PRODUCT MANAGEMENT): Plan [] Varivax Assessment & Plan (04/03/2024 1:14 PM VP PRODUCT MANAGEMENT): Plan [] Varivax History of gastric sleeve 02/22/2024 Overview (08/04/2024): History Prior procedure: gastric sleeve surgery 08/12/20 Type of procedure (Restrictive vs. Malabsorptive): Restrictive Peak weight: 305 lb Thomas weight: 215 lb Counseling 03/06/24 Plan [x] Screen for micronutrient deficiencies (CBC w/ MCV, ferritin, iron, B12, B1, folate, calcium and Vit D levels) qtrimester and supplement accordingly [x] 1st T: WNL 02/22/2024 [x] 2nd T: WNL 04/19/24, Vit B1 not performed [x] 3rd T: WNL 07/07/24 [x] First trimester A1C 6.0 02/21 [x] Serial ultrasounds for growth, ongoing Assessment & Plan (08/04/2024 1:05 PM CDT): Prior gastric sleeve 2020. No abdominal pain or other concerns with food intake. Plan [x] Screen for micronutrient deficiencies (CBC w/ MCV, ferritin, iron, B12, B1, folate, calcium and Vit D levels) qtrimester and supplement accordingly [x] 1st T: WNL 02/22/2024 [x] 2nd T: WNL 04/19/24, Vit B1 not performed [x] 3rd T: WNL 07/07/24 [x] First trimester A1C 6.0 02/21 [x] Serial ultrasounds for growth as planned for FGR Assessment & Plan (07/07/2024 2:47 PM CDT): Plan [x] Screen for micronutrient deficiencies (CBC w/ MCV, ferritin, iron, B12, B1, folate, calcium and Vit D levels) qtrimester and supplement accordingly [x] 1st T: WNL 02/22/2024 [x] 2nd T: WNL 04/19/24, Vit B1 not performed [x] 3rd T: ordered 07/07/24 [x] First trimester A1C 6.0 02/21 [] Serial ultrasounds for growth, ongoing Assessment & Plan (06/06/2024 10:30 AM VP PRODUCT MANAGEMENT): Plan [x] Screen for micronutrient deficiencies (CBC w/ MCV, ferritin, iron, B12, B1, folate, calcium and Vit D levels) qtrimester and supplement accordingly [x] 1st T: WNL 02/22/2024 [x] 2nd T: WNL 04/19/24, Vit B1 not performed [] 3rd T: [x] First trimester A1C 6.0 02/21 [] Serial ultrasounds for growth Assessment & Plan (04/19/2024 2:17 PM VP PRODUCT MANAGEMENT): History Prior procedure: gastric sleeve surgery 08/12/20 [...] growth Assessment & Plan (04/03/2024 1:14 PM VP PRODUCT MANAGEMENT): Micronutrient testing normal in the first trimester. Plan [x] Screen for micronutrient deficiencies (CBC w/ MCV, ferritin, iron, B12, B1, folate, calcium and Vit D levels) qtrimester and supplement accordingly [x] 1st T: WNL 02/22/2024 [] 2nd T: Order at next visit [] 3rd T: [x] First trimester A1C 6.0 02/21 [] Serial ultrasounds for growth Assessment & Plan (03/10/2024 10:41 AM VP PRODUCT MANAGEMENT): History: gastric sleeve surgery 08/12/20 Type of [...] growth Assessment & Plan (02/22/2024 12:37 PM VP PRODUCT MANAGEMENT): Sleeve gastrectomy- August 2020. She last did vitamin testing a few months ago. Will repeat today Bipolar affective disorder 11/21/2021 Overview (11/21/2021): Dx per last pcp records Assessment & Plan (10/24/2024 11:46 AM CDT): Chronic, stable. Managed by psychiatry. Addressed at post OV by MFM. Continues on lexapro and buspar. Assessment & Plan (10/19/2023 12:49 PM CDT): Chronic. Mood overall has been doing relatively well. She is working with Psychiatry. They are working on decreasing her medications some since she has been doing well. Monitor. Brief supportive counseling was provided Assessment & Plan (03/29/2023 9:36 AM VP PRODUCT MANAGEMENT): Chronic. Follows with psychiatry. Mood is relatively stable Binge eating disorder 11/13/2021 Assessment & Plan (10/19/2023 12:47 PM CDT): Chronic. Relatively stable. Monitor. Encouraged healthy diet and lifestyle Assessment & Plan (03/29/2023 9:35 AM VP PRODUCT MANAGEMENT): Chronic. Stable. Follows with Psychiatry and weight loss physician. Monitor Pure hypercholesterolemia 11/13/2021 Assessment & Plan (10/19/2023 12:48 PM CDT): Chronic. Could use improvement. We will check an updated cholesterol level. Pending results we may need to consider starting her on a cholesterol medication for primary prevention Assessment & Plan (03/29/2023 9:36 AM VP PRODUCT MANAGEMENT): Chronic. Suboptimally controlled. Given age less than 40 patient has been trying to control with diet, exercise and weight loss. Ultimately LDL goal will need to be less than 70. If continues to struggle to achieve control may need to consider starting a cholesterol medication in the next few years Resolved Problems Problem Noted Date Diagnosed Date Resolved Date care following vaginal delivery 08/12/2024 10/24/2024 Overview (08/14/2024): # ID: Afebrile. No signs/symptoms of infection. #Varicella equiv: for varivax pp #UTI: During . S/p treatment and negative YENNI. # Heme: EBL 250 mL. Hemodynamically stable. # CV/Pulm: Vital signs stable, within normal limits. Not a candidate for remote blood pressure monitoring. # GI/: Tolerating PO. Voiding spontaneously. #T2DM: Diet controlled prior to , required insulin during . Ordered for SSI , BGs well controlled this admission. Will CTM BGs this am. #BPD: stable on escitalopram 20mg and buspirone 10mg BID # Pain: Controlled with above regimen. # MOF: Plans to breastfeed. Urine drug screen not indicated. Patient informed of results: N/A. # MOC: Desires POPs vs Nuvaring for contraception, POPs ordered for discharge. # Post DVT prophylaxis: The patient has the following MAJOR risk factors BMI >/= 40 and the following MINOR risk factors none. enoxaparin 40 mg BID will be ordered for VTE prophylaxis . # Disposition: Follow up task sent to [facility] for visit at 2 and 6 weeks. Patient desires discharge home today. Service Coverage These phones are service phones and carried 02/11 in house: R1 (first call) [phone] R1 alt (second call) [phone] R4 (Chief) [phone] Diabetic ketoacidosis associ ated with type 2 diabetes mellitus 07/18/2024 10/24/2024 growth restriction antepartum 06/20/2024 10/20/2024 Overview (07/28/2024): 06/19/24: EFW 10th%, AC 9th%, PI 91st%, BPP 6/8 > 8/10 NST S/p counseling 06/19/24 07/07/24: EFW 11%, AC 7%, PI 82%, BPP 11/17 Plan: [x] Amniocentesis for LEAD PRODUCER (and CMV if gestational age <32 weeks at diagnosis) offered - declined 06/19/24 [] Twice weekly testing with UA dopplers/BPP alternating with NST (usually or schedule), ongoing [x] Growth EFW every 3 weeks with MFM comanaged visit, complete [x] Delivery per DM problem Assessment & Plan (08/08/2024 2:18 PM CDT): Plan: [x] Amniocentesis for LEAD PRODUCER (and CMV if gestational age <32 weeks at diagnosis) offered - declined 06/19/24 [] Twice weekly testing with UA dopplers/BPP alternating with NST (usually or schedule), ongoing [x] Growth EFW every 3 weeks with MFM comanaged visit, complete [x] Delivery per DM problem Assessment & Plan (07/28/2024 12:00 PM CDT): Plan: [x] Amniocentesis for LEAD PRODUCER (and CMV if gestational age <32 weeks at diagnosis) offered - declined 06/19/24 [] Twice weekly testing with UA dopplers/BPP alternating with NST (usually or schedule), ongoing [x] Growth EFW every 3 weeks with MFM comanaged visit, complete [x] Delivery per DM problem Assessment & Plan (07/07/2024 3:20 PM CDT): 07/07/24: EFW 11%, AC 7%, PI 82%, BPP 11/17 Plan: [x] Amniocentesis for LEAD PRODUCER (and CMV if gestational age <32 weeks at diagnosis) offered - declined 06/19/24 [] Twice weekly testing with UA dopplers/BPP alternating with NST (usually or schedule), ongoing [] Growth EFW every 3 weeks with MFM comanaged visit, ongoing [] Plan for delivery at 39 weeks unless EFW or testing dictates sooner Assessment & Plan (06/20/2024 9:46 PM CDT): 06/19/24: EFW 10th%, AC 9th%, PI 91st%, BPP 09/17 > 11/19 NST Counseling 06/19/2024: The diagnosis of growth restriction (FGR) is made when the estimated weight that is less than the 10th percentile. The implications of using this definition may include normal babies that are destined to grow below the 10th percentile and may exclude babies that are normally growth but have also not met their growth potential. The etiology for FGR varies but are generally classified by maternal, and placental disorders. These causes include dating errors, constitutional, maternal medical conditions, genetic conditions or aneuploidy, infections, or placental insufficiency. Workup for diagnosis of cause of FGR includes an amniocentesis for chromosomal microarray and cytomegalovirus testing depending on gestational age at diagnosis. There are no known effective strategies to prevent growth restriction. Studies have tried special diets which were not effective. Aspirin has also been studied but currently has only shown benefit in patients who were also affected with preeclampsia. and obstetric risks associated with FGR include stillbirth (normal stillbirth rate is 0., <10th% 2., <5th% 4., <3rd% 5.11/999), delivery, need for NICU admission and depending on etiology, associate trainer metabolic, cardiovascular, or neurologic abnormalities. Regardless of the etiology management includes serial monitoring of growth. We recommend obtaining an ultrasound to assess growth every 3 weeks. surveillance with weekly umbilical artery doppler with admission if there is absent or reverse diastolic flow. Absent or reverse diastolic flow is associated with an increased risk of mortality. Nonstress test or biophysical profile is typically performed when delivery would be considered - depending on gestational age at diagnosis, shared decision making with the patient is used to determine when testing will be initiated. Timing of delivery is dependent on gestational age, doppler studies and testing and will be decided as the progresses. In general, if there has been reassuring testing and interval growth above the 3rd percentile we advocate for delivery at 39 weeks. Maternal risk factors, growth below the 3rd percentile, abnormal dopplers, oligohydramnios will decrease the gestational age recommended for delivery between 30-37 weeks. Plan: [x] Amniocentesis for LEAD PRODUCER (and CMV if gestational age <32 weeks at diagnosis) offered - declined 06/19/24 [] Twice weekly testing with UA dopplers/BPP alternating with NST (usually Wednesday/ or Wednesday/Wednesday schedule) [] Growth EFW every 3 weeks with MFM comanaged visit [] Plan for delivery at 39 weeks unless EFW or testing dictates sooner BMI 49 03/10/2024 10/24/2024 Overview (07/27/2024): History Pre- BMI: ~50 S/p MFM counseling Plan [x] Initiate aspirin 81 mg at 12 weeks for preeclampsia risk reduction [x] Early overt diabetes screening with Hgb A1C - known T2DM [x] Specialized anatomic survey at 20 weeks - complete 04/19/2024 [x] testing per T2DM plan Assessment & Plan (07/07/2024 3:18 PM CDT): Plan [x] Initiate aspirin 81 mg at 12 weeks for preeclampsia risk reduction [x] Early overt diabetes screening with Hgb A1C - known T2DM [x] Specialized anatomic survey at 20 weeks - complete 04/19/2024 [] 3rd trimester anesthesia consultation if BMI >/=50 [x] testing per T2DM plan Assessment & Plan (06/06/2024 10:30 AM VP PRODUCT MANAGEMENT): Plan [x] Initiate aspirin 81 mg at 12 weeks for preeclampsia risk reduction [x] Early overt diabetes screening with Hgb A1C - known T2DM [x] Specialized anatomic survey at 20 weeks - complete 04/19/2024 [] 3rd trimester anesthesia consultation if BMI >/=50 [x] testing per T2DM plan Assessment & Plan (04/19/2024 2:30 PM VP PRODUCT MANAGEMENT): Pre- BMI: ~50 S/p MFM counseling Plan [x] Initiate aspirin 81 mg at 12 weeks for preeclampsia risk reduction [x] Early overt diabetes screening with Hgb A1C - known T2DM [x] Specialized anatomic survey at 20 weeks - complete 04/19/2024 [] 3rd trimester anesthesia consultation if BMI >/=50 [x] testing per T2DM plan Assessment & Plan (04/03/2024 1:14 PM VP PRODUCT MANAGEMENT): Pre- BMI ~50. Current BMI 49. Plan [x] Initiate aspirin 81 mg at 12 weeks for preeclampsia risk reduction [x] Early overt diabetes screening with Hgb A1C - known T2DM [] Specialized anatomic survey at 20 weeks - incomplete 04/03/2024 [] 3rd trimester anesthesia consultation if BMI >/=50 [x] testing per T2DM plan Assessment & Plan (03/10/2024 10:48 AM VP PRODUCT MANAGEMENT): Pre- BMI: ~50 Counseling 03/10/2024: Obesity in [...] >/=50 [] Weekly testing per T2DM plan Urinary tract infection in 03/01/2024 04/25/2024 Overview (04/19/2024): History 03/01/24 - klebsiella positive UCx. S/p treatment with macrobid. 04/19/2024: asymptomatic. Plan [x] UCx YENNI - 04/03/2024, insignificant growth [] Repeat UCx if symptomatic Assessment & Plan (04/19/2024 2:30 PM VP PRODUCT MANAGEMENT): 03/01/24 - klebsiella positive UCx. S/p treatment with macrobid. 04/19/2024: asymptomatic. Plan [x] UCx YENNI - 04/03/2024, insignificant growth [] Repeat UCx if symptomatic Assessment & Plan (04/03/2024 1:13 PM VP PRODUCT MANAGEMENT): 03/01/24 - klebsiella positive UCx. S/p treatment with macrobid. Plan [] UCx YENNI - ordered 04/03/2024 Supervision of high-risk pre gnancy, third trimester 02/28/2024 10/20/2024 Overview (08/08/2024): [x] Full M Care; [x] Blue Team Referring Provider: Misti Osborn [phone] [] [employer] or Medicare Insurance [x] Dating Criteria: LMP 11/25/23 with LUIS ALFREDO 08/31/24 [x] Labs: Rh [AB+], Ab [negative], Rubella [immune], HIV [non- reactive], HepBSAg [non-reactive], HepBSAb [nonimmune], HepBCAb [nonimmune], RPR [non- reactive], Hep C [non-reactive], Varicella [equivocal], GC/CT [negative/negative] [x] Aneuploidy Screening: reports LR NIPT with primary OB (Not uploaded in [employer] due to gender reveal per report) [] [...] (if Rh neg): AB+, N/A 3rd Trimester [x] CBC/HIV/RPR/T&S: Hct 33, RPR/HIV neg, T&S neg [x] GBS: collected 07/28- negative [] GC/CT (if indicated): [x] testing: Twice weekly ongoing (FGR, T2DM) Counseling [x] MOD: 37 week IOL scheduled for 08/10/2024 at 2000- pt letter sent [x] Place of delivery: [facility] [x] Epidural: yes 06/19/24 [x] Accepts Blood Products: yes, 06/19/24 [x] Stop ASA: discussed 08/04 [x] MOC: POPs to Nuvaring 06/19/24 [x] Method of feeding: breast 06/19/24 [x] Fastener Technologist (specifically which provider): has selected [x] PP Depression Discussed: 07/07/24 [] PP visits scheduled: Vaccines [x] Flu Shot (Dec-Mar): received 02/22/24 [] COVID vaccine: [x] Tdap (27-36wks): Given on 06/06/24 SR [x] RSV vaccine (32-36wks): nonseasonal Assessment & Plan (08/08/2024 2:18 PM CDT): [x] Full M Care; [x] Blue Team Referring Provider: Misti Osborn [phone] [] or Medicare Insurance [x] Dating Criteria: LMP 11/25/23 with LUIS ALFREDO 08/31/24 [x] Labs: Rh [AB+], Ab [negative], Rubella [immune], HIV [non- reactive], HepBSAg [non-reactive], HepBSAb [nonimmune], HepBCAb [nonimmune], RPR [non- reactive], Hep C [non-reactive], Varicella [equivocal], GC/CT [negative/negative] [x] Aneuploidy Screening: reports LR NIPT with primary OB (Not uploaded in [employer] due to gender reveal per report) [] [...] (if Rh neg): AB+, N/A 3rd Trimester [x] CBC/HIV/RPR/T&S: Hct 33, RPR/HIV neg, T&S neg [x] GBS: collected 07/28- negative [] GC/CT (if indicated): [x] testing: Twice weekly ongoing (FGR, T2DM) Counseling [x] MOD: 37 week IOL scheduled for 08/10/2024 at 2000- pt letter sent [x] Place of delivery: [facility] [x] Epidural: yes 06/19/24 [x] Accepts Blood Products: yes, 06/19/24 [x] Stop ASA: discussed 08/04 [x] MOC: POPs to Nuvaring 06/19/24 [x] Method of feeding: breast 06/19/24 [x] Fastener Technologist (specifically which provider): has selected [x] PP Depression Discussed: 07/07/24 [] PP visits scheduled: Vaccines [x] Flu Shot (Sep-Dec): received 02/22/24 [] COVID vaccine: [x] Tdap (27-36wks): Given on 06/06/24 SR [x] RSV vaccine (32-36wks): nonseasonal Assessment & Plan (07/28/2024 12:04 PM CDT): We discussed the risks and benefits of 37 week induction in setting of recent DKA admission versus 39 weeks. We specifically reviewed increased risk of time spent in NICU and need for respiratory support at 37 weeks, as well as potential higher risk for failed induction of labor. Ms. Hernandez desires to proceed with 37 week delivery. This was scheduled today and GBS collected. Assessment & Plan (07/07/2024 3:18 PM CDT): Need to discuss hep B nonimmunity next visit - recommend hep B booster 3rd Trimester [x] CBC/HIV/RPR/T&S: Hct 33, RPR/HIV neg, T&S neg [] GBS: [] GC/CT (if indicated): [x] testing: Twice weekly ongoing (FGR, T2DM) Counseling [] MOD: TBD, by 39w (T2DM) [x] Place of delivery: [facility] [x] Epidural: yes 06/19/24 [x] Accepts Blood Products: yes, 06/19/24 [] Stop ASA: [x] MOC: POPs to Nuvaring 06/19/24 [x] Method of feeding: breast 06/19/24 [] Fastener Technologist (specifically which provider): considering 06/19/24 [x] PP Depression Discussed: 07/07/24 [] PP visits scheduled: Vaccines [x] Flu Shot (Sep-Mar): received 02/22/24 [] COVID vaccine: [x] Tdap (27-36wks): Given on 06/06/24 SR [x] RSV vaccine (32-36wks): nonseasonal Assessment & Plan (06/20/2024 9:47 PM CDT): 3rd Trimester [] CBC/HIV/RPR/T&S: ordered 06/19/24 [] GBS: [] GC/CT (if indicated): [x] testing: Twice weekly ongoing (FGR, T2DM) Counseling [] MOD: TBD, by 39w (T2DM) [x] Place of delivery: [facility] [x] Epidural: yes 06/19/24 [x] Accepts Blood Products: yes, 06/19/24 [] Stop ASA: [x] MOC: POPs to Nuvaring 06/19/24 [x] Method of feeding: breast 06/19/24 [] Fastener Technologist (specifically which provider): considering 06/19/24 [] PP Depression Discussed: [] PP visits scheduled: Vaccines [x] Flu Shot (Sep-Mar): received 02/22/24 [] COVID vaccine: [x] Tdap (27-36wks): Given on 06/06/24 SR [x] RSV vaccine (32-36wks): nonseasonal Assessment & Plan (04/19/2024 2:24 PM VP PRODUCT MANAGEMENT): Full MFM care. Reviewed supportive care for mucous - humidifier, nasal saline, mucinex, claritin, etc. Reviewed abd exam normal and expectations for uterine growth. Assessment & Plan (04/03/2024 1:28 PM VP PRODUCT MANAGEMENT): [x] Full MFM Care; [] Red Team [x] Blue Team - full YENNI at 14 weeks Referring Provider: Misti Osborn [phone] [] or Medicare Insurance [x] Dating Criteria: LMP 11/25/23 with LUIS ALFREDO 08/31/24 [x] Labs: Rh [AB+], Ab [negative], Rubella [immune], HIV [non- reactive], HepBSAg [non-reactive], HepBSAb [not done - do with 2T labs], HepBCAb [not done - do with 2T labs], RPR [non-reactive], Hep C [non-reactive], Varicella [equivocal], GC/CT [negative/negative] [x] Aneuploidy Screening: reports LR NIPT with primary OB (Not uploaded in [employer] due to gender reveal per report) [] [...] N/A Assessment & Plan (03/10/2024 10:44 AM VP PRODUCT MANAGEMENT): [x] Full MFM Care; [] Red Team [x] Blue Team - full YENNI at 14 weeks Referring Provider: Misti Osborn [phone] [] or Medicare Insurance [x] Dating Criteria: LMP 11/25/23 with LUIS ALFREDO 08/31/24 [x] Labs: Rh [AB+], Ab [negative], Rubella [immune], HIV [non- reactive], HepBSAg [non-reactive], HepBSAb [not done], HepBCAb [not done], RPR [non- reactive], Hep C [non-reactive], Varicella [equivocal], GC/CT [negative/negative] [x] Aneuploidy Screening: reports LR NIPT with primary OB (Not uploaded in [employer] due to gender reveal per report) [] [...] 39w (T2DM) [x] Place of delivery: [facility] [] Epidural: [] Accepts Blood Products: [] Stop ASA: [] MOC: [] Method of feeding: [] Fastener Technologist (specifically which provider): [] PP Depression Discussed: [] PP visits scheduled: Vaccines [x] Flu Shot (Dec-Mar): received 02/22/24 [] COVID vaccine: [] Tdap (27-36wks): [] RSV vaccine (32-36wks): [x] PP HPV vaccine counseling (<=26 yo): N/A Encounter for supervision of normal first in first trimester 02/22/2024 03/10/2024 BMI 50.0-59.9, adult 02/22/2024 024 Assessment & Plan (02/22/2024 12:37 PM VP [employer]ODUCT MANAGEMENT): To MFM She will need extra usg and nst in the third trimester Will need anatomy scan with [facility] Bipolar affective disorder & anxiety during 02/22/2024 10/20/2024 Overview (07/07/2024): History & Counseling S/p MFM counseling 03/06/24 04/19/2024: Worsening mood symptoms today. EPDS 19, answered hardly ever for Q#10. Reports passive SI, but not active and no plan. Endorses safety at home. Current regimen: Lexapro 15 mg, buspirone 10 mg BID > recently increased Lexapro to 20 mg per psychiatry Plan [x] Continue above medication regimen [x] Baseline EPDS - 10 (04/03/2024) [x] Referral for psychiatry and psychology resources - placed 04/19/2024 [] Monitor mood every visit Assessment & Plan (07/28/2024 12:00 PM CDT): Current regimen: Lexapro 20 mg, buspirone 10 mg BID Plan [x] Continue above medication regimen [x] Baseline EPDS - 10 (04/03/2024) [x] Referral for psychiatry and psychology resources - placed 04/19/2024 [] Monitor mood every visit Assessment & Plan (07/07/2024 3:22 PM CDT): Has been struggling with depression, followed by psychiatry. Increased Lexapro dose. Current regimen: Lexapro 15 mg, buspirone 10 mg BID > recently increased Lexapro to 20 mg per psychiatry Plan [x] Continue above medication regimen [x] Baseline EPDS - 10 (04/03/2024) [x] Referral for psychiatry and psychology resources - placed 04/19/2024 [] Monitor mood every visit Assessment & Plan (06/20/2024 9:45 PM CDT): Current regimen: Lexapro 15 mg, buspirone 10 mg BID Plan [x] Continue above medication regimen [x] Baseline EPDS - 10 (04/03/2024) [x] Referral for psychiatry and psychology resources - placed 04/19/2024 [] Monitor mood every visit Assessment & Plan (06/06/2024 2:43 PM VP [employer]NAGEMENT): No acute concerns today Current regimen: Lexapro 15 mg, buspirone 10 mg BID Plan [x] Continue above medication regimen [x] Baseline EPDS - 10 (04/03/2024) [x] Referral for psychiatry and psychology resources - placed 04/19/2024 [] Monitor mood every visit Assessment & Plan (05/19/2024 12:48 PM VP [employer]ODUCT MANAGEMENT): Emotional support provided. Pt denies active SI/HI. Strict hospital precautions reviewed. Discussed importance of close f/u with psych and therapy. Pt aware doses can be increased if needed. Assessment & Plan (04/19/2024 2:34 PM VP [employer]NAGEMENT): Worsening mood symptoms today. EPDS 19, answered [...] visit Assessment & Plan (04/03/2024 1:26 PM VP [employer]NAGEMENT): Reports mood today is up and down. [...] visit Assessment & Plan (03/10/2024 10:43 AM VP [employer]ODUCT MANAGEMENT): Current regimen: lexapro 5 mg, buspirone 5 [...] visit Assessment & Plan (02/22/2024 10:11 AM VP [employer]NAGEMENT): She follows in [place], [place]. Elena Valdez We discussed that this [...] They were trying to ween before . Dyspareunia in female 08/21/20222024 Assessment & Plan (08/21/2022 2:10 PM CDT): Recommend pelvic ultrasound. Discussed referral to pelvic floor physical therapy for evaluation. She is interested in meeting with them. We will await pelvic ultrasound and then place referral. Coitus painful for female 03/30/2022 Assessment & Plan (03/30/2022 2:53 PM VP [employer]ODUCT MANAGEMENT): Discussed lifestyle and hygiene recommendations. She is to try using coconut oil for lubrication as it is more natural than over the counter lube. Her bimanual exam was unremarkable today. We will await vaginitis and STD swab. If all normal we will order a pelvic ultrasound. Pre-existing type 2 diabetes mellitus during in third trimester 11/13/2021 10/20/2024 Overview (08/04/2024): History & Counseling Diagnosed prior to gastric sleeve, has been diet controlled since 2020 History of DKA? no Last hemoglobin A1C: 6.0% on 02/21 Pre- regimen: diet control Counseling completed 03/06/24 Pt is now wearing a dexcom- clinic login - Current regimen: 08/04/2024 Lantus 26u qHS Lispro 10 units or 12 with higher carb meals Plan Physician adjusting insulin dosage: MFM [x] Counseling performed 03/06/24 [x] Diabetes education order placed 03/06/24, scheduled for 03/17/24 [x] CGM [x] Recommend weekly review of BG/insulin data to adjust insulin dosing - ongoing [x] Glucagon prescribed 03/06/24, nasal glucagon prescribed 04/03/2024 [x] Referral to ophthalmology for comprehensive eye exam - saw optometry 05/23/24 > fu in 4-6 weeks for additional eval [x] Baseline CMP, UPC - 02/21 [] A1c qTrimester [x] 1st T: 6.0% on 02/22/24 [x] 2nd T: 5.4% (04/19/24) [x] 3rd T: 5.1% on 07/07 [x] First trimester TSH - 2.43 (01/12/2024) [x] ASA starting at 12 weeks gestation - taking [x] Baseline EKG, consider maternal TTE - EKG NSR (04/03/2024) [x] Specialized anatomy ultrasound at 18-20 weeks - complete 04/19/2024 [x] echocardiogram at 20-22 weeks - normal on 05/16/24 [x] Serial growth scans starting at 24 weeks- ongoing [x] Twice weekly testing - per FGR plan [x] insulin plan by 32 weeks > return to dietary control with SSI [x] Delivery -- moved to 37 wks d/t admission for DKA, scheduled 08/10 Assessment & Plan (08/04/2024 1:03 PM CDT): Images from the original note were not included. - Current regimen: 08/04/2024 Lantus 26u qHS Lispro 10 units or 12 with higher carb meals Plan Physician adjusting insulin dosage: MFM [x] Counseling performed 03/06/24 [x] Diabetes education order placed 03/06/24, scheduled for 03/17/24 [x] CGM [x] Recommend weekly review of BG/insulin data to adjust insulin dosing - ongoing [x] Glucagon prescribed 03/06/24, nasal glucagon prescribed 04/03/2024 [x] Referral to ophthalmology for comprehensive eye exam - saw optometry 05/23/24 > fu in 4-6 weeks for additional eval [x] Baseline CMP, UPC - 02/21 [] A1c qTrimester [x] 1st T: 6.0% on 02/22/24 [x] 2nd T: 5.4% (04/19/24) [x] 3rd T: 5.1% on 07/07 [x] First trimester TSH - 2.43 (01/12/2024) [x] ASA starting at 12 weeks gestation - taking [x] Baseline EKG, consider maternal TTE - EKG NSR (04/03/2024) [x] Specialized anatomy ultrasound at 18-20 weeks - complete 04/19/2024 [x] echocardiogram at 20-22 weeks - normal on 05/16/24 [x] Serial growth scans starting at 24 weeks- ongoing [x] Twice weekly testing - per FGR plan [x] insulin plan by 32 weeks > return to dietary control with SSI [x] Delivery -- moved to 37 wks d/t admission for DKA, scheduled 08/10 Assessment & Plan (07/28/2024 11:59 AM CDT): Current regimen: 07/28/2024 Lantus 26u qHS Lispro 10 units or 12 with higher carb meals Plan Physician adjusting insulin dosage: MFM [x] Serial growth scans starting at 24 weeks- complete [] Twice weekly testing - per FGR plan [x] insulin plan by 32 weeks > return to dietary control with SSI [x] Delivery -- moved to 37 wks d/t admission for DKA, scheduled 08/10 Assessment & Plan (07/07/2024 2:44 PM CDT): Images from the original note were not included. Excellent glycemic control, occasional hypoglycemia corrects easily. Needs more pen needles. - Current regimen: 06/27/2024 - no changes Lantus 26u qHS Lispro 8u TID, may use 10u if a large/heavy carb meal Reviewed timing 10-15 minutes before a meal Plan Physician adjusting insulin dosage: MFM [x] Counseling performed 03/06/24 [x] Diabetes education order placed 03/06/24, scheduled for 03/17/24 [x] CGM [x] Recommend weekly review of BG/insulin data to adjust insulin dosing - ongoing [x] Glucagon prescribed 03/06/24, nasal glucagon prescribed 04/03/2024 [x] Referral to ophthalmology for comprehensive eye exam - saw optometry 05/23/24 > fu in 4-6 weeks for additional eval [x] Baseline CMP, UPC - 02/21 [] A1c qTrimester [x] 1st T: 6.0% on 02/22/24 [x] 2nd T: 5.4% (04/19/24) [x] 3rd T: ordered 07/07 [x] First trimester TSH - 2.43 (01/12/2024) [x] ASA starting at 12 weeks gestation - taking [x] Baseline EKG, consider maternal TTE - EKG NSR (04/03/2024) [x] Specialized anatomy ultrasound at 18-20 weeks - complete 04/19/2024 [x] echocardiogram at 20-22 weeks - normal on 05/16/24 [x] Serial growth scans starting at 24 weeks- ongoing [] Twice weekly testing - per FGR plan [x] insulin plan by 32 weeks > return to dietary control with SSI [] Delivery at [id number] ([id number] with vascular complications or poorly controlled) Assessment & Plan (06/20/2024 9:44 PM CDT): Current regimen: 06/19/2024 - no changes today Lantus 26u qHS Lispro 8u TID, may use 10u if a large/heavy carb meal reviewed timing 10-15 minutes before a meal Plan Physician adjusting insulin dosage: MFM [x] Counseling performed 03/06/24 [x] Diabetes education order placed 03/06/24, scheduled for 03/17/24 [x] CGM [x] Recommend weekly review of BG/insulin data to [...] at 20-22 weeks - normal on 05/16/24 [x] Serial growth scans starting at 24 weeks- ongoing [] Twice weekly testing - per FGR plan [] insulin plan by 32 weeks [] Delivery at [id number] ([id number] with vascular complications or poorly controlled) Assessment & Plan (06/06/2024 2:44 PM VP [employer]NAGEMENT): CGM data reviewed. Increase Lantus and meals due to elevated fasting values and postprandials - Current regimen: 06/06/2024 Lantus 22u qHS > Lantus 26u qHS Lispro 6u TID with meals > 8u TID, may use 10u if a large/heavy carb meal reviewed timing 10-15 minutes before a meal [...] plan by 32 weeks [] Delivery at [id number] ([id number] with vascular complications or poorly controlled) Assessment & Plan (05/23/2024 1:17 PM VP [employer]ODUCT MANAGEMENT): No diabetic ophthalmic changes noted right eye (OD) or left eye (OS). Educated on findings. Stressed importance of close blood sugar control/monitoring. Educated fluctuation in blood sugar can cause fluctuations in vision. There is mild tortuosity of retinal blood vessels, but pt reports well controlled blood pressure. Monitor. Assessment & Plan (05/05/2024 12:43 PM VP [employer] MANAGEMENT): Pt reports lows <70 that she treats overnight. Will decrease her basal to 26 units and continue weekly adjustments. Pt knows to call with continued hypoglycemia. Pt has glucagon. Reviewed risks of hypoglycemia including coma/. Discussed timing her mealtime insulin to be 10-15 minutes before a meal. Assessment & Plan (04/25/2024 3:56 PM VP [employer]ODUCT MANAGEMENT): A1c well-controlled. She tells me blood sugars are more controlled at this time with insulin. Prior to she was controlling diabetes with diet only. I will see her back in 6 months post for return management of her diabetes Assessment & Plan (04/19/2024 2:29 PM VP [employer]ODUCT MANAGEMENT): No more episodes of hypoglycemia. Fasting at [...] controlled) Assessment & Plan (04/03/2024 1:29 PM VP [employer] MANAGEMENT): Reviewed blood sugars today which are largely [...] controlled) Assessment & Plan (03/10/2024 10:47 AM VP [employer]ODUCT MANAGEMENT): History Diagnosed prior to gastric sleeve, has [...] ophthalmology for comprehensive eye exam [x] Baseline [facility] - 02/21 [] A1c qTrimester [x] 1st [...] controlled) Assessment & Plan (02/22/2024 12:39 PM VP PRODUCT MANAGEMENT): Diet controlled Will get her set up with a glucometer and ketostix To [facility] a transfer of care. To HgA1c To 24 hour urine To [facility]. I asked her to send her sugars to me on Wednesday until she can get into [facility] Assessment & Plan (10/19/2023 12:48 PM CDT): Chronic. Controlled but slightly worse than last visit. Patient has been off the TrbeSUCCESS for awhile due to issues with insurance coverage. We are going to go ahead and refill it as I would like her to stay on it usp for the diabetic health benefits. If not covered then we can always look into Ozempic as an alternative encouraged diabetic diet, exercise, weight loss. She reports eye exam is up-to-date we will try to get the report. She has due for the rest of her diabetic labs Assessment & Plan (03/29/2023 9:36 AM VP [employer]ODUCT MANAGEMENT): Chronic. Well controlled. Continue Trulicity. Continue to work on diet, exercise, weight loss Class 3 severe obesity due t o [...] diabetes Assessment & Plan (03/29/2023 9:37 AM VP PRODUCT MANAGEMENT): Chronic. Suboptimally controlled. Counseled on healthy diet, exercise, weight loss. Follows with the [facility] weight loss clinic. History of prior gastric surgery for weight loss. Continue Trulicity at current dose Encounters Date Type Department Care Team Description 01/31/2025 3:45 PM CDT Office Visit [facility] Primary Care at [address] [phone] Morgan Huang MD Recurrent aphthous ulcer (Primary Dx); Encounter for administration of vaccine 01/04/2025 2:30 PM CDT Office Visit [facility] Medicine Psychiatry [address] [place] [phone] Karena Caicedo MD PhD Moderate episode of recurrent major depressive disorder (HCC) (Primary Dx); Anxiety from Last 3 Months Immunizations Immunization Administration Dates Next Due DTP / HiB [...] 01/26/2023,04/13/2022 Influenza, Trivalent, Preser vative Free, Intramuscular 01/31/2025,02/22/2024,01/06/2021 MMR 10/12/2001,05/11/1997 Meningococcal Conjugate (Menveo) 02/04/2011 Moderna SARS-CoV-2 Monovalen t Vaccination (12+ YRS) 04/13/2020 OPV 1996,1996,1996 Tdap 06/06/2024,11/25/2010 Tetanus Toxoid, Unspecified 10/30/2022 Varicella 08/14/2024,02/04/2011,10/12/2001 Surgical History Surgery Date Site/Laterality Comments SLEEVE GASTROPLASTY 08/12/2020 COLONOSCOPY 04/12/2014 - 04/11/2015 hemorrhoids BARIATRIC SURGERY 08-12-20 Medical History Medical History Date Comments Type 2 diabetes mellitus, without long-term curr ent use of insulin High cholesterol Hemorrhoids Bipolar affective disorder (HCC) Anxiety Binge eating Obesity Family History Medical History Relation Name Comments Asthma Father Sam Blunt Depression Father Sam Blunt Obesity Father Sam Blunt Pleurisy Father Sam Blunt Arthritis Father's Sister Namrata Shipman Diabetes Maternal Grandfather Edward Deshpande Infertile Maternal Half-Sister Arthritis Mother Thelma Alarcon other Mother Thelma Alarcon heart issues Arthritis Mother's Sister Inez Deshpande Diabetes Mother's Sister Inez Deshpande Breast cancer Neg Hx Colon cancer Neg Hx no change cmt 1 04/23/23 Ovarian cancer Neg Hx Relation Name Status Comments Father Sam Blunt Father's Sister Namrata Shipman Maternal Grandfather Edward Deshpande Maternal Half-Sister Other Mother Thelma Irvingo Alive Mother's Sister Inez Deshpande Social History Tobacco Use Types Packs/Day Years Used Date Smoking Tobacco: Former Cigarettes 0.1 1 0 04/12/2015 - 04/12/2016 Smokeless Tobacco: Never Tobacco Cessation:Counseling Given: Not Answered Comments:social smoker for 1 yr [facility] Utilities Answer Date Recorded In the past 12 months has e [employer], gas, oil, or water company threatened to shut off services in your home? No 08/13/2024 Humiliation, Afraid, Rape, and Kick questionnair e [...] by your partner or ex-partner? No 02/22/2024 Social Connection and Isolation Panel Answer Date Recorded In a typical week, how many times do you talk on the phone with family, friends, or neighbors? More than three times a week 08/13/2024 How often do you get togethe r with friends or relatives? More than three times a week 08/13/2024 How often do you attend chur ch or latter day services? Never 08/13/2024 Do you belong to any clubs o r organizations such as worship groups, unions, fraternal or athletic groups, or school groups? No 08/13/2024 How often do you attend meet ings of the clubs or organizations you belong to? Never 08/13/2024 Are you , , di vorced, , never , or living with a partner? 08/13/2024 AUDIT-C Answer Date Recorded Q1: How often do you have a drink containing alcohol? Never 09/14/2024 Q2: How many drinks containi ng alcohol do you have on a typical day when you are drinking? Patient does not drink Q3: How often do you have si x or more drinks on one occasion? Never 09/14/2024 Overall Financial Resource Strain (CARDIA) Answe r Date Recorded How hard is it for you to pa y for the very basics like food, housing, medical care, and heating? Not hard at all 08/13/2024 PHQ-2 Answer Date Recorded PHQ-2 Total Score (If total score is 3 or more points, staff should administer the PHQ-9) 0 01/31/2025 Hunger Vital Sign Answer Date Recorded Within the past 12 months, y ou worried that your food would run out before you got the money to buy more. Never true 08/14/19 25 Within the past 12 months, t he food you bought just didn't last and you didn't have money to get more. Never true 08/13/2024 PRAPARE - Transportation Answer Date Re corded In the past 12 months, has l ack of transportation kept you from medical appointments or from getting medications? No 07/2024 In the past 12 months, has l ack of transportation kept you from meetings, work, or from getting things needed for daily living? No 08/13/2024 [place] Depression Scale Answer Date Recorded [place] Depression Scale Total 18 10/20/2024 The thought of harming myself has occurred to me . Sometimes 10/20/2024 PHQ-9 Answer Date Recorded PHQ-9 Total Score 0 05/31/2024 Housing Stability Vital Sign Answer Aguila e Recorded In the last 12 months, was t here a time when you were not able to pay the mortgage or rent on time? No 08/13/2024 In the past 12 months, how m any times have you moved where you were living? 1 08/13/2024 At any time in the past [address] [facility], were you homeless or living in a alf (including now)? No 08/13/2024 Personal Safety Answer Date Recorded Have you ever been in or are you currently in a harmful physical or emotional relationship or is someone making you feel afraid or unsafe? Denies 08/10/2024 Comments Unknown Sex and Gender Information Value Date Recorded Sex Assigned at Not on file Legal Sex Female 9:05 AM VP [employer]ODUCT MANAGEMENT Gender Identity Female 12/18/2021 2:13 PM CDT Sexual Orientation Not on file Obstetrics History Para Term AB IAB SAB Ectopic Multiple Livin g Live Births 1 1 1 0 0 0 0 0 0 1 1 Date Outcome GA Total Labor Labor/2nd/3rd Weight Sex Type Anes PTL Mara A1 A5 Name Clin 2024 Term 37w 2d 0h 33m 0h 25m/0h 08m 2.27 kg (5 lb 0.1 oz) F Vagina l Epidur al N Livin g 3 6 Rosem Elizabeth Taylor MD Complications:None Delivery Location:[facility] ([facility]) Last Filed Vital Signs Vital Sign Reading Time Taken Comments Blood Pressure 110/70 01/31/2025 4:01 PM CDT Pulse 85 01/31/2025 4:01 PM CDT Temperature 36.1 C (96.9 F) 01/31/2025 4:01 PM CDT Respiratory Rate 18 01/31/2025 4:01 PM CDT Oxygen Saturation 98% 01/31/2025 4:01 PM CDT Inhaled Oxygen Concentration - - Weight 129.7 kg (286 lb) 01/31/2025 4:01 PM CDT Height 157.5 cm (5' 2) 01/31/2025 4:01 PM CDT Body Mass Index 52.31 01/31/2025 4:01 PM CDT Plan of Treatment Health Maintenance Due Date Last Done Comments Pneumococcal vaccine <65 (1 of 2 - PCV) 02/12/2015 Foot Exam 03/29/2024 03/29/2023, 03/12, 01/22/2022 Regular Well Visit/Exam 18-64 04/25/2025 04/25/2024, 03/29/2023, 09/21/2022, Additional history exists Hemoglobin A1C 04/26/2025 10/24/2024, 04/0 07/2024, 04/19/2024, Additional history exists Dilated Eye Exam 05/23/2025 05/23/2024, 09/18/2022 Albumin Creatinine Ratio, Urine 10/24/2025 10/24/2024, 11/19/2023, 04/01/2022 Lipid Panel 10/24/2025 10/24/2024, 04/0 11/2024, 01/12/2024, Additional history exists eGFR 10/24/2025 10/24/2024, 05/0 04/2024, 08/07/2024, Additional history exists Covid-19 Vaccine ( season) 2026 04/13/2022, 03/25/2021, 05/11/2020, Additional history exists Postponed from 12/11/2024 (Patient declined, but will receive in the future) Depression Screening 01/31/2026 01/31/2025, 10/24/2024, 10/20/2024, Additional history exists Cervical Cancer Screening-Pap Smear 02/21/2027 02/22/2024, 08/21/2022 Cervical Cancer Screening 02/21/2027 02/22/2024, 03/2023 DTaP/Tdap/Td Vaccine (8 - Td or Tdap) 06/06/2034 06/06/2024, 11/25/2010, 10/12/2001, Additional history exists Hepatitis B Screening Completed 1996 , 1996, 1996 HPV Vaccines Completed 06/25/2011, 01/11, 11/25/2010 Hepatitis C Screening Completed 02/22/2024, 024 Varicella Vaccines Completed 08/14/2024, 1 , 10/12/2001 Influenza Vaccine Completed 01/31/2025, , 01/26/2023, Additional history exists Procedures Procedure Name Priority Date/Time Associated Diagnosis Comments EGFR Routine 10/24/2024 11:44 AM CDT Controlled type 2 diabetes mellitus without complication, without long-term current use of insulin (HCC) HEMOGLOBIN A1C Routine 10/24/2024 11:44 AM CDT Controlled type 2 diabetes mellitus without complication, without long-term current use of insulin (HCC) LIPID PANEL Routine 10/24/2024 11:44 AM CDT Controlled type 2 diabetes mellitus without complication, without long-term current use of insulin (HCC) ALBUMIN CREATININE RATIO, URINE Routine 10/24/2024 11:44 AM CDT Controlled type 2 diabetes mellitus without complication, without long-term current use of insulin (HCC) HEPATITIS C ANTIBODY Routine 02/22/2024 11:18 AM VP [employer]ODUCT MANAGEMENT Encounter for supervision of normal first in first trimester PAP, REFLEX HPV Routine 02/22/2024 11:10 AM VP PRODUCT MANAGEMENT Encounter for supervision of normal first in first trimester HM DIABETES EYE EXAM Routine 09/18/2022 9:09 AM CDT from Last 3 Months or Most Recently Relevant to Health Maintenance Results * eGFR (10/24/2024 11:44 AM CDT) eGFR >90 >=60 mL/min/1. 73 m2 Comment: [...] Current interpretive data was last reviewed 2021. Blood 10/24/2024 11:4 4 AM CDT 10/24/2024 8:10 PM CDT Ai Weaver NP LAB BLOOD ORDERABLES Final Re sult [facility] [address] Department [place] [address] * Albumin Creatinine Ratio, Urine (10/24/2024 11:44 AM CDT) Albumin Ur <12.0 mg/L Comment: Interpretive Data No reference range established. Current interpretive data was last revised 2018. Creatinine Ur 105.6 mg/dL JOSÉ MIGUEL [place] Comment: Interpretive Data No reference range established. Current interpretive data was last revised 2018. Albumin Creatinine Ratio, Ur <11 1 - 29 mg/g JOS[facility] MIGUEL [place] Urine 10/24/2024 11:4 4 AM CDT 10/24/2024 7:44 PM CDT us Ai A. Weaver RETAIL SELLING FLOOR LEADER LAB URINE ORDERABLES Final Re sult Performing Organization Address [place] [facility] [place] [place] [address] [address] Department [place] [address] * (ABNORMAL) Hemoglobin A1c (10/24/2024 11:44 AM CDT) Hgb A1C 6.0(H) 4.0 - 5.6 % Estimated Average Glucose 126 mg/dL JOSÉ MIGUEL [place] Comment: The ADA recommends reporting an estimated Average Glucose (eAG) with all Hemoglobin A1c results using the equation derived from a study of 507 normal and diabetic adults. Minority populations were underrepresented and children were not included. (Diabetes Care 31:0362-5199, 2008). The eAG is not equivalent to a fasting glucose. Blood 10/24/2024 11:4 4 AM CDT 10/24/2024 7:44 PM CDT Ai Weaver RETAIL SELLING FLOOR LEADER LAB BLOOD ORDERABLES Final Re sult Performing Organization Address [facility] de Phone Number J[facility] [place]IG[place] [place] [id number] [address] [place] [address] * (ABNORMAL) Lipid panel (10/24/2024 11:44 AM CDT) Cholesterol 216(H) 30 - 199 mg/dL Comment: Interpretive Data [...] Data was last revised on 2017. Triglycerides 202(H) <=149 mg/dL JOSÉ MIGUEL [place] Comment: Interpretive [...] Data was last revised on 2017. HDL 48 >=40 mg/dL JOSÉ MIGUEL Comment: Interpretive Data [...] was last revised on 2017. LDL, calculated 132(H) <=129 mg/dL JOS[facility] MIGUEL Comment: Interpretive Data [...] NCEP Expert Panel. Circulation 2004;110:227 3. Clemente Ho al. SONIDO Cardiol. 2020 August 10;5(5):540-548. doi: 10.1001/jamacardio.2020.0013 Current Interpretive Data was last revised on 2023. Non-HDL Cholesterol 168 mg/dL JOSÉ MIGUEL Comment: Interpretive Data Ages [...] last revised on 2017. Chol/HDL ratio 4 [facility] Blood 10/24/2024 11:4 4 AM CDT 10/24/2024 7:44 PM CDT Ai Weaver NP LAB BLOOD ORDERABLES Final Re sult Performing Organization Address [facility]/ZIP Co de Phone Number JOS[facility] MIGUEL [address] Department [place] [address] * Hepatitis C antibody Blood (02/22/2024 11:18 AM VP PRODUCT MANAGEMENT) Pathologist [facility] Hep C Ab Nonreactive Nonreactive Comment: Interpretive [...] last revised on 2019. Testing performed by: [facility], [address] [place] [address]., [id number] Blood 02/22/2024 11:1 8 AM VP PRODUCT MANAGEMENT 02/22/2024 6:27 PM VP PRODUCT MANAGEMENT Misti Osborn MD LAB MICROBIOLOGY - GENERAL ORDERABLES Final Result Performing Organization Address City/[facility]/ZIP Co de Phone Number [facility] [address] [facility] Department [place] [address] * Pap, reflex HPV (02/22/2024 11:10 AM VP PRODUCT MANAGEMENT) [facility] CLINICAL INFORMATION: [facility] DiagnosticsDavid Myers Comment: LMP Martha Domonique Myers Comment:10/18/2023 Previous Pap Martha Myers Comment:NONE GIVEN Prev. Bx Martha PrescottDavid Myers Comment:NONE GIVEN SOURCE: Martha GenieDavid Myers Comment:Cervix, Endocervix Pap, specimen adequacy Martha Myers Comment: Satisfactory for evaluation. Endocervical/transformation zone component present. HPV interp Martha Myers Comment: Cytology Results: Negative for intraepithelial lesion or malignancy. COMMENTS Martha GenieDavid Myers Comment: This Pap test has been evaluated with computer assisted technology. Building Illuminating Engineer Joe st PrescottDavid dougherty Comment: MMD, CT(ASCP) CT Screening Location: [address] [address] Comment Martha GenieDavid Myers Comment: EXPLANATORY NOTE: The Pap is [...] information. Thin prep 02/22/2024 11:1 0 AM VP PRODUCT MANAGEMENT 02/23/2024 4:26 AM VP PRODUCT MANAGEMENT Misti Osborn MD LAB CYTOLOGY ORDERA BLES Final Result [address] [place] [address] * DIABETES EYE EXAM (09/18/2022 9:09 AM CDT) Historical Provider HEALTH MAINTENANCE Final Result from Last 3 Months or Most Recently Relevant to Health Maintenance Insurance [facility] Advance Directives For more information, please contact: [phone] * Full Code (Latest Code Status on File) Date Activated Date Inactivated Comments 08/12/2024 4:34 PM 08/14/2024 9:46 PM * Full Code Date Activated Date Inactivated Comments 08/10/2024 10:45 PM 08/12/2024 4:34 PM Full CPR in c ase of cardiopulmonary arrest * Full Code Date Activated Date Inactivated Comments 07/18/2024 5:43 PM 07/19/2024 8:30 PM Full CPR in ca se of cardiopulmonary arrest Care Teams Cloth Shrinking Supervisor Relationship Specialty Start Date End Date Ai Weaver NP [address] [facility] [address] [place] [address] PCP - General Family Medicine 04/25/24 Kwaku Benitez MD [address] [place] [id number] Family Practice 11/03/21 Thao Dillon MD [address] [address] Consulting Physician Obstetrics and Gynecology 04/25/24
--- OUTSIDE RECORDS SUMMARY | 2025-02-13 21:23 | XMS_ITS | Clinical Summary ---
Author Organization [facility] Address [address] [place] [address] [place] [address] Care Team Providers Care Assistant Golf Course Superintendent Name Role Phone Unavailable Primary Care Provider Unavailabl e Medications insulin glargine (LANTUS) 100 unit/mL pen syringe Inject 40 Units by subcutaneous injection daily at bedtime. 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
--- OUTSIDE RECORDS SUMMARY | 2025-02-13 21:23 | XMS_ITS | Clinical Summary ---
Author Organization [facility] My Team Zone Address [address] [facility] [place] [address] Care Team Providers Care Advanced Practice Professional Name Role Phone Tanya Weaver RN Primary Care Provider Unavaila ble Source Comments [facility],non-owned Affiliates and Associated Physician Practices is amultiple site organization consisting of ambulatory clinics and hospital sitesin [place], [place], [place] and [place]. This disclosure is being madepursuant to the Care Everywhere program and may not contain all information available regarding this patient. Last updated 17.[facility] My Team Zone Allergies Active Allergy Reactions Criticality Noted Date Comments Nsaids Other Low 07/21/2021 Gastric sleeve. Pt to avoid NSAIDS Medications * This document contains information received from the source organization and may not represent a complete record from that organization. * Be aware that medications may not be up to date on this document. Alwaysverify current medications with the patient. Multiple Vitamins-Minera ls (CENTRUM SILVER PO) Take 1 tablet by mouth once daily Active Calcium Citrate-Vitamin D (CALCIUM CITRATE + PO) Take by mouth 2 times daily Active busPIRone (Buspar) 5 MG tabletIndicatio ns:Mood changes Take 1 (one) tablet by mouth 2 times daily Active Iron-Vitamin C (VITRON-C) 65-125 MG TABSIndications :Mood changes Take 1 tablet by mouth once daily Active escitalopram (Lexapro) 5 MG tablet Take 1 (one) tablet by mouth once daily Active vitamin B-12 (Cyanocobalamin ) 1000 MCG tablet Take 1 (one) tablet by mouth once daily Active Cholecalciferol 50 MCG (2000 UT) Take 2,000 Units by mouth once daily Active vitamin D, ergocalciferol, (Drisdol) 1.25 MG (15927 UT) capsuleIndicati ons:Vitamin D Deficiency Take 1 (one) capsule by mouth every 7 days Reasons: Vitamin D Deficiency 4 capsule 3 4 Active Additional Information Patient not taking.Reported on 03/31/2024 omeprazole (PriLOSEC) 20 MG capsule TAKE 1 CAPSULE BY MOUTH EVERY DAY 30 capsule 11 4 Active Active Problems Problem Noted Date Diagnosed Date Morbid obesity 08/12/2020 Binge eating disorder Preop examination Estimated Date of Delivery Comme nts Yes 09/01/2024 Resolved Problems Problem Noted Date Diagnosed Date Resolved Date Dehydration 08/23/2020 09/06/2020 Immunizations Immunization Administration Dates Next Due Covid Moderna primary monovalent 12+ yr 0.5mL Family History [...] Assigned at Female 08/02/2020 8:51 AM CDT Legal Sex Female 11:25 AM CDT Gender Identity Female 01/13/2024 4:18 [...] 124.7 kg (275 lb) 03/31/2024 10:59 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 [place] per pt Height 158 cm (5' 2.21) 03/31/2024 10:59 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 [place] Body Mass Index 49.97 03/31/2024 10:59 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 [place] [place] Plan of Treatment Health Maintenance Due Date Last Done Comments HIV SCREENING 02/12/2011 HEPATITIS C SCREENING 02/08/2014 DTAP/TDAP/TD VACCINES (1 - Tdap) 02/12/2015 HEPATITIS B VACCINE (1 of 3 - 19+ 3-dose series) 02/12/2015 PNEUMOCOCCAL VACCINE (1 of 2 - PCV) 02/12/2015 PAP SMEAR 02/12/2017 HPV VACCINE (1 - 3-dose SCDM series) 02/12/2023 DEPRESSION SCREENING 04/12/2024 10/29/2023, 07/19/19 22 OB-ONE HOUR GLUCOSE 05/26/2024 OB-TDAP CURRENT 06/02/2024 11/25/2010 OB-GROUP B STREP SCREEN 07/28/2024 COVID-19 VACCINE (2 - 2024- season) 2024 04/13/2020 INFLUENZA VACCINE (#1) 2024 , 01/26/2023, 04/13/2022, Additional history exists ZOSTER VACCINE (1 of 2) 02/12/2046 Respiratory Syncytial Virus (RSV) Vaccine Pt: or over 60 yrs (1 - 1-dose 75+ series) 02/12/2071 HIB VACCINE Aged Out No longer eligi ble based on patient's age to complete this topic MENINGOCOCCAL (Group B) VACCINE SHARED DECISION-MAKING Aged Out No longer eligible based on patient's age to complete this topic MENINGOCOCCAL GROUPS A/C/Y/W VACCINE Aged Out No longer eligible based on patient's age to complete this topic Medical Devices Implanted Type Area Digital Asset Manager Device Identifier Shelf Expiration Date Model / Serial / Lot Kit Tissue Clsr Duo Tssl 1 Prefl Syr Implanted:Qty: 1 on 08/12/2020 by Lora Bains MD at [facility] N/A: [employer] 02/09/2022 [id number] / / [id number] Insurance [facility] Advance Directives * Full Code (Latest Code Status on File) Date Activated Date Inactivated Comments 08/12/2020 1:02 PM 08/13/2020 3:44 PM Care Teams Advanced Practice Professional Relationship Specialty Start Date End Date Tanya Weaver RN PCP - General 03/31/24
[2025-02-13 21:24] VITALS: BP 130/95; PULSE 87; RESP 18; O2SAT 100
--- NOTE | 2025-02-13 21:51 | ED.GENADULT ---
HPI - General Adult General Chief complaint: Psychiatric Symptoms Stated complaint: mental health crisis, SI Time Seen by Provider: 02/13/25 21:38 History of Present Illness HPI narrative: This is a 30-year-old female history anxiety depression presenting for suicidal ideation. Patient says over last 2 weeks she has been having thoughts or fantasies of cutting herself. She states her not actually do it. She says her depression is gotten worse and she had a baby 6 months ago. Baby is currently at home with grandmother and is doing well. Patient does not want to hurt her trialed. She has been taking her medication as directed. She has been seen a psychiatrist. She denies use of drugs or alcohol. She does not have access to a firearm. Patient says the trigger for her current situation is partly because she had a miscarriage last year and she has developed some nausea and is concerned that she may be again. Related Data Home Medications ?Medication ?Instructions ?Recorded ?Confirmed ?Last Taken ?Type lamotrigine 25 mg tablet (Lamictal) 50 mg PO DAILY 06/10/21 06/10/21 Unknown History trazodone 50 mg tablet 50 mg PO HS PRN Insomnia 06/10/21 Unknown History Allergies Allergy/AdvReac Type Severity Reaction Status Date / Time No Known Allergies Allergy Verified 01/20/22 16:53 [facility] Past Medical History Medical History Type 2 diabetes mellitus Surgical History Surgical History H/O gastric sleeve Social History Social History Alcohol intake: never Substance use: never Substance use type: does not use Gender identity (if verbalized by the patient): Female Exam Narrative: APPEARANCE: No apparent distress. Head: atraumatic. EYES: EOMI, NOSE: Atraumatic NECK: Trachea midline Cardio: regular rate rhythm RESPIRATORY: No increased rate of breathing CTAB Abdominal exam: soft nontender guarding rebound MUSCULOSKELETAl: No obvious deformities NEURO: Alert. Moving 4/4 extremities SKIN:: Warm, dry. Normal color PSYCHIATRIC: Normal affect Course Vital Signs Vital signs: Vital Signs Pulse Rate 87 02/13/25 21:24 Respiratory Rate 18 02/13/25 21:24 Blood Pressure 130/95 H 02/13/25 21:24 Pulse Oximetry 100 02/13/25 21:24 Oxygen Delivery Room Air 02/13/25 21:24 Pulse Rate 87 02/13/25 21:24 Respiratory Rate 18 02/13/25 21:24 Blood Pressure 130/95 H 02/13/25 21:24 Pulse Oximetry 100 02/13/25 21:24 Oxygen Delivery Room Air 02/13/25 21:24 Medical Decision Making MDM Narrative Medical decision making narrative: -Course: 30-year-old female presenting with thoughts of self-harm. No plan. No use drugs/alcohol or access to a firearm. Screening lab work obtained. Patient is medically cleared for crisis evaluation. Patient was evaluated by the crisis team has been safety contract. I re-evaluated her and she is feeling better and they are comfortable going home. They did ask me to adjust there psychiatric medications which I am not comfortable doing. They can follow up with her psychiatrist for further management. Given return for return precautions for thoughts harming herself or others. Vital Signs Vital Signs: Vital Signs Pulse Rate 87 02/13/25 21:24 Respiratory Rate 18 02/13/25 21:24 Blood Pressure 130/95 H 02/13/25 21:24 Pulse Oximetry 100 02/13/25 21:24 Oxygen Delivery Room Air 02/13/25 21:24 Pulse Rate 87 02/13/25 21:24 Respiratory Rate 18 02/13/25 21:24 Blood Pressure 130/95 H 02/13/25 21:24 Pulse Oximetry 100 02/13/25 21:24 Oxygen Delivery Room Air 02/13/25 21:24 Lab Data 02/13/25 21:50 02/13/25 21:50 Labs: Lab Results 02/13/25 02/13/25 Range/Units 21:50 22:34 WBC 11.0 H (4.5-10.0) K/mm3 RBC 4.52 (4.2-5.4) M/mm3 Hgb 11.1 L (12.0-15.0) g/dL Hct 37.0 (37.0-47.0) % MCV 81.9 (80-100) fl MCH 24.6 L (26-34) pg MCHC 30.0 L (32-36) g/dl RDW 14.0 (11.5-14.5) % Plt Count 308 (150-375) k/mm3 MPV 9.7 (7.4-10.4) fl Immature Gran % (Auto) 0.5 (0-0.5) % Neut % (Auto) 62.2 (45.5-73.1) % Lymph % (Auto) 29.1 (18.3-44.2) % Stewart % (Auto) 7.7 (2.6-8.5) % Eos % (Auto) 0.1 (0-4.4) % Baso % (Auto) 0.4 (0.2-1.2) % Lymph # (Auto) 3.20 (0.9-3.2) K/mm3 Stewart # (Auto) 0.8 H (0.1-0.6) K/mm3 Eos # (Auto) 0.0 (0-0.3) K/mm3 Baso # (Auto) 0.0 (0.0-0.1) K/mm3 Abs Immat Gran (auto) 0.05 H (0.00-0.031) K/mm3 Absolute Neuts (auto) 6.8 H (1.3-6.7) K/mm3 Absolute Nucleated RBC 0.000 (0.0-0.012) K/mm3 Nucleated RBC % 0.0 (0.0-0.2) % Sodium 137 (137-145) mmol/L Potassium 4.2 (3.4-5.0) mmol/L Chloride 103 (98-107) mmol/L Carbon Dioxide 25 (22-30) mmol/L Anion Gap 9 (4-12) mmol/L BUN 19 H (7-17) mg/dL Creatinine 0.89 (0.7-1.0) mg/dL Estim Creat Clear Calc 106 ml/min Estimated GFR > 60 (59 - ) Glucose 97 (65-110) mg/dL Calcium 9.3 (8.4-10.2) mg/dL Total Bilirubin 0.3 (0.2-1.3) mg/dL AST 30 (14-36) U/L ALT 28 (6-35) U/L Alkaline Phosphatase 96 (38-126) U/L Total Protein 8.5 H (6.3-8.2) g/dL Albumin 4.7 (3.5-5.1) g/dL TSH 3.460 (0.465-4.680) uIU/mL Urine Color Dark yellow (Yellow) Urine Appearance Clear (Clear) Urine pH 5.5 (5.0-9.0) Ur Specific [place] 1.022 (1.001-1.035) Urine Protein Negative (Negative) mg/dL Urine Glucose (UA) Negative (Negative) mg/dL Urine Ketones Trace H (Negative) mg/dL Ur Blood (Man) Negative (Negative) Urine Nitrate Negative (Negative) Urine Bilirubin Negative (Negative) Urine Urobilinogen 0.2 (<2.0) mg/dL Leukocyte Esterase Rfl Negative (Negative) FRANCISCO/UL POC Urine HCG, Qual Negative (Negative) Salicylates < 1.0 L (2-20) mg/dL Urine Opiates Screen Negative (Negative) Urine Methadone Screen Negative (Negative) Acetaminophen < 10 L (10-30) ug/mL Ur Barbiturates Screen Negative (Negative) Ur Phencyclidine Scrn Negative (Negative) Ur Amphetamine Screen Negative (Negative) U Benzodiazepines Scrn Negative (Negative) Urine Cocaine Screen Negative (Negative) U Cannabinoids Screen Negative (Negative) Ethyl Alcohol < 10 (<10) mg/dL Discharge Plan Discharge Clinical Impression: Depression Patient Disposition: Home Condition: Stable Instructions: Antibiotic Form, Depression (ED) Additional Instructions: You seen emergency department for suicidal ideation. You have been cleared by the crisis team. If you develop thoughts of harming herself or someone you love please return to the ED immediately for re-evaluation. Otherwise please follow-up with your psychiatrist. Patient Language: Turkish Prescriptions: No Action trazodone 50 mg Tablet 50 mg PO HS PRN (Reason: Insomnia) lamotrigine [Lamictal] 25 mg Tablet 50 mg PO DAILY metoclopramide HCl 10 mg tablet 10 mg PO Q6H PRN (Reason: nausea and vomiting) Qty: 14 0RF Follow-up/Referrals: Meg,LAURY ByrdP [Primary Care Provider, Unknown]
[2025-02-13 22:02] LABS: Hematocrit 37.0 % (37.0-47.0); Hemoglobin 11.1 g/dL (12.0-15.0); Immature Granulocyte Percent A 0.5 % (0-0.5); Lymphocytes Absolute Auto 3.20 K/mm3 (0.9-3.2); Mean Corpuscular HGB Conc 30.0 g/dl (32-36); Mean Corpuscular Hemoglobin 24.6 pg (26-34); Mean Corpuscular Volume 81.9 fl (80-100); Nucleated Red Blood Cells Absolute Auto 0.000 K/mm3 (0.0-0.012); Nucleated Red Blood Cells Perc 0.0 % (0.0-0.2); Platelet Count Result 308 k/mm3 (150-375); Red Blood Count 4.52 M/mm3 (4.2-5.4); White Blood Count 11.0 K/mm3 (4.5-10.0)
[2025-02-13 22:07] LABS: Appearance Urine Clear (Clear); Glucose Urine UA Negative (Negative); Leukocyte Esterase Ur Negative LEU/UL (Negative); Nitrate Urine Negative (Negative); Specific Grav Ur 1.022 (1.001-1.035)
[2025-02-13 22:08] LABS: Add Urine Microscopic? NO
[2025-02-13 22:11] LABS: Alanine Aminotransferase 28 U/L (6-35); Albumin Level 4.7 g/dL (3.5-5.1); Alkaline Phosphatase 96 U/L (38-126); Anion Gap 9 mmol/L (4-12); Aspartate Amino Transferase 30 U/L (14-36); Bilirubin,Total 0.3 mg/dL (0.2-1.3); Blood Urea Nitrogen 19 mg/dL (7-17); Calcium 9.3 mg/dL (8.4-10.2); Carbon Dioxide 25 mmol/L (22-30); Chloride 103 mmol/L (98-107); Estimated CRCL calculation 106 ml/min; Estimated Glomerular Filt Rate > 60; Glucose 97 mg/dL (65-110); Potassium 4.2 mmol/L (3.4-5.0); Sodium 137 mmol/L (137-145); Total Protein 8.5 g/dL (6.3-8.2)
[2025-02-13 22:22] LABS: Cannabinoid Screen Urine Negative (Negative)
[2025-02-13 22:36] LABS: BEDSIDEPREGUCG Negative (Negative)
[2025-02-13 22:42] LABS: Thyroid Stimulating Hormone 3.460 uIU/mL (0.465-4.680)
[2025-02-13 23:06] LABS: Acetaminophen < 10 ug/mL (10-30); Salicylate < 1.0 mg/dL (2-20)
== END 2025-02-14 04:15 | disposition home or self-care (01) ==
PROVIDERS: Emergency Provider Emergency Medicine; PCP Nurse Practitioner Family
DX: F32.A Depression, unspecified (principal); E11.9 Type 2 diabetes mellitus without complications; Z98.84 Bariatric surgery status
CPT/HCPCS: 36415; 80053; 80143; 80179; 80307; 81003; 81025; 82077; 84443; 85025; 99283